=== PATIENT | female | born 1940 | race Caucasian/White ===

== ENCOUNTER 2021-11-09 11:58 | Observation (INO) ==
[2021-11-09 12:59] LABS: Basophils # (auto) 0.03 K/uL (0-0.2); Basophils % (auto) 0.4 %; Eosinophils # (auto) 0.23 K/uL (0-0.5); Eosinophils % (auto) 3.3 %; Hematocrit (blood only) 41.9 % (37-47); Hemoglobin 14.9 g/dL (12.0-16.0); Immature Granulocytes # (auto) 0.07 K/uL (0.00-0.02); Lymphocytes # (auto) 2.83 K/uL (1.2-3.4); Lymphocytes % (auto) 41.1 %; Mean Corpuscular Hemoglobin 32.9 pg (25-34); Mean Corpuscular Hgb Conc 35.6 g/dL (32-36); Mean Corpuscular Volume 92.5 fL (80-100); Mean Platelet Volume 9.7 fL (7.4-10.4); Monocytes # (auto) 0.66 K/uL (0.11-0.59); Monocytes % (auto) 9.6 %; Neutrophils # (auto) 3.06 K/uL (1.4-6.5); Neutrophils % (auto) 44.6 %; Platelet Count 182 K/uL (130-400); RDW Coefficient of Variation 12.4 % (11.5-14.5); RDW Standard Deviation 42.1 fL (36.4-46.3); Red Blood Count 4.53 M/uL (4.2-5.4); White Blood Count 6.88 K/uL (4.8-10.8)
[2021-11-09 13:10] LABS: Partial Thromboplastin Ratio 0.9; Partial Thromboplastin Time 24.5 Seconds (21.0-31.0); Prothrombin Time 10.2 Seconds (9.0-12.0)
[2021-11-09 13:16] LABS: Alanine Aminotransferase 44 (12-78); Albumin Level 3.8 gm/dl (3.4-5.0); Aspartate Aminotransferase 31 U/L (15-37); Blood Urea Nitrogen 16 mg/dl (7-18); Calcium 10.2 mg/dl (8.5-10.1); Carbon Dioxide 26 mmol/L (21-32); Chloride 103 mmol/L (98-107); Creatinine Clr Calc Pharmacy 38.5 ml/min; Est GFR (Non-African American) 63.8 ml/min; Glucose 141 mg/dl (70-99); Magnesium 1.8 mg/dl (1.8-2.4); Potassium 3.3 mmol/L (3.5-5.1); Sodium 137 mmol/L (136-145)
--- NOTE | 2021-11-09 13:19 | XRay Report ---
XR chest 1V portable CLINICAL HISTORY: Stroke Like Symptoms TECHNIQUE: Single frontal radiograph of the chest was obtained. Comparison: None available at the time of this dictation. FINDINGS: No lines and tubes are seen. The aorta is tortuous. The remainder of the cardiomediastinal silhouette is unremarkable. The lungs are clear. No evidence of pleural effusion or pneumothorax. IMPRESSION: No acute chest disease. ACT 112: Negative or not required by law. Electronically signed by: Iron Julio M.D. 11/09/2021 1:17 PM
[2021-11-09 13:21] LABS: Albumin Globulin Ratio 0.9 (0.9-2); Alkaline Phosphatase 46 U/L (45-117); Bilirubin,Total 0.2 mg/dl (0.2-1); Globulin 4.2 gm/dl (2.5-4.0); Troponin I < 0.015 ng/ml (0-0.045)
[2021-11-09 13:49] LABS: Influenza A virus by PCR Negative (Neg); Influenza B virus by PCR Negative (Neg); RSV by PCR Negative (Neg); SARS CoV2 RNA(COVID-19) InHosp NEGATIVE (Negative)
[2021-11-09] MEDS ORDERED: OPTIRAY 320 125ml IV ONE (13:56)
--- NOTE | 2021-11-09 14:31 | CT Scan Report ---
CT angio head w con, CT head/brain wo con, CT angio neck with con CLINICAL HISTORY: Stroke Like Symptoms numbness on left side of face starting yesterday TECHNIQUE: Contiguous axial CT images of the head were acquired from the base of the skull to the rissa porfirio without intravenous contrast administration. CT angiography of the head and neck was performed f ollowing intravenous administration of iodinated contrast. Coronal and sagittal MIPS were obtained fr om the axial data set and were submitted for review. Automated dose lowering techniques and/or adjus tment according to patient size were utilized for this examination. All measurements were calculated based on NASCET criteria. Comparison: None available at the time of this dictation. FINDINGS: CT head: There is no acute intracranial hemorrhage or evidence of acute territorial infarction. No sh ift of the midline structures, mass effect, or extra-axial abnormalities are shown. There is an ill-d efined hypodensity in the right frontoparietal white matter. CTA Neck: A 3 vessel aortic arch is shown. There is no significant atherosclerotic plaque in the aor tic arch or the origins of the innominate, left common carotid, and left subclavian arteries. The c ommon carotid, external carotid, cervical segments of the internal carotid arteries, and the cervical segments of the vertebral arteries are patent without hemodynamically significant stenosis. The left vertebral artery is dominant. Lungs and soft tissues are unremarkable. CTA Head: The anterior and posterior cerebral circulations are patent. No hemodynamically significan t stenosis, aneurysm, dissection, or arteriovenous malformation is shown. Atherosclerotic disease is noted. IMPRESSION: 1. There is an ill-defined right hypodensity in the supraventricular white matter without involvemen t of the overlying cortex. There is no corresponding stenosis or interruption in the major intracrani al arteries, although occlusion of a small regional superior MCA division branch cannot be excluded. This is favored to represent chronic white matter changes, although a small lacunar infarct cannot be excluded. If there is clinical concern, MRI can be performed. 2. No occlusion, hemodynamically significant stenosis, or dissection in the major cervical arteries. Assessment of stenosis of the internal carotid arteries is based on NASCET criteria. ACT 112: Negative or not required by law. Electronically signed by: Iron Julio M.D. 11/09/2021 2:30 PM
--- NOTE | 2021-11-09 15:30 | History & Physical Report ---
Date of Service November 09, 2021 Assessment & Plan (1) CVA (cerebral vascular accident): Plan: Question of supraventricular hypodensity in the right white matter on CT, concerning for MCA distribution CVA Will admit under stroke protocol MRI of the brain 2D echo Continue low-dose aspirin. If MRI does infectious CVA, will need to add Plavix Check fasting lipids. Patient stated allergy to statins, may be limited in useful intervention if elevated PT/OT We will ask neurology to evaluate for further recommendations (2) Dyslipidemia: Plan: As noted above, will check fasting lipids. Noted intolerance to statins. Also note allergy to gemfibrozil. (3) GERD (gastroesophageal reflux disease): Plan: Noted in history, not on medication. Patient with dysphagia issues, will start pantoprazole 40 mg daily empirically Will ask speech therapy to evaluate Consider GI consultation (4) Hypertension: Plan: Permissive hypertension for the next 24 hours. We will hold carvedilol, HCTZ and amlodipine Okay to reintroduce these in the morning of 11/10 if necessary History of Present Illness Chief Complaint: Left-sided numbness Primary Care Provider: Clara Sarkar DO This is an 81-year-old female with past medical history of sacroiliitis, hypertension, GERD, and dyslipidemia that presents with left-sided numbness. Patient is a decent historian about somewhat limited on details. Patient's daughter is at bedside but she was not aware of complaints until just prior to admission. Patient tells me she was normal when she woke up yesterday. However, not soon after breakfast she started to experience some numbness. This was localized to the left side and involved her forehead and face down her shoulder to her left upper extremity. She also noted issues down her leg as well. She was not specific about exactly what parts were numb or when this resolved but it seems to be much improved since she came to the hospital. She denies any speech difficulties or vision issues. She did note a headache which was in the left temporal region which is also resolved. She noted some ataxia but denies any specific muscle weakness. She also noted some lack of coordination to her left upper extremity which is also resolved. Patient felt the symptoms would resolve and did not make anybody aware of this. She went to bed that night and woke up the next morning with what she perceived was worsening symptoms in her left leg. Her daughter called her early in the morning and the patient disclosed what it happened the day before. The daughter does note that she did not note any speech irregularities during this conversation. At the time my evaluation, the patient seems to be back to baseline, is moving all extremities and has a relatively benign exam. Of note, the patient did note that she had an elevated blood pressure yesterday when she checked on her home cuff but cannot remember exactly what the values were. Her blood pressure here in the emergency room is 160/87. Daughter also mentioned the patient has been having some issues with swallowing. She seems to have some issues initiating the swallow after chewing and this has been going on for several weeks. The symptoms preceded the stroke symptoms as described above. Patient has a habit of holding food and liquids in her mouth and then spitting them out rather than swallowing. Allergies Allergy/AdvReac Type Severity Reaction Status Date / Time doxycycline AdvReac Mild decreased Verified 11/09/21 13:06 urine output escitalopram AdvReac Mild decreased Verified 11/09/21 13:06 urine output prednisone AdvReac Mild feels Verified 11/09/21 13:06 agitated amoxicillin AdvReac upset Verified 11/09/21 13:06 stomach ciprofloxacin [From Cipro] AdvReac Diarrhea Verified 11/09/21 13:06 fluticasone AdvReac Dizziness Verified 11/09/21 13:06 gabapentin AdvReac abdominal Verified 11/09/21 13:06 pain and drowsy gemfibrozil [From Lopid] AdvReac upset Verified 11/09/21 13:06 stomach irbesartan AdvReac Diarrhea Verified 11/09/21 13:06 lisinopril AdvReac hypertension Verified 11/09/21 13:06 and diarrhea meclizine AdvReac Drowsy Verified 08/08/21 14:25 pitavastatin [From Livalo] AdvReac Unknown Verified 08/08/21 14:25 Ebgorot-NVU-UqJ Reductase AdvReac myalgia Verified 08/08/21 14:25 Inhibitor [Ezdafzb-Anq-Jxc Reductase Inhibitor] tizanidine AdvReac nightmares Verified 08/08/21 14:25 tramadol AdvReac insomnia/pr Verified 08/08/21 14:25 uitus trazodone AdvReac Unknown Verified 08/08/21 14:25 Home Medications Medication Instructions Recorded Confirmed Type aspirin 81 mg tablet,delayed 81 mg PO DAILY 08/20/19 11/09/21 History release (Aspirin Low Dose) wazsnwrlrzsk-lpuigitn-zgftib tablet 1 tab PO DAILY 08/20/19 11/09/21 History vitamin B complex (B 1 tab PO DAILY 08/20/19 11/09/21 History Complex-Vitamin B12) magnesium oxide 400 mg PO DAILY cap 09/02/19 11/09/21 History pantoprazole 40 mg tablet,delayed 40 mg PO DAILY #90 tab 03/30/21 11/09/21 Rx release (Protonix) calcium carbonate 600 mg-vitamin 1 tab PO BID #60 tab 05/10/21 11/09/21 Rx D3 10 mcg (400 unit) tablet (Calcium 600 + D(3)) fluticasone propionate 50 1 spray INTNAS DAILY #15.8 ml 07/18/21 11/09/21 Rx mcg/actuation nasal spray,suspension (Flonase Allergy Relief) amlodipine 5 mg tablet 5 mg PO BID #180 tab 07/24/21 11/09/21 Rx lidocaine 4 % topical patch 1 patch TOPICAL Q24H PRN #30 ea 07/24/21 11/09/21 Rx hydrochlorothiazide 12.5 mg tablet 12.5 mg PO DAILY #90 tab 08/20/21 11/09/21 Rx potassium chloride 10 mEq 10 meq PO DAILY #90 cap 08/20/21 11/09/21 Rx capsule,extended release fluticasone 100 mcg-salmeterol 50 1 inh INHALATION BID #180 ea 08/29/21 11/09/21 Rx mcg/dose blistr powdr for inhalation (Advair Diskus) carvedilol 12.5 mg tablet 12.5 mg PO BID #180 tab 10/01/21 11/09/21 Rx alprazolam 0.5 mg tablet 0.25 mg PO HS 11/09/21 11/09/21 History omega-3 acid ethyl esters 1 gram 1 cap PO DAILY 11/09/21 11/09/21 History capsule Past Med/Surg History Medical History Anxiety and depression Arthritis of wrist Chronic kidney disease, stage 3 (moderate) Dyslipidemia GERD (gastroesophageal reflux disease) History of recurrent TIAs Hypertension Insomnia Lumbar facet joint syndrome Lumbar pain with radiation down left leg Mild cognitive impairment Osteopenia Prediabetes Sacroiliitis Spinal stenosis, lumbar region without neurogenic claudication Venous insufficiency (chronic) (peripheral) Surgical History History of carpal tunnel surgery Hx of neck surgery secondary to cervical herniated discs Previous back surgery x3 S/P appendectomy S/P blepharoplasty S/P cholecystectomy Family History Father Myocardial infarction Prostate cancer Coronary heart disease Mother , 76 Stroke, Onset Age: 72 Myocardial infarction, Onset Age: 76 Hypertension Diabetes Brother Cancer Sister , 71 Hodgkins disease Sister Coronary heart disease Brother Diabetes Denies family history of Ovarian cancer Breast cancer Colorectal cancer Social History Smoking Status: Never smoker Second Hand Exposure: No; Hx Alcohol Use: No Hx Substance Use: No Preferred Language: Greenlandic Visual Impairment: Limited Hearing Ability: Normal 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 current occupational status: retired Feels Safe at Home: Yes Childhood Exposure to Second-Hand Smoke: No Diet Comment: low sugar caffeine: No during the past year weight has: remained stable Dental Care, Regularly: No Physical Activity Frequency: Other Seatbelt Use: always Sunscreen Use: Yes Review of Systems Constitutional: no fever, no chills, no weakness, no weight loss and no weight gain Eyes: as per Subjective / HPI Respiratory: no cough, no chest congestion, no dyspnea and no dyspnea on exertion Cardiovascular: no chest pain, no orthopnea, no palpitations, no lightheadedness and no edema Gastrointestinal: as per Subjective / HPI; no abdominal pain, no belching, no heartburn, no nausea, no vomiting, no constipation and no diarrhea/loose stools Genitourinary: no dysuria, no difficulty urinating, no urinary frequency, no urinary hesitancy, no urinary urgency and no flank pain Musculoskeletal: no back pain, no neck pain, no joint pain, no stiffness and no myalgia Integumentary: no rash Neurologic: as per Subjective / HPI, + unsteadiness, + loss of sensation, + lack of coordination and + headache(s); no gait abnormality, no falls, no generalized weakness, no radiating pain, no dizziness, no abnormal speech, no confusion and no memory loss Physical Exam Constitutional: cooperative; no acute distress Neck: trachea midline, no thyromegaly No JVD, no carotid bruit Respiratory: normal respiratory effort Auscultation: lungs clear to auscultation bilaterally; no crackles, no rales, no rhonchi and no wheezes Cardiovascular: Rate/Rhythm: regular rate and regular rhythm Heart Sounds: normal S1 and normal S2 Gastrointestinal (Abdomen): Inspection/Auscultation: abdomen normal to in spection Percussion/Palpation: abdomen soft; abdomen nontender, no guarding, abdomen not rigid and no hepatosplenomegaly Skin: no rashes, warm and dry Neurologic: patellar DTR's 2+ bilat, sensation intact and PERRL, EOMI, accommodation nl, no face palsy, no dysarthria Speech / Cognition: normal speech Results & Data Results & Data ([facility]) Vital Signs (Past 12 Hours) Vital Signs Temp Pulse Pulse Resp BP BP Pulse Ox 11/09/21 14:21 80 15 160/87 H 96 11/09/21 12:23 64 13 163/101 H 95 11/09/21 12:03 36.5 C 64 18 168/85 H 96 Laboratory Results Laboratory Results WBC 6.88 K/uL (4.8-10.8) 11/09/21 12:15 RBC 4.53 M/uL (4.2-5.4) 11/09/21 12:15 Hgb 14.9 g/dL (12.0-16.0) 11/09/21 12:15 Hct 41.9 % (37-47) 11/09/21 12:15 MCV 92.5 fL (80-100) 11/09/21 12:15 MCH 32.9 pg (25-34) 11/09/21 12:15 MCHC 35.6 g/dL (32-36) 11/09/21 12:15 RDW Std Deviation 42.1 fL (36.4-46.3) 11/09/21 12:15 RDW Coeff of Johan 12.4 % (11.5-14.5) 11/09/21 12:15 Plt Count 182 K/uL (130-400) 11/09/21 12:15 MPV 9.7 fL (7.4-10.4) 11/09/21 12:15 Immature Gran % (Auto) 1.0 % 11/09/21 12:15 Neut % (Auto) 44.6 % 11/09/21 12:15 Lymph % (Auto) 41.1 % 11/09/21 12:15 [place] % (Auto) 9.6 % 11/09/21 12:15 Eos % (Auto) 3.3 % 11/09/21 12:15 Baso % (Auto) 0.4 % 11/09/21 12:15 Neut # (Auto) 3.06 K/uL (1.4-6.5) 11/09/21 12:15 Lymph # (Auto) 2.83 K/uL (1.2-3.4) 11/09/21 12:15 [place] # (Auto) 0.66 K/uL (0.11-0.59) H 11/09/21 12:15 Eos # (Auto) 0.23 K/uL (0-0.5) 11/09/21 12:15 Baso # (Auto) 0.03 K/uL (0-0.2) 11/09/21 12:15 Immature Gran # (Auto) 0.07 K/uL (0.00-0.02) H 11/09/21 12:15 PT 10.2 Seconds (9.0-12.0) 11/09/21 12:15 INR 1.0 (0.9-1.1) 11/09/21 12:15 APTT 24.5 Seconds (21.0-31.0) 11/09/21 12:15 PTT Ratio 0.9 11/09/21 12:15 Sodium 137 mmol/L (136-145) 11/09/21 12:15 Potassium 3.3 mmol/L (3.5-5.1) L 11/09/21 12:15 Chloride 103 mmol/L (98-107) 11/09/21 12:15 Carbon Dioxide 26 mmol/L (21-32) 11/09/21 12:15 Anion Gap 8.0 (3-11) 11/09/21 12:15 BUN 16 mg/dl (7-18) 11/09/21 12:15 Creatinine 0.85 mg/dl (0.6-1.2) 11/09/21 12:15 Est Cr Clr Drug Dosing 38.5 ml/min 11/09/21 12:15 Est GFR ( Amer) 74.0 ml/min 11/09/21 12:15 Est GFR (Non-Af Amer) 63.8 ml/min 11/09/21 12:15 BUN/Creatinine Ratio 19.0 (10-20) 11/09/21 12:15 Glucose 141 mg/dl (70-99) H 11/09/21 12:15 POC Glucose 125 mg/dl (70-99) H 11/09/21 12:43 Calcium 10.2 mg/dl (8.5-10.1) H 11/09/21 12:15 Magnesium 1.8 mg/dl (1.8-2.4) 11/09/21 12:15 Total Bilirubin 0.2 mg/dl (0.2-1) 11/09/21 12:15 AST 31 U/L (15-37) 11/09/21 12:15 ALT 44 (12-78) 11/09/21 12:15 Alkaline Phosphatase 46 U/L (45-117) 11/09/21 12:15 Troponin I < 0.015 ng/ml (0-0.045) 11/09/21 12:15 Total Protein 8.0 gm/dl (6.4-8.2) 11/09/21 12:15 Albumin 3.8 gm/dl (3.4-5.0) 11/09/21 12:15 Globulin 4.2 gm/dl (2.5-4.0) H 11/09/21 12:15 Albumin/Globulin Ratio 0.9 (0.9-2) 11/09/21 12:15 SARS-CoV-2 (PCR) NEGATIVE (Negative) 11/09/21 12:56 Influenza Type A (PCR) Negative (Neg) 11/09/21 12:56 Influenza Type B (PCR) Negative (Neg) 11/09/21 12:56 RSV (RT-PCR) Negative (Neg) 11/09/21 12:56 Impressions Chest X-Ray 11/09/21 12:50 XR chest 1V portable CLINICAL HISTORY: Stroke Like Symptoms TECHNIQUE: Single frontal radiograph of the chest was obtained. Comparison: None available at the time of this dictation. FINDINGS: No lines and tubes are seen. The aorta is tortuous. The remainder of the cardiomediastinal silhouette is unremarkable. The lungs are clear. No evidence of pleural effusion or pneumothorax. IMPRESSION: No acute chest disease. ACT 112: Negative or not required by law. Electronically signed by: Iron Julio M.D. 11/09/2021 1:[address] 11/09/21 12:50 CT angio head w con, CT head/brain wo con, CT angio neck with con CLINICAL HISTORY: Stroke Like Symptoms numbness on left side of face starting yesterday TECHNIQUE: Contiguous axial CT images of the head were acquired from the base of the skull to the vertex without intravenous contrast administration. CT angiography of the head and neck was performed following intravenous administration of iodinated contrast. Coronal and sagittal MIPS were obtained from the axial data set and were submitted for review. Automated dose lowering techniques and/or adjustment according to patient size were utilized for this examination. All measurements were calculated based on NASCET criteria. Comparison: None available at the time of this dictation. FINDINGS: CT head: There is no acute intracranial hemorrhage or evidence of acute territorial infarction. No shift of the midline structures, mass effect, or extra-axial abnormalities are shown. There is an ill-defined hypodensity in the right frontoparietal white matter. CTA Neck: A 3 vessel aortic arch is shown. There is no significant atherosclerotic plaque in the aortic arch or the origins of the innominate, left common carotid, and left subclavian arteries. The common carotid, external carotid, cervical segments of the internal carotid arteries, and the cervical segments of the vertebral arteries are patent without hemodynamically significant stenosis. The left vertebral artery is dominant. Lungs and soft tissues are unremarkable. CTA Head: The anterior and posterior cerebral circulations are patent. No hemodynamically significant stenosis, aneurysm, dissection, or arteriovenous malformation is shown. Atherosclerotic disease is noted. IMPRESSION: 1. There is an ill-defined right hypodensity in the supraventricular white matter without involvement of the overlying cortex. There is no corresponding stenosis or interruption in the major intracranial arteries, although occlusion of a small regional superior MCA division branch cannot be excluded. This is favored to represent chronic white matter changes, although a small lacunar infarct cannot be excluded. If there is clinical concern, MRI can be performed. 2. No occlusion, hemodynamically significant stenosis, or dissection in the major cervical arteries. Assessment of stenosis of the internal carotid arteries is based on NASCET criteria. ACT 112: Negative or not required by law. Electronically signed by: Iron Julio M.D. 11/09/2021 2:30 PM Head CTA 11/09/21 12:50 CT angio head w con, CT head/brain wo con, CT angio neck with con CLINICAL HISTORY: Stroke Like Symptoms numbness on left side of face starting yesterday TECHNIQUE: Contiguous axial CT images of the head were acquired from the base of the skull to the vertex without intravenous contrast administration. CT angiography of the head and neck was performed following intravenous administration of iodinated contrast. Coronal and sagittal MIPS were obtained from the axial data set and were submitted for review. Automated dose lowering techniques and/or adjustment according to patient size were utilized for this examination. All measurements were calculated based on NASCET criteria. Comparison: None available at the time of this dictation. FINDINGS: CT head: There is no acute intracranial hemorrhage or evidence of acute territorial infarction. No shift of the midline structures, mass effect, or extra-axial abnormalities are shown. There is an ill-defined hypodensity in the right frontoparietal white matter. CTA Neck: A 3 vessel aortic arch is shown. There is no significant atherosclerotic plaque in the aortic arch or the origins of the innominate, left common carotid, and left subclavian arteries. The common carotid, external carotid, cervical segments of the internal carotid arteries, and the cervical s egments of the vertebral arteries are patent without hemodynamically significant stenosis. The left vertebral artery is dominant. Lungs and soft tissues are unremarkable. CTA Head: The anterior and posterior cerebral circulations are patent. No hemodynamically significant stenosis, aneurysm, dissection, or arteriovenous malformation is shown. Atherosclerotic disease is noted. IMPRESSION: 1. There is an ill-defined right hypodensity in the supraventricular white matter without involvement of the overlying cortex. There is no corresponding stenosis or interruption in the major intracranial arteries, although occlusion of a small regional superior MCA division branch cannot be excluded. This is favored to represent chronic white matter changes, although a small lacunar infarct cannot be excluded. If there is clinical concern, MRI can be performed. 2. No occlusion, hemodynamically significant stenosis, or dissection in the major cervical arteries. Assessment of stenosis of the internal carotid arteries is based on NASCET criteria. ACT 112: Negative or not required by law. Electronically signed by: Iron Julio M.D. 11/09/2021 2:30 PM Neck CTA 11/09/21 12:50 CT angio head w con, CT head/brain wo con, CT angio neck with con CLINICAL HISTORY: Stroke Like Symptoms numbness on left side of face starting yesterday TECHNIQUE: Contiguous axial CT images of the head were acquired from the base of the skull to the vertex without intravenous contrast administration. CT angiography of the head and neck was performed following intravenous administration of iodinated contrast. Coronal and sagittal MIPS were obtained from the axial data set and were submitted for review. Automated dose lowering techniques and/or adjustment according to patient size were utilized for this examination. All measurements were calculated based on NASCET criteria. Comparison: None available at the time of this dictation. FINDINGS: CT head: There is no acute intracranial hemorrhage or evidence of acute territorial infarction. No shift of the midline structures, mass effect, or extra-axial abnormalities are shown. There is an ill-defined hypodensity in the right frontoparietal white matter. CTA Neck: A 3 vessel aortic arch is shown. There is no significant atherosclerotic plaque in the aortic arch or the origins of the innominate, left common carotid, and left subclavian arteries. The common carotid, external carotid, cervical segments of the internal carotid arteries, and the cervical segments of the vertebral arteries are patent without hemodynamically significant stenosis. The left vertebral artery is dominant. Lungs and soft tissues are unremarkable. CTA Head: The anterior and posterior cerebral circulations are patent. No hemodynamically significant stenosis, aneurysm, dissection, or arteriovenous malformation is shown. Atherosclerotic disease is noted. IMPRESSION: 1. There is an ill-defined right hypodensity in the supraventricular white matter without involvement of the overlying cortex. There is no corresponding stenosis or interruption in the major intracranial arteries, although occlusion of a small regional superior MCA division branch cannot be excluded. This is favored to represent chronic white matter changes, although a small lacunar infarct cannot be excluded. If there is clinical concern, MRI can be performed. 2. No occlusion, hemodynamically significant stenosis, or dissection in the major cervical arteries. Assessment of stenosis of the internal carotid arteries is based on NASCET criteria. ACT 112: Negative or not required by law. Electronically signed by: Iron Julio M.D. 11/09/2021 2:30 PM PG Care Time/CCT Total # of Minutes Spent Total Time Spent with Patient: Total time spent is greater than 50% in coordination of care (as documented) at patient's floor/unit and/or counseling patient: Coding Level of Care Code 84719 Initial Inpt Care Lvl 3 Diagnoses CVA (cerebral vascular accident) I63.9 Dyslipidemia E78.5 GERD (gastroesophageal reflux disease) K21.9 Hypertension I10
--- NOTE | 2021-11-09 16:20 | Electrocardiogram Report ---
Test Reason : Blood Pressure : / mmHG Vent. Rate : 061 BPM Atrial Rate : 061 BPM P-R Int : 224 ms QRS Dur : 084 ms QT Int : 420 ms P-R-T Axes : 034 -06 030 degrees QTc Int : 422 ms Poor data quality, interpretation may be adversely affected Sinus rhythm with 1st degree A-V block Poor R wave progression, consider anterior OK vs. lead placement vs. LVH Abnormal ECG No previous ECGs available Confirmed by Popeye Courtney ([id number]) on 11/09/2021 4:20:27 PM Referred By: Clara Sarkar Confirmed By:Popeye Courtney
--- NOTE | 2021-11-09 17:41 | Emergency Department Note ---
Impression & Plan CVA (cerebral vascular accident), Hypertension, Prediabetes ED Provider Note CHIEF COMPLAINT: Left facial, left arm and leg numbness HISTORY OF PRESENT ILLNESS: This 81-year-old female patient presents to the emergency department presents the emergency department with complaints of left facial numbness, left arm and left leg numbness that began yesterday. Patient states symptoms have been persistent throughout the day however the left leg became involved just today. She denies any weakness, speech difficulties or facial droop. She denies any significant confusion or visual changes. She denies any headache, fever, chest pain, shortness of breath, vomiting. Patient denies any recent falls or head injuries. Patient's daughter complains of a "liquid" that she coughs up every morning. She is wondering if the patient needs a "fluid pill or if she has reflux. REVIEW OF SYSTEMS: A review of systems was performed with positives and pertinent negatives listed in the history of present illness. 10 systems were reviewed and are otherwise negative. ALLERGIES: see below MEDICATIONS: see below PMH: see below SOCIAL HISTORY: see below DDx: Infection, dehydration, metabolic abnormality, hypo/hyperglycemia, electrolyte disturbance, anemia, hypoxia, cardiac sources, intracerebral event, toxicologic, neurologic, as well as other pathologies. PHYSICAL EXAM: Vital signs reviewed. General: Well-appearing 81 yo female, in no significant distress. HEENT: No scleral icterus, PERRLA, neck supple. Atraumatic. Cardiovascular: Regular rate and rhythm, no extra sounds. Pulmonary: Clear to auscultation bilaterally, normal work of breathing. Abdomen: Soft, nontender, nondistended, positive bowel sounds. Musculoskeletal: Atraumatic, no peripheral edema. Neurologic: Patient awake alert and oriented x 3, cranial nerves II through XII are grossly intact. Negative facial droop. Speech is clear, negative pronator drift, intact [id number]-[id number]. Equal strength in all 4 extremities. Skin: Warm, dry, no rash EMERGENCY DEPARTMENT COURSE/MDM: This patient was evaluated and appeared to be in no significant distress. IV access was obtained and laboratory work was drawn. The patient was placed on a cardiac cath tech and noted to be in a sinus him with a first-degree AV block. CT imaging of the head with CT angiogram of the head and neck was performed and is read as an ill-defined hypodensity at the right supraventricular white matter. Given the patient's concerning presentation and hyper tension and with her advanced age, she is to be at risk for CVA. The hospitalist service has been contacted for further evaluation and management. Patient and her are aware of the plan and agreed. MONITORING: An order for cardiac monitoring was placed and the patient is noted to be in a sinus rhythm with a first-degree AV block at 80 bpm RADIOLOGY: See below EKG: Sinus rhythm with a first-degree AV block at 61 bpm. Poor R wave progression. QTC is 422. No PVC, PAC. Poor quality baseline for interpretation however there is a repolarization abnormality/T wave abnormality. DISPOSITION: Hospitalist evaluation Past Med/Surg History Medical History Anxiety and depression Arthritis of wrist Chronic kidney disease, stage 3 (moderate) Dyslipidemia GERD (gastroesophageal reflux disease) History of recurrent TIAs Hypertension Insomnia Lumbar facet joint syndrome Lumbar pain with radiation down left leg Mild cognitive impairment Osteopenia Prediabetes Sacroiliitis Spinal stenosis, lumbar region without neurogenic claudication Venous insufficiency (chronic) (peripheral) Surgical History History of carpal tunnel surgery Hx of neck surgery secondary to cervical herniated discs Previous back surgery x3 S/P appendectomy S/P blepharoplasty S/P cholecystectomy Family History Father Myocardial infarction Prostate cancer Coronary heart disease Mother , 76 Stroke, Onset Age: 72 Myocardial infarction, Onset Age: 76 Hypertension Diabetes Brother Cancer Sister , 71 Hodgkins disease Sister Coronary heart disease Brother Diabetes Denies family history of Ovarian cancer Breast cancer Colorectal cancer Social History Smoking Status: Never smoker Second Hand Exposure: No; Hx Alcohol Use: No Hx Substance Use: No Preferred Language: Vincentian Visual Impairment: Limited Hearing Ability: Normal [employer] Required: No Beliefs That Will Affect Care: None marital status: Current Living Situation: Alone Current Living Situation Comment: Lives [facility] current occupational status: retired Feels Safe at Home: Yes Childhood Exposure to Second-Hand Smoke: No Diet Comment: low sugar caffeine: No during the past year weight has: remained stable Dental Care, Regularly: No Physical Activity Frequency: Other Seatbelt Use: always Sunscreen Use: Yes Allergies Allergies Allergy/AdvReac Type Severity Reaction Status Date / Time doxycycline AdvReac Mild decreased Verified 11/09/21 13:06 urine output escitalopram AdvReac Mild decreased Verified 11/09/21 13:06 urine output prednisone AdvReac Mild feels Verified 11/09/21 13:06 agitated amoxicillin AdvReac upset Verified 11/09/21 13:06 stomach ciprofloxacin [From Cipro] AdvReac Diarrhea Verified 11/09/21 13:06 fluticasone AdvReac Dizziness Verified 11/09/21 13:06 gabapentin AdvReac abdominal Verified 11/09/21 13:06 pain and drowsy gemfibrozil [From Lopid] AdvReac upset Verified 11/09/21 13:06 stomach irbesartan AdvReac Diarrhea Verified 11/09/21 13:06 lisinopril AdvReac hypertension Verified 11/09/21 13:06 and diarrhea meclizine AdvReac Drowsy Verified 08/08/21 14:25 pitavastatin [From Livalo] AdvReac Unknown Verified 08/08/21 14:25 Sallinb-UUT-PtZ Reductase AdvReac myalgia Verified 08/08/21 14:25 Inhibitor [Nbexdpg-Rfy-Tso Reductase Inhibitor] tizanidine AdvReac nightmares Verified 08/08/21 14:25 tramadol AdvReac insomnia/pr Verified 08/08/21 14:25 uitus trazodone AdvReac Unknown Verified 08/08/21 14:25 Home Meds Home Medications Medication Instructions Recorded Confirmed aspirin 81 mg tablet,delayed 81 mg PO DAILY 08/20/19 11/09/21 release (Aspirin Low Dose) qboeostdfwic-eexbkakl-qfrakx tablet 1 tab PO DAILY 08/20/19 11/09/21 vitamin B complex (B 1 tab PO DAILY 08/20/19 11/09/21 Complex-Vitamin B12) magnesium oxide 400 mg PO DAILY cap 09/02/19 11/09/21 alprazolam 0.5 mg tablet 0.25 mg PO HS 11/09/21 11/09/21 omega-3 acid ethyl esters 1 gram 1 cap PO DAILY 11/09/21 11/09/21 capsule Previous Rx's Medication Instructions Recorded pantoprazole 40 mg tablet,delayed 40 mg PO DAILY #90 tab 03/30/21 release (Protonix) calcium carbonate 600 mg-vitamin 1 tab PO BID #60 tab 05/10/21 D3 10 mcg (400 unit) tablet (Calcium 600 + D(3)) fluticasone propionate 50 1 spray INTNAS DAILY #15.8 ml 07/18/21 mcg/actuation nasal spray,suspension (Flonase Allergy Relief) amlodipine 5 mg tablet 5 mg PO BID #180 tab 07/24/21 lidocaine 4 % topical patch 1 patch TOPICAL Q24H PRN #30 ea 07/24/21 hydrochlorothiazide 12.5 mg tablet 12.5 mg PO DAILY #90 tab 08/20/21 potassium chloride 10 mEq 10 meq PO DAILY #90 cap 08/20/21 capsule,extended release fluticasone 100 mcg-salmeterol 50 1 inh INHALATION BID #180 ea 08/29/21 mcg/dose blistr powdr for inhalation (Advair Diskus) carvedilol 12.5 mg tablet 12.5 mg PO BID #180 tab 10/01/21 Results & Data (ED) Vital Signs Vital Signs - 24 hr 11/09/21 12:03 11/09/21 12:23 11/09/21 14:21 Temperature 36.5 C Temperature Source Temporal Artery Scan Pulse Rate 64 Pulse Rate [Apical] 64 80 Pulse Rhythm [Apical] Regular Regular Pulse Strength [Apical] Normal Normal Respiratory Rate 18 13 15 Respiratory Effort / Characteristics Non-Labored Non-Labored Respiratory Depth Normal Normal Respiratory Pattern Regular Blood Pressure 168/85 H Blood Pressure [Right Arm] 163/101 H 160/87 H Blood Pressure Mean 112 Blood Pressure Mean [Right Arm] 121 111 Blood Pressure Position Sitting Blood Pressure Position [Right Arm] Sitting Sitting Pulse Oximetry 96 95 96 Oxygen Delivery Method Room Air Room Air Room Air Oxygen Flow Rate 95 Sepsis Recent Fever Within 48 Hours No Sepsis New/Unexplained Change in Mental Status No Sepsis Action Taken by Nursing No Action Required 11/09/21 18:00 Temperature Temperature Source Pulse Rate Pulse Rate [Apical] 74 Pulse Rhythm [Apical] Regular Pulse Strength [Apical] Respiratory Rate 16 Respiratory Effort / Characteristics Non-Labored Respiratory Depth Normal Respiratory Pattern Blood Pressure Blood Pressure [Right Arm] 128/62 Blood Pressure Mean Blood Pressure Mean [Right Arm] 84 Blood Pressure Position Blood Pressure Position [Right Arm] Pulse Oximetry 99 Oxygen Delivery Method Room Air Oxygen Flow Rate Sepsis Recent Fever Within 48 Hours Sepsis New/Unexplained Change in Mental Status Sepsis Action Taken by [facility] Medications Current Medication List: was personally reviewed by me Laboratory Data Attestation: I reviewed the patient's lab results. Result diagrams: 11/09/21 12:15 11/09/21 12:15 Lab Results 11/09/21 11/09/21 11/09/21 Range/Units 12:15 12:15 12:15 WBC 6.88 (4.8-10.8) K/uL RBC 4.53 (4.2-5.4) M/uL Hgb 14.9 (12.0-16.0) g/dL Hct 41.9 (37-47) % MCV 92.5 (80-100) fL MCH 32.9 (25-34) pg MCHC 35.6 (32-36) g/dL RDW Std Deviation 42.1 (36.4-46.3) fL RDW Coeff of Johan 12.4 (11.5-14.5) % Plt Count 182 (130-400) K/uL MPV 9.7 (7.4-10.4) fL Immature Gran % (Auto) 1.0 % Neut % (Auto) 44.6 % Lymph % (Auto) 41.1 % [place] % (Auto) 9.6 % Eos % (Auto) 3.3 % Baso % (Auto) 0.4 % Neut # (Auto) 3.06 (1.4-6.5) K/uL Lymph # (Auto) 2.83 (1.2-3.4) K/uL [place] # (Auto) 0.66 H (0.11-0.59) K/uL Eos # (Auto) 0.23 (0-0.5) K/uL Baso # (Auto) 0.03 (0-0.2) K/uL Immature Gran # (Auto) 0.07 H (0.00-0.02) K/uL PT 10.2 (9.0-12.0) Seconds INR 1.0 (0.9-1.1) APTT 24.5 (21.0-31.0) Seconds PTT Ratio 0.9 Sodium 137 (136-145) mmol/L Potassium 3.3 L (3.5-5.1) mmol/L Chloride 103 (98-107) mmol/L Carbon Dioxide 26 (21-32) mmol/L Anion Gap 8.0 (3-11) BUN 16 (7-18) mg/dl Creatinine 0.85 (0.6-1.2) mg/dl Est Cr Clr Drug Dosing 38.5 ml/min Est GFR ( Amer) 74.0 ml/min Est GFR (Non-Af Amer) 63.8 ml/min BUN/Creatinine Ratio 19.0 (10-20) Glucose 141 H (70-99) mg/dl POC Glucose (70-99) mg/dl Calcium 10.2 H (8.5-10.1) mg/dl Magnesium 1.8 (1.8-2.4) mg/dl Total Bilirubin 0.2 (0.2-1) mg/dl AST 31 (15-37) U/L ALT 44 (12-78) Alkaline Phosphatase 46 (45-117) U/L Troponin I < 0.015 (0-0.045) ng/ml Total Protein 8.0 (6.4-8.2) gm/dl Albumin 3.8 (3.4-5.0) gm/dl Globulin 4.2 H (2.5-4.0) gm/dl Albumin/Globulin Ratio 0.9 (0.9-2) SARS-CoV-2 (PCR) (Negative) Influenza Type A (PCR) (Neg) Influenza Type B (PCR) (Neg) RSV (RT-PCR) (Neg) 11/09/21 11/09/21 Range/Units 12:43 12:56 WBC (4.8-10.8) K/uL RBC (4.2-5.4) M/uL Hgb (12.0-16.0) g/dL Hct (37-47) % MCV (80-100) fL MCH (25-34) pg MCHC (32-36) g/dL RDW Std Deviation (36.4-46.3) fL RDW Coeff of Johan (11.5-14.5) % Plt Count (130-400) K/uL MPV (7.4-10.4) fL Immature Gran % (Auto) % Neut % (Auto) % Lymph % (Auto) % [place] % (Auto) % Eos % (Auto) % Baso % (Auto) % Neut # (Auto) (1.4-6.5) K/uL Lymph # (Auto) (1.2-3.4) K/uL [place] # (Auto) (0.11-0.59) K/uL Eos # (Auto) (0-0.5) K/uL Baso # (Auto) (0-0.2) K/uL Immature Gran # (Auto) (0.00-0.02) K/uL PT (9.0-12.0) Seconds INR (0.9-1.1) APTT (21.0-31.0) Seconds PTT Ratio Sodium (136-145) mmol/L Potassium (3.5-5.1) mmol/L Chloride (98-107) mmol/L Carbon Dioxide (21-32) mmol/L Anion Gap (3-11) BUN (7-18) mg/dl Creatinine (0.6-1.2) mg/dl Est Cr Clr Drug Dosing ml/min Est GFR ( Amer) ml/min Est GFR (Non-Af Amer) ml/min BUN/Creatinine Ratio (10-20) Glucose (70-99) mg/dl POC Glucose 125 H (70-99) mg/dl Calcium (8.5-10.1) mg/dl Magnesium (1.8-2.4) mg/dl Total Bilirubin (0.2-1) mg/dl AST (15-37) U/L ALT (12-78) Alkaline Phosphatase (45-117) U/L Troponin I (0-0.045) ng/ml Total Protein (6.4-8.2) gm/dl Albumin (3.4-5.0) gm/dl Globulin (2.5-4.0) gm/dl Albumin/Globulin Ratio (0.9-2) SARS-CoV-2 (PCR) NEGATIVE (Negative) Influenza Type A (PCR) Negative (Neg) Influenza Type B (PCR) Negative (Neg) RSV (RT-PCR) Negative (Neg) Administered Medications Discontinued Medications Ioversol (Optiray 320 125ml) 120 ml IV ONCE ONE Stop: 11/09/21 13:57 Last Admin: 11/09/21 13:57 Dose: 120 ml Documented by: [id number] Imaging Data Radiologist's Impression: Chest X-Ray 11/09/21 12:50 XR chest 1V portable CLINICAL HISTORY: Stroke Like Symptoms TECHNIQUE: Single frontal radiograph of the chest was obtained. Comparison: None available at the time of this dictation. FINDINGS: No lines and tubes are seen. The aorta is tortuous. The remainder of the cardiomediastinal silhouette is unremarkable. The lungs are clear. No evidence of pleural effusion or pneumothorax. IMPRESSION: No acute chest disease. ACT 112: Negative or not required by law. Electronically signed by: Iron Julio M.D. 11/09/2021 1:[address] 11/09/21 12:50 CT angio head w con, CT head/brain wo con, CT angio neck with con CLINICAL HISTORY: Stroke Like Symptoms numbness on left side of face starting yesterday TECHNIQUE: Contiguous axial CT images of the head were acquired from the base of the skull to the vertex without intravenous contrast administration. CT angiography of the head and neck was performed following intravenous administration of iodinated contrast. Coronal and sagittal MIPS were obtained from the axial data set and were submitted for review. Automated dose lowering techniques and/or adjustment according to patient size were utilized for this examination. All measurements were calculated based on NASCET criteria. Comparison: None available at the time of this dictation. FINDINGS: CT head: There is no acute intracranial hemorrhage or evidence of acute territorial infarction. No shift of the midline structures, mass effect, or extra-axial abnormalities are shown. There is an ill-defined hypodensity in the right frontoparietal white matter. CTA Neck: A 3 vessel aortic arch is shown. There is no significant atherosclerotic plaque in the aortic arch or the origins of the innominate, left common carotid, and left subclavian arteries. The common carotid, external carotid, cervical segments of the internal carotid arteries, and the cervical segments of the vertebral arteries are patent without hemodynamically significant stenosis. The left vertebral artery is dominant. Lungs and soft tissues are unremarkable. CTA Head: The anterior and posterior cerebral circulations are patent. No hemodynamically significant stenosis, aneurysm, dissection, or arteriovenous malformation is shown. Atherosclerotic disease is noted. IMPRESSION: 1. There is an ill-defined right hypodensity in the supraventricular white matter without involvement of the overlying cortex. There is no corresponding s tenosis or interruption in the major intracranial arteries, although occlusion of a small regional superior MCA division branch cannot be excluded. This is favored to represent chronic white matter changes, although a small lacunar infarct cannot be excluded. If there is clinical concern, MRI can be performed. 2. No occlusion, hemodynamically significant stenosis, or dissection in the major cervical arteries. Assessment of stenosis of the internal carotid arteries is based on NASCET criteria. ACT 112: Negative or not required by law. Electronically signed by: Iron Julio M.D. 11/09/2021 2:30 PM Head CTA 11/09/21 12:50 CT angio head w con, CT head/brain wo con, CT angio neck with con CLINICAL HISTORY: Stroke Like Symptoms numbness on left side of face starting yesterday TECHNIQUE: Contiguous axial CT images of the head were acquired from the base of the skull to the vertex without intravenous contrast administration. CT angiography of the head and neck was performed following intravenous administration of iodinated contrast. Coronal and sagittal MIPS were obtained from the axial data set and were submitted for review. Automated dose lowering techniques and/or adjustment according to patient size were utilized for this examination. All measurements were calculated based on NASCET criteria. Comparison: None available at the time of this dictation. FINDINGS: CT head: There is no acute intracranial hemorrhage or evidence of acute territorial infarction. No shift of the midline structures, mass effect, or extra-axial abnormalities are shown. There is an ill-defined hypodensity in the right frontoparietal white matter. CTA Neck: A 3 vessel aortic arch is shown. There is no significant atheros clerotic plaque in the aortic arch or the origins of the innominate, left common carotid, and left subclavian arteries. The common carotid, external carotid, cervical segments of the internal carotid arteries, and the cervical segments of the vertebral arteries are patent without hemodynamically significant stenosis. The left vertebral artery is dominant. Lungs and soft tissues are unremarkable. CTA Head: The anterior and posterior cerebral circulations are patent. No hemodynamically significant stenosis, aneurysm, dissection, or arteriovenous malformation is shown. Atherosclerotic disease is noted. IMPRESSION: 1. There is an ill-defined right hypodensity in the supraventricular white matter without involvement of the overlying cortex. There is no corresponding stenosis or interruption in the major intracranial arteries, although occlusion of a small regional superior MCA division branch cannot be excluded. This is favored to represent chronic white matter changes, although a small lacunar infarct cannot be excluded. If there is clinical concern, MRI can be performed. 2. No occlusion, hemodynamically significant stenosis, or dissection in the major cervical arteries. Assessment of stenosis of the internal carotid arteries is based on NASCET criteria. ACT 112: Negative or not required by law. Electronically signed by: Iron Julio M.D. 11/09/2021 2:30 PM Neck CTA 11/09/21 12:50 CT angio head w con, CT head/brain wo con, CT angio neck with con CLINICAL HISTORY: Stroke Like Symptoms numbness on left side of face starting yesterday TECHNIQUE: Contiguous axial CT images of the head were acquired from the base of the skull to the vertex without intravenous contrast administration. CT angiography of the head and neck was performed following intravenous administration of iodinated contrast. Coronal and sagittal MIPS were obtained from the axial data set and were submitted for review. Automated dose lowering techniques and/or adjustment according to patient size were utilized for this examination. All measurements were calculated based on NASCET criteria. Comparison: None available at the time of this dictation. FINDINGS: CT head: There is no acute intracranial hemorrhage or evidence of acute territorial infarction. No shift of the midline structures, mass effect, or extra-axial abnormalities are shown. There is an ill-defined hypodensity in the right frontoparietal white matter. CTA Neck: A 3 vessel aortic arch is shown. There is no significant atherosclerotic plaque in the aortic arch or the origins of the innominate, left common carotid, and left subclavian arteries. The common carotid, external carotid, cervical segments of the internal carotid arteries, and the cervical segments of the vertebral arteries are patent without hemodynamically significant stenosis. The left vertebral artery is dominant. Lungs and soft tissues are unremarkable. CTA Head: The anterior and posterior cerebral circulations are patent. No hemodynamically significant stenosis, aneurysm, dissection, or arteriovenous malformation is shown. Atherosclerotic disease is noted. IMPRESSION: 1. There is an ill-defined right hypodensity in the supraventricular white matter without involvement of the overlying cortex. There is no corresponding stenosis or interruption in the major intracranial arteries, although occlusion of a small regional superior MCA division branch cannot be excluded. This is favored to represent chronic white matter changes, although a small lacunar infarct cannot be excluded. If there is clinical concern, MRI can be performed. 2. No occlusion, hemodynamically significant stenosis, or dissection in the major cervical arteries. Assessment of stenosis of the internal carotid arteries is based on NASCET criteria. ACT 112: Negative or not required by law. Electronically signed by: Iron Julio M.D. 11/09/2021 2:30 PM Blood Pressure Blood Pressure Findings: Elevated blood pressure Blood Pressure Disposition: further management by hospitalist Discharge Plan Visit Data Chief Complaint: Neuro Symptoms/Deficit Stated Complaint: HAD L SIDED NUMBNESS 11-08-21,REF BY DOC FOR TESTING ED Provider: Cuca Arango Patient Disposition: Admitted As Inpatient Prescriptions Prescriptions: No Action pantoprazole [Protonix] 40 mg tablet,delayed release (DR/EC) 40 mg PO DAILY Qty: 90 RF: 1 calcium carbonate-vitamin D3 [Calcium 600 + D(3)] 600 mg(1,500mg) -400 unit tablet 1 tab PO BID Qty: 60 RF: 0 fluticasone propionate [Flonase Allergy Relief] 50 mcg/actuation spra y,suspension 1 spray INTNAS DAILY Qty: 15.8 RF: 5 potassium chloride 10 mEq capsule, extended release 10 meq PO DAILY Qty: 90 RF: 1 hydrochlorothiazide 12.5 mg tablet 12.5 mg PO DAILY Qty: 90 RF: 1 fluticasone propion-salmeterol [Advair Diskus] 100-50 mcg/dose blister with device 1 inh inhalation BID Qty: 180 RF: 1 carvedilol 12.5 mg tablet 12.5 mg PO BID Qty: 180 RF: 1 nbaetztilrvp-nevnnaef-dpnftn tablet 1 tab PO DAILY RF: 0 aspirin [Aspirin Low Dose] 81 mg tablet,delayed release (DR/EC) 81 mg PO DAILY RF: 0 vitamin B complex [B Complex-Vitamin B12] tablet 1 tab PO DAILY RF: 0 lidocaine 4 % adhesive patch,medicated 1 patch topical Q24H PRN (Reason: pain) Qty: 30 RF: 5 amlodipine 5 mg tablet 5 mg PO BID Qty: 180 RF: 1 magnesium oxide 400 mg magnesium capsule 400 mg PO DAILY RF: 0 omega-3 acid ethyl esters 1 gram capsule 1 cap PO DAILY RF: 0 alprazolam 0.5 mg tablet 0.25 mg PO HS RF: 0
[2021-11-09] MEDS ORDERED: PHARMACIST DISCHARGE MED REC CONSULT PRN (18:21)
[2021-11-09] MEDS ORDERED: ONDANSETRON INJ 2 MG/ML 2 ML VIAL IV PRN (18:21)
[2021-11-09] MEDS ORDERED: ACETAMINOPHEN 325 MG TAB PO PRN (18:21)
[2021-11-09] MEDS: HEPARIN SOD 5,000 UNIT/0.5 ML VIAL SQ SCH (20:37)
[2021-11-09] MEDS: SODIUM CHLORIDE 0.9% 1000ML 1,000 ML IV SCH (20:38)
[2021-11-09] MEDS: CALCIUM 600MG + VIT D 400 IU TAB PO SCH (20:38)
--- NOTE | 2021-11-09 20:46 | Magnetic Resonance Report ---
Brain MRI WITHOUT CONTRAST HISTORY: Left-sided numbness. Possible stroke. TECHNIQUE: Multiplanar multisequence MRI of the brain was performed without the use of contrast. COMPARISON STUDY: Head CT 11/09/2021. FINDINGS: There are no areas of restricted diffusion to suggest acute infarction. The midline structu res are intact. The paranasal sinuses are clear. Mild to moderate atrophic changes within the brain m ost pronounced within the frontal lobes. Scattered patchy and punctate foci of T2 hyperintensity seen predominantly within the periventricular white matter of the supratentorial brain. This is nonspecif ic but favors microvascular ischemic change. This corresponds to the CT abnormality. There is no mass , hematoma, midline shift. The major vascular flow-voids at the skull base are well maintained. IMPRESSION: 1. No acute infarct or intracranial hemorrhage. 2. Mild to moderate atrophic changes most pronounced within the frontal lobes. 3. Moderate microvascular ischemic changes. ACT 112: Negative or not required by law. Electronically signed by: Juan Robertson M.D. 11/09/2021 8:44 PM
[2021-11-09] MEDS ORDERED: ALPRAZolam 0.25 MG TABLET PO SCH (21:00)
[2021-11-10] MEDS: SODIUM CHLORIDE 0.9% 1000ML 1,000 ML IV SCH (05:54)
[2021-11-10 07:20] LABS: Hematocrit (blood only) 40.2 % (37-47); Hemoglobin 14.1 g/dL (12.0-16.0); Mean Corpuscular Hemoglobin 32.4 pg (25-34); Mean Corpuscular Hgb Conc 35.1 g/dL (32-36); Mean Corpuscular Volume 92.4 fL (80-100); Mean Platelet Volume 9.7 fL (7.4-10.4); Platelet Count 162 K/uL (130-400); RDW Coefficient of Variation 12.4 % (11.5-14.5); RDW Standard Deviation 42.2 fL (36.4-46.3); Red Blood Count 4.35 M/uL (4.2-5.4); White Blood Count 6.21 K/uL (4.8-10.8)
[2021-11-10 08:03] LABS: Calcium 9.4 mg/dl (8.5-10.1); Potassium 3.1 mmol/L (3.5-5.1)
[2021-11-10 08:05] LABS: BUN Creatinine Ratio 20.4 (10-20); Bilirubin,Total 0.3 mg/dl (0.2-1); Creatinine Clr Calc Pharmacy 46.8 ml/min; Est GFR (African American) 84.7 ml/min; Est GFR (Non-African American) 73.1 ml/min; Magnesium 1.7 mg/dl (1.8-2.4)
[2021-11-10 08:09] LABS: Albumin Globulin Ratio 0.9 (0.9-2); Albumin Level 3.1 gm/dl (3.4-5.0); Globulin 3.5 gm/dl (2.5-4.0); Total Protein 6.6 gm/dl (6.4-8.2)
[2021-11-10 08:19] LABS: Basophils # (auto) 0.03 K/uL (0-0.2); Basophils % (auto) 0.5 %; Eosinophils # (auto) 0.17 K/uL (0-0.5); Eosinophils % (auto) 2.7 %; Immature Granulocytes # (auto) 0.04 K/uL (0.00-0.02); Immature Granulocytes % (auto) 0.6 %; Lymphocytes # (auto) 3.48 K/uL (1.2-3.4); Monocytes % (auto) 6.4 %; Neutrophils # (auto) 2.09 K/uL (1.4-6.5); Neutrophils % (auto) 33.8 %
[2021-11-10] MEDS: HEPARIN SOD 5,000 UNIT/0.5 ML VIAL SQ SCH (08:35)
[2021-11-10] MEDS: CALCIUM 600MG + VIT D 400 IU TAB PO SCH (08:36)
--- NOTE | 2021-11-10 08:50 | Neurology Consultation ---
Date of Consultation November 10, 2021 Assessment & Plan (1) TIA (transient ischemic attack): (2) Numbness and tingling of left side of face: (3) Transient left leg weakness: (4) Hypertension: (5) Chronic cerebral ischemia: this patient had some left-sided dysesthesias including tingling and a sense of weakness starting November 08 through November 09. This morning she is largely asymptomatic although has some residual sensations in the lower leg portion of the left lower extremity. On examination she has no focal deficits, meningeal signs, or encephalopathy. Her cognitive abilities are fairly good despite her history of "mild cognitive impairment ". Patient had significant hypertension on admission and this is improved today. The etiology of her spell is likely a transient ischemic attack probably triggered by significant hypertension. MRI of the brain shows no acute stroke. The patient does have significant old small vessel ischemia. The risk factors for stroke include dyslipidemia, hypertension, and advancing age. Recommendations: 1. Consider switching aspirin to clopidogrel 75 milligrams daily. 2. Awaiting echocardiogram results. 3. given her markedly elevated triglycerides she would be a statin candidate. I would start with regular doses 1st although technically she could be a high dose statin candidate. 4. Control blood pressure as you are doing, aiming for a mean arterial pressure of 95-100. 5. increase activity as able. Overall, I spent a total of 70 minutes with this case including review of records, review of MRI films, direct evaluation of patient bedside, and discussion of the case with the patient at bedside, RN at bedside, and Dr. Mazariegos including differential diagnosis and treatment options. History of Present Illness Reason for Consultation: Patient is an 81-year-old, who I was asked to see at the request of Dr. Pack, for neurologic consultation regarding stroke versus TIA. Requesting Physician: Dr. Pack Attending Physician: Calixto Mazariegos, DO History of Present Illness this patient has a history of hypertension and previous stroke diagnosed at least 8 years ago when she lived in [place]. She had some temporary left-sided numbness she recalls and has been on aspirin ever since. She tells me she takes 281 milligram aspirin each morning. The patient has had history of lumbar spinal stenosis post several back surgeries ( the most recent in [place] 12 years ago). She had left lower extremity issues when she had her low back problems but this seems to be fairly stable. She has been living in the [facility] for the last 2 years to be close to family in a skilled nursing apartment building. She has been doing very well living alone. She had been well with no illness or issues. Patient went to bed near midnight on November 07 and woke up on November 08 around 10 a.m.. She noted some heaviness in the left leg. It was a little bit weak but she could walk and do the things she needed to do. There was no numbness. The face and arm were not involved. She had a little bit of left- sided head "heaviness", which sounds like an achy pain. She was a little bit foggy thinking as well. Later in the afternoon of November 08 she had noticeable increase in fatigue. She took a nap for 20 minutes and then woke feeling the same. She had some tingling in the left fingers and the left side of her head around the corner of the eye towards the left ear. She noted that her blood pressure was elevated and she went to bed around 10 p.m.. She woke up on November 09 at 06:00 and noted that the left arm and leg were heavy and weak and she had a little bit of foggy thinking. There was a mild left-sided headache and she had tingling in the left face. The arm and leg on the left were a bit heavy and weak but not tingling. She spoke with family and she was advised to go to the emergency room. She arrived to the emergency room November 09 at 1203, with a temperature 36.5, pulse 64 regular, respiratory rate 18, blood pressure 168/85, and O2 saturation of 96 percent. Little later on her blood pressure was 163/101. Neurologic examination was largely unremarkable and she had normal mental status. CBC was unremarkable and Chem profile revealed a mildly low potassium and mildly elevated glucose. Chest x-ray was unremarkable. CT scan of the head showed a possible right frontal area stroke of the small nature. CT angiography of the head and neck were unremarkable. MRI of the brain showed no acute stroke. There was significant , old small vessel ischemic disease particularly bifrontally and generalized atrophy. This old ischemia was what was seen on the CT scan. I reviewed these films. This morning she feels essentially back to normal with no tingling, headache, or weakness. She does feel that the distal left leg is slightly heavy still. She has no vision issues, speech or swallowing problems, or confusion. Blood pressure is 114/67 today and she is afebrile. She has been in sinus rhythm with the mild first-degree AV block. Echocardiogram is pending. Hemoglobin A1c is pending. Total cholesterol is 195 and triglycerides were 583. Allergies Allergy/AdvReac Type Severity Reaction Status Date / Time doxycycline AdvReac Mild decreased Verified 11/09/21 13:06 urine output escitalopram AdvReac Mild decreased Verified 11/09/21 13:06 urine output prednisone AdvReac Mild feels Verified 11/09/21 13:06 agitated amoxicillin AdvReac upset Verified 11/09/21 13:06 stomach ciprofloxacin [From Cipro] AdvReac Diarrhea Verified 11/09/21 13:06 fluticasone AdvReac Dizziness Verified 11/09/21 13:06 gabapentin AdvReac abdominal Verified 11/09/21 13:06 pain and drowsy gemfibrozil [From Lopid] AdvReac upset Verified 11/09/21 13:06 stomach irbesartan AdvReac Diarrhea Verified 11/09/21 13:06 lisinopril AdvReac hypertension Verified 11/09/21 13:06 and diarrhea meclizine AdvReac Drowsy Verified 08/08/21 14:25 pitavastatin [From Livalo] AdvReac Unknown Verified 08/08/21 14:25 Qowxejz-LDC-GoD Reductase AdvReac myalgia Verified 08/08/21 14:25 Inhibitor [Tjudcjs-Yxc-Odb Reductase Inhibitor] tizanidine AdvReac nightmares Verified 08/08/21 14:25 tramadol AdvReac insomnia/pr Verified 08/08/21 14:25 uitus trazodone AdvReac Unknown Verified 08/08/21 14:25 Home Medications Medication Instructions Recorded Confirmed Type aspirin 81 mg tablet,delayed 81 mg PO DAILY 08/20/19 11/09/21 History release (Aspirin Low Dose) kxsuzlstlcfq-gyyxqbbn-pmzbrb tablet 1 tab PO DAILY 08/20/19 11/09/21 History vitamin B complex (B 1 tab PO DAILY 08/20/19 11/09/21 History Complex-Vitamin B12) magnesium oxide 400 mg PO DAILY cap 09/02/19 11/09/21 History pantoprazole 40 mg tablet,delayed 40 mg PO DAILY #90 tab 03/30/21 11/09/21 Rx release (Protonix) calcium carbonate 600 mg-vitamin 1 tab PO BID #60 tab 05/10/21 11/09/21 Rx D3 10 mcg (400 unit) tablet (Calcium 600 + D(3)) fluticasone propionate 50 1 spray INTNAS DAILY #15.8 ml 07/18/21 11/09/21 Rx mcg/actuation nasal spray,suspension (Flonase Allergy Relief) amlodipine 5 mg tablet 5 mg PO BID #180 tab 07/24/21 11/09/21 Rx lidocaine 4 % topical patch 1 patch TOPICAL Q24H PRN #30 ea 07/24/21 11/09/21 Rx hydrochlorothiazide 12.5 mg tablet 12.5 mg PO DAILY #90 tab 08/20/21 11/09/21 Rx potassium chloride 10 mEq 10 meq PO DAILY #90 cap 08/20/21 11/09/21 Rx capsule,extended release fluticasone 100 mcg-salmeterol 50 1 inh INHALATION BID #180 ea 08/29/21 11/09/21 Rx mcg/dose blistr powdr for inhalation (Advair Diskus) carvedilol 12.5 mg tablet 12.5 mg PO BID #180 tab 10/01/21 11/09/21 Rx alprazolam 0.5 mg tablet 0.25 mg PO HS 11/09/21 11/09/21 History omega-3 acid ethyl esters 1 gram 1 cap PO DAILY 11/09/21 11/09/21 History capsule Patient History Medical History Anxiety and depression Arthritis of wrist Chronic kidney disease, stage 3 (moderate) Dyslipidemia GERD (gastroesophageal reflux disease) History of recurrent TIAs Hypertension Insomnia Lumbar facet joint syndrome Lumbar pain with radiation down left leg Mild cognitive impairment Osteopenia Prediabetes Sacroiliitis Spinal stenosis, lumbar region without neurogenic claudication Venous insufficiency (chronic) (peripheral) Surgical History History of carpal tunnel surgery Hx of neck surgery secondary to cervical herniated discs Previous back surgery x3 S/P appendectomy S/P blepharoplasty S/P cholecystectomy Family History Father , age 81 of heart issues Myocardial infarction Prostate cancer Coronary heart disease Mother , age 76 of a stroke Stroke, Onset Age: 72 Myocardial infarction, Onset Age: 76 Hypertension Diabetes Brother Cancer Sister , 71 Hodgkins disease Sister Coronary heart disease Brother Diabetes Denies family history of Ovarian cancer Breast cancer Colorectal cancer Social History Smoking Status: Never smoker Second Hand Exposure: No; Hx Alcohol Use: No Hx Substance Use: No Preferred Language: Latvian Communication Ability: Effective Visual Impairment: Limited Hearing Ability: Normal Occupational Therapy Instructor Required: No Beliefs That Will Affect Care: Sabianist Sabianist Beliefs: Rastafari marital status: Current Living Situation: Alone Current Living Situation Comment: Lives [facility] current occupational status: retired 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59 Other Information That Helps Us Care for You: No Feels Safe at Home: Yes Safety Concerns: Feels Safe At This Time Childhood Exposure to Second-Hand Smoke: No Diet Comment: low sugar caffeine: No during the past year weight has: remained stable Dental Care, Regularly: No Physical Activity Frequency: Other Seatbelt Use: always Sunscreen Use: Yes Assistive Devices: Glasses Review of Systems Constitutional: no fever, no fatigue and no weakness Eyes: no diplopia, no eye pain and no worsening vision Ear, Nose, Mouth, Throat: no ear pain, no tinnitus, no hearing loss, no dizziness, no snoring, no hoarseness and no dysphagia Respiratory: no cough and no dyspnea Cardiovascular: no chest pain, no palpitations and no lightheadedness Gastrointestinal: no abdominal pain, no nausea and no vomiting Genitourinary: no dysuria, no urinary frequency and no urinary incontinence Musculoskeletal: no back pain, no neck pain, no radicular pain, no joint pain and no myalgia Integumentary: no rash and no lesions Neurologic: + localized weakness; no gait abnormality, no generalized weakness, no tingling, no numbness, no tremor(s), no abnormal movements, no headache(s), no abnormal speech, no confusion and no memory loss Psychiatric: no depression, no irritability, no anxiety, no difficulty concentrating, no confusion and no hallucinations Endocrine: no fatigue and no flushing Hematologic / Lymphatic: no easy bleeding and no easy bruising Allergy / Immunological: no urticaria and no problem reported Exam (Neuro) Physical Exam: The patient is right-handed. The patient is awake, alert, and attentive. Speech is normal without any aphasia or dysarthria. The patient can name objects, repeat phrases, and has normal spontaneous speech. Mentation and thought processes are intact, with orientation to person, place and time, and normal fund of knowledge. Attention and concentration are normal. Mood and affect are normal and appropriate. General appearance and grooming are normal. Short and long-term memory are intact to conversation. Pupils are 4 mm bilaterally and reactive to light. Extraocular eye muscles are intact without nystagmus. Visual acuity and visual miles seem normal grossly to confrontation. There are no deficits to sensation in the face in all 3 distributions of the fifth cranial nerve bilaterally. Corneal reflexes are positive bilaterally. Facial strength and symmetry was normal bilaterally. Hearing seems normal bilaterally. Palate moves well without asymmetry. There is normal sternocleidomastoid and trapezius (shoulder shrug) strength bilaterally. Tongue is midline with good strength bilaterally. Neck has a full range of motion without discomfort. There are no cervical bruits bilaterally. There are no cranial or ocular bruits. Heart is without murmur. There is a regular rhythm and rate. Cervical, thoracic, and lumbar spine are nontender to palpation. Gait is narrow based, with good arm swing, turns, and stance. she had a little bit of lightheadedness temporarily when she 1st stood up but this passed after a few seconds. Stance was normal with eyes open. With outstretched arms there is no drift. There are no resting, postural, or action tremors. There is no ataxia with finger to nose testing. There is good facility in the hands. No other abnormal involuntary movements are noted. Motor strength is 5/5 diffusely in the arms bilaterally including deltoids, biceps, triceps, brachioradialis, wrist flexors and extensors, torpedo man, and intrinsic hand muscles. Motor strength is 5/5 diffusely in the legs bilaterally including hip flexors, quadriceps, hamstrings, gastrocnemius, tibialis anterior, tibialis posterior, and Peroneii muscles. Toe extensors are normal and there is good bulk in the extensor digitorum brevis muscles bilaterally. The limbs have good tone without rigidity or spasticity. There is no atrophy noted in the muscles. Muscle bulk is normal, there is no tenderness to palpation, no myotonia to percussion, and no fasciculations seen. Sensory examination is intact to touch and pin throughout all 4 limbs diffusely. Reflexes are 1/4 in the biceps, triceps, brachioradialis, quadriceps, and Achilles tendons bilaterally. There is no clonus bilaterally. Toes are downgoing with plantar stimulation bilaterally. Peripheral pulses are present and of normal quality distally in all 4 limbs. There is no peripheral edema noted in the limbs. Results & Data ([facility]) Vital Signs (Past 12 Hours) Vital Signs Temp Pulse Pulse Resp BP Pulse Ox 11/10/21 07:28 63 11/10/21 07:00 36.9 C 74 18 114/67 93 11/10/21 04:00 36.5 C 70 12 119/70 94 11/10/21 00:00 63 11/09/21 23:40 36.5 C 61 18 136/72 98 PG Care Time/CCT Total # of Minutes Spent Total Time Spent with Patient: Total time spent is greater than 50% in coordination of care (as documented) at patient's floor/unit and/or counseling patient: Coding Level of Care Code 79171 Initial Inpt Care Lvl 3 Diagnoses TIA (transient ischemic attack) G45.9 Numbness and tingling of left side of face R20.0; R20.2 Transient left leg weakness R29.898 Hypertension I10 Chronic cerebral ischemia I67.82 Time Spent (min) 70
[2021-11-10] MEDS ORDERED: CEROVITE ADV FORMULA TAB PO SCH (09:00)
[2021-11-10] MEDS ORDERED: MAGNESIUM OXIDE 400 MG TAB PO SCH (09:00)
[2021-11-10] MEDS ORDERED: PANTOprazole 40 MG TAB PO SCH (09:00)
[2021-11-10] MEDS ORDERED: ASPIRIN 81 MG ECTAB PO SCH (09:00)
[2021-11-10] MEDS ORDERED: FLUTICASONE PROPIONATE NA SPR 16 GM BTL SCH (09:00)
[2021-11-10] MEDS ORDERED: OMEGA-3 (PURIFIED FISH OIL) 1 GM CAP PO SCH (09:00)
[2021-11-10] MEDS ORDERED: FLUTICASONE/VILANTEROL 100/25MCG 14 PUFFS/INHALER INH SCH (09:00)
[2021-11-10 09:10] LABS: Estimated Average Glucose 140 mg/dl; Hemoglobin A1C 6.5 % (4.5-5.6)
--- NOTE | 2021-11-10 12:28 | XCELERA ---
[id number]
[2021-11-10] MEDS ORDERED: STROKE PATIENT DISCHARGE STA (16:10)
--- NOTE | 2021-11-10 20:48 | Discharge Summary ---
Date of Service November 10, 2021 Admission HPI Per Admitting Provider This is an 81-year-old female with past medical history of sacroiliitis, hypertension, GERD, and dyslipidemia that presents with left-sided numbness. Patient is a decent historian about somewhat limited on details. Patient's daughter is at bedside but she was not aware of complaints until just prior to admission. Patient tells me she was normal when she woke up yesterday. However, not soon after breakfast she started to experience some numbness. This was localized to the left side and involved her forehead and face down her shoulder to her left upper extremity. She also noted issues down her leg as well. She was not specific about exactly what parts were numb or when this resolved but it seems to be much improved since she came to the hospital. She denies any speech difficulties or vision issues. She did note a headache which was in the left temporal region which is also resolved. She noted some ataxia but denies any specific muscle weakness. She also noted some lack of coordination to her left upper extremity which is also resolved. Patient felt the symptoms would resolve and did not make anybody aware of this. She went to bed that night and woke up the next morning with what she perceived was worsening symptoms in her left leg. Her daughter called her early in the morning and the patient disclosed what it happened the day before. The daughter does note that she did not note any speech irregularities during this conversation. At the time my evaluation, the patient seems to be back to baseline, is moving all extremities and has a relatively benign exam. Of note, the patient did note that she had an elevated blood pressure yesterday when she checked on her home cuff but cannot remember exactly what the values were. Her blood pressure here in the emergency room is 160/87. Daughter also mentioned the patient has been having some issues with swallowing. She seems to have some issues initiating the swallow after chewing and this has been going on for several weeks. The symptoms preceded the stroke symptoms as described above. Patient has a habit of holding food and liquids in her mouth and then spitting them out rather than swallowing. Principal Diagnosis TIA Discharge Exam General she is awake and alert pleasant no distress. HEENT normocephalic atraumatic mucous membranes moist. Breathing unlabored no accessory muscle use good effort. Skin shows no rashes no pallor or icterus. Neuro without focal deficits. Discharge Data Allergies Allergy/AdvReac Type Severity Reaction Status Date / Time doxycycline AdvReac Mild decreased Verified 11/09/21 13:06 urine output escitalopram AdvReac Mild decreased Verified 11/09/21 13:06 urine output prednisone AdvReac Mild feels Verified 11/09/21 13:06 agitated amoxicillin AdvReac upset Verified 11/09/21 13:06 stomach ciprofloxacin [From Cipro] AdvReac Diarrhea Verified 11/09/21 13:06 fluticasone AdvReac Dizziness Verified 11/09/21 13:06 gabapentin AdvReac abdominal Verified 11/09/21 13:06 pain and drowsy gemfibrozil [From Lopid] AdvReac upset Verified 11/09/21 13:06 stomach irbesartan AdvReac Diarrhea Verified 11/09/21 13:06 lisinopril AdvReac hypertension Verified 11/09/21 13:06 and diarrhea meclizine AdvReac Drowsy Verified 08/08/21 14:25 pitavastatin [From Livalo] AdvReac Unknown Verified 08/08/21 14:25 Asaatwx-GYI-XuQ Reductase AdvReac myalgia Verified 08/08/21 14:25 Inhibitor [Rvkbecm-Yir-Dno Reductase Inhibitor] tizanidine AdvReac nightmares Verified 08/08/21 14:25 tramadol AdvReac insomnia/pr Verified 08/08/21 14:25 uitus trazodone AdvReac Unknown Verified 08/08/21 14:25 Consultations 11/09/21 15:01 ED Decision to Admit Stat 11/09/21 18:21 Consult Neurology Routine Ordered Studies 11/09/21 12:50 CT angio head w con Stat CT angio neck with con Stat CT head/brain wo con Stat 11/09/21 18:21 MR brain wo con Routine Hospital Course (1) CVA (cerebral vascular accident): On admission concern for CVA due to hypodensity on CT, as well as neuro findings. Fortunately MRI showed that the hypodensity was not stroke, and was more consistent with chronic findings. And her neuro deficits resolved. This all seem most consistent with a TIAsmall vessel, versus hypertensive. Favor small vessel. Stable for homechanged aspirin to Plavix. Wound benefit from statin if she can tolerateif not consider PCSK9. Outpatient follow-up for this given her prior reactions. (2) Dyslipidemia: See aboveoutpatient follow-up to either give retrial to a statin or start a PCSK9 (3) GERD (gastroesophageal reflux disease): (4) Hypertension: Blood pressure was up on a presentationbegging the question of whether it was a hypertensive mediated TIA versus small vessel thrombosis with subsequent autoregulation. The way her blood pressure improved to basically normal without intervention makes me suspect much more the latter. Asked her to follow blood pressure at home daily to twice daily and then follow-up with her PCP. Total Time Total Time Spent Total Time Spent (In Minutes): Less than 30 Discharge Plan Discharge Items Patient Disposition: Home - Self-Care Reason For Visit: CVA Discharge Diagnosis: TIA - no stroke Activity: Resume your previous activity Non-emergency contact: Primary Care Provider and Neurologist Call non-emergency contact if: you have any medication questions and your symptoms worsen Follow-up/Referrals: Clara Sarkar, [Primary Care Provider] - Diet: Heart Healthy and Low Sodium (2gm) Addtl Attending Provider Instructions: TIA -fortunately you did not have a stroke; rather, it appears that your symptoms were due to a TIA (transient ischemic attack) -a TIA is where there is a blockage of blood flow to part of your brain - causing stroke-like symptoms. fortunately before any brain tissue gets damaged, your body is able to open up the bloodflow -in your situation, the two main likely possibilities of what caused the TIA would be a little clot forming in a small blood vessel - but then your body fixing it before things caused any lasting damage (which is why we'll change from aspirin to plavix (clopidogrel) or a spike in blood pressure leading to blood vessels constricting - although with your blood pressure improving so nicely that possibility is less likely. (often when we have a blockage of blood flow to our brain, the brain sends hormones back to the body to raise up blood pressure to improve flow through the blockage - and given that your blood pressure basically went back to normal on its own, it's more likely that the blood pressure was up in response to a blockage in blood flow than it being up and causing blood vessel constriction as the cause of the blockage in blood flow). - to sort this out better we will have you follow your blood pressure at home - 1-2 times a day - and write the numbers down to review with Dr Sarkar. an automated arm cuff does a nice job for monitoring blood pressures at home -your cholesterols are definitely in a worrisome range for causing blockages - but you have muscle aches listed as a reaction to statins. i would ask you to revisit this with Dr Sarkar for several reasons: -there's usually only about a 10% crossover that having aches to one statin will mean you have aches to other ones - so until/unless you've tried several, it might have just been one particular one causing problems -because having aches is lousy, and people generally want to look for answers that are more "fixable" it's surprisingly common to see people attribute aches that they've been having from other causes (particularly arthritis) to the statin - even when they had the aches before starting the medicine, and having the aches continue after the medicine has stopped. this is common enough that it's actually in the medical journals to really question if the aches were caused by the medicine -the main reason to "harp" on statins is that this class of medicines - most notably atorvastatin (lipitor) and rosuvastatin (crestor) really help not only reduce cholesterol that leads to plaque building up in the arteries, but also significantly reduce the changes of having a stroke (or a heart attack) - so we really try to make sure we're not writing off a very helpful class of medicines ---that said, if you really can't tolerate them then talk with Dr Sarkar about a separate class of medications called PCSK9 inhibitors - they're a totally different mechanism than statins so they don't have a similar side effect profile - they're an injection typically once every 2 weeks (Repatha is an example of one of those) - the main problem with those is usually just getting insurance coverage Pending Studies at Discharge: No Stand-Alone Forms: Medications to Prevent Stroke, My [facility], Smoking Cessation Medications and DC Order Prescriptions: New clopidogrel 75 mg tablet 75 mg PO DAILY Qty: 30 RF: 0 clopidogrel [Plavix] 75 mg tablet 75 mg PO DAILY Qty: 30 RF: 0 Continued pantoprazole [Protonix] 40 mg tablet,delayed release (DR/EC) 40 mg PO DAILY Qty: 90 RF: 1 calcium carbonate-vitamin D3 [Calcium 600 + D(3)] 600 mg(1,500mg) -400 unit tablet 1 tab PO BID Qty: 60 RF: 0 fluticasone propionate [Flonase Allergy Relief] 50 mcg/actuation spray,suspension 1 spray INTNAS DAILY Qty: 15.8 RF: 5 potassium chloride 10 mEq capsule, extended release 10 meq PO DAILY Qty: 90 RF: 1 hydrochlorothiazide 12.5 mg tablet 12.5 mg PO DAILY Qty: 90 RF: 1 fluticasone propion-salmeterol [Advair Diskus] 100-50 mcg/dose blister with device 1 inh inhalation BID Qty: 180 RF: 1 carvedilol 12.5 mg tablet 12.5 mg PO BID Qty: 180 RF: 1 yhcllzqvqznr-dkepxzlq-cnvsli tablet 1 tab PO DAILY RF: 0 vitamin B complex [B Complex-Vitamin B12] tablet 1 tab PO DAILY RF: 0 lidocaine 4 % adhesive patch,medicated 1 patch topical Q24H PRN (Reason: pain) Qty: 30 RF: 5 amlodipine 5 mg tablet 5 mg PO BID Qty: 180 RF: 1 magnesium oxide 400 mg magnesium capsule 400 mg PO DAILY RF: 0 omega-3 acid ethyl esters 1 gram capsule 1 cap PO DAILY RF: 0 alprazolam 0.5 mg tablet 0.25 mg PO HS RF: 0 Discontinued aspirin [Aspirin Low Dose] 81 mg tablet,delayed release (DR/EC) 81 mg PO DAILY RF: 0 Discharge Orders: Discharge Order (Routine); Ordered 11/10/21 Ordered By: Calixto Umanzor/Other Patient Handouts: A1C, 5 Steps for Eating Healthier Admission Data Admit Date/Time: 11/09/21 15:46 Attending Provider: Calixto Mazariegos Admit Provider: Ye Pack Primary Care Provider: Clara Sarkar Other Providers: Ye Pack ; Laurent Perez Other Interventions: Discharge Summary Assessment (RN) Last Done: 11/10/21 15:58 Coding Level of Care Code 05620 OBS Care - Discharge Diagnoses CVA (cerebral vascular accident) I63.9 Dyslipidemia E78.5 GERD (gastroesophageal reflux disease) K21.9 Hypertension I10
== END 2021-11-10 16:55 | disposition home or self-care (01) ==
LOC: ED 11:58 → SUATTDRO 15:46 → 2S 15:46 → INTOOBSV 15:46 → 2S 18:00

== ENCOUNTER 2022-03-04 21:22 | Observation (INO) ==
--- NOTE | 2022-03-04 21:27 | Emergency Department Note ---
Impression & Plan Stroke-like episode ADMIT ED Provider Note HPI: The patient is an 81-year-old female who presents the emergency department with concern for strokelike symptoms since 7 or 8 PM. Patient tells me that she has had some symptoms of left-sided numbness and weakness, left lower extremity weakness, she states she believes this happened around 7 PM. Patient states this happened after she ate dinner and was walking and had an acute onset sensation of numbness and tingling on the left side of her body including her left face, left upper extremity, and left lower extremity. This was also associated with some left lower extremity weakness. On arrival to the ED stroke alert was activated, patient was taken to the CT scanner, she is noted to have some left lower extremity weakness on my exam in addition to the subjective sensation of numbness/tingling on the left side of her body. She is otherwise in no acute distress on arrival. She is alert, she is saturating well on room air. ROS: -Neuro: Left-sided numbness/weakness, left lower extremity weakness *10 point review systems was conducted and is otherwise negative unless stated above *Outpatient medications and allergy history reviewed PE: General: Alert, NAD HEENT: Normocephalic, atraumatic Eyes: Extraocular eye movement is intact, no scleral erythema Pulmonary: Clear to auscultation bilaterally, no wheezing Cardio: Regular rate and rhythm GI: Abdomen is soft, nontender : No suprapubic tenderness MSK: No evidence of trauma or malformation of the extremities, no edema Skin: No evidence of rash Neuro: Alert, lower extremity drift with testing against gravity, symmetrical facial movements are appreciated, no ataxia on [id number] testing Psychiatric: Cooperative athletic monitor: - An order was placed for continuous cardiac monitoring - Patient was noted to be in sinus rhythm with rate of 75 EKG: Rate: 89 Rhythm: Sinus rhythm Intervals: Within normal limits ST changes: No ST elevation Time: 2133 NIH STROKE SCALE: 1A: Level of consciousness Alert; keenly responsive 0 1B: Ask month and age Both questions right 0 1C: 'Blink eyes' & 'squeeze hands' Performs both tasks 0 2: Horizontal extraocular movements Normal 0 3: Visual miles No visual loss 0 4: Facial palsy Normal symmetry 0 5A: Left arm motor drift No drift for 10 seconds 0 5B: Right arm motor drift No drift for 10 seconds 0 6A: Left leg motor drift Drift, hits bed +2 6B: Right leg motor drift No drift for 5 seconds 0 7: Limb Ataxia No ataxia 0 8: Sensation Mild-moderate loss: less sharp/more dull +1 9: Language/aphasia Normal; no aphasia 0 10: Dysarthria Normal 0 11: Extinction/inattention No abnormality 0 TOTAL NIH SCORE = 3 Medical Decision Making: The patient is an 81-year-old female who presents emergency department with chief complaint of left-sided numbness and left lower extremity weakness. Patient states the symptoms began somewhere around 7 PM. Per EMS, patient stated that her symptoms began about 20 minutes prior to the phone call for EMS which would have been around 8 PM. On arrival here to the ED stroke alert was activated, patient was taken to CT scanner, CT imaging of the brain without contrast does not show any evidence of intracranial hemorrhage, CT angiography does not show any evidence of vessel occlusion. Case was discussed with on-call stroke neurology at [facility], Dr. Hussein, it evaluate the patient via telestroke consult, patient's symptoms rapidly improved while she was here in the ED, she was determined to be a suboptimal candidate for TNK because of this, on my reassessment she is much improved. NIH stroke scale on reassessment is 0, it was 3 on initial presentation. Patient has had similar symptoms in the past that were attributed to TIA, she does have a history of hypertension and has been hypertensive here in the ED. Her lab work does not show any evidence of any critical abnormalities. On my reassessment the patient is resting comfortably in bed, symptomatically improved. Given her symptoms in addition to age and risk factors she will be admitted for further management to telemetry and likely MRI imaging in the morning. Patient is in agreement to the above plan, case was discussed with the on-call hospitalist, Dr. Townsend, and the patient was admitted in stable condition for further care. CT HEAD: On her brain volume loss. Moderate chronic ischemic changes. No mass, hemorrhage or acute infarct. Old left basal ganglia lacunar infarct. Sinuses, mastoids and the bones are intact. Comparison November 09, 2021. Impression: No acute findings. Radiologist: Kyle Lux M.D. Study ready at 21:48 and initial results transmitted at 21:54 Communications: Clear Time Type Notes 05/02/22 21:57 [address] Doctor Regarding Str eliza, called Dr. Whyte on 03/04 21:56 (- 04:00) CTA HEAD: Minimal atherosclerosis of the cavernous carotid arteries. MCAs and ACAs are intact. 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 Impression: No acute findings. Radiologist: Kyle Lux M.D. Study ready at 21:54 and initial results transmitted at 22:03 Communications: Clear Time Type Notes 03/04/22 22:06 Call Doctor Regarding Str eliza, called Dr. Whyte on 03/04 22:05 (- 04:00) Critical care time: 35 minutes -Management of strokelike symptoms/stroke alert activation requiring discussion urgently with stroke neurology at tertiary care facility, time spent at the bed side and obtaining NIH stroke scale, discussion with other physicians and arrangement of admission Diagnosis: 1. Strokelike episode 2. Episode of left-sided weakness/numbness 3. Transient left lower extremity weakness with drift 4. Hypertension 5. History of TIA 6. History of type 2 diabetes Disposition: Admission Davin Weathers DO Emergency Medicine Past Med/Surg History Medical History Allergic rhinitis Anxiety and depression Arthritis of wrist Chronic kidney disease, stage 3 (moderate) Diabetes mellitus, type 2 Dyslipidemia GERD (gastroesophageal reflux disease) History of recurrent TIAs Hypertension Insomnia Lumbar facet joint syndrome Lumbar pain with radiation down left leg Mild cognitive impairment Osteopenia Prediabetes Sacroiliitis Spinal stenosis, lumbar region without neurogenic claudication Venous insufficiency (chronic) (peripheral) Surgical History History of carpal tunnel surgery Hx of neck surgery Previous back surgery S/P appendectomy S/P blepharoplasty S/P cholecystectomy Family History Father Myocardial infarction Prostate cancer Coronary heart disease Mother Stroke, Onset Age: 72 Myocardial infarction, Onset Age: 76 Hypertension Diabetes Brother Cancer Sister Hodgkins disease Sister Coronary heart disease Brother Diabetes Denies family history of Ovarian cancer Breast cancer Colorectal cancer Social History Smoking Status: Never smoker Second Hand Exposure: No; Hx Alcohol Use: No Hx Substance Use: No Preferred Language: Hungarian Communication Ability: Effective Visual Impairment: Limited Hearing Ability: Normal 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 Production Required: No Beliefs That Will Affect Care: None marital status: Current Living Situation: Alone Current Living Situation Comment: Patient lives alone in an apartment building current occupational status: retired 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59 Other Information That Helps Us Care for You: No Feels Safe at Home: Yes Safety Concerns: Feels Safe At This Time Childhood Exposure to Second-Hand Smoke: No Diet Comment: low sugar caffeine: No during the past year weight has: remained stable Dental Care, Regularly: No Physical Activity Frequency: Other Seatbelt Use: always Sunscreen Use: Yes Assistive Devices: None Allergies Allergies Allergy/AdvReac Type Severity Reaction Status Date / Time doxycycline AdvReac Mild decreased Verified 03/04/22 22:54 urine output escitalopram AdvReac Mild decreased Verified 03/04/22 22:54 urine output prednisone AdvReac Mild feels Verified 03/04/22 22:54 agitated amoxicillin AdvReac upset Verified 03/04/22 22:54 stomach cefdinir AdvReac Diarrhea Verified 03/04/22 22:54 ciprofloxacin [From Cipro] AdvReac Diarrhea Verified 03/04/22 22:54 fluticasone AdvReac Dizziness Verified 03/04/22 22:54 gabapentin AdvReac abdominal Verified 03/04/22 22:54 pain and drowsy gemfibrozil [From Lopid] AdvReac upset Verified 03/04/22 22:54 stomach irbesartan AdvReac Diarrhea Verified 03/04/22 22:54 lisinopril AdvReac hypertension Verified 03/04/22 22:54 and diarrhea meclizine AdvReac Drowsy Verified 03/01/22 11:07 pitavastatin [From Livalo] AdvReac Unknown Verified 03/01/22 11:07 Rdhwoni-ONZ-AvH Reductase AdvReac myalgia Verified 03/01/22 11:07 Inhibitor [Schlaju-Juy-Lvv Reductase Inhibitor] tizanidine AdvReac nightmares Verified 03/01/22 11:07 tramadol AdvReac insomnia/pr Verified 03/01/22 11:07 uitus trazodone AdvReac Unknown Verified 03/01/22 11:07 Home Meds Home Medications Medication Instructions Recorded Confirmed vitamin B complex (B 1 tab PO DAILY 08/20/19 03/04/22 Complex-Vitamin B12) magnesium oxide 400 mg PO DAILY cap 09/02/19 03/04/22 omega-3 acid ethyl esters 1 gram 1 cap PO DAILY 11/09/21 03/04/22 capsule Previous Rx's Medication Instructions Recorded pantoprazole 40 mg tablet,delayed 40 mg PO DAILY #90 tab 03/30/21 release (Protonix) calcium carbonate 600 mg-vitamin 1 tab PO BID #60 tab 05/10/21 D3 10 mcg (400 unit) tablet (Calcium 600 + D(3)) fluticasone propionate 50 1 spray INTNAS DAILY #15.8 ml 07/18/21 mcg/actuation nasal spray,suspension (Flonase Allergy Relief) lidocaine 4 % topical patch 1 patch TOPICAL Q24H PRN #30 ea 07/24/21 amlodipine 5 mg tablet 5 mg PO BID #180 tab 12/05/21 iidwfgavfusm-csuuloel-onmgus tablet 1 tab PO DAILY #90 tab 12/13/21 hydrochlorothiazide 25 mg tablet 25 mg PO DAILY #90 tab 12/27/21 potassium chloride 10 mEq 10 meq PO DAILY #90 cap 01/02/22 capsule,extended release clopidogrel 75 mg tablet (Plavix) 75 mg PO DAILY #90 tab 01/11/22 alprazolam 0.5 mg tablet 0.25 mg PO HS PRN #30 tab 02/08/22 lovastatin 10 mg tablet 10 mg PO DAILY #90 tab 02/11/22 carvedilol 12.5 mg tablet 12.5 mg PO BID #180 tab 02/25/22 Results & Data (ED) Vital Signs Vital Signs - 24 hr 03/04/22 21:40 03/04/22 21:42 03/04/22 22:03 Temperature 36.5 C Temperature Source Oral Pulse Rate 91 H 85 Pulse Rate [Finger] 95 H Pulse Rate from SpO2 Sensor 90 Respiratory Rate 22 18 24 Respiratory Effort / Characteristics Non-Labored Spontaneous Non-Labored Spontaneous Respiratory Depth Normal Normal Blood Pressure 180/100 H 175/90 H Blood Pressure [Left Arm] 179/96 H Blood Pressure Mean 126 118 Blood Pressure Mean [Left Arm] 123 Blood Pressure Position Sitting Blood Pressure Position [Left Arm] Sitting Pulse Oximetry 96 97 96 Oxygen Delivery Method Room Air Room Air Room Air Oxygen Flow Rate Sepsis Recent Fever Within 48 Hours No Sepsis New/Unexplained Change in Mental Status N/A Sepsis Action Taken by Nursing No Action Required 03/04/22 22:13 03/04/22 22:44 Temperature Temperature Source Pulse Rate Pulse Rate [Finger] 80 Pulse Rate from SpO2 Sensor Respiratory Rate 20 Respiratory Effort / Characteristics Respiratory Depth Blood Pressure Blood Pressure [Left Arm] 149/87 H Blood Pressure Mean Blood Pressure Mean [Left Arm] 107 Blood Pressure Position Blood Pressure Position [Left Arm] Pulse Oximetry 96 97 Oxygen Delivery Method Room Air Room Air Oxygen Flow Rate 0 Sepsis Recent Fever Within 48 Hours Sepsis New/Unexplained Change in Mental Status Sepsis Action Taken by Nursing Laboratory Data Result diagrams: 03/04/22 21:40 03/04/22 21:40 Lab Results 03/04/22 03/04/22 03/04/22 Range/Units 21:40 21:40 21:40 WBC 6.59 (4.8-10.8) K/uL RBC 4.26 (4.2-5.4) M/uL Hgb 13.6 (12.0-16.0) g/dL Hct 38.3 (37-47) % MCV 89.9 (80-100) fL MCH 31.9 (25-34) pg MCHC 35.5 (32-36) g/dL RDW Std Deviation 41.4 (36.4-46.3) fL RDW Coeff of Johan 12.8 (11.5-14.5) % Plt Count 172 (130-400) K/uL MPV 9.3 (7.4-10.4) fL Immature Gran % (Auto) 0.6 % Neut % (Auto) 35.0 % Lymph % (Auto) 52.8 % [place] % (Auto) 9.0 % Eos % (Auto) 2.4 % Baso % (Auto) 0.2 % Neut # (Auto) 2.31 (1.4-6.5) K/uL Lymph # (Auto) 3.48 H (1.2-3.4) K/uL [place] # (Auto) 0.59 (0.11-0.59) K/uL Eos # (Auto) 0.16 (0-0.5) K/uL Baso # (Auto) 0.01 (0-0.2) K/uL Immature Gran # (Auto) 0.04 H (0.00-0.02) K/uL PT 11.3 (9.0-12.0) Seconds INR 1.1 (0.9-1.1) APTT 25.7 (21.0-31.0) Seconds PTT Ratio 0.9 Sodium (136-145) mmol/L Potassium (3.5-5.1) mmol/L Chloride (98-107) mmol/L Carbon Dioxide (21-32) mmol/L Anion Gap (3-11) BUN (6-23) mg/dl Creatinine (0.6-1.2) mg/dl Est Cr Clr Drug Dosing ml/min Est GFR ( Amer) ml/min Est GFR (Non-Af Amer) ml/min BUN/Creatinine Ratio (10-20) Glucose (70-99(Fasting)) mg/dl Calcium (8.5-10.1) mg/dl Magnesium (1.7-2.4) mg/dl Total Bilirubin (0.2-1.0) mg/dl AST (13-39) U/L ALT (7-52) U/L Alkaline Phosphatase (34-104) U/L Troponin I High Sens (0-14) pg/ml Total Protein (6.0-8.3) gm/dl Albumin (3.4-5.0) gm/dl Globulin (2.5-4.0) gm/dl Albumin/Globulin Ratio (0.9-2) SARS-CoV-2, RNA, NAAT (NEGATIVE) Blood Type A Positive Antibody Screen NEGATIVE 03/04/22 03/04/22 Range/Units 21:40 23:10 WBC (4.8-10.8) K/uL RBC (4.2-5.4) M/uL Hgb (12.0-16.0) g/dL Hct (37-47) % MCV (80-100) fL MCH (25-34) pg MCHC (32-36) g/dL RDW Std Deviation (36.4-46.3) fL RDW Coeff of Johan (11.5-14.5) % Plt Count (130-400) K/uL MPV (7.4-10.4) fL Immature Gran % (Auto) % Neut % (Auto) % Lymph % (Auto) % [place] % (Auto) % Eos % (Auto) % Baso % (Auto) % Neut # (Auto) (1.4-6.5) K/uL Lymph # (Auto) (1.2-3.4) K/uL [place] # (Auto) (0.11-0.59) K/uL Eos # (Auto) (0-0.5) K/uL Baso # (Auto) (0-0.2) K/uL Immature Gran # (Auto) (0.00-0.02) K/uL PT (9.0-12.0) Seconds INR (0.9-1.1) APTT (21.0-31.0) Seconds PTT Ratio Sodium 134 L (136-145) mmol/L Potassium 3.7 (3.5-5.1) mmol/L Chloride 102 (98-107) mmol/L Carbon Dioxide 24 (21-32) mmol/L Anion Gap 8 (3-11) BUN 19 (6-23) mg/dl Creatinine 0.69 (0.6-1.2) mg/dl Est Cr Clr Drug Dosing 58.8 ml/min Est GFR ( Amer) 94.0 ml/min Est GFR (Non-Af Amer) 81.1 ml/min BUN/Creatinine Ratio 27.5 H (10-20) Glucose 143 H (70-99(Fasting)) mg/dl Calcium 9.2 (8.5-10.1) mg/dl Magnesium 1.6 L (1.7-2.4) mg/dl Total Bilirubin 0.4 (0.2-1.0) mg/dl AST 46 H (13-39) U/L ALT 48 (7-52) U/L Alkaline Phosphatase 35 (34-104) U/L Troponin I High Sens 4.8 (0-14) pg/ml Total Protein 6.7 (6.0-8.3) gm/dl Albumin 4.0 (3.4-5.0) gm/dl Globulin 2.7 (2.5-4.0) gm/dl Albumin/Globulin Ratio 1.5 (0.9-2) SARS-CoV-2, RNA, NAAT NEGATIVE (NEGATIVE) Blood Type Antibody Screen Administered Medications Acetaminophen (Acetaminophen 500 Mg Tab) 500 mg PO Q4H PRN PRN Reason: pain / fever Stop: 04/04/22 02:12 Last Admin: 03/05/22 02:35 Dose: 500 mg Documented by: [id number] Magnesium Sulfate/Dextrose (Magnesium Sulfate / D5w) 1 gm in 100 mls @ 50 mls/hr IV Q2H [facility] Stop: 03/05/22 04:52 Last Admin: 03/05/22 02:08 Dose: 50 mls/hr Documented by: [id number] Lactated Ringer's (Lr) 1,000 mls @ 80 mls/hr IV .[id number] [facility] Stop: 03/05/22 13:22 Last Admin: 03/05/22 02:08 Dose: 80 mls/hr Documented by: [id number] Discontinued Medications Gadobutrol (Gadobutrol 65ml Vial) 5.5 ml IV ONCE ONE Stop: 03/05/22 01:49 Last Admin: 03/05/22 01:48 Dose: 5.5 ml Documented by: [id number] Ioversol (Optiray 320 125ml) 120 ml IV ONCE ONE Stop: 03/04/22 21:32 Last Admin: 03/04/22 21:32 Dose: 120 ml Documented by: [id number] Discharge Plan Visit Data Chief Complaint: Stroke Alert ED Provider: Davin Weathers Discharge Problem: Stroke-like episode Patient Disposition: Admitted As Inpatient Discharge Instructions Interventions: ED Discharge Assessment Last Done: 03/05/22 00:12
[2022-03-04] MEDS ORDERED: OPTIRAY 320 125ml IV ONE (21:31)
[2022-03-04 21:56] LABS: Hematocrit (blood only) 38.3 % (37-47); Hemoglobin 13.6 g/dL (12.0-16.0); Mean Corpuscular Hemoglobin 31.9 pg (25-34); Mean Corpuscular Hgb Conc 35.5 g/dL (32-36); Mean Corpuscular Volume 89.9 fL (80-100); Mean Platelet Volume 9.3 fL (7.4-10.4); Platelet Count 172 K/uL (130-400); RDW Coefficient of Variation 12.8 % (11.5-14.5); RDW Standard Deviation 41.4 fL (36.4-46.3); Red Blood Count 4.26 M/uL (4.2-5.4); White Blood Count 6.59 K/uL (4.8-10.8)
[2022-03-04 21:59] LABS: INR 1.1 (0.9-1.1); Partial Thromboplastin Ratio 0.9; Partial Thromboplastin Time 25.7 Seconds (21.0-31.0); Prothrombin Time 11.3 Seconds (9.0-12.0)
[2022-03-04 22:12] LABS: Albumin Globulin Ratio 1.5 (0.9-2); BUN Creatinine Ratio 27.5 (10-20); Bilirubin,Total 0.4 mg/dl (0.2-1.0); Calcium 9.2 mg/dl (8.5-10.1); Creatinine Clr Calc Pharmacy 58.8 ml/min; Est GFR (Non-African American) 81.1 ml/min; Globulin 2.7 gm/dl (2.5-4.0); Magnesium 1.6 mg/dl (1.7-2.4); Potassium 3.7 mmol/L (3.5-5.1); Total Protein 6.7 gm/dl (6.0-8.3)
[2022-03-04 22:14] LABS: Troponin I High Sensitivity 4.8 pg/ml (0-14)
[2022-03-04 22:28] LABS: Basophils # (auto) 0.01 K/uL (0-0.2); Basophils % (auto) 0.2 %; Eosinophils # (auto) 0.16 K/uL (0-0.5); Eosinophils % (auto) 2.4 %; Immature Granulocytes # (auto) 0.04 K/uL (0.00-0.02); Immature Granulocytes % (auto) 0.6 %; Lymphocytes # (auto) 3.48 K/uL (1.2-3.4); Lymphocytes % (auto) 52.8 %; Monocytes # (auto) 0.59 K/uL (0.11-0.59); Neutrophils # (auto) 2.31 K/uL (1.4-6.5)
--- NOTE | 2022-03-04 23:25 | History & Physical Report ---
Date of Service March 04, 2022 Assessment & Plan (1) Stroke-like episode: Plan: Patient with history of prior TIAs. CT head, CTA head and neck with no acute findings Observation to medical telemetry Neurochecks and NIH stroke score per protocol Check MRI brain Aspirin 81 mg p.o. daily Continue Plavix Increase lovastatin to 40 mg daily as tolerated PT/OT evaluation (2) Diabetes mellitus, type 2: Plan: Well-controlled with diet Last hemoglobin A1c on 11/10/2021 = 6.5 Continue to monitor Check hemoglobin A1c (3) Hypertension: Plan: Elevated blood pressure in the ER. Patient is on amlodipine, carvedilol, hydrochlorothiazide for blood pressure management. Hold antihypertensives to allow for permissive hypertension Continue to monitor (4) GERD (gastroesophageal reflux disease): Plan: Chronic. Stable on medications Continue Protonix 40 mg p.o. daily (5) Dyslipidemia: Plan: Chronic. Stable on medications. Continue lovastatin. Patient has been on 10 mg p.o. daily. Will increase to 40 mg now as tolerated (6) Chronic kidney disease, stage 3 (moderate): Plan: BUN and creatinine near baseline Avoid nephrotoxic agents Continue to monitor renal function and electrolytes History of Present Illness Chief Complaint: Left-sided weakness Primary Care Provider: Clara Sarkar DO Jacy Gutiérrez is a right hand dominant 81-year-old female with history of hypertension, hyperlipidemia, diabetes, chronic kidney disease, prior TIAs presenting with acute onset of dizziness and left-sided weakness. Patient was out for dinner with her children this evening. When she returned home she walked into her building and was getting her mail around 1900 when she acutely became dizzy/vertiginous. She made her way into her home and the dizziness continued. Patient then developed left-sided chest discomfort, diaphoresis and weakness/heaviness of the left leg as well as numbness of the left face and arm. She called EMS. Patient reports palpitations as well. She has been having some diarrhea after receiving Keflex last week. Otherwise she denies fever/chills/cough/shortness of breath/nausea/vomiting/dysuria. No additional complaints at this time. Patient presented to the ER as a code stroke. Initial exam with left-sided weakness and numbness as well as drift of left lower extremity. Her symptoms resolved during time of evaluation from [place] [facility]. No thrombolytics administered. During my encounter patient reports feeling slightly tired. She reports still having some numbness of the left side but otherwise has no complaints. Allergies Allergy/AdvReac Type Severity Reaction Status Date / Time doxycycline AdvReac Mild decreased Verified 03/04/22 22:54 urine output escitalopram AdvReac Mild decreased Verified 03/04/22 22:54 urine output prednisone AdvReac Mild feels Verified 03/04/22 22:54 agitated amoxicillin AdvReac upset Verified 03/04/22 22:54 stomach cefdinir AdvReac Diarrhea Verified 03/04/22 22:54 ciprofloxacin [From Cipro] AdvReac Diarrhea Verified 03/04/22 22:54 fluticasone AdvReac Dizziness Verified 03/04/22 22:54 gabapentin AdvReac abdominal Verified 03/04/22 22:54 pain and drowsy gemfibrozil [From Lopid] AdvReac upset Verified 03/04/22 22:54 stomach irbesartan AdvReac Diarrhea Verified 03/04/22 22:54 lisinopril AdvReac hypertension Verified 03/04/22 22:54 and diarrhea meclizine AdvReac Drowsy Verified 03/01/22 11:07 pitavastatin [From Livalo] AdvReac Unknown Verified 03/01/22 11:07 Drpkmbq-PPA-GrL Reductase AdvReac myalgia Verified 03/01/22 11:07 Inhibitor [Zrlobxc-Jeu-Pgr Reductase Inhibitor] tizanidine AdvReac nightmares Verified 03/01/22 11:07 tramadol AdvReac insomnia/pr Verified 03/01/22 11:07 uitus trazodone AdvReac Unknown Verified 03/01/22 11:07 Home Medications Medication Instructions Recorded Confirmed Type vitamin B complex (B 1 tab PO DAILY 08/20/19 03/04/22 History Complex-Vitamin B12) magnesium oxide 400 mg PO DAILY cap 09/02/19 03/04/22 History pantoprazole 40 mg tablet,delayed 40 mg PO DAILY #90 tab 03/30/21 03/04/22 Rx release (Protonix) calcium carbonate 600 mg-vitamin 1 tab PO BID #60 tab 05/10/21 03/04/22 Rx D3 10 mcg (400 unit) tablet (Calcium 600 + D(3)) fluticasone propionate 50 1 spray INTNAS DAILY #15.8 ml 07/18/21 03/04/22 Rx mcg/actuation nasal spray,suspension (Flonase Allergy Relief) lidocaine 4 % topical patch 1 patch TOPICAL Q24H PRN #30 ea 07/24/21 03/04/22 Rx omega-3 acid ethyl esters 1 gram 1 cap PO DAILY 11/09/21 03/04/22 History capsule amlodipine 5 mg tablet 5 mg PO BID #180 tab 12/05/21 03/04/22 Rx rdujkurnloac-yxzsnyby-zazkfb tablet 1 tab PO DAILY #90 tab 12/13/21 03/04/22 Rx hydrochlorothiazide 25 mg tablet 25 mg PO DAILY #90 tab 12/27/21 03/04/22 Rx potassium chloride 10 mEq 10 meq PO DAILY #90 cap 01/02/22 03/04/22 Rx capsule,extended release clopidogrel 75 mg tablet (Plavix) 75 mg PO DAILY #90 tab 01/11/22 03/04/22 Rx alprazolam 0.5 mg tablet 0.25 mg PO HS PRN #30 tab 02/08/22 03/04/22 Rx lovastatin 10 mg tablet 10 mg PO DAILY #90 tab 02/11/22 03/04/22 Rx carvedilol 12.5 mg tablet 12.5 mg PO BID #180 tab 02/25/22 03/04/22 Rx Past Med/Surg History Medical History Allergic rhinitis Anxiety and depression Arthritis of wrist Chronic kidney disease, stage 3 (moderate) Diabetes mellitus, type 2 Dyslipidemia GERD (gastroesophageal reflux disease) History of recurrent TIAs Hypertension Insomnia Lumbar facet joint syndrome Lumbar pain with radiation down left leg Mild cognitive impairment Osteopenia Prediabetes Sacroiliitis Spinal stenosis, lumbar region without neurogenic claudication Venous insufficiency (chronic) (peripheral) Surgical History History of carpal tunnel surgery Hx of neck surgery Previous back surgery S/P appendectomy S/P blepharoplasty S/P cholecystectomy Family History Father Myocardial infarction Prostate cancer Coronary heart disease Mother Stroke, Onset Age: 72 Myocardial infarction, Onset Age: 76 Hypertension Diabetes Brother Cancer Sister Hodgkins disease Sister Coronary heart disease Brother Diabetes Denies family history of Ovarian cancer Breast cancer Colorectal cancer Social History Smoking Status: Never smoker Second Hand Exposure: No; Hx Alcohol Use: No Hx Substance Use: No Preferred Language: Indonesian Communication Ability: Effective Visual Impairment: Limited Hearing Ability: Normal Aircraft Load Controller Required: No Beliefs That Will Affect Care: None marital status: Current Living Situation: Alone Current Living Situation Comment: Patient lives alone in an apartment building current occupational status: retired 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59 Other Information That Helps Us Care for You: No Feels Safe at Home: Yes Safety Concerns: Feels Safe At This Time Childhood Exposure to Second-Hand Smoke: No Diet Comment: low sugar caffeine: No during the past year weight has: remained stable Dental Care, Regularly: No Physical Activity Frequency: Other Seatbelt Use: always Sunscreen Use: Yes Assistive Devices: None Review of Systems Review of Systems: All systems reviewed & are unremarkable except as noted in HPI & below Physical Exam Physical Exam: General: patient resting comfortably, NAD, non-toxic in appearance, AA&O x 4 Skin: warm, dry, intact, no rashes or lesions HEENT: NC/AT, PERRL, EOMI, anicteric sclera, conjunctiva without injection, external ear normal to inspection and nontender, nares patent, moist mucus membranes, dentition intact, no oropharyngeal lesions, neck supple, trachea midline, no LAD, no thyromegaly, no JVD Heart: +S1/S2, regular, no m/r/g Lungs: equal air entry bilaterally, no rales/rhonchi/wheezes Abd: +BS, soft, NT/ND, no masses/organomegaly/ascites Ext: warm, 2+ pulses in UE/LE bilaterally, no clubbing/cyanosis or edema Neuro: Patient awake alert and oriented x4, speech clear and appropriate, no facial droop, sensation to light touch diminished on left side of face, left upper extremity and left lower extremity. Patient states that it feels both numb and "touchy" on the left side. Cranial nerves II through XII grossly intact. Muscle strength 5 out of 5 in upper and lower extremities bilaterally. No drift Results & Data Results & Data ([facility]) Vital Signs (Past 12 Hours) Vital Signs Temp Pulse Pulse Resp BP BP Pulse Ox 03/04/22 22:44 80 20 149/87 H 97 03/04/22 22:13 96 03/04/22 22:03 95 H 24 179/96 H 96 03/04/22 21:42 36.5 C 85 18 175/90 H 97 03/04/22 21:40 91 H 22 180/100 H 96 Laboratory Results Laboratory Results WBC 6.59 K/uL (4.8-10.8) 03/04/22 21:40 RBC 4.26 M/uL (4.2-5.4) 03/04/22 21:40 Hgb 13.6 g/dL (12.0-16.0) 03/04/22 21:40 Hct 38.3 % (37-47) 03/04/22 21:40 MCV 89.9 fL (80-100) 03/04/22 21:40 MCH 31.9 pg (25-34) 03/04/22 21:40 MCHC 35.5 g/dL (32-36) 03/04/22 21:40 RDW Std Deviation 41.4 fL (36.4-46.3) 03/04/22 21:40 RDW Coeff of Johan 12.8 % (11.5-14.5) 03/04/22 21:40 Plt Count 172 K/uL (130-400) 03/04/22 21:40 MPV 9.3 fL (7.4-10.4) 03/04/22 21:40 Immature Gran % (Auto) 0.6 % 03/04/22 21:40 Neut % (Auto) 35.0 % 03/04/22 21:40 Lymph % (Auto) 52.8 % 03/04/22 21:40 Nicholas % (Auto) 9.0 % 03/04/22 21:40 Eos % (Auto) 2.4 % 03/04/22 21:40 Baso % (Auto) 0.2 % 03/04/22 21:40 Neut # (Auto) 2.31 K/uL (1.4-6.5) 03/04/22 21:40 Lymph # (Auto) 3.48 K/uL (1.2-3.4) H 03/04/22 21:40 Nicholas # (Auto) 0.59 K/uL (0.11-0.59) 03/04/22 21:40 Eos # (Auto) 0.16 K/uL (0-0.5) 03/04/22 21:40 Baso # (Auto) 0.01 K/uL (0-0.2) 03/04/22 21:40 Immature Gran # (Auto) 0.04 K/uL (0.00-0.02) H 03/04/22 21:40 PT 11.3 Seconds (9.0-12.0) 03/04/22 21:40 INR 1.1 (0.9-1.1) 03/04/22 21:40 APTT 25.7 Seconds (21.0-31.0) 03/04/22 21:40 PTT Ratio 0.9 03/04/22 21:40 Sodium 134 mmol/L (136-145) L 03/04/22 21:40 Potassium 3.7 mmol/L (3.5-5.1) 03/04/22 21:40 Chloride 102 mmol/L (98-107) 03/04/22 21:40 Carbon Dioxide 24 mmol/L (21-32) 03/04/22 21:40 Anion Gap 8 (3-11) 03/04/22 21:40 BUN 19 mg/dl (6-23) 03/04/22 21:40 Creatinine 0.69 mg/dl (0.6-1.2) 03/04/22 21:40 Est Cr Clr Drug Dosing 58.8 ml/min 03/04/22 21:40 Est GFR ( Amer) 94.0 ml/min 03/04/22 21:40 Est GFR (Non-Af Amer) 81.1 ml/min 03/04/22 21:40 BUN/Creatinine Ratio 27.5 (10-20) H 03/04/22 21:40 Glucose 143 mg/dl (70-99(Fasting)) H 03/04/22 21:40 Calcium 9.2 mg/dl (8.5-10.1) 03/04/22 21:40 Magnesium 1.6 mg/dl (1.7-2.4) L 03/04/22 21:40 Total Bilirubin 0.4 mg/dl (0.2-1.0) 03/04/22 21:40 AST 46 U/L (13-39) H 03/04/22 21:40 ALT 48 U/L (7-52) 03/04/22 21:40 Alkaline Phosphatase 35 U/L (34-104) 03/04/22 21:40 Troponin I High Sens 6.8 pg/ml (0-14) 03/05/22 00:00 Total Protein 6.7 gm/dl (6.0-8.3) 03/04/22 21:40 Albumin 4.0 gm/dl (3.4-5.0) 03/04/22 21:40 Globulin 2.7 gm/dl (2.5-4.0) 03/04/22 21:40 Albumin/Globulin Ratio 1.5 (0.9-2) 03/04/22 21:40 SARS-CoV-2, RNA, NAAT NEGATIVE (NEGATIVE) 03/04/22 23:10 Blood Type A Positive 03/04/22 21:40 Antibody Screen NEGATIVE 03/04/22 21:40 PG Care Time/CCT Total # of Minutes Spent Total Time Spent with Patient: Total time spent is greater than 50% in coordination of care (as documented) at patient's floor/unit and/or counseling patient: Coding Level of Care Code INT OBSERVATION CARE 70M LVL 3 Diagnoses Stroke-like episode R29.90 Diabetes mellitus, type 2 E11.9 Hypertension I10 GERD (gastroesophageal reflux disease) K21.9 Dyslipidemia E78.5 Chronic kidney disease, stage 3 (moderate) N18.3
[2022-03-05] MEDS ORDERED: LACTATED RINGER'S 1,000 ML IV SCH (00:53)
[2022-03-05] MEDS ORDERED: GADOBUTROL 65ML VIAL IV ONE (01:48)
[2022-03-05] MEDS: MAGNESIUM SULFATE / D5W 1 GM/100 ML BAG IV SCH ×2 (02:08→04:50)
[2022-03-05] MEDS: ACETAMINOPHEN 500 MG TAB PO PRN ×2 (02:35→22:23)
--- NOTE | 2022-03-05 07:00 | CT Scan Report ---
CT SCAN OF THE BRAIN WITHOUT IV CONTRAST CLINICAL HISTORY: Strokelike symptoms. COMPARISON STUDY: CT of the brain dated 11/25/2021. TECHNIQUE: Unenhanced axial CT scan of the brain is performed from the vertex to the skull base. A do se lowering technique was utilized adhering to the principles of ALARA. FINDINGS: Brain parenchyma: There are age-related involutional changes noting mild subcortical and periventric ular microangiopathic change. There is no hemorrhage, mass effect, or evidence of acute territorial i schemia by CT criteria. A chronic lacunar infarct is noted in the left basal ganglia. Palacios-white alexsander er differentiation is preserved. No extra-axial fluid collection is seen. Ventricles, sulci, cisterns: Prominent secondary to involutional change. Intracranial vasculature: There is atherosclerotic calcification of the cavernous carotid and vertebr al arteries. Calvarium: Unremarkable. Sinuses and mastoids: The visualized paranasal sinuses are clear. The mastoid air cells are well pneu matized. Orbits: The bony orbits are grossly intact. There is evidence of bilateral ocular lens surgery. IMPRESSION: There is no hemorrhage, mass effect, or evidence of acute territorial ischemia by CT crit lexii. ACT 112: Negative or not required by law. Electronically signed by: Uriel Eubanks M.D. 03/05/2022 6:58 AM
--- NOTE | 2022-03-05 07:02 | Magnetic Resonance Report ---
MRI OF THE BRAIN COMBO CLINICAL HISTORY: Left-sided weakness COMPARISON STUDY: CT of the brain dated 03/04/2022. TECHNIQUE: MRI of the brain was performed utilizing various T1 and T2-weighted sequences in the axial , sagittal, and coronal planes. Contrast-enhanced sequences were acquired following the administratio n of 5.5 cc of Gadavist. FINDINGS: Brain parenchyma: There is age-related involutional change noting mild subcortical and periventricula r microangiopathic disease. A small chronic lacunar infarct is noted in the left basal ganglia. There is no hemorrhage or mass effect. There is no restricted diffusion to suggest acute ischemia. No enha ncing mass lesion is identified on the postcontrast images. Palacios-white matter differentiation is pres erved. No extra-axial fluid collection is seen. The cerebellar tonsils are normal in configuration. Ventricles, sulci, and cisterns: Prominent secondary to involutional change. Pituitary and sella: Partially empty sella is incidentally noted. Intracranial vasculature: Normal flow voids are maintained at the skull base. Orbits: The bony orbits are grossly intact. Orbital contents are normal in appearance noting bilatera l ocular lens implants. Sinuses and mastoids: Clear. Calvarium: Unremarkable. Cervical cord: Partially visualized cervical spinal cord is normal in morphology and signal intensity . IMPRESSION: No acute intracranial abnormality. ACT 112: Negative or not required by law. Electronically signed by: Uriel Eubanks M.D. 03/05/2022 7:01 AM
--- NOTE | 2022-03-05 08:02 | CT Scan Report ---
CT angio neck with con, CT angio head w con CLINICAL HISTORY: 81 years-old Female with Stroke Like Symptoms. Acute strokelike symptoms COMPARISON STUDY: Head CT and brain MRI studies of same day, CTA head and neck 11/09/2021 TECHNIQUE: Following the IV administration of 120 mL of Optiray, CT angiogram of the head and neck wa s performed from the aortic arch to the skull apex. Images are reviewed in the axial, sagittal, and c oronal planes. 3-D MIPS images are created and assessed. IV contrast was administered without complic ation. All measurements were calculated based on NASCET criteria. A dose lowering technique was util ized adhering to the principles of ALARA. CT DOSE: 948.19 mGy.cm FINDINGS: Three-vessel morphology of the thoracic aortic arch. The common carotid arteries are patent. There is mild atherosclerosis of the carotid bulbs without significant stenosis. Additional atherosclerotic p laque is noted within the cavernous, clinoid and supraclinoid segments without significant stenosis. There is mild multifocal luminal narrowing noted within the left greater than right middle cerebral a rteries which appears similar to the prior study. The anterior and middle cerebral arteries are paten t. The vertebral arteries are codominant. Moderate stenosis at the origin of the right vertebral dane ry. There is mild multifocal luminal narrowing of the V2 segments of the vertebral artery secondary t o degenerative changes of the cervical spine. The basilar artery is patent. Multifocal luminal narrow ing of the posterior cerebral arteries is similar to the prior study with areas of mild high-grade na rrowing again noted bilaterally. The cerebral venous sinuses are patent. There is no abnormal intracr anial enhancement. The lung apices are clear. There is no pneumothorax. Degenerative changes of the cervical spine. Ante rior plate and screw fusion hardware is noted at C5-C7 with discectomy changes. IMPRESSION: 1. Stable exam compared to the 11/09/2021 study. There is moderate stenosis of the origin of the right vertebral artery with unchanged multifocal luminal narrowing of the bilateral posterior cerebral and to a lesser extent left middle cerebral arteries. 2. Atherosclerotic plaque of the carotid bulbs without significant stenosis. ACT 112: Negative or not required by law. The above report was generated using voice recognition software. It may contain grammatical, syntax o r spelling errors. Electronically signed by: Eric Flanagan M.D. 03/05/2022 8:01 AM
[2022-03-05 08:23] LABS: Basophils # (auto) 0.01 K/uL (0-0.2); Basophils % (auto) 0.1 %; Eosinophils # (auto) 0.15 K/uL (0-0.5); Eosinophils % (auto) 2.2 %; Hematocrit (blood only) 37.7 % (37-47); Hemoglobin 13.3 g/dL (12.0-16.0); Immature Granulocytes # (auto) 0.05 K/uL (0.00-0.02); Immature Granulocytes % (auto) 0.7 %; Lymphocytes # (auto) 3.03 K/uL (1.2-3.4); Lymphocytes % (auto) 43.9 %; Mean Corpuscular Hemoglobin 31.6 pg (25-34); Mean Corpuscular Hgb Conc 35.3 g/dL (32-36); Mean Corpuscular Volume 89.5 fL (80-100); Mean Platelet Volume 9.3 fL (7.4-10.4); Monocytes # (auto) 0.69 K/uL (0.11-0.59); Neutrophils # (auto) 2.97 K/uL (1.4-6.5); Neutrophils % (auto) 43.1 %; Platelet Count 162 K/uL (130-400); RDW Coefficient of Variation 12.7 % (11.5-14.5); RDW Standard Deviation 41.4 fL (36.4-46.3); Red Blood Count 4.21 M/uL (4.2-5.4)
--- NOTE | 2022-03-05 08:41 | XRay Report ---
XR chest 1V portable HISTORY: 81 years-old Female Stroke Like Symptoms acute strokelike symptoms COMPARISON: Chest radiograph 11/09/2021 TECHNIQUE: Portable AP view of the chest FINDINGS: The cardiomediastinal and hilar silhouettes are within normal limits. No pneumothorax, pleural effusi on, airspace consolidation or overt pulmonary edema. Degenerative changes of the shoulders and spine. Right shoulder rotator cuff calcific tendinosis. Fusion hardware of the lower cervical spine. IMPRESSION: No acute process. ACT 112: Negative or not required by law. The above report was generated using voice recognition software. It may contain grammatical, syntax o r spelling errors. Electronically signed by: Eric Flanagan M.D. 03/05/2022 8:40 AM
[2022-03-05] MEDS: PANTOprazole 40 MG TAB PO SCH (08:52)
[2022-03-05] MEDS: FLUTICASONE PROPIONATE NA SPR 16 GM BTL SCH (08:52)
[2022-03-05] MEDS: CLOPIDOGREL BISULFATE 75 MG TAB PO SCH (08:52)
[2022-03-05] MEDS: ASPIRIN 81 MG ECTAB PO SCH (08:52)
[2022-03-05 08:56] LABS: BUN Creatinine Ratio 26.2 (10-20); Calcium 9.3 mg/dl (8.5-10.1); Creatinine Clr Calc Pharmacy 62.2 ml/min; Est GFR (African American) 97.8 ml/min; Est GFR (Non-African American) 84.4 ml/min; Potassium 3.5 mmol/L (3.5-5.1)
[2022-03-05 09:32] LABS: Estimated Average Glucose 140 mg/dl; Hemoglobin A1C 6.5 % (4.5-5.6)
--- NOTE | 2022-03-05 12:11 | Hospitalist Progress Note ---
Date of Service March 05, 2022 Assessment & Plan (1) Stroke-like episode: Plan: Patient with history of prior TIAs. CT head, CTA head and neck with no acute findings. MRI brain without acute CVA, but does show a "small chronic lacunar infarct in the left basal ganglia." Neurochecks and NIH stroke score per protocol Continue aspirin & Plavix Increase lovastatin to 40 mg daily as tolerated PT/OT evaluation -> Have discussed with neurology. Agrees with plan as above. For LE weakness, will consider repeat lumbar MRI as her MRI in 05/2021 showed some disc protrusion and central canal narrowing. (2) Diabetes mellitus, type 2: Plan: Well-controlled with diet. Last hemoglobin A1c on 11/10/2021 = 6.5%. Same this time. Continue to monitor (3) Hypertension: Plan: Elevated blood pressure in the ER. Patient is on amlodipine, carvedilol, hydrochlorothiazide for blood pressure management. Will restart amlodipine, then add other agents as able. Continue to monitor (4) GERD (gastroesophageal reflux disease): Plan: Chronic. Stable on medications. Continue Protonix 40 mg p.o. daily (5) Dyslipidemia: Plan: Chronic. Stable on medications. Continue lovastatin. Patient has been on 10 mg p.o. daily. Will increase to 40 mg now as tolerated. (6) Chronic kidney disease, stage 3 (moderate): Plan: BUN and creatinine near baseline at 0.6. Avoid nephrotoxic agents Continue to monitor renal function and electrolytes Admission and Anticipated Discharge Date Admission Date: March 04, 2022 Subjective Still with some left leg weakness and numbness. She feels that her left arm is still a bit weak as well. Review of Systems Review of Systems: All systems reviewed & are unremarkable except as noted in HPI & below Physical Exam Constitutional: WD/WN, vitals as above Eyes: EOM intact bilaterally; no conjunctival abnormality ENMT: external ear and nose normal, oropharynx normal Neck: trachea midline, no thyromegaly normal visual inspection Respiratory: normal respiratory effort, lungs clear to auscultation no respiratory distress Cardiovascular: RRR, no murmur, no edema Gastrointestinal (Abdomen): Inspection/Auscultation: abdomen normal to inspection; abdomen not distended Skin: no rashes, warm and dry Neurologic: moves all extremities and awake Strength 4/5 in left leg. 5/5 in LUE. Psychiatric: Orientation: alert, oriented to person and cooperative Results & Data Results & Data ([facility]) Vital Signs (Past 12 Hours) Vital Signs Temp Pulse Pulse Resp BP BP Pulse Ox 03/05/22 11:34 36.6 C 76 18 144/84 H 96 03/05/22 07:44 36.4 C L 73 18 152/70 H 96 03/05/22 06:23 70 03/05/22 03:40 36.5 C 69 20 128/61 97 03/05/22 01:30 77 03/05/22 00:57 36.4 C L 74 20 161/84 H 95 PG Care Time/CCT Total # of Minutes Spent Total Time Spent with Patient: Total time spent is greater than 50% in coordination of care (as documented) at patient's floor/unit and/or counseling patient: Coding Level of Care Code 54961 Subseq Hosp Care Lvl 3 Diagnoses Stroke-like episode R29.90 Diabetes mellitus, type 2 E11.9 Hypertension I10 GERD (gastroesophageal reflux disease) K21.9 Dyslipidemia E78.5 Chronic kidney disease, stage 3 (moderate) N18.3
--- NOTE | 2022-03-05 16:06 | Magnetic Resonance Report ---
LUMBAR SPINE MRI HISTORY: Prior disc disease. Left leg weakness TECHNIQUE: Multiplanar multisequence MRI of the lumbar spine was performed without the use of contras t. COMPARISON: Lumbar spine MRI 05/31/2021. FINDINGS: For the purpose of the report the L5-S1 disc space will be located on axial image 23 of 25. Mild dextroscoliosis. Mild prevertebral edema at the L5-S1 level. This remains unchanged. There is a well-corticated anterior osteophyte at S1 demonstrating mild marrow edema at the anterior superior en dplate of S1. This is likely chronic. No acute fractures identified within the lumbar spine. The conu s terminates at the T12-L1 disc space level. There is moderate disc space narrowing at L2-L3 and L3-L 4. There is severe disc space narrowing at L4-5 and L5-S1. There are small endplate osteophytes seen throughout the lumbar spine. Evidence for prior left L4 and L5 hemilaminectomies. L1-L2: Small broad-based posterior disc bulge without significant central canal or neural foraminal n arrowing. L2-L3: Broad-based posterior disc bulge asymmetric to the left and a small focal left paracentral dis c protrusion which abuts the transiting left L3 nerve roots. There is moderate central canal and bella re left-sided neural foraminal narrowing, unchanged. There is also mild right-sided neural foraminal narrowing. This is similar to the prior study. L3-L4: Broad-based posterior disc bulge asymmetric to the left and a small central annular tear with ligamentum and facet hypertrophy resulting in moderate to severe central canal most pronounced on the left and left-sided neural foraminal narrowing. There is no significant right-sided neural foraminal narrowing. L4-L5: Broad-based posterior disc bulge and a small central annular tear with facet hypertrophy resul ting in moderate central canal and moderate bilateral neural foraminal narrowing. L5-S1: Broad-based posterior disc bulge with a small focal central/right paracentral disc protrusion without significant central canal narrowing. This disc protrusion abuts the transiting right S1 nerve root. There is also mild bilateral neural foraminal narrowing. IMPRESSION: 1. Overall, no significant change compared to the prior study. No acute fractures identified. 2. A small focal central/right paracentral disc protrusion at L5-S1 which abuts the transiting right S1 nerve root. 3. Additional multilevel degenerative changes as described above most pronounced at the L3-L4 level w hich demonstrates moderate to severe central canal narrowing. 4. Mild dextroscoliosis. 5. Prior L4 and L5 hemilaminectomies. 6. Mild prevertebral edema at the L5-S1 level, unchanged. This is of uncertain clinical significance and could be due to the long-standing degenerative change. ACT 112: Negative or not required by law. Electronically signed by: Juan Robertson M.D. 03/05/2022 4:05 PM
[2022-03-05] MEDS ORDERED: LOVASTATIN 20 MG TAB PO SCH (16:30)
[2022-03-05] MEDS: amLODIPine BESYLATE 5 MG TAB PO SCH (22:22)
[2022-03-06 07:45] LABS: Basophils # (auto) 0.03 K/uL (0-0.2); Basophils % (auto) 0.5 %; Eosinophils # (auto) 0.18 K/uL (0-0.5); Eosinophils % (auto) 2.8 %; Hematocrit (blood only) 39.4 % (37-47); Hemoglobin 13.9 g/dL (12.0-16.0); Immature Granulocytes # (auto) 0.04 K/uL (0.00-0.02); Immature Granulocytes % (auto) 0.6 %; Lymphocytes % (auto) 46.4 %; Mean Corpuscular Hemoglobin 32.4 pg (25-34); Mean Corpuscular Hgb Conc 35.3 g/dL (32-36); Mean Corpuscular Volume 91.8 fL (80-100); Mean Platelet Volume 9.6 fL (7.4-10.4); Monocytes # (auto) 0.53 K/uL (0.11-0.59); Monocytes % (auto) 8.2 %; Neutrophils # (auto) 2.68 K/uL (1.4-6.5); Neutrophils % (auto) 41.5 %; Platelet Count 174 K/uL (130-400); RDW Coefficient of Variation 12.9 % (11.5-14.5); RDW Standard Deviation 43.2 fL (36.4-46.3); Red Blood Count 4.29 M/uL (4.2-5.4); White Blood Count 6.46 K/uL (4.8-10.8)
[2022-03-06 08:19] LABS: BUN Creatinine Ratio 30.2 (10-20); Calcium 9.3 mg/dl (8.5-10.1); Creatinine Clr Calc Pharmacy 62.4 ml/min; Est GFR (African American) 96.8 ml/min; Est GFR (Non-African American) 83.5 ml/min; Potassium 3.8 mmol/L (3.5-5.1)
[2022-03-06] MEDS: PANTOprazole 40 MG TAB PO SCH (08:19)
[2022-03-06] MEDS: ASPIRIN 81 MG ECTAB PO SCH (08:19)
[2022-03-06] MEDS: amLODIPine BESYLATE 5 MG TAB PO SCH (08:19)
[2022-03-06] MEDS: CLOPIDOGREL BISULFATE 75 MG TAB PO SCH (08:20)
[2022-03-06] MEDS: FLUTICASONE PROPIONATE NA SPR 16 GM BTL SCH (08:20)
[2022-03-06 14:14] LABS: Folate (Folic Acid) > 22.30 ng/ml (>5.38)
[2022-03-06 14:15] LABS: Vitamin B12 544 pg/ml (180-914)
--- NOTE | 2022-03-06 15:07 | Discharge Summary ---
Date of Service March 06, 2022 Admission HPI Per Admitting Provider Jacy Gutiérrez is a right hand dominant 81-year-old female with history of hypertension, hyperlipidemia, diabetes, chronic kidney disease, prior TIAs presenting with acute onset of dizziness and left-sided weakness. Patient was out for dinner with her children this evening. When she returned home she walked into her building and was getting her mail around 1900 when she acutely became dizzy/vertiginous. She made her way into her home and the dizziness continued. Patient then developed left-sided chest discomfort, diaphoresis and weakness/heaviness of the left leg as well as numbness of the left face and arm. She called EMS. Patient reports palpitations as well. She has been having some diarrhea after receiving Keflex last week. Otherwise she denies fever/chills/cough/shortness of breath/nausea/vomiting/dysuria. No additional complaints at this time. Patient presented to the ER as a code stroke. Initial exam with left-sided weakness and numbness as well as drift of left lower extremity. Her symptoms resolved during time of evaluation from [facility]. No thrombolytics administered. During my encounter patient reports feeling slightly tired. She reports still having some numbness of the left side but otherwise has no complaints. Principal Diagnosis Left-sided weakness - Unclear whether TIA vs. chronic changes from spinal surgeries Discharge Exam Constitutional WD/WN, vitals as above Eyes EOM intact bilaterally; no conjunctival abnormality ENMT external ear and nose normal, oropharynx normal Neck trachea midline, no thyromegaly normal visual inspection Respiratory normal respiratory effort, lungs clear to auscultation no respiratory distress Cardiovascular RRR, no murmur, no edema Gastrointestinal (Abdomen) Inspection/Auscultation: abdomen normal to inspection; abdomen not distended Skin no rashes, warm and dry Neurologic moves all extremities and awake Psychiatric Orientation: alert, oriented to person and cooperative Discharge Data Allergies Allergy/AdvReac Type Severity Reaction Status Date / Time doxycycline AdvReac Mild decreased Verified 03/04/22 22:54 urine output escitalopram AdvReac Mild decreased Verified 03/04/22 22:54 urine output prednisone AdvReac Mild feels Verified 03/04/22 22:54 agitated amoxicillin AdvReac upset Verified 03/04/22 22:54 stomach cefdinir AdvReac Diarrhea Verified 03/04/22 22:54 ciprofloxacin [From Cipro] AdvReac Diarrhea Verified 03/04/22 22:54 fluticasone AdvReac Dizziness Verified 03/04/22 22:54 gabapentin AdvReac abdominal Verified 03/04/22 22:54 pain and drowsy gemfibrozil [From Lopid] AdvReac upset Verified 03/04/22 22:54 stomach irbesartan AdvReac Diarrhea Verified 03/04/22 22:54 lisinopril AdvReac hypertension Verified 03/04/22 22:54 and diarrhea meclizine AdvReac Drowsy Verified 03/01/22 11:07 pitavastatin [From Livalo] AdvReac Unknown Verified 03/01/22 11:07 Vjpfvww-XPY-ViY Reductase AdvReac myalgia Verified 03/01/22 11:07 Inhibitor [Fpusmkn-Trp-Oca Reductase Inhibitor] tizanidine AdvReac nightmares Verified 03/01/22 11:07 tramadol AdvReac insomnia/pr Verified 03/01/22 11:07 uitus trazodone AdvReac Unknown Verified 03/01/22 11:07 Consultations 03/04/22 22:55 ED Decision to Admit Stat Ordered Studies 03/04/22 21:13 CT angio head w con Urgent CT angio neck with con Urgent CT head/brain wo con Urgent 03/05/22 00:53 MR brain wo/w con Routine 03/05/22 12:11 MR lumbar spine wo con Routine Hospital Course (1) Stroke-like episode: Patient with history of prior TIAs. CT head, CTA head and neck with no acute findings. MRI brain without acute CVA, but does show a "small chronic lacunar infarct in the left basal ganglia." Neurochecks and NIH stroke score per protocol Continue Plavix Continue lovastatin PT/OT evaluation - MRI lumbar spine was done which was stable from 05/2021. -> Significant discussion with her daughter on 03/05 (who is an RN). She reports the patient was diagnosed with dementia a few years ago, and that she may not be having actual changes in strength (and mostly feeling her chronic weakness from the prior surgeries). She saw her mother on 03/04 and reported her gait was stable from her baseline (despite the patient still reporting weakness). In the end, TIA seems much more questionable as a diagnosis. - On 03/06, the patient reported her symptoms had largely resolved. Strength was back to baseline, and the "pins/needles" sensation had largely gone away. B12/fo late were checked and normal. (2) Diabetes mellitus, type 2: Well-controlled with diet. Last hemoglobin A1c on 11/10/2021 = 6.5%. Same this time. Continue to monitor (3) Hypertension: Elevated blood pressure in the ER. Patient is on amlodipine, carvedilol, hydrochlorothiazide for blood pressure management. Will restart amlodipine, then add other agents as able. Continue to monitor (4) GERD (gastroesophageal reflux disease): Chronic. Stable on medications. Continue Protonix 40 mg p.o. daily (5) Dyslipidemia: Chronic. Stable on medications. Continue lovastatin. Patient has been on 10 mg p.o. daily. Will increase to 40 mg now as tolerated. (6) Chronic kidney disease, stage 3 (moderate): BUN and creatinine near baseline at 0.6. Avoid nephrotoxic agents Continue to monitor renal function and electrolytes Total Time Total Time Spent Total Time Spent (In Minutes): 35 Discharge Plan Discharge Items Patient Disposition: Home - Home Health Services Reason For Visit: LEFT-SIDED WEAKNESS Discharge Diagnosis: Left-sided weakness and number Fast heart rhythm Activity: Resume your previous activity Non-emergency contact: Primary Care Provider and Retail Merchandiser Call non-emergency contact if: your symptoms worsen Follow-up/Referrals: Popeye Courtney MD [Physician] - 03/22/22 1:45 pm (This appointment will be in the [place] office.) Clara Sarkar DO [Primary Care Provider] - 03/18/22 8:20 am Diet: Heart Healthy Addtl Attending Provider Instructions: Ms. Gutiérrez, Cresencio were admitted to the hospital with concerns for left-sided weakness and numbness. Over 2 days, this has improved and nearly resolved. We did several scans to monitor this, including a brain MRI and an MRI of your lumbar spine. Both of these scans were stable from prior ones (the brain from November 2021 and the lumbar spine from May 2021). This is great news! This means you did not have a stroke! It also means your lumbar spine is not changing and pinching new nerves or anything. This is all great news. Your weakness has essentially resolved, though you are still having some mild numbness in the leg. We are going to get you arranged with some home health, and hopefully this will resolve in time. We did see a short (2 minute) bursh of a fast heart rate in the dicer operator, which you did not notice. We will have a home heart monitor sent to you that you can wear for 4 weeks to monitor you closely for this. You can see Dr. Courtney in the clinic, and he can discuss your blood pressure as well as the results of this testing. Pending Studies at Discharge: No Stand-Alone Forms: [facility], Smoking Cessation Medications and DC Order Prescriptions: Continued pantoprazole [Protonix] 40 mg tablet,delayed release (DR/EC) 40 mg PO DAILY Qty: 90 RF: 1 calcium carbonate-vitamin D3 [Calcium 600 + D(3)] 600 mg(1,500mg) -400 unit tablet 1 tab PO BID Qty: 60 RF: 0 fluticasone propionate [Flonase Allergy Relief] 50 mcg/actuation spray,suspension 1 spray INTNAS DAILY Qty: 15.8 RF: 5 amlodipine 5 mg tablet 5 mg PO BID Qty: 180 RF: 1 vjpgoxkyffpx-moqqhfpt-vhlzyb Tablet 1 tab PO DAILY Qty: 90 RF: 1 potassium chloride 10 mEq capsule, extended release 10 meq PO DAILY Qty: 90 RF: 1 clopidogrel [Plavix] 75 mg tablet 75 mg PO DAILY Qty: 90 RF: 1 alprazolam 0.5 mg tablet 0.25 mg PO HS PRN (Reason: sleep) Qty: 30 RF: 0 lovastatin 10 mg tablet 10 mg PO DAILY Qty: 90 RF: 1 carvedilol 12.5 mg tablet 12.5 mg PO BID Qty: 180 RF: 1 vitamin B complex [B Complex-Vitamin B12] tablet 1 tab PO DAILY RF: 0 lidocaine 4 % adhesive patch,medicated 1 patch topical Q24H PRN (Reason: pain) Qty: 30 RF: 5 hydrochlorothiazide 25 mg tablet 25 mg PO DAILY Qty: 90 RF: 1 magnesium oxide 400 mg magnesium capsule 400 mg PO DAILY RF: 0 omega-3 acid ethyl esters 1 gram capsule 1 cap PO DAILY RF: 0 Discharge Orders: Discharge Order (Routine); Ordered 03/06/22 Ordered By: Akhil Umanzor/Other Patient Handouts: Managing Type 2 Diabetes, Risk Factors for Stroke Admission Data Admit Date/Time: 03/04/22 23:31 Attending Provider: Akhil Morejon Admit Provider: Minoo Townsend Primary Care Provider: Clara Sarkar Other Providers: Akhil Morejon ; Jamel Serrato [facility] Other Interventions: Discharge Summary Assessment (RN) Last Done: 03/06/22 12:53 Coding Level of Care Code 32094 OBS Care - Discharge Diagnoses Stroke-like episode R29.90 Diabetes mellitus, type 2 E11.9 Hypertension I10 GERD (gastroesophageal reflux disease) K21.9 Dyslipidemia E78.5 Chronic kidney disease, stage 3 (moderate) N18.3
--- NOTE | 2022-03-06 15:26 | Electrocardiogram Report ---
Test Reason : Blood Pressure : / mmHG Vent. Rate : 089 BPM Atrial Rate : 089 BPM P-R Int : 170 ms QRS Dur : 082 ms QT Int : 312 ms P-R-T Axes : 061 -02 092 degrees QTc Int : 379 ms Sinus rhythm with Premature atrial complexes T wave abnormality, consider inferior ischemia Abnormal ECG When compared with ECG of 25-NOV-2021 21:59, Premature atrial complexes are now Present T wave inversion now evident in Lateral leads Confirmed by Tariq Rivas ([id number]) on 03/06/2022 3:26:08 PM Referred By: REFERRED SELF Confirmed By:Tariq Rivas
== END 2022-03-06 15:44 | disposition home health service (06) ==
LOC: 2N 21:22 → ED 21:22 → SUATTDRO 23:31 → 2N 03-05 00:12

== ENCOUNTER 2023-04-14 10:57 | Observation (INO) ==
--- NOTE | 2023-04-14 11:16 | CT Scan Report ---
CT head/brain wo con CLINICAL HISTORY: Neuro deficit, acute, stroke suspected Technique: Contiguous axial CT images of the head were acquired from the base of the skull to the rissa porfirio without intravenous contrast administration. Images were viewed in brain, subdural and bone [facility]. Automated dose lowering techniques and/or adjustment according to patient size were utilized for this exam. Comparison: Comparison is made to CT head 05/03/2022 Findings: Areas of decreased attenuation are present in the periventricular and subcortical white matter bilate rally consistent with small vessel ischemic disease. Generalized cerebral atrophy with commensurate e nlargement of the ventricles, sulci, and cisterns is also present. There is no acute intracranial hem orrhage or evidence of acute territorial infarction. No shift of the midline structures, mass effect, or extra-axial abnormalities are shown. Atherosclerotic calcifications are present in the intracran ial segments of the internal carotid arteries. Focal encephalomalacia is seen in the left insula whic h is unchanged from prior. Imaged portions of the paranasal sinuses and mastoid air cells are clear. The orbits appear normal. There are no acute fractures of the calvaria or scalp swelling. Impression: No acute intracranial hemorrhage, no evidence of acute territorial infarction or other acute intracra nial disease process. ACT 112: Negative or not required by law. Electronically signed by: Iron Julio M.D. 04/14/2023 11:15 AM
[2023-04-14] MEDS ORDERED: OPTIRAY 320 500ml IV ONE (11:22)
--- NOTE | 2023-04-14 11:34 | Emergency Department Note ---
Impression & Plan Stroke-like symptoms, Left sided numbness ED Provider Note HISTORY OF PRESENT ILLNESS: Patient is an 82-year-old female presenting with left-sided numbness. Patient reports that symptoms started at 9:30 AM while she was getting ready for the day. Complaining of numbness of her left face, left upper extremity and left lower extremity. She is on Plavix for previous TIA. She is 2 hours into symptoms at this point. Denies any chest pain or shortness of breath. ROS: as above PHYSICAL EXAM: Constitutional: Patient appears in no acute distress. HENT: Head: Normocephalic and atraumatic. Eyes: EOMI, PERRL Mouth/Throat: Mucous membranes moist. Neck: Trachea midline. Neck supple. Cardiovascular: RRR, No murmurs, rubs or gallops. Intact distal pulses. Pulmonary/Chest: No respiratory distress. Breath sounds clear and equal bilaterally. No wheezes or rales. Abdominal: BS +. Abdomen soft, no tenderness, rebound or guarding. Musculoskeletal: No edema, tenderness or deformity noted. Skin: Warm and dry. No rash, erythema, pallor or cyanosis Psychiatric: Appropriate mood and affect for situation. Neurological: Alert and keenly responsive. Facies symmetric. Able to raise eyebrows, close eyes, smile, puff mouth, stick out tongue, move tongue left and right and raise palate symmetrically. Able to shrug shoulders. PERRLA. SILT to forehead below eye and at jawline. Can hear soft nose bilaterally. Good finger to nose. Strength 5/5 in bilateral upper and lower extremities. Decreased sensation to light touch in the left lower extremity. Patient has some slight a taxia with the left lower extremity on [id number]. She also has some slight drift in the left lower extremity. NIH 3 MDM: - Vitals signs stable. - History obtained via patient. Patient presents with left-sided numbness. Symptoms started 2 hours prior to arrival in the emergency department. She has left facial, left upper extremity and left lower extremity numbness. Reports some weakness in the left lower extremity. Has a prior history of TIAs and is on Plavix. - Chronic conditions affecting care: DM-2; CKD; HTN; HLD - Differential diagnoses include, but are not limited to: CVA; intracranial hemorrhage; ACS; electrolyte abnormality - Order placed for continuous cardiac monitoring. At this time, monitor showed rate of 80 bpm with normal sinus rhythm, per my interpretation. - External medical records reviewed. EMS run sheet reviewed. Patient given no medications prehospital. - CT head wo contrast negative for acute intracranial hemorrhage. - Consulted telestroke at [facility], Dr. Eldridge at 11:35. He is reviewing images and signing in to evaluate the patient - Telestroke rates the patient's NIH stroke score 3. Recommends TNK, as patient is stating that her symptoms are debilitating. Discussed the risks versus benefits of TNK administration with the patient. Quoted a risk of around 6% for post TNK bleeding. Patient consented to TNK. Patient's blood pressure was slightly elevated over 180 systolic. She was given 10 mg of IV labetalol with improvement in systolic blood pressure TNK was pushed at 12:17 on 04/14/2023. - EKG reviewed by myself showed normal sinus rhythm. Rate 71 bpm. QTc 465. No acute ischemic changes - Laboratory workup interpreted by myself showed normal WBC; stable electrolytes; hyperglycemia; slight hypomagnesemia (Mg 1.5) - CTA head showed narrowing of severe stenosis of right posterior cerebral artery progressed from previous study. - Discussion was had with social work case manager about patient's case and need for admission. - Discussed case with field identification specialist. - Hospitalist, Dr. Rodgers, consulted for admission. - Patient admitted to [facility] Hospitalist service for further evaluation and management. I provided 43 minutes of critical care time to this patient's care outside of billable procedures. ASSESSMENT AND PLAN: Diagnosis: stroke-like symptoms; left-sided numbness; status post TNK Plan: admit Past Med/Surg History Medical History Allergic rhinitis Anxiety and depression Arthritis of wrist Chronic kidney disease, stage 3 (moderate) Diabetes mellitus, type 2 Dyslipidemia GERD (gastroesophageal reflux disease) History of recurrent TIAs Hypertension Insomnia Lumbar facet joint syndrome Lumbar pain with radiation down left leg Mild cognitive impairment Osteopenia Sacroiliitis Spinal stenosis, lumbar region without neurogenic claudication Venous insufficiency (chronic) (peripheral) Surgical History History of carpal tunnel surgery Hx of neck surgery Previous back surgery S/P appendectomy S/P blepharoplasty S/P cholecystectomy Family History Father Myocardial infarction Prostate cancer Coronary heart disease Mother Stroke, Onset Age: 72 Myocardial infarction, Onset Age: 76 Hypertension Diabetes Brother Cancer Sister Hodgkins disease Sister Coronary heart disease Brother Diabetes Denies family history of Ovarian cancer Breast cancer Colorectal cancer Social History Smoking Status: Never smoker Second Hand Exposure: No; Do You Dip or Chew Tobacco: No; Hx Alcohol Use: No Hx Substance Use: No Preferred Language: Arabic Communication Ability: Effective Visual Impairment: No Limitations Hearing Ability: Normal Concrete Pourer Required: No Beliefs That Will Affect Care: None marital status: Current Living Situation: Alone Current Living Situation Comment: Patient lives alone in an apartment building current occupational status: retired 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59 Feels Safe at Home: Yes Childhood Exposure to Second-Hand Smoke: No Diet: other Diet Comment: low sugar caffeine: No during the past year weight has: remained stable Dental Care, Regularly: No Physical Activity Frequency: Other Seatbelt Use: always Sunscreen Use: Yes Assistive Devices: None Allergies Allergies Allergy/AdvReac Type Severity Reaction Status Date / Time doxycycline AdvReac Mild decreased Verified 02/27/23 08:16 urine output escitalopram AdvReac Mild decreased Verified 02/27/23 08:16 urine output prednisone AdvReac Mild feels Verified 02/27/23 08:16 agitated memantine AdvReac Unknown stomach Verified 02/27/23 08:16 pains amoxicillin AdvReac upset Verified 02/27/23 08:16 stomach cefdinir AdvReac Diarrhea Verified 02/27/23 08:16 ciprofloxacin [From Cipro] AdvReac Diarrhea Verified 02/27/23 08:16 fluticasone AdvReac Dizziness Verified 02/27/23 08:16 gabapentin AdvReac abdominal Verified 02/27/23 08:16 pain and drowsy gemfibrozil [From Lopid] AdvReac upset Verified 02/27/23 08:16 stomach irbesartan AdvReac Diarrhea Verified 02/27/23 08:16 lisinopril AdvReac hypertension Verified 02/27/23 08:16 and diarrhea meclizine AdvReac Drowsy Verified 02/27/23 08:16 pitavastatin [From Livalo] AdvReac Unknown Verified 02/27/23 08:16 Tugypnl-WKX-TeS Reductase AdvReac myalgia Verified 02/27/23 08:16 Inhibitor [Ozpnasp-Jzl-Mkn Reductase Inhibitor] tizanidine AdvReac nightmares Verified 02/27/23 08:16 tramadol AdvReac insomnia/pr Verified 02/27/23 08:16 uitus trazodone AdvReac Unknown Verified 02/27/23 08:16 Home Meds Home Medications Medication Instructions Recorded Confirmed magnesium oxide 400 mg PO DAILY 09/02/19 02/27/23 omega-3 acid ethyl esters 1 gram 1 cap PO DAILY 11/09/21 02/27/23 capsule Previous Rx's Medication Instructions Recorded calcium carbonate 600 mg-vitamin 1 tab PO BID #60 tabs 05/10/21 D3 10 mcg (400 unit) tablet (Calcium 600 + D(3)) lidocaine 4 % topical patch 1 patch topical Q24H PRN pain #30 07/24/21 ea floovsgbvrlu-fvumfuhi-wmauit tablet 1 tab PO DAILY #90 tabs 12/13/21 pantoprazole 40 mg tablet,delayed 40 mg PO DAILY #90 tabs 05/08/22 release (Protonix) hydrochlorothiazide 25 mg tablet 25 mg PO DAILY #90 tabs 05/14/22 fluticasone propionate 50 1 spray intranasal DAILY #48 mL 08/30/22 mcg/actuation nasal spray,suspension (Flonase Allergy Relief) carvedilol 12.5 mg tablet 12.5 mg PO BID #180 tabs 10/02/22 amlodipine 5 mg tablet 5 mg PO BID #180 tabs 12/31/22 potassium chloride 10 mEq 10 meq PO DAILY #90 caps 01/09/23 capsule,extended release clopidogrel 75 mg tablet (Plavix) 75 mg PO DAILY #90 tabs 02/20/23 alprazolam 0.25 mg tablet 0.125 mg PO HS sleep #15 tabs 02/27/23 methylprednisolone 4 mg tablets in See Rx Instructions PO .COMPLEX 02/27/23 a dose pack (Medrol (Avni)) #21 ea Austyn Walker #1 ea 03/13/23 Results & Data (ED) Vital Signs Vital Signs - 24 hr 04/14/23 11:29 04/14/23 11:29 04/14/23 11:39 Temperature 36.7 C Temperature Source Temporal Artery Scan Pulse Rate 93 H Pulse Rate from SpO2 Sensor Respiratory Rate 20 Blood Pressure Blood Pressure Mean Pulse Oximetry 97 97 95 Oxygen Delivery Method Room Air Room Air Room Air Sepsis Recent Fever Within 48 Hours No Sepsis New/Unexplained Change in Mental Status N/A Sepsis Action Taken by Nursing No Action Required 04/14/23 11:32 04/14/23 11:27 04/14/23 11:29 Temperature Temperature Source Pulse Rate 80 81 76 Pulse Rate from SpO2 Sensor 81 76 Respiratory Rate 12 19 Blood Pressure Blood Pressure Mean Pulse Oximetry 97 96 Oxygen Delivery Method Sepsis Recent Fever Within 48 Hours Sepsis New/Unexplained Change in Mental Status Sepsis Action Taken by Nursing 04/14/23 11:29 04/14/23 11:30 04/14/23 11:30 Temperature Temperature Source Pulse Rate 74 Pulse Rate from SpO2 Sensor 75 Respiratory Rate 10 L Blood Pressure 191/91 H 166/91 H Blood Pressure Mean 124 116 Pulse Oximetry 98 Oxygen Delivery Method Sepsis Recent Fever Within 48 Hours Sepsis New/Unexplained Change in Mental Status Sepsis Action Taken by Nursing 04/14/23 11:40 04/14/23 11:40 04/14/23 11:50 Temperature Temperature Source Pulse Rate 91 H Pulse Rate from SpO2 Sensor 91 H Respiratory Rate 26 H Blood Pressure 180/102 H 189/90 H Blood Pressure Mean 128 123 Pulse Oximetry 94 Oxygen Delivery Method Sepsis Recent Fever Within 48 Hours Sepsis New/Unexplained Change in Mental Status Sepsis Action Taken by Nursing 04/14/23 11:50 04/14/23 12:00 04/14/23 12:00 Temperature Temperature Source Pulse Rate 79 81 Pulse Rate from SpO2 Sensor 79 81 Respiratory Rate 12 19 Blood Pressure 185/105 H Blood Pressure Mean 131 Pulse Oximetry 96 97 Oxygen Delivery Method Sepsis Recent Fever Within 48 Hours Sepsis New/Unexplained Change in Mental Status Sepsis Action Taken by Nursing Laboratory Data 04/14/23 11:32 04/14/23 11:32 Lab Results 04/14/23 04/14/23 04/14/23 Range/Units 11:32 11:32 11:32 WBC 5.15 (4.8-10.8) K/ul RBC 3.89 L (4.20-5.40) M/uL Hgb 12.7 (12.0-16.0) g/dl POC Hgb (12.0-16.0) g/dl Hct 35.2 L (37.0-47.0) % POC Hct (37-47) % MCV 90.5 (80.0-100.0) fL MCH 32.6 (25.0-34.0) pg MCHC 36.1 H (32.0-36.0) g/dL RDW Std Deviation 39.0 (36.4-46.3) fL RDW Coeff of Johan 11.9 (11.5-14.5) % Plt Count 159 (130-400) K/uL MPV 9.6 (9.4-12.4) fL PT 11.5 (9.0-12.0) Seconds INR 1.1 (0.9-1.1) APTT 24.1 (21.0-31.0) Seconds PTT Ratio 0.9 POC Sodium (135-144) mmol/L Sodium 135 L (136-145) mmol/L POC Potassium (3.3-5.0) mmol/L Potassium 3.5 (3.5-5.1) mmol/L POC Chloride (101-112) mmol/L Chloride 103 (98-107) mmol/L Carbon Dioxide 25 (21-32) mmol/L POC Total CO2 (24-31) mmol/L Anion Gap 7 (3-11) POC Anion Gap (16-25) mmol/L POC BUN (7-18) mg/dl BUN 19 (6-23) mg/dl Creatinine 0.70 (0.6-1.2) mg/dl POC Creatinine (0.6-1.3) mg/dl Est Cr Clr Drug Dosing 48.2 ml/min Est GFR ( Amer) 92.9 ml/min Est GFR (Non-Af Amer) 80.1 ml/min BUN/Creatinine Ratio 27.1 H (10-20) Glucose 211 H (70-99(Fasting)) mg/dl POC Glucose (other) (70-99) mg/dl Calcium 8.9 (8.6-10.3) mg/dl POC Ioniz Calcium Kael (1.12-1.32) mmol/l Magnesium 1.5 L (1.7-2.4) mg/dl Total Bilirubin 0.3 (0.2-1.0) mg/dl AST 33 (13-39) U/L ALT 31 (7-52) U/L Alkaline Phosphatase 30 L (34-104) U/L Total Protein 6.1 (6.0-8.3) gm/dl Albumin 3.5 (3.4-5.0) gm/dl Globulin 2.6 (2.5-4.0) gm/dl Albumin/Globulin Ratio 1.3 (0.9-2) 04/14/23 Range/Units 11:37 WBC (4.8-10.8) K/ul RBC (4.20-5.40) M/uL Hgb (12.0-16.0) g/dl POC Hgb 12.2 (12.0-16.0) g/dl Hct (37.0-47.0) % POC Hct 36 L (37-47) % MCV (80.0-100.0) fL MCH (25.0-34.0) pg MCHC (32.0-36.0) g/dL RDW Std Deviation (36.4-46.3) fL RDW Coeff of Johan (11.5-14.5) % Plt Count (130-400) K/uL MPV (9.4-12.4) fL PT (9.0-12.0) Seconds INR (0.9-1.1) APTT (21.0-31.0) Seconds PTT Ratio POC Sodium 137 (135-144) mmol/L Sodium (136-145) mmol/L POC Potassium 3.6 (3.3-5.0) mmol/L Potassium (3.5-5.1) mmol/L POC Chloride 101 (101-112) mmol/L Chloride (98-107) mmol/L Carbon Dioxide (21-32) mmol/L POC Total CO2 24 (24-31) mmol/L Anion Gap (3-11) POC Anion Gap 17.0 (16-25) mmol/L POC BUN 23 H (7-18) mg/dl BUN (6-23) mg/dl Creatinine (0.6-1.2) mg/dl POC Creatinine 0.6 (0.6-1.3) mg/dl Est Cr Clr Drug Dosing ml/min Est GFR ( Amer) ml/min Est GFR (Non-Af Amer) ml/min BUN/Creatinine Ratio (10-20) Glucose (70-99(Fasting)) mg/dl POC Glucose (other) 208 H (70-99) mg/dl Calcium (8.6-10.3) mg/dl POC Ioniz Calcium Kael 1.21 (1.12-1.32) mmol/l Magnesium (1.7-2.4) mg/dl Total Bilirubin (0.2-1.0) mg/dl AST (13-39) U/L ALT (7-52) U/L Alkaline Phosphatase (34-104) U/L Total Protein (6.0-8.3) gm/dl Albumin (3.4-5.0) gm/dl Globulin (2.5-4.0) gm/dl Albumin/Globulin Ratio (0.9-2) Administered Medications Discontinued Medications Ioversol (Optiray 320 500ml) 113 ml IV ONCE ONE Stop: 04/14/23 11:23 Last Admin: 04/14/23 11:23 Dose: 113 ml Documented By: LYNNETTE Labetalol HCl (Labetalol Hcl Iv 5 Mg/Ml 20ml) Confirm Administered Dose 5 mg IV .STK-MED ONE Stop: 04/14/23 12:12 Last Admin: 04/14/23 12:15 Dose: 10 mg Documented By: KHADIJAH Co-signed By: [facility] Imaging Data Radiologist's Impression: Head CT 04/14/23 11:04 CT head/brain wo con CLINICAL HISTORY: Neuro deficit, acute, stroke suspected Technique: Contiguous axial CT images of the head were acquired from the base of the skull to the vertex without intravenous contrast administration. Images were viewed in brain, subdural and bone windows. Automated dose lowering techniques and/or adjustment according to patient size were utilized for this exam. Comparison: Comparison is made to CT head 05/03/2022 Findings: Areas of decreased attenuation are present in the periventricular and subcortical white matter bilaterally consistent with small vessel ischemic disease. Generalized cerebral atrophy with commensurate enlargement of the ventricles, sulci, and cisterns is also present. There is no acute intracranial hemorrhage or evidence of acute territorial infarction. No shift of the midline structures, mass effect, or extra-axial abnormalities are shown. Atherosclerotic calcifications are present in the intracranial segments of the internal carotid arteries. Focal encephalomalacia is seen in the left insula which is unchanged from prior. Imaged portions of the paranasal sinuses and mastoid air cells are clear. The orbits appear normal. There are no acute fractures of the calvaria or scalp swelling. Impression: No acute intracranial hemorrhage, no evidence of acute territorial infarction or other acute intracranial disease process. ACT 112: Negative or not required by law. Electronically signed by: Iron Julio M.D. 04/14/2023 11:15 AM Head CTA 04/14/23 11:19 CT angio head w con CLINICAL HISTORY: 82 years-old Female with left sided numbness; r/o stroke. Acute stroke like symptoms COMPARISON STUDY: Head CT same day, CTA head 05/03/2022 TECHNIQUE: Following the IV administration of 113 cc of Optiray, CT angiogram of the brain was performed from the skull base to the vertex. Images are reviewed in the axial, sagittal, and coronal planes. 3-D MIPS images are created and assessed. IV contrast was administered without complication. All measurements were obtained according to NASCET criteria. A dose lowering technique was utilized adhering to the principles of ALARA. FINDINGS: CT ANGIOGRAM OF THE BRAIN: No intracranial aneurysm is identified. No central vessel occlusion is noted. Severe stenosis within the A2 segment of the right anterior cerebral artery on image 155 again noted. Progressively worsened severe stenosis within the right posterior cerebral artery image 91 series 3. Severe multifocal stenoses within the intracranial vessels otherwise appear similar to the CTA of 05/03/2022. These are most pronounced within the bilateral posterior cerebral arteries. There is moderate stenosis of the right cavernous carotid. There is also moderate to severe stenosis of the distal left middle cerebral artery. The appearance of the intracranial circulation is unchanged. Basilar artery is patent. Intracranial portions of the bilateral vertebral arteries are patent. There is moderate plaque within the bilateral cavernous carotids. Involutional changes with chronic microvascular ischemic disease. 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 The study is otherwise stable compared to the 05/03/2022 exam with areas of multifocal intracranial stenosis. ACT 112: Negative or not required by law. The above report was generated using voice recognition software. It may contain grammatical, syntax or spelling errors. Electronically signed by: Eric Flanagan M.D. 04/14/2023 11:35 AM Neck CTA 04/14/23 11:19 CT ANGIOGRAPHY OF THE NECK WITH CONTRAST CLINICAL HISTORY: left sided weakness; numbness COMPARISON STUDY: CTA of the neck May 03, 2022. Technique: CT angiography of the carotid and vertebral arteries was obtained using Optiray and 3D reconstruction on an independent workstation. NASCET criteria was utilized. Automated exposure control was utilized for the study. A dose lowering technique was utilized adhering to the principles of ALARA. CT DOSE: 428.60 mGy.cm Findings: Visualized portions of the lung apices are unremarkable. There is no acute cervical spine fracture. There are postoperative findings within the cervical spine. The cervical lymphadenopathy is present. The bilateral common carotid and cervical internal carotid arteries are patent. There is no stenosis or dissection within these vessels. There is mild plaque within the proximal bilateral internal carotid arteries. Moderate stenosis at the origin the right vertebral artery is similar to prior CTA of May 03, 2022. The right vertebral artery is dominant. CTA of the head will be reported separately. Multifocal stenoses within the intracranial vessels are better depicted on that exam. IMPRESSION: 1. No change in moderate stenosis at the origin of the right vertebral artery since CTA of May 03, 2022. 2. No stenoses within the bilateral common carotid or cervical internal carotid arteries. ACT 112: Negative or not required by law. Electronically signed by: Riky Abraham M.D. 04/14/2023 11:50 AM Discharge Plan Visit Data Chief Complaint: Stroke Alert ED Provider: Anum Palumbo Discharge Problem: Stroke-like symptoms, Left sided numbness Forms Stand Alone Forms: [facility] Prescriptions Prescriptions: No Action calcium carbonate-vitamin D3 [Calcium 600 + D(3)] 600 mg(1,500mg) -400 unit tablet 1 tab PO BID Qty: 60 0RF sjizikfqevkx-srluzrxo-rbtkcl Tablet 1 tab PO DAILY Qty: 90 1RF pantoprazole [Protonix] 40 mg tablet,delayed release (DR/EC) 40 mg PO DAILY Qty: 90 1RF hydrochlorothiazide 25 mg tablet 25 mg PO DAILY Qty: 90 1RF fluticasone propionate [Flonase Allergy Relief] 50 mcg/actuation spray ,suspension 1 spray INTNAS DAILY Qty: 48 1RF carvedilol 12.5 mg tablet 12.5 mg PO BID Qty: 180 1RF amlodipine 5 mg tablet 5 mg PO BID Qty: 180 1RF potassium chloride 10 mEq capsule, extended release 10 meq PO DAILY Qty: 90 1RF clopidogrel [Plavix] 75 mg tablet 75 mg PO DAILY Qty: 90 3RF (DME) Wheeled Walker See Rx Instructions .Route .MEDSUPPLY Qty: 1 0RF Rx Instructions: As directed lidocaine 4 % adhesive patch,medicated 1 patch topical Q24H PRN (Reason: pain) Qty: 30 5RF Rx Instructions: may leave on for up to 12 hrs methylprednisolone [Medrol (Avni)] 4 mg tablets,dose pack See Rx Instructions PO .COMPLEX Qty: 21 0RF Rx Instructions: PO Per pack instructions; alprazolam 0.25 mg tablet 0.125 mg PO HS Qty: 15 0RF magnesium oxide 400 mg magnesium capsule 400 mg PO DAILY omega-3 acid ethyl esters 1 gram capsule 1 cap PO DAILY Referrals Referrals: Clara Sarkar DO [Primary Care Provider] -
--- NOTE | 2023-04-14 11:38 | CT Scan Report ---
CT angio head w con CLINICAL HISTORY: 82 years-old Female with left sided numbness; r/o stroke. Acute stroke like symp toms COMPARISON STUDY: Head CT same day, CTA head 05/03/2022 TECHNIQUE: Following the IV administration of 113 cc of Optiray, CT angiogram of the brain was perfor med from the skull base to the vertex. Images are reviewed in the axial, sagittal, and coronal planes . 3-D MIPS images are created and assessed. IV contrast was administered without complication. All me asurements were obtained according to NASCET criteria. A dose lowering technique was utilized adherin g to the principles of ALARA. FINDINGS: CT ANGIOGRAM OF THE BRAIN: No intracranial aneurysm is identified. No central vessel occlusion is noted. Severe stenosis within the A2 segment of the right anterior cerebral artery on image 155 again noted. Progressively worsened severe stenosis within the right posterior cerebral artery image 91 series 3. Severe multifocal sten oses within the intracranial vessels otherwise appear similar to the CTA of 05/03/2022. These are most pronounced within the bilateral posterior cerebral arteries. There is moderate stenosis of the right cavernous carotid. There is also moderate to severe stenosis of the distal left middle cerebral arter y. The appearance of the intracranial circulation is unchanged. Basilar artery is patent. Intracrania l portions of the bilateral vertebral arteries are patent. There is moderate plaque within the bilate ral cavernous carotids. Involutional changes with chronic microvascular ischemic disease. 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 The study is otherwise stable compared to the 05/03/2022 exam with areas of multifoc al intracranial stenosis. ACT 112: Negative or not required by law. The above report was generated using voice recognition software. It may contain grammatical, syntax o r spelling errors. Electronically signed by: Eric Flanagan M.D. 04/14/2023 11:35 AM
[2023-04-14 11:44] LABS: Hematocrit (blood only) 35.2 % (37.0-47.0); Hemoglobin 12.7 g/dl (12.0-16.0); Mean Corpuscular Hemoglobin 32.6 pg (25.0-34.0); Mean Corpuscular Hgb Conc 36.1 g/dL (32.0-36.0); Mean Corpuscular Volume 90.5 fL (80.0-100.0); Mean Platelet Volume 9.6 fL (9.4-12.4); Platelet Count 159 K/uL (130-400); RDW Coefficient of Variation 11.9 % (11.5-14.5); Red Blood Count 3.89 M/uL (4.20-5.40); White Blood Count 5.15 K/ul (4.8-10.8)
[2023-04-14 11:49] LABS: iSTAT Creatinine 0.6 mg/dl (0.6-1.3); iSTAT Hemoglobin 12.2 g/dl (12.0-16.0); iSTAT Ionized Calcium 1.21 mmol/l (1.12-1.32); iSTAT Potassium 3.6 mmol/L (3.3-5.0)
--- NOTE | 2023-04-14 11:51 | CT Scan Report ---
CT ANGIOGRAPHY OF THE NECK WITH CONTRAST CLINICAL HISTORY: left sided weakness; numbness COMPARISON STUDY: CTA of the neck May 03, 2022. Technique: CT angiography of the carotid and vertebral arteries was obtained using Optiray and 3D rec onstruction on an independent workstation. NASCET criteria was utilized. Automated exposure control was utilized for the study. A dose lowering technique was utilized adhering to the principles of ALA RA. CT DOSE: 428.60 mGy.cm Findings: Visualized portions of the lung apices are unremarkable. There is no acute cervical spine f racture. There are postoperative findings within the cervical spine. The cervical lymphadenopathy is present. The bilateral common carotid and cervical internal carotid arteries are patent. There is no stenosis or dissection within these vessels. There is mild plaque within the proximal bilateral inter nal carotid arteries. Moderate stenosis at the origin the right vertebral artery is similar to prior CTA of May 03, 2022. The right vertebral artery is dominant. CTA of the head will be reported separat guy. Multifocal stenoses within the intracranial vessels are better depicted on that exam. IMPRESSION: 1. No change in moderate stenosis at the origin of the right vertebral artery since CTA of May 03. 2. No stenoses within the bilateral common carotid or cervical internal carotid arteries. ACT 112: Negative or not required by law. Electronically signed by: Riky Abraham M.D. 04/14/2023 11:50 AM
[2023-04-14 12:04] LABS: INR 1.1 (0.9-1.1); Partial Thromboplastin Ratio 0.9; Partial Thromboplastin Time 24.1 Seconds (21.0-31.0); Prothrombin Time 11.5 Seconds (9.0-12.0)
[2023-04-14 12:06] LABS: Albumin Globulin Ratio 1.3 (0.9-2); Albumin Level 3.5 gm/dl (3.4-5.0); BUN Creatinine Ratio 27.1 (10-20); Bilirubin,Total 0.3 mg/dl (0.2-1.0); Calcium 8.9 mg/dl (8.6-10.3); Creatinine Clr Calc Pharmacy 48.2 ml/min; Est GFR (African American) 92.9 ml/min; Est GFR (Non-African American) 80.1 ml/min; Globulin 2.6 gm/dl (2.5-4.0); Magnesium 1.5 mg/dl (1.7-2.4); Potassium 3.5 mmol/L (3.5-5.1); Total Protein 6.1 gm/dl (6.0-8.3)
[2023-04-14] MEDS ORDERED: LABETALOL HCL IV 5 MG/ML 20ML IV ONE ×2 (12:11→12:28)
[2023-04-14] MEDS ORDERED: SODIUM CHLORIDE 0.9% 10ML FLUSH IV STA (12:26)
[2023-04-14] MEDS ORDERED: STAT IV STA (12:26)
[2023-04-14] MEDS ORDERED: No Aspirin within 24hrs of THROMBOLYTIC-Stroke PO SCH (12:30)
--- NOTE | 2023-04-14 12:33 | Critical Care Consultation ---
Date of Consultation April 14, 2023 Assessment & Plan (1) Stroke-like symptoms: Reason Critically Ill: 82-year-old female with history of prior TIAs admitted for strokelike symptoms status post thrombolytic therapy PLAN: Neuro: Strokelike symptoms History of prior TIAs -Status post TNKase at 1017 -CTA head and neck reviewed CV: Cardiac monitoring Fluids/Renal: Hypomagnesemia: Mild -Supplementation ID: No indication for anti-infectives Heme: DVT prophylaxis: No chemoprophylaxis in first 24-hour. Endocrine: ICU hyperglycemia protocol Vascular access: Peripheral IVs Code Status: Full code Disposition: ICU status post TNKase (2) Diabetes mellitus, type 2: (3) TIA (transient ischemic attack): (4) Thrombolytic medication administered within last 5 days: Supervising Physician Co-Signing Physician Notes I have personally spent 35 minutes of critical care time in the direct management of this patient. This is a life/limb threatening event. This includes time spent evaluating patient, direct bedside care, chart review, placing orders, interpretation of diagnostic studies, discussion with consultants, patient, and/or family members regarding treatment decisions, as well as other required patient management activities. This time is exclusive of all separately billable procedures, and teaching time and separate from and in addition to any other critical care service time. History of Present Illness Reason for Consultation: Status post TNKase for suspected CVA Requesting Physician: Deepali History of Present Illness Patient is an 82-year-old female who is on Plavix for prior TIA who presented for onset of facial numbness which started approximately 930. Patient was seen in the ED after being brought to [facility] by EMS and underwent telestroke evaluation. She received TNKase at 1017 after receiving 10 mg labetalol for an elevated blood pressure. She is being admitted to the ICU for further evaluation and management Allergies Allergy/AdvReac Type Severity Reaction Status Date / Time doxycycline AdvReac Mild decreased Verified 02/27/23 08:16 urine output escitalopram AdvReac Mild decreased Verified 02/27/23 08:16 urine output prednisone AdvReac Mild feels Verified 02/27/23 08:16 agitated memantine AdvReac Unknown stomach Verified 02/27/23 08:16 pains amoxicillin AdvReac upset Verified 02/27/23 08:16 stomach cefdinir AdvReac Diarrhea Verified 02/27/23 08:16 ciprofloxacin [From Cipro] AdvReac Diarrhea Verified 02/27/23 08:16 fluticasone AdvReac Dizziness Verified 02/27/23 08:16 gabapentin AdvReac abdominal Verified 02/27/23 08:16 pain and drowsy gemfibrozil [From Lopid] AdvReac upset Verified 02/27/23 08:16 stomach irbesartan AdvReac Diarrhea Verified 02/27/23 08:16 lisinopril AdvReac hypertension Verified 02/27/23 08:16 and diarrhea meclizine AdvReac Drowsy Verified 02/27/23 08:16 pitavastatin [From Livalo] AdvReac Unknown Verified 02/27/23 08:16 Neoybxs-XZY-PdT Reductase AdvReac myalgia Verified 02/27/23 08:16 Inhibitor [Siiiqjj-Phr-Lut Reductase Inhibitor] tizanidine AdvReac nightmares Verified 02/27/23 08:16 tramadol AdvReac insomnia/pr Verified 02/27/23 08:16 uitus trazodone AdvReac Unknown Verified 02/27/23 08:16 Home Medications Medication Instructions Recorded Confirmed Type magnesium oxide 400 mg PO DAILY 09/02/19 02/27/23 History calcium carbonate 600 mg-vitamin 1 tab PO BID #60 tabs 05/10/21 02/27/23 Rx D3 10 mcg (400 unit) tablet (Calcium 600 + D(3)) lidocaine 4 % topical patch 1 patch topical Q24H PRN pain #30 07/24/21 02/27/23 Rx ea omega-3 acid ethyl esters 1 gram 1 cap PO DAILY 11/09/21 02/27/23 History capsule auukzlefuiti-jntfodeo-kidkfo tablet 1 tab PO DAILY #90 tabs 12/13/21 02/27/23 Rx pantoprazole 40 mg tablet,delayed 40 mg PO DAILY #90 tabs 05/08/22 04/14/23 Rx release (Protonix) fluticasone propionate 50 1 spray intranasal DAILY #48 mL 08/30/22 04/14/23 Rx mcg/actuation nasal spray,suspension (Flonase Allergy Relief) carvedilol 12.5 mg tablet 12.5 mg PO BID #180 tabs 10/02/22 04/14/23 Rx amlodipine 5 mg tablet 5 mg PO BID #180 tabs 12/31/22 04/14/23 Rx potassium chloride 10 mEq 10 meq PO DAILY #90 caps 01/09/23 04/14/23 Rx capsule,extended release clopidogrel 75 mg tablet (Plavix) 75 mg PO DAILY #90 tabs 02/20/23 04/14/23 Rx alprazolam 0.25 mg tablet 0.125 mg PO HS sleep #15 tabs 02/27/23 04/14/23 Rx Wheeled Walker #1 ea 03/13/23 Rx conjugated estrogens 0.625 mg/gram 0.625 mg vaginal DAILY 04/14/23 04/14/23 History vaginal cream (Premarin) estradiol 0.01% (0.1 mg/gram) 1 applic vaginal DAILY 04/14/23 04/14/23 History vaginal cream Patient History Medical History Allergic rhinitis Anxiety and depression Arthritis of wrist Chronic kidney disease, stage 3 (moderate) Diabetes mellitus, type 2 Dyslipidemia GERD (gastroesophageal reflux disease) History of recurrent TIAs Hypertension Insomnia Lumbar facet joint syndrome Lumbar pain with radiation down left leg Mild cognitive impairment Osteopenia Sacroiliitis Spinal stenosis, lumbar region without neurogenic claudication Venous insufficiency (chronic) (peripheral) Surgical History History of carpal tunnel surgery Hx of neck surgery secondary to cervical herniated discs Previous back surgery x3 S/P appendectomy S/P blepharoplasty S/P cholecystectomy Family History Father , age 81 of heart issues Myocardial infarction Prostate cancer Coronary heart disease Mother , age 76 of a stroke Stroke, Onset Age: 72 Myocardial infarction, Onset Age: 76 Hypertension Diabetes Brother Cancer Sister , 71 Hodgkins disease Sister Coronary heart disease Brother Diabetes Denies family history of Ovarian cancer Breast cancer Colorectal cancer Social History Smoking Status: Never smoker Second Hand Exposure: No; Do You Dip or Chew Tobacco: No; Hx Alcohol Use: No Hx Substance Use: No Preferred Language: Swedish Communication Ability: Effective Visual Impairment: No Limitations Hearing Ability: Normal Taxation Consultant Required: No Beliefs That Will Affect Care: Cheondoism Cheondoism Beliefs: Latter-Day marital status: Current Living Situation: Alone Current Living Situation Comment: Patient lives alone in an apartment building current occupational status: retired 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59 Feels Safe at Home: Yes Childhood Exposure to Second-Hand Smoke: No Diet: other Diet Comment: low sugar caffeine: No during the past year weight has: remained stable Dental Care, Regularly: No Physical Activity Frequency: Other Seatbelt Use: always Sunscreen Use: Yes Assistive Devices: Cane, Denture - Upper, Denture - Lower and Glasses Results & Data Results & Data Vital Signs (Past 12 Hours) Vital Signs Temp Pulse Resp BP Pulse Ox O2 Del Method 04/14/23 12:00 81 19 97 04/14/23 12:00 185/105 H 04/14/23 11:50 79 12 96 04/14/23 11:50 189/90 H 04/14/23 11:40 91 H 26 H 94 04/14/23 11:40 180/102 H 04/14/23 11:30 74 10 L 98 04/14/23 11:30 166/91 H 04/14/23 11:29 191/91 H 04/14/23 11:29 76 19 96 04/14/23 11:27 81 12 97 04/14/23 11:32 80 04/14/23 11:39 36.7 C 93 H 20 95 Room Air 04/14/23 11:29 97 Room Air 04/14/23 11:29 97 Room Air Critical Care Results & Data Vital Signs (Past 12 Hours) Vital Signs Temp Pulse Resp BP Pulse Ox O2 Del Method 04/14/23 12:00 81 19 97 04/14/23 12:00 185/105 H 04/14/23 11:50 79 12 96 04/14/23 11:50 189/90 H 04/14/23 11:40 91 H 26 H 94 04/14/23 11:40 180/102 H 04/14/23 11:30 74 10 L 98 04/14/23 11:30 166/91 H 04/14/23 11:29 191/91 H 04/14/23 11:29 76 19 96 04/14/23 11:27 81 12 97 04/14/23 11:32 80 04/14/23 11:39 36.7 C 93 H 20 95 Room Air 04/14/23 11:29 97 Room Air 04/14/23 11:29 97 Room Air Lab & Micro Results (Past 24 Hours) RBC 3.89 M/uL (4.20-5.40) L 04/14/23 WBC 5.15 K/ul (4.8-10.8) 04/14/23 Hgb 12.7 g/dl (12.0-16.0) 04/14/23 Hct 35.2 % (37.0-47.0) L 04/14/23 MCV 90.5 fL (80.0-100.0) 04/14/23 MCH 32.6 pg (25.0-34.0) 04/14/23 MCHC 36.1 g/dL (32.0-36.0) H 04/14/23 RDW Standard Deviation 39.0 fL (36.4-46.3) 04/14/23 RDW Coefficient of Variation 11.9 % (11.5-14.5) 04/14/23 Plt Count 159 K/uL (130-400) 04/14/23 MPV 9.6 fL (9.4-12.4) 04/14/23 Na 135 mmol/L (136-145) L 04/14/23 K 3.5 mmol/L (3.5-5.1) 04/14/23 Cl 103 mmol/L (98-107) 04/14/23 CO2 25 mmol/L (21-32) 04/14/23 Anion Gap 7 (3-11) 04/14/23 BUN 19 mg/dl (6-23) 04/14/23 Creatinine 0.70 mg/dl (0.6-1.2) 04/14/23 Estimated GFR ( Amer) 92.9 ml/min 04/14/23 Estimated GFR (Non-Af Amer) 80.1 ml/min 04/14/23 BUN/Creatinine Ratio 27.1 (10-20) H 04/14/23 Glu 211 mg/dl (70-99(Fasting)) H 04/14/23 Ca 8.9 mg/dl (8.6-10.3) 04/14/23 Total Bilirubin 0.3 mg/dl (0.2-1.0) 04/14/23 AST 33 U/L (13-39) 04/14/23 ALT 31 U/L (7-52) 04/14/23 Alkaline Phosphatase 30 U/L (34-104) L 04/14/23 TP 6.1 gm/dl (6.0-8.3) 04/14/23 Albumin 3.5 gm/dl (3.4-5.0) 04/14/23 Globulin 2.6 gm/dl (2.5-4.0) 04/14/23 Albumin/Globulin Ratio 1.3 (0.9-2) 04/14/23 Mg 1.5 mg/dl (1.7-2.4) L 04/14/23 11:32 Calcium Level 8.9 mg/dl (8.6-10.3) 04/14/23 11:32 Prothromb Time International Ratio 1.1 (0.9-1.1) 04/14/23 11:3 2 Diagnostic Findings (Past 24 Hours) Head CT 04/14/23 11:04 CT head/brain wo con CLINICAL HISTORY: Neuro deficit, acute, stroke suspected Technique: Contiguous axial CT images of the head were acquired from the base of the skull to the vertex without intravenous contrast administration. Images were viewed in brain, subdural and bone windows. Automated dose lowering techniques and/or adjustment according to patient size were utilized for this exam. Comparison: Comparison is made to CT head 05/03/2022 Findings: Areas of decreased attenuation are present in the periventricular and subcortical white matter bilaterally consistent with small vessel ischemic disease. Generalized cerebral atrophy with commensurate enlargement of the ventricles, sulci, and cisterns is also present. There is no acute intracranial hemorrhage or evidence of acute territorial infarction. No shift of the midline structures, mass effect, or extra-axial abnormalities are shown. Atherosclerotic calcifications are present in the intracranial segments of the internal carotid arteries. Focal encephalomalacia is seen in the left insula which is unchanged from prior. Imaged portions of the paranasal sinuses and mastoid air cells are clear. The orbits appear normal. There are no acute fractures of the calvaria or scalp swelling. Impression: No acute intracranial hemorrhage, no evidence of acute territorial infarction or other acute intracranial disease process. ACT 112: Negative or not required by law. Electronically signed by: Iron Julio M.D. 04/14/2023 11:15 AM Head CTA 04/14/23 11:19 CT angio head w con CLINICAL HISTORY: 82 years-old Female with left sided numbness; r/o stroke. Acute stroke like symptoms COMPARISON STUDY: Head CT same day, CTA head 05/03/2022 TECHNIQUE: Following the IV administration of 113 cc of Optiray, CT angiogram of the brain was performed from the skull base to the vertex. Images are reviewed in the axial, sagittal, and coronal planes. 3-D MIPS images are created and assessed. IV contrast was administered without complication. All measurements were obtained according to NASCET criteria. A dose lowering technique was utilized adhering to the principles of ALARA. FINDINGS: CT ANGIOGRAM OF THE BRAIN: No intracranial aneurysm is identified. No central vessel occlusion is noted. Severe stenosis within the A2 segment of the right anterior cerebral artery on image 155 again noted. Progressively worsened severe stenosis within the right posterior cerebral artery image 91 series 3. Severe multifocal stenoses within the intracranial vessels otherwise appear similar to the CTA of 05/03/2022. These are most pronounced within the bilateral posterior cerebral arteries. There is moderate stenosis of the right cavernous carotid. There is also moderate to severe stenosis of the distal left middle cerebral artery. The appearance of the intracranial circulation is unchanged. Basilar artery is patent. Intracranial portions of the bilateral vertebral arteries are patent. There is moderate plaque within the bilateral cavernous carotids. Involutional changes with chronic microvascular ischemic disease. 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 The study is otherwise stable compared to the 05/03/2022 exam with areas of multifocal intracranial stenosis. ACT 112: Negative or not required by law. The above report was generated using voice recognition software. It may contain grammatical, syntax or spelling errors. Electronically signed by: Eric Flanagan M.D. 04/14/2023 11:35 AM Neck CTA 04/14/23 11:19 CT ANGIOGRAPHY OF THE NECK WITH CONTRAST CLINICAL HISTORY: left sided weakness; numbness COMPARISON STUDY: CTA of the neck May 03, 2022. Technique: CT angiography of the carotid and vertebral arteries was obtained using Optiray and 3D reconstruction on an independent workstation. NASCET cri teria was utilized. Automated exposure control was utilized for the study. A dose lowering technique was utilized adhering to the principles of ALARA. CT DOSE: 428.60 mGy.cm Findings: Visualized portions of the lung apices are unremarkable. There is no acute cervical spine fracture. There are postoperative findings within the cerv ical spine. The cervical lymphadenopathy is present. The bilateral common carotid and cervical internal carotid arteries are patent. There is no stenosis or dissection within these vessels. There is mild plaque within the proximal bilateral internal carotid arteries. Moderate stenosis at the origin the right vertebral artery is similar to prior CTA of May 03, 2022. The right vertebral artery is dominant. CTA of the head will be reported separately. Multifocal stenoses within the intracranial vessels are better depicted on that exam. IMPRESSION: 1. No change in moderate stenosis at the origin of the right vertebral artery since CTA of May 03, 2022. 2. No stenoses within the bilateral common carotid or cervical internal carotid arteries. ACT 112: Negative or not required by law. Electronically signed by: Riky Abraham M.D. 04/14/2023 11:50 AM RT Ventilator Mngmt (Last Documented) Ventilator Ordered Settings Respiratory Rate 19 04/14/23 12:00 Ventilator - PT Measurements Respiratory Rate 19 Coding Level of Care Code 21727 CRITICAL CARE 1ST 30-74M Diagnoses Stroke-like symptoms R29.90 Diabetes mellitus, type 2 E11.9 TIA (transient ischemic attack) G45.9 Thrombolytic medication administered within last 5 days Z78.9
--- NOTE | 2023-04-14 12:35 | History & Physical Report ---
Date of Service April 14, 2023 Assessment & Plan (1) Stroke-like symptoms: Plan: Left arm, left leg weakness and numbness suspicious for right MCA distribution CVA - Symptom onset 9:30 AM -Left facial numbness, left leg numbness, left arm numbness with additional left leg and arm weakness at onset. At time bedside assessment extreme weakness/numbness persists, left facial numbness has improved History of multiple TIAs on Plavix. She reports she is statin intolerant, has continued decline and outpatient follow-up for multiple TIAs. lipid panel pending. Thinks she cannot take aspirin but does not remember why. Denies tobacco use. Denies A-fib, [place]. Does have history of hypertension -CTA-H/N:1. No change in moderate stenosis at the origin of the right vertebral artery since CTA of May 03, 2022. 2. No stenoses within the bilateral common carotid or cervical internal carotid arteries. -CT-H: No acute intracranial hemorrhage, no evidence of acute territorial infarction or other acute intracranial disease process. 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 Navarro. Patient was recommended for admission for post TNKase management, transfer to tertiary care was not recommended. - NIHSS: 3 on ER admit, telestroke scored as 3 Echo 11/2021 with agitated saline; patient has no right to left interarterial shunt. At that time EF 60 to 65%, no regional wall motion abnormalities Had an event monitor for 30 days 03/2020 after she had recurrent strokelike symptoms with normal MRI. 3 different symptoms episodes with no evidence of dysrhythmia during this. No evidence of A-fib. Admit to ICU for postthrombolytic protocol Labetalol 10 mg IV every 15 minutes as needed to maintain SBP less than 180/DBP less than 105 No blood draws/needlesticks postthrombolytic Swallow eval pending MRI pending Neurochecks, stroke scale per protocol Medication reconciliation notes Patient is not a good historian of her home medications, although notes she did take her morning medications. Reconciliation performed through combination of patient and [facility] pharmacy reconciliation for recent fills. Pending fax from the [facility] for complete list (2) Thrombolytic medication administered within last 5 days: Plan: As noted (3) Left sided numbness: Plan: As noted (4) Diabetes mellitus, type 2: Plan: Last A1c 6.7% 09/2022 Goal BSG [id number] ICU hyperglycemia protocol (5) Anxiety and depression: Plan: On Xanax 0.25-0.125 mg nightly as needed for evening anxiety. Patient did not get benefit from trial of Zoloft or Remeron in the past. Has continued to use low-dose of Xanax in the evening following her/benefits discussion of chronic benzodiazepine use with PCP (6) Hypertension: Plan: She reports she did take her morning medications 04/14 Continued on salt restriction Labetalol for breakthrough hypertension as noted per stroke protocol Continue amlodipine 5 mg twice daily Continue carvedilol 12.5 mg twice daily Hydrochlorothiazide held pending reconciliation clarification (7) GERD (gastroesophageal reflux disease): Plan: No epigastric discomfort on admission Continue Protonix 40 mg daily (8) Chronic kidney disease, stage 3 (moderate): Plan: History of CKD 3 Recent baseline creatinine 0.70.9 Admitting creatinine 0.70 No VICTORINA Trend daily, renally dose medications as needed. Creatinine clearance drug dosing 48 on admission (9) Dyslipidemia: Plan: Patient reports she is statin intolerant as noted, however reports "not interested in these " Last lipids 09/2022: LDL 87, HDL 42, total cholesterol 190. Repeat lipid panel pending, patient had not been a PCSK9 candidate in the past due to reasonable lipid control Plan DVT prophylaxis: Pharmacal prophylaxis contraindicated post TNKase, SCD Diet: Type II DM, heart healthy, low-sodium post dysphagia screening Disposition: ICU CODE STATUS: DNR/DNI History of Present Illness Primary Care Provider: Clara Sarkar DO Jacy is an 82-year-old female with a past medical history of chronic cerebral ischemia, transient left leg weakness, TIA, spinal stenosis with lumbar reticular apathy, CKD 3, GERD, hypertension, venous insufficiency, mild cognitive impairment, and anxiety/depression who presented to the emergency department as a stroke alert with left-sided numbness that began at 9:30 AM acutely. Per ER: Symptom onset 9:30 AM Symptoms: Numbness of left face, left upper extremity, left lower extremity. Does have a history of prior TIA. 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 No change in moderate stenosis at the origin of the right vertebral artery since CTA of May 03, 2022. 2. No stenoses within the bilateral common carotid or cervical internal carotid arteries. CT-H: No acute intracranial hemorrhage, no evidence of acute territorial infarction or other acute intracranial disease process. Case was reviewed with [facility] teleneurology Dr. Navarro. Patient was recommended for admission for post TNKase management, transfer to tertiary care was not recommended. NIHSS: 3 on ER admit, telestroke scored as 3 Echo was performed 11/2021 with agitated saline; patient has no right to left interarterial shunt. At that time EF 60 to 65%, no regional wall motion abnormalities Per patient: She reports that she got up this morning and felt well initially. She ate breakfast around 930 when suddenly she started to "not feel good ". She noticed that she had left leg weakness and strange numbness which spread from just below the hip all the way down through the foot. She also had left arm weakness and some numbness. She notes last few days her memory has also been worse. She did notice 3 days ago that she thought she had some right facial droop but this made her nervous about stroke and avoided looking in the mirror, thinks that this resolved between then and her current episode this morning she notes she has had a mild headache since this morning slightly improved in the ER. Her visual acuity is more blurry than normal, notes on covering each eye that left eye remains sharp whereas the right are is more blurry than normal. No double vision. She has not had any fever, chills, sweats. No chest pain or chest pressure. No syncope/presyncope. No falls or head injuries no nausea/vomiting/diarrhea/constipation. She did take her morning medications including Plavix. She does not take aspirin, she reports that there was an extensive discussion over whether she is able to take aspirin or not. She reports she is statin intolerant and is not interested in these due to myalgias. She reports she has had multiple TIAs in the past, she had 3 episodes while living in [place] 3 years ago which were ultimately thought to be TIAs without permanent findings, she reports that she has had no permanent deficits from her past TIAs. Denies history of A-fib Medical History: Reviewed Medications: Reviewed Surgical History: Reviewed Family history: Reviewed Allergies: Reviewed. Extensive allergy list, patient reports she is not sure which each individual 1 was but the record in the chart should be accurate Social History: Denies tobacco/etoh/rec drug use Code Status: DNR/DNI Allergies Allergy/AdvReac Type Severity Reaction Status Date / Time doxycycline AdvReac Mild decreased Verified 02/27/23 08:16 urine output escitalopram AdvReac Mild decreased Verified 02/27/23 08:16 urine output prednisone AdvReac Mild feels Verified 02/27/23 08:16 agitated memantine AdvReac Unknown stomach Verified 02/27/23 08:16 pains amoxicillin AdvReac upset Verified 02/27/23 08:16 stomach cefdinir AdvReac Diarrhea Verified 02/27/23 08:16 ciprofloxacin [From Cipro] AdvReac Diarrhea Verified 02/27/23 08:16 fluticasone AdvReac Dizziness Verified 02/27/23 08:16 gabapentin AdvReac abdominal Verified 02/27/23 08:16 pain and drowsy gemfibrozil [From Lopid] AdvReac upset Verified 02/27/23 08:16 stomach irbesartan AdvReac Diarrhea Verified 02/27/23 08:16 lisinopril AdvReac hypertension Verified 02/27/23 08:16 and diarrhea meclizine AdvReac Drowsy Verified 02/27/23 08:16 pitavastatin [From Livalo] AdvReac Unknown Verified 02/27/23 08:16 Dbpffhh-KDI-CcE Reductase AdvReac myalgia Verified 02/27/23 08:16 Inhibitor [Crlnlxk-Lfj-Lzk Reductase Inhibitor] tizanidine AdvReac nightmares Verified 02/27/23 08:16 tramadol AdvReac insomnia/pr Verified 02/27/23 08:16 uitus trazodone AdvReac Unknown Verified 02/27/23 08:16 Home Medications Medication Instructions Recorded Confirmed Type magnesium oxide 400 mg PO DAILY 09/02/19 02/27/23 History calcium carbonate 600 mg-vitamin 1 tab PO BID #60 tabs 05/10/21 02/27/23 Rx D3 10 mcg (400 unit) tablet (Calcium 600 + D(3)) lidocaine 4 % topical patch 1 patch topical Q24H PRN pain #30 07/24/21 02/27/23 Rx ea omega-3 acid ethyl esters 1 gram 1 cap PO DAILY 11/09/21 02/27/23 History capsule bnjhrekzxcqd-deexavmo-lgwtxt tablet 1 tab PO DAILY #90 tabs 12/13/21 02/27/23 Rx pantoprazole 40 mg tablet,delayed 40 mg PO DAILY #90 tabs 05/08/22 04/14/23 Rx release (Protonix) hydrochlorothiazide 25 mg tablet 25 mg PO DAILY #90 tabs 05/14/22 02/27/23 Rx fluticasone propionate 50 1 spray intranasal DAILY #48 mL 08/30/22 04/14/23 Rx mcg/actuation nasal spray,suspension (Flonase Allergy Relief) carvedilol 12.5 mg tablet 12.5 mg PO BID #180 tabs 10/02/22 04/14/23 Rx amlodipine 5 mg tablet 5 mg PO BID #180 tabs 12/31/22 04/14/23 Rx potassium chloride 10 mEq 10 meq PO DAILY #90 caps 01/09/23 02/27/23 Rx capsule,extended release clopidogrel 75 mg tablet (Plavix) 75 mg PO DAILY #90 tabs 02/20/23 04/14/23 Rx alprazolam 0.25 mg tablet 0.125 mg PO HS sleep #15 tabs 02/27/23 04/14/23 Rx methylprednisolone 4 mg tablets in See Rx Instructions PO .COMPLEX 02/27/23 02/27/23 Rx a dose pack (Medrol (Avni)) #21 ea Wheeled Walker #1 ea 03/13/23 Rx estradiol 0.01% (0.1 mg/gram) 1 applic vaginal DAILY 04/14/23 04/14/23 History vaginal cream Past Med/Surg History Medical History Allergic rhinitis Anxiety and depression Arthritis of wrist Chronic kidney disease, stage 3 (moderate) Diabetes mellitus, type 2 Dyslipidemia GERD (gastroesophageal reflux disease) History of recurrent TIAs Hypertension Insomnia Lumbar facet joint syndrome Lumbar pain with radiation down left leg Mild cognitive impairment Osteopenia Sacroiliitis Spinal stenosis, lumbar region without neurogenic claudication Venous insufficiency (chronic) (peripheral) Surgical History History of carpal tunnel surgery Hx of neck surgery secondary to cervical herniated discs Previous back surgery x3 S/P appendectomy S/P blepharoplasty S/P cholecystectomy Family History Father , age 81 of heart issues Myocardial infarction Prostate cancer Coronary heart disease Mother , age 76 of a stroke Stroke, Onset Age: 72 Myocardial infarction, Onset Age: 76 Hypertension Diabetes Brother Cancer Sister , 71 Hodgkins disease Sister Coronary heart disease Brother Diabetes Denies family history of Ovarian cancer Breast cancer Colorectal cancer Social History Smoking Status: Never smoker Second Hand Exposure: No; Do You Dip or Chew Tobacco: No; Hx Alcohol Use: No Hx Substance Use: No Preferred Language: Persian Communication Ability: Effective Visual Impairment: No Limitations Hearing Ability: Normal 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: No Beliefs That Will Affect Care: None marital status: Current Living Situation: Alone Current Living Situation Comment: Patient lives alone in an apartment building current occupational status: retired 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 NAD. Cooperative. HEENT: Atraumatic, normocephalic. Pulm: CTAB A&P. -wheezes, -rales, -rhonchi. Symmetrical chest rise. No increased work of breathing. No respiratory distress. Cardiac: RRR, -mrg. Radial pulses intact and symmetrical. Abdominal: Nontender, nondistended, soft. BS present. CRANIAL NERVES: II: Pupils equal and reactive, no relative afferent pupillary defect, no VF cuts. Patient does endorse blurry vision in the right eye increased from baseline III, IV, : EOM intact, no gaze preference or deviation, no nystagmus. V: normal sensation in V1, V2, and V3 segments bilaterally VII: no asymmetry, no nasolabial fold flattening VIII: normal hearing to speech IX, X: normal palatal elevation, no uvular deviation XI: 5/5 head turn and 5/5 shoulder shrug bilaterally XII: midline tongue protrusion MOTOR: RUE: 5/5 Shoulder internal rotation, external rotation, flexion, extension, abduction, adduction 5/5 Elbow flexion/extension, wrist flexion/extension 5/5 hospital technician strength, finger flexion/extension, interosseus LUE: 4-/5 Shoulder internal rotation, external rotation, flexion, extension, abduction, adduction 4-/5 Elbow flexion/extension, wrist flexion/extension 4-/5 hospital technician strength, finger flexion/extension, interosseus RLE: 5/5 to hip flexion/extension, knee flexion/extension, ankle dorsiflexion/plantarflexion LLE: 3/5 to hip flexion, 4-/6 knee flexion/extension, ankle dorsiflexion/plantarflexion. Is unable to hold left hip fraction to antigravity at time of bedside assessment REFLEXES: 2/4 patellar, bicepts, and achilles DTR without asymmetry. Bilateral flexor planter response, no Boyle's, no clonus SENSORY: Sensation of soft touch is intact in hands and feet bilaterally; however greatly diminished in the entirety of the left arm and left leg. Left aywt-au-qhic mild ataxia, right [id number]-[id number] normal Results & Data Results & Data Vital Signs (Past 12 Hours) Vital Signs Temp Pulse Resp BP Pulse Ox O2 Del Method 04/14/23 12:00 81 19 97 04/14/23 12:00 185/105 H 04/14/23 11:50 79 12 96 04/14/23 11:50 189/90 H 04/14/23 11:40 91 H 26 H 94 04/14/23 11:40 180/102 H 04/14/23 11:30 74 10 L 98 04/14/23 11:30 166/91 H 04/14/23 11:29 191/91 H 04/14/23 11:29 76 19 96 04/14/23 11:27 81 12 97 04/14/23 11:32 80 04/14/23 11:39 36.7 C 93 H 20 95 Room Air 04/14/23 11:29 97 Room Air 04/14/23 11:29 97 Room Air PG Care Time/CCT Total # of Minutes Spent Total Time Spent with Patient: Total time spent is greater than 50% in coordination of care (as documented) at patient's floor/unit and/or counseling patient: Coding Level of Care Code 95397 INT INP/OBS CARE 3/75MIN Diagnoses Stroke-like symptoms R29.90 Thrombolytic medication administered within last 5 days Z78.9 Left sided numbness R20.0 Diabetes mellitus, type 2 E11.9 Anxiety and depression F41.9; F32.9 Hypertension I10 GERD (gastroesophageal reflux disease) K21.9 Chronic kidney disease, stage 3 (moderate) N18.3 Dyslipidemia E78.5
[2023-04-14] MEDS ORDERED: TENECTEPLASE 14 MG in SYRINGE 0 ML IV ONE (12:37)
--- NOTE | 2023-04-14 12:54 | XRay Report ---
XR chest 1V portable HISTORY: 82 years-old Female stroke alert. patient on with stroke dr acute stroke like symptoms COMPARISON: 05/03/2022 TECHNIQUE: AP view of the chest FINDINGS: Cardiomediastinal and hilar silhouettes are within normal limits. No pneumothorax, pleural effusion, airspace consolidation or pulmonary edema. Bones appear grossly intact. Cervical spinal fusion hardwa re. IMPRESSION: No acute process. ACT 112: Negative or not required by law. The above report was generated using voice recognition software. It may contain grammatical, syntax o r spelling errors. Electronically signed by: Eric Flanagan M.D. 04/14/2023 12:53 PM
[2023-04-14] MEDS ORDERED: LABETALOL HCL IV 5 MG/ML 20ML IV PRN (14:36)
[2023-04-14] MEDS ORDERED: PHARMACIST DISCHARGE MED REC CONSULT PRN (14:36)
[2023-04-14] MEDS ORDERED: LORazepam 2 MG/1 ML VIAL IV STA (15:24)
[2023-04-14 15:49] LABS: Troponin I High Sensitivity 5.9 pg/ml (0-14)
--- NOTE | 2023-04-14 15:56 | Magnetic Resonance Report ---
MR brain wo con HISTORY: 82 years-old Female CVA acute strokelike symptoms COMPARISON: Head CT of same day, brain MRI 03/05/2022 TECHNIQUE: Multiplanar multisequence MRI of the brain was obtained without the use of IV contrast. FINDINGS: No restricted diffusion. Unremarkable midline structures. Partially empty sella. Degenerative changes of the imaged cervical spine. No acute intracranial hemorrhage, midline shift, abnormal extra-axial collection, hydrocephalus or intracranial mass. Involutional changes with moderate T2/FLAIR hyperinte nse foci throughout the white matter. Cerebral venous sinuses and major arterial flow voids appear patent. Prior bilateral lens repair. An mucosal thickening of the ethmoid sinuses. The mastoid air cells are clear. IMPRESSION: 1. No acute intracranial abnormality. No acute or subacute infarct. 2. Involutional changes with chronic microvascular ischemic disease. ACT 112: Negative or not required by law. The above report was generated using voice recognition software. It may contain grammatical, syntax o r spelling errors. Electronically signed by: Eric Flanagan M.D. 04/14/2023 3:55 PM
[2023-04-14] MEDS: ICU Protocol for HYPERglycemia SCH ×2 (16:15→20:54)
[2023-04-14] MEDS ORDERED: carvediloL 12.5 MG TAB PO SCH (17:00)
--- NOTE | 2023-04-14 18:05 | Electrocardiogram Report ---
Test Reason : Blood Pressure : / mmHG Vent. Rate : 071 BPM Atrial Rate : 071 BPM P-R Int : 208 ms QRS Dur : 086 ms QT Int : 428 ms P-R-T Axes : 054 034 074 degrees QTc Int : 465 ms Normal sinus rhythm Normal ECG When compared with ECG of 03-MAY-2022 16:23, Premature atrial complexes are no longer Present Nonspecific T wave abnormality no longer evident in Inferior leads Confirmed by Jace Dougherty ([id number]) on 04/14/2023 6:05:06 PM Referred By: Confirmed By:Joe Dougherty
--- NOTE | 2023-04-14 18:33 | Neurology Consultation ---
Date of Consultation April 14, 2023 Assessment & Plan (1) Stroke-like symptoms: Left sided weakness and numbness s/p TNK in a patient with recurrent episodes of the same presentation without evidence of stroke in MRI currently or in the past. 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 I would therefore be inclined to consider this a TNK aborted stroke though I do not suggest a change in management given her multiple prior zio patch monitors, possible aspirin intolerance and statin intolerance. She should remain on plavix. Echo will be helpful if there are changes or visible evidence of clot. If afib is detected this admission I would certainly consider her to be a candidate for anticoagulation with a NOAC. -- Continue to monitor for afib while admitted -- Echo pending -- Plavix 75mg daily monotherapy is reasonable -- If afib or cardiac thrombus detected would switch to eliquis and discontinue plavix -- Otherwise would like be able to be discharged tomorrow s/p 24 hours post-TNK. Telehealth Consultation Telehealth Information Telehealth Information: I performed this visit using a real-time telehealth connection between my location and the patients location ([facility]). After connecting through interactive tele-video, patient was identified by name and date of and/or wristband check.Patient (or authorized healthcare personal service representative) was informed that this was a telemedicine visit and it was being conducted confidentially over secure lines. My office door was closed and no one else was present in the room with me.Patient (or authorized healthcare personal service representative) provided consent to proceed with the visit, expressed an under standing of privacy and security of the telemedicine visit, and gave permission to have a hospital personal service representative in the room in order to assist with the visit and to conduct portions of the visit, as needed. I informed the patient (or authorized healthcare personal service representative) that I reviewed their record and presented the opportunity for them to ask any questions regarding the visit today. The patient agreed to participate. History of Present Illness Reason for Consultation: Left sided numbness, s/p TNK Requesting Physician: Dr. Rodgers Attending Physician: Oral Rodgers MD History of Present Illness Jacy Gutiérrez is an 82 yo F well known to neurology presented today with left sided leg tingling and weakness and left arm numbness similar to multiple prior episodes. Her last known well was 930am [facility]. She feels that soon afterward her symptoms nearly resolved, though she continues to have mild numbness of the L leg. Throughout all the prior episodes we have access to, she has never had an MRI that revealed a stroke. She has had multiple zio patches without evidence of afib and has been maintained on plavix with reported compliance. Otherwise denies any new symptoms specific to the episode today. Allergies Allergy/AdvReac Type Severity Reaction Status Date / Time doxycycline AdvReac Mild decreased Verified 02/27/23 08:16 urine output escitalopram AdvReac Mild decreased Verified 02/27/23 08:16 urine output prednisone AdvReac Mild feels Verified 02/27/23 08:16 agitated memantine AdvReac Unknown stomach Verified 02/27/23 08:16 pains amoxicillin AdvReac upset Verified 02/27/23 08:16 stomach cefdinir AdvReac Diarrhea Verified 02/27/23 08:16 ciprofloxacin [From Cipro] AdvReac Diarrhea Verified 02/27/23 08:16 fluticasone AdvReac Dizziness Verified 02/27/23 08:16 gabapentin AdvReac abdominal Verified 02/27/23 08:16 pain and drowsy gemfibrozil [From Lopid] AdvReac upset Verified 02/27/23 08:16 stomach irbesartan AdvReac Diarrhea Verified 02/27/23 08:16 lisinopril AdvReac hypertension Verified 02/27/23 08:16 and diarrhea meclizine AdvReac Drowsy Verified 02/27/23 08:16 pitavastatin [From Livalo] AdvReac Unknown Verified 02/27/23 08:16 Mjmpsad-VUE-XwJ Reductase AdvReac myalgia Verified 02/27/23 08:16 Inhibitor [Gvskilb-Hyr-Wmu Reductase Inhibitor] tizanidine AdvReac nightmares Verified 02/27/23 08:16 tramadol AdvReac insomnia/pr Verified 02/27/23 08:16 uitus trazodone AdvReac Unknown Verified 02/27/23 08:16 Home Medications Medication Instructions Recorded Confirmed Type magnesium oxide 400 mg PO DAILY 09/02/19 02/27/23 History calcium carbonate 600 mg-vitamin 1 tab PO BID #60 tabs 05/10/21 02/27/23 Rx D3 10 mcg (400 unit) tablet (Calcium 600 + D(3)) lidocaine 4 % topical patch 1 patch topical Q24H PRN pain #30 07/24/21 02/27/23 Rx ea omega-3 acid ethyl esters 1 gram 1 cap PO DAILY 11/09/21 02/27/23 History capsule zlujjzijxcgj-etfypevr-hdblly tablet 1 tab PO DAILY #90 tabs 12/13/21 02/27/23 Rx pantoprazole 40 mg tablet,delayed 40 mg PO DAILY #90 tabs 05/08/22 04/14/23 Rx release (Protonix) fluticasone propionate 50 1 spray intranasal DAILY #48 mL 08/30/22 04/14/23 Rx mcg/actuation nasal spray,suspension (Flonase Allergy Relief) carvedilol 12.5 mg tablet 12.5 mg PO BID #180 tabs 10/02/22 04/14/23 Rx amlodipine 5 mg tablet 5 mg PO BID #180 tabs 12/31/22 04/14/23 Rx potassium chloride 10 mEq 10 meq PO DAILY #90 caps 01/09/23 04/14/23 Rx capsule,extended release clopidogrel 75 mg tablet (Plavix) 75 mg PO DAILY #90 tabs 02/20/23 04/14/23 Rx alprazolam 0.25 mg tablet 0.125 mg PO HS sleep #15 tabs 02/27/23 04/14/23 Rx Wheeled Walker #1 ea 03/13/23 Rx conjugated estrogens 0.625 mg/gram 0.625 mg vaginal DAILY 04/14/23 04/14/23 History vaginal cream (Premarin) estradiol 0.01% (0.1 mg/gram) 1 applic vaginal DAILY 04/14/23 04/14/23 History vaginal cream Patient History Medical History Allergic rhinitis Anxiety and depression Arthritis of wrist Chronic kidney disease, stage 3 (moderate) Diabetes mellitus, type 2 Dyslipidemia GERD (gastroesophageal reflux disease) History of recurrent TIAs Hypertension Insomnia Lumbar facet joint syndrome Lumbar pain with radiation down left leg Mild cognitive impairment Osteopenia Sacroiliitis Spinal stenosis, lumbar region without neurogenic claudication Venous insufficiency (chronic) (peripheral) Surgical History History of carpal tunnel surgery Hx of neck surgery secondary to cervical herniated discs Previous back surgery x3 S/P appendectomy S/P blepharoplasty S/P cholecystectomy Family History Father , age 81 of heart issues Myocardial infarction Prostate cancer Coronary heart disease Mother , age 76 of a stroke Stroke, Onset Age: 72 Myocardial infarction, Onset Age: 76 Hypertension Diabetes Brother Cancer Sister , 71 Hodgkins disease Sister Coronary heart disease Brother Diabetes Denies family history of Ovarian cancer Breast cancer Colorectal cancer Social History Smoking Status: Never smoker Second Hand Exposure: No; Do You Dip or Chew Tobacco: No; Hx Alcohol Use: No Hx Substance Use: No Preferred Language: Cambodian Communication Ability: Effective Visual Impairment: No Limitations Hearing Ability: Normal Backwinder Required: No Beliefs That Will Affect Care: None marital status: Current Living Situation: Alone Current Living Situation Comment: Patient lives alone in an apartment building current occupational status: retired 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 Oriented to person, place, and time. Fluent. Comprehension intact. Affect appropriate. Cranial Nerves: II: Reads NIHSS cards, pupils 3/3 to 2/2, miles grossly intact. III/IV/: Versions intact without nystagmus, no gaze preference. V: Facial sensation symmetric to light touch VII: Facial expression symmetric VIII: Hearing intact to voice IX/X: Palate elevates symmetrically XI: Shoulder shrug symmetric XII: Tongue midline Motor: Strength was symmetric and antigravity throughout. Pronator drift was absent. There were no abnormal movements. Sensory: Sensation to light touch was reduced in the L leg. Coordination: Movements were non-ataxic Reflexes: Unable to assess over telemedicine Results & Data Vital Signs (Past 12 Hours) Vital Signs Temp Pulse Pulse Resp BP BP BP 04/14/23 18:15 36.7 C 64 18 151/81 H 04/14/23 17:45 36.4 C L 71 20 151/83 H 04/14/23 17:15 36.4 C L 63 20 149/82 H 04/14/23 16:45 36.7 C 72 20 133/85 04/14/23 16:35 04/14/23 16:15 70 20 153/81 H 04/14/23 16:00 72 04/14/23 15:15 82 20 141/79 H 04/14/23 14:48 04/14/23 14:45 04/14/23 14:34 69 16 04/14/23 14:34 149/73 H 04/14/23 14:30 67 18 04/14/23 14:15 67 18 04/14/23 14:03 129/71 04/14/23 14:03 63 12 04/14/23 14:49 04/14/23 14:45 36.5 C 66 18 146/81 H 04/14/23 14:34 67 18 149/73 H 04/14/23 14:34 36.7 C 81 18 04/14/23 14:04 64 18 129/71 04/14/23 13:30 63 18 151/84 H 04/14/23 13:15 67 18 153/81 H 04/14/23 13:00 36.7 C 68 17 165/84 H 04/14/23 12:45 36.8 C 77 19 155/88 H 04/14/23 12:30 68 19 160/91 H 04/14/23 12:00 81 19 04/14/23 12:00 185/105 H 04/14/23 11:50 79 12 04/14/23 11:50 189/90 H 04/14/23 11:40 91 H 26 H 04/14/23 11:40 180/102 H 04/14/23 11:30 74 10 L 04/14/23 11:30 166/91 H 04/14/23 11:29 191/91 H 04/14/23 11:29 76 19 04/14/23 11:27 81 12 04/14/23 11:32 80 04/14/23 11:39 36.7 C 93 H 20 04/14/23 11:29 04/14/23 11:29 Pulse Ox O2 Del Method 04/14/23 18:15 97 Room Air 04/14/23 17:45 96 Room Air 04/14/23 17:15 97 Room Air 04/14/23 16:45 96 Room Air 04/14/23 16:35 Room Air 04/14/23 16:15 97 Room Air 04/14/23 16:00 04/14/23 15:15 94 Room Air 04/14/23 14:48 94 04/14/23 14:45 95 04/14/23 14:34 95 04/14/23 14:34 04/14/23 14:30 96 04/14/23 14:15 96 04/14/23 14:03 04/14/23 14:03 95 04/14/23 14:49 Room Air 04/14/23 14:45 95 Room Air 04/14/23 14:34 97 Room Air 04/14/23 14:34 95 Room Air 04/14/23 14:04 95 Room Air 04/14/23 13:30 96 Room Air 04/14/23 13:15 97 Room Air 04/14/23 13:00 97 Room Air 04/14/23 12:45 96 Room Air 04/14/23 12:30 97 Room Air 04/14/23 12:00 97 04/14/23 12:00 04/14/23 11:50 96 04/14/23 11:50 04/14/23 11:40 94 04/14/23 11:40 04/14/23 11:30 98 04/14/23 11:30 04/14/23 11:29 04/14/23 11:29 96 04/14/23 11:27 97 04/14/23 11:32 04/14/23 11:39 95 Room Air 04/14/23 11:29 97 Room Air 04/14/23 11:29 97 Room Air Laboratory Results Abnormal lab results 04/14/23 04/14/23 04/14/23 Range/Units 11:32 11:32 11:37 RBC 3.89 L (4.20-5.40) M/uL Hct 35.2 L (37.0-47.0) % POC Hct 36 L (37-47) % MCHC 36.1 H (32.0-36.0) g/dL Sodium 135 L (136-145) mmol/L POC BUN 23 H (7-18) mg/dl BUN/Creatinine Ratio 27.1 H (10-20) Glucose 211 H (70-99(Fasting)) mg/dl POC Glucose (other) 208 H (70-99) mg/dl Magnesium 1.5 L (1.7-2.4) mg/dl Alkaline Phosphatase 30 L (34-104) U/L Diagnostic Findings Chest X-Ray 04/14/23 11:04 XR chest 1V portable HISTORY: 82 years-old Female stroke alert. patient on with stroke dr acute stroke like symptoms COMPARISON: 05/03/2022 TECHNIQUE: AP view of the chest FINDINGS: Cardiomediastinal and hilar silhouettes are within normal limits. No pneumothorax, pleural effusion, airspace consolidation or pulmonary edema. Bones appear grossly intact. Cervical spinal fusion hardware. IMPRESSION: No acute process. ACT 112: Negative or not required by law. The above report was generated using voice recognition software. It may contain grammatical, syntax or spelling errors. Electronically signed by: Eric Flanagan M.D. 04/14/2023 12:[address] 04/14/23 11:04 CT head/brain wo con CLINICAL HISTORY: Neuro deficit, acute, stroke suspected Technique: Contiguous axial CT images of the head were acquired from the base of the skull to the vertex without intravenous contrast administration. Images were viewed in brain, subdural and bone windows. Automated dose lowering techniques and/or adjustment according to patient size were utilized for this exam. Comparison: Comparison is made to CT head 05/03/2022 Findings: Areas of decreased attenuation are present in the periventricular and subcortical white matter bilaterally consistent with small vessel ischemic disease. Generalized cerebral atrophy with commensurate enlargement of the ventricles, sulci, and cisterns is also present. There is no acute intracranial hemorrhage or evidence of acute territorial infarction. No shift of the midline structures, mass effect, or extra-axial abnormalities are shown. Atherosclerotic calcifications are present in the intracranial segments of the internal carotid arteries. Focal encephalomalacia is seen in the left insula which is unchanged from prior. Imaged portions of the paranasal sinuses and mastoid air cells are clear. The orbits appear normal. There are no acute fractures of the calvaria or scalp swelling. Impression: No acute intracranial hemorrhage, no evidence of acute territorial infarction or other acute intracranial disease process. ACT 112: Negative or not required by law. Electronically signed by: Iron Julio M.D. 04/14/2023 11:15 AM Head CTA 04/14/23 11:19 CT angio head w con CLINICAL HISTORY: 82 years-old Female with left sided numbness; r/o stroke. Acute stroke like symptoms COMPARISON STUDY: Head CT same day, CTA head 05/03/2022 TECHNIQUE: Following the IV administration of 113 cc of Optiray, CT angiogram of the brain was performed from the skull base to the vertex. Images are reviewed in the axial, sagittal, and coronal planes. 3-D MIPS images are created and assessed. IV contrast was administered without complication. All measurements were obtained according to NASCET criteria. A dose lowering technique was utilized adhering to the principles of ALARA. FINDINGS: CT ANGIOGRAM OF THE BRAIN: No intracranial aneurysm is identified. No central vessel occlusion is noted. Severe stenosis within the A2 segment of the right anterior cerebral artery on image 155 again noted. Progressively worsened severe stenosis within the right posterior cerebral artery image 91 series 3. Severe multifocal stenoses within the intracranial vessels otherwise appear similar to the CTA of 05/03/2022. These are most pronounced within the bilateral posterior cerebral arteries. There is moderate stenosis of the right cavernous carotid. There is also moderate to severe stenosis of the distal left middle cerebral artery. The appearance of the intracranial circulation is unchanged. Basilar artery is patent. Intracranial portions of the bilateral vertebral arteries are patent. There is moderate plaque within the bilateral cavernous carotids. Involutional changes with chronic microvascular ischemic disease. 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 The study is otherwise stable compared to the 05/03/2022 exam with areas of multifocal intracranial stenosis. ACT 112: Negative or not required by law. The above report was generated using voice recognition software. It may contain grammatical, syntax or spelling errors. Electronically signed by: Eric Flanagan M.D. 04/14/2023 11:35 AM Neck CTA 04/14/23 11:19 CT ANGIOGRAPHY OF THE NECK WITH CONTRAST CLINICAL HISTORY: left sided weakness; numbness COMPARISON STUDY: CTA of the neck May 03, 2022. Technique: CT angiography of the carotid and vertebral arteries was obtained using Optiray and 3D reconstruction on an independent workstation. NASCET criteria was utilized. Automated exposure control was utilized for the study. A dose lowering technique was utilized adhering to the principles of ALARA. CT DOSE: 428.60 mGy.cm Findings: Visualized portions of the lung apices are unremarkable. There is no acute cervical spine fracture. There are postoperative findings within the cervical spine. The cervical lymphadenopathy is present. The bilateral common carotid and cervical internal carotid arteries are patent. There is no stenosis or dissection within these vessels. There is mild plaque within the proximal bilateral internal carotid arteries. Moderate stenosis at the origin the right vertebral artery is similar to prior CTA of May 03, 2022. The right vertebral artery is dominant. CTA of the head will be reported separately. Multifocal stenoses within the intracranial vessels are better depicted on that exam. IMPRESSION: 1. No change in moderate stenosis at the origin of the right vertebral artery since CTA of May 03, 2022. 2. No stenoses within the bilateral common carotid or cervical internal carotid arteries. ACT 112: Negative or not required by law. Electronically signed by: Riky Abraham M.D. 04/14/2023 11:50 AM Brain MRI 04/14/23 14:36 MR brain wo con HISTORY: 82 years-old Female CVA acute strokelike symptoms COMPARISON: Head CT of same day, brain MRI 03/05/2022 TECHNIQUE: Multiplanar multisequence MRI of the brain was obtained without the use of IV contrast. FINDINGS: No restricted diffusion. Unremarkable midline structures. Partially empty sella. Degenerative changes of the imaged cervical spine. No acute intracranial hemorrhage, midline shift, abnormal extra-axial collection, hydrocephalus or intracranial mass. Involutional changes with moderate T2/FLAIR hyperintense foci throughout the white matter. Cerebral venous sinuses and major arterial flow voids appear patent. Prior bilateral lens repair. An mucosal thickening of the ethmoid sinuses. The mastoid air cells are clear. IMPRESSION: 1. No acute intracranial abnormality. No acute or subacute infarct. 2. Involutional changes with chronic microvascular ischemic disease. ACT 112: Negative or not required by law. The above report was generated using voice recognition software. It may contain grammatical, syntax or spelling errors. Electronically signed by: Eric Flanagan M.D. 04/14/2023 3:55 PM
[2023-04-14] MEDS: MAGNESIUM SULFATE / D5W 1 GM/100 ML BAG IV SCH ×3 (18:45→23:01)
[2023-04-14] MEDS ORDERED: amLODIPine BESYLATE 5 MG TAB PO SCH (21:00)
[2023-04-15] MEDS: ICU Protocol for HYPERglycemia SCH ×3 (08:38→11:32)
[2023-04-15] MEDS ORDERED: PANTOprazole 40 MG TAB PO SCH (09:00)
--- NOTE | 2023-04-15 09:35 | Critical Care Progress Note ---
Date of Service April 15, 2023 Assessment & Plan (1) Stroke-like symptoms: Plan: Reason Critically Ill: 82-year-old female with history of prior TIAs admitted for strokelike symptoms status post thrombolytic therapy PLAN: Neuro: Strokelike symptoms History of prior TIAs -Status post TNKase at 1017 -CTA head and neck reviewed CV: Echo completed read pending Fluids/Renal: Hypomagnesemia: Mild: Resolved -May require daily additional supplementation Heme: DVT prophylaxis: Chemoprophylaxis contraindicated Endocrine: ICU hyperglycemia protocol Vascular access: Peripheral IVs Code Status: DNR/DNI in event of cardiac arrest Disposition: Stable for downgrade out of ICU versus discharged home (2) Diabetes mellitus, type 2: (3) TIA (transient ischemic attack): (4) Thrombolytic medication administered within last 5 days: Admission and Anticipated Discharge Date Admission Date: April 14, 2023 Subjective tingling and numbness resolved, feels improved. Reports she has been taking magnesium supplementation with her afternoon lunch. Denies taking milk containing products around the same time. Physical Exam Physical Exam: General: Alert. nontoxic. Skin: Warm, dry, Head: Atraumatic Ears, nose, mouth and throat: airway patent Cardiovascular: Normal peripheral perfusion Respiratory: no respiratory distress Gastrointestinal: Non distended Musculoskeletal: No deformity Results & Data Results & Data Vital Signs (Past 12 Hours) Vital Signs Temp Pulse Pulse Resp BP Pulse Ox O2 Del Method 04/15/23 08:45 36.8 C 71 19 165/92 H 95 Room Air 04/15/23 07:45 36.8 C 72 17 158/86 H 96 Room Air 04/15/23 06:45 70 18 135/68 98 Room Air 04/15/23 05:45 73 15 134/67 97 Room Air 04/15/23 04:45 74 14 149/80 H 95 Room Air 04/15/23 04:08 36.7 C 04/15/23 03:45 65 14 132/72 94 Room Air 04/15/23 02:45 64 18 127/72 97 Room Air 04/15/23 01:45 83 129/73 96 Room Air 04/15/23 00:45 63 125/64 91 Room Air 04/14/23 23:45 66 122/63 93 Room Air 04/14/23 23:31 63 04/14/23 22:45 60 18 129/54 L 91 Room Air 04/14/23 21:45 36.5 C 65 18 143/65 H 94 Room Air Critical Care Results & Data Vital Signs (Past 12 Hours) Vital Signs Temp Pulse Pulse Resp BP Pulse Ox O2 Del Method 04/15/23 08:45 36.8 C 71 19 165/92 H 95 Room Air 04/15/23 07:45 36.8 C 72 17 158/86 H 96 Room Air 04/15/23 06:45 70 18 135/68 98 Room Air 04/15/23 05:45 73 15 134/67 97 Room Air 04/15/23 04:45 74 14 149/80 H 95 Room Air 04/15/23 04:08 36.7 C 04/15/23 03:45 65 14 132/72 94 Room Air 04/15/23 02:45 64 18 127/72 97 Room Air 04/15/23 01:45 83 129/73 96 Room Air 04/15/23 00:45 63 125/64 91 Room Air 04/14/23 23:45 66 122/63 93 Room Air 04/14/23 23:31 63 04/14/23 22:45 60 18 129/54 L 91 Room Air 04/14/23 21:45 36.5 C 65 18 143/65 H 94 Room Air Lab & Micro Results (Past 24 Hours) RBC 3.89 M/uL (4.20-5.40) L 04/14/23 WBC 5.15 K/ul (4.8-10.8) 04/14/23 Hgb 12.7 g/dl (12.0-16.0) 04/14/23 Hct 35.2 % (37.0-47.0) L 04/14/23 MCV 90.5 fL (80.0-100.0) 04/14/23 MCH 32.6 pg (25.0-34.0) 04/14/23 MCHC 36.1 g/dL (32.0-36.0) H 04/14/23 RDW Standard Deviation 39.0 fL (36.4-46.3) 04/14/23 RDW Coefficient of Variation 11.9 % (11.5-14.5) 04/14/23 Plt Count 159 K/uL (130-400) 04/14/23 MPV 9.6 fL (9.4-12.4) 04/14/23 Na 135 mmol/L (136-145) L 04/14/23 K 3.5 mmol/L (3.5-5.1) 04/14/23 Cl 103 mmol/L (98-107) 04/14/23 CO2 25 mmol/L (21-32) 04/14/23 Anion Gap 7 (3-11) 04/14/23 BUN 19 mg/dl (6-23) 04/14/23 Creatinine 0.70 mg/dl (0.6-1.2) 04/14/23 Estimated GFR ( Amer) 92.9 ml/min 04/14/23 Estimated GFR (Non-Af Amer) 80.1 ml/min 04/14/23 BUN/Creatinine Ratio 27.1 (10-20) H 04/14/23 Glu 211 mg/dl (70-99(Fasting)) H 04/14/23 Ca 8.9 mg/dl (8.6-10.3) 04/14/23 Total Bilirubin 0.3 mg/dl (0.2-1.0) 04/14/23 AST 33 U/L (13-39) 04/14/23 ALT 31 U/L (7-52) 04/14/23 Alkaline Phosphatase 30 U/L (34-104) L 04/14/23 TP 6.1 gm/dl (6.0-8.3) 04/14/23 Albumin 3.5 gm/dl (3.4-5.0) 04/14/23 Globulin 2.6 gm/dl (2.5-4.0) 04/14/23 Albumin/Globulin Ratio 1.3 (0.9-2) 04/14/23 Mg 1.5 mg/dl (1.7-2.4) L 04/14/23 11:32 Calcium Level 8.9 mg/dl (8.6-10.3) 04/14/23 11:32 Prothromb Time International Ratio 1.1 (0.9-1.1) 04/14/23 11:3 2 Diagnostic Findings (Past 24 Hours) Chest X-Ray 04/14/23 11:04 XR chest 1V portable HISTORY: 82 years-old Female stroke alert. patient on with stroke dr acute stroke like symptoms COMPARISON: 05/03/2022 TECHNIQUE: AP view of the chest FINDINGS: Cardiomediastinal and hilar silhouettes are within normal limits. No pneumothorax, pleural effusion, airspace consolidation or pulmonary edema. Bones appear grossly intact. Cervical spinal fusion hardware. IMPRESSION: No acute process. ACT 112: Negative or not required by law. The above report was generated using voice recognition software. It may contain grammatical, syntax or spelling errors. Electronically signed by: Eric Flanagan M.D. 04/14/2023 12:[address] 04/14/23 11:04 CT head/brain wo con CLINICAL HISTORY: Neuro deficit, acute, stroke suspected Technique: Contiguous axial CT images of the head were acquired from the base of the skull to the vertex without intravenous contrast administration. Images were viewed in brain, subdural and bone windows. Automated dose lowering techniques and/or adjustment according to patient size were utilized for this exam. Comparison: Comparison is made to CT head 05/03/2022 Findings: Areas of decreased attenuation are present in the periventricular and subcortical white matter bilaterally consistent with small vessel ischemic disease. Generalized cerebral atrophy with commensurate enlargement of the ventricles, sulci, and cisterns is also present. There is no acute intracranial hemorrhage or evidence of acute territorial infarction. No shift of the midline structures, mass effect, or extra-axial abnormalities are shown. Atherosclerotic calcifications are present in the intracranial segments of the internal carotid arteries. Focal encephalomalacia is seen in the left insula which is unchanged from prior. Imaged portions of the paranasal sinuses and mastoid air cells are clear. The orbits appear normal. There are no acute fractures of the calvaria or scalp swelling. Impression: No acute intracranial hemorrhage, no evidence of acute territorial infarction or other acute intracranial disease process. ACT 112: Negative or not required by law. Electronically signed by: Iron Julio M.D. 04/14/2023 11:15 AM Head CTA 04/14/23 11:19 CT angio head w con CLINICAL HISTORY: 82 years-old Female with left sided numbness; r/o stroke. Acute stroke like symptoms COMPARISON STUDY: Head CT same day, CTA head 05/03/2022 TECHNIQUE: Following the IV administration of 113 cc of Optiray, CT angiogram of the brain was performed from the skull base to the vertex. Images are reviewed in the axial, sagittal, and coronal planes. 3-D MIPS images are created and assessed. IV contrast was administered without complication. All measurements were obtained according to NASCET criteria. A dose lowering technique was utilized adhering to the principles of ALARA. FINDINGS: CT ANGIOGRAM OF THE BRAIN: No intracranial aneurysm is identified. No central vessel occlusion is noted. Severe stenosis within the A2 segment of the right anterior cerebral artery on image 155 again noted. Progressively worsened severe stenosis within the right posterior cerebral artery image 91 series 3. Severe multifocal stenoses within the intracranial vessels otherwise appear similar to the CTA of 05/03/2022. These are most pronounced within the bilateral posterior cerebral arteries. There is moderate stenosis of the right cavernous carotid. There is also moderate to severe stenosis of the distal left middle cerebral artery. The appearance of the intracranial circulation is unchanged. Basilar artery is patent. Intracranial portions of the bilateral vertebral arteries are patent. There is moderate plaque within the bilateral cavernous carotids. Involutional changes with chronic microvascular ischemic disease. 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 The study is otherwise stable compared to the 05/03/2022 exam with areas of multifocal intracranial stenosis. ACT 112: Negative or not required by law. The above report was generated using voice recognition software. It may contain grammatical, syntax or spelling errors. Electronically signed by: Eric Flanagan M.D. 04/14/2023 11:35 AM Neck CTA 04/14/23 11:19 CT ANGIOGRAPHY OF THE NECK WITH CONTRAST CLINICAL HISTORY: left sided weakness; numbness COMPARISON STUDY: CTA of the neck May 03, 2022. Technique: CT angiography of the carotid and vertebral arteries was obtained using Optiray and 3D reconstruction on an independent workstation. NASCET criteria was utilized. Automated exposure control was utilized for the study. A dose lowering technique was utilized adhering to the principles of ALARA. CT DOSE: 428.60 mGy.cm Findings: Visualized portions of the lung apices are unremarkable. There is no acute cervical spine fracture. There are postoperative findings within the cervical spine. The cervical lymphadenopathy is present. The bilateral common carotid and cervical internal carotid arteries are patent. There is no stenosis or dissection within these vessels. There is mild plaque within the proximal bilateral internal carotid arteries. Moderate stenosis at the origin the right vertebral artery is similar to prior CTA of May 03, 2022. The right vertebral artery is dominant. CTA of the head will be reported separately. Multifocal stenoses within the intracranial vessels are better depicted on that exam. IMPRESSION: 1. No change in moderate stenosis at the origin of the right vertebral artery since CTA of May 03, 2022. 2. No stenoses within the bilateral common carotid or cervical internal carotid arteries. ACT 112: Negative or not required by law. Electronically signed by: Riky Abraham M.D. 04/14/2023 11:50 AM Brain MRI 04/14/23 14:36 MR brain wo con HISTORY: 82 years-old Female CVA acute strokelike symptoms COMPARISON: Head CT of same day, brain MRI 03/05/2022 TECHNIQUE: Multiplanar multisequence MRI of the brain was obtained without the use of IV contrast. FINDINGS: No restricted diffusion. Unremarkable midline structures. Partially empty sella. Degenerative changes of the imaged cervical spine. No acute intracranial hemorrhage, midline shift, abnormal extra-axial collection, hydrocephalus or intracranial mass. Involutional changes with moderate T2/FLAIR hyperintense foci throughout the white matter. Cerebral venous sinuses and major arterial flow voids appear patent. Prior bilateral lens repair. An mucosal thickening of the ethmoid sinuses. The mastoid air cells are clear. IMPRESSION: 1. No acute intracranial abnormality. No acute or subacute infarct. 2. Involutional changes with chronic microvascular ischemic disease. ACT 112: Negative or not required by law. The above report was generated using voice recognition software. It may contain grammatical, syntax or spelling errors. Electronically signed by: Eric Flanagan M.D. 04/14/2023 3:55 PM I & O Totals 24 Hours 04/14/23 04/15/23 04/16/23 06:59 06:59 06:59 Intake Total 820 / 820 Output Total 1002 / 1002 Balance -182 / -182 Cumulative 04/14/23 10:47 thru 04/15/23 06:13 Intake Total 820 Output Total 1002 Balance -182 RT Ventilator Mngmt (Last Documented) Ventilator Ordered Settings Respiratory Rate 19 04/15/23 08:45 Ventilator - PT Measurements Respiratory Rate 19 Coding Level of Care Code 38094 SUB INP/OBS CARE 2/35MIN Diagnoses Stroke-like symptoms R29.90 Diabetes mellitus, type 2 E11.9 TIA (transient ischemic attack) G45.9 Thrombolytic medication administered within last 5 days Z78.9
--- NOTE | 2023-04-15 12:02 | XCELERA ---
[id number] [id number]
[2023-04-15 12:32] LABS: Basophils # (auto) 0.02 K/uL (0-0.2); Basophils % (auto) 0.3 %; Eosinophils # (auto) 0.15 K/uL (0-0.50); Eosinophils % (auto) 2.6 %; Hematocrit (blood only) 38.1 % (37.0-47.0); Hemoglobin 13.9 g/dl (12.0-16.0); Immature Granulocytes # (auto) 0.04 K/uL (0.01-0.20); Immature Granulocytes % (auto) 0.7 %; Lymphocytes # (auto) 2.51 K/uL (1.2-3.4); Lymphocytes % (auto) 43.4 %; Mean Corpuscular Hemoglobin 32.7 pg (25.0-34.0); Mean Corpuscular Hgb Conc 36.5 g/dL (32.0-36.0); Mean Corpuscular Volume 89.6 fL (80.0-100.0); Mean Platelet Volume 9.5 fL (9.4-12.4); Monocytes # (auto) 0.56 K/uL (0.11-0.59); Monocytes % (auto) 9.7 %; Neutrophils # (auto) 2.51 K/uL (1.40-6.50); Neutrophils % (auto) 43.3 %; Platelet Count 171 K/uL (130-400); Red Blood Count 4.25 M/uL (4.20-5.40); White Blood Count 5.79 K/ul (4.8-10.8)
[2023-04-15 12:47] LABS: Anion Gap 7 (3-11); BUN Creatinine Ratio 27.4 (10-20); Blood Urea Nitrogen 17 mg/dl (6-23); Carbon Dioxide 26 mmol/L (21-32); Chloride 104 mmol/L (98-107); Cholesterol 173 mg/dl (0-200); Creatinine Clr Calc Pharmacy 54.4 ml/min; Est GFR (African American) 96.6 ml/min; Est GFR (Non-African American) 83.4 ml/min; Glucose 132 mg/dl (70-99(Fasting)); HDL Cholesterol 37 mg/dl; Potassium 3.6 mmol/L (3.5-5.1); Sodium 137 mmol/L (136-145); Triglycerides 439 mg/dl (0-150)
[2023-04-15 12:48] LABS: Chol HDL Ratio 4.7 (0-5)
[2023-04-15 13:29] LABS: Estimated Average Glucose 137 mg/dl; Hemoglobin A1C 6.4 % (4.5-5.6)
[2023-04-15] MEDS ORDERED: STROKE PATIENT DISCHARGE STA (13:49)
--- NOTE | 2023-04-15 13:50 | CT Scan Report ---
CT head/brain wo con CLINICAL HISTORY: 24 hour post TNkase administration for CVA sx Technique: Contiguous axial CT images of the head were acquired from the base of the skull to the rissa porfirio without intravenous contrast administration. Images were viewed in brain, subdural and bone windo ws. Automated dose lowering techniques and/or adjustment according to patient size were utilized for this exam. Comparison: Comparison is made to CTA head and neck 04/14/2023 Findings: Areas of decreased attenuation are present in the periventricular and subcortical white matter bilate rally consistent with small vessel ischemic disease. Generalized cerebral atrophy with commensurate e nlargement of the ventricles, sulci, and cisterns is also present. There is no acute intracranial hem orrhage or evidence of acute territorial infarction. No shift of the midline structures, mass effect, or extra-axial abnormalities are shown. Atherosclerotic calcifications are present in the intracran ial segments of the internal carotid arteries. Imaged portions of the paranasal sinuses and mastoid air cells are clear. The orbits appear normal. There are no acute fractures of the calvaria or scalp swelling. Impression: No acute abnormalities and in particular no evidence of hemorrhagic conversion. ACT 112: Negative or not required by law. Electronically signed by: Iron Julio M.D. 04/15/2023 1:48 PM
--- NOTE | 2023-04-15 13:58 | Discharge Summary ---
Date of Service April 15, 2023 Admission HPI Per Admitting Provider Jacy is an 82-year-old female with a past medical history of chronic cerebral ischemia, transient left leg weakness, TIA, spinal stenosis with lumbar reticular apathy, CKD 3, GERD, hypertension, venous insufficiency, mild cognitive impairment, and anxiety/depression who presented to the emergency department as a stroke alert with left-sided numbness that began at 9:30 AM acutely. Per ER: Symptom onset 9:30 AM Symptoms: Numbness of left face, left upper extremity, left lower extremity. Does have a history of prior TIA. 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 No change in moderate stenosis at the origin of the right vertebral artery since CTA of May 03, 2022. 2. No stenoses within the bilateral common carotid or cervical internal carotid arteries. CT-H: No acute intracranial hemorrhage, no evidence of acute territorial infarction or other acute intracranial disease process. Case was reviewed with [facility] teleneurology Dr. Navarro. Patient was recommended for admission for post TNKase management, transfer to tertiary care was not recommended. NIHSS: 3 on ER admit, telestroke scored as 3 Echo was performed 11/2021 with agitated saline; patient has no right to left interarterial shunt. At that time EF 60 to 65%, no regional wall motion abnormalities Per patient: She reports that she got up this morning and felt well initially. She ate breakfast around 930 when suddenly she started to "not feel good ". She noticed that she had left leg weakness and strange numbness which spread from just below the hip all the way down through the foot. She also had left arm weakness and some numbness. She notes last few days her memory has also been worse. She did notice 3 days ago that she thought she had some right facial droop but this made her nervous about stroke and avoided looking in the mirror, thinks that this resolved between then and her current episode this morning she notes she has had a mild headache since this morning slightly improved in the ER. Her visual acuity is more blurry than normal, notes on covering each eye that left eye remains sharp whereas the right are is more blurry than normal. No double vision. She has not had any fever, chills, sweats. No chest pain or chest pressure. No syncope/presyncope. No falls or head injuries no nausea/vomiting/diarrhea/constipation. She did take her morning medications including Plavix. She does not take aspirin, she reports that there was an extensive discussion over whether she is able to take aspirin or not. She reports she is statin intolerant and is not interested in these due to myalgias. She reports she has had multiple TIAs in the past, she had 3 episodes while living in [place] 3 years ago which were ultimately thought to be TIAs without permanent findings, she reports that she has had no permanent deficits from her past TIAs. Denies history of A-fib Medical History: Reviewed Medications: Reviewed Surgical History: Reviewed Family history: Reviewed Allergies: Reviewed. Extensive allergy list, patient reports she is not sure which each individual 1 was but the record in the chart should be accurate Social History: Denies tobacco/etoh/rec drug use Code Status: DNR/DNI Principal Diagnosis CVA Discharge Exam The patient is awake, alert and oriented 3, well developed and well nourished, normocephalic and atraumatic, lying in bed and in no acute distress. HEENT--PERRL, EOMI, mucous membranes and oropharynx mildly dry Neck--supple. No JVD. No bruits. Thyroid normal, trachea midline, no adenopathy. Heart--normal S1 and S2. No murmurs, rubs or gallops. Lungs--clear bilaterally, no respiratory distress, no accessory muscle use. Abdomen--normal bowel sounds and soft. Mild epigastric and left sided abdominal pain Extremities--no cyanosis or clubbing. No edema. Dermatologic--normal skin turgor, normal color, no abnormal lymph nodes, no rash. Neurologic--cranial nerves II through XII grossly intact. Rheumatologic--normal range of motion. Psychiatric--normal affect. Discharge Data Allergies Allergy/AdvReac Type Severity Reaction Status Date / Time doxycycline AdvReac Mild decreased Verified 02/27/23 08:16 urine output escitalopram AdvReac Mild decreased Verified 02/27/23 08:16 urine output prednisone AdvReac Mild feels Verified 02/27/23 08:16 agitated memantine AdvReac Unknown stomach Verified 02/27/23 08:16 pains amoxicillin AdvReac upset Verified 02/27/23 08:16 stomach cefdinir AdvReac Diarrhea Verified 02/27/23 08:16 ciprofloxacin [From Cipro] AdvReac Diarrhea Verified 02/27/23 08:16 fluticasone AdvReac Dizziness Verified 02/27/23 08:16 gabapentin AdvReac abdominal Verified 02/27/23 08:16 pain and drowsy gemfibrozil [From Lopid] AdvReac upset Verified 02/27/23 08:16 stomach irbesartan AdvReac Diarrhea Verified 02/27/23 08:16 lisinopril AdvReac hypertension Verified 02/27/23 08:16 and diarrhea meclizine AdvReac Drowsy Verified 02/27/23 08:16 pitavastatin [From Livalo] AdvReac Unknown Verified 02/27/23 08:16 Dmxlqat-JNP-EwO Reductase AdvReac myalgia Verified 02/27/23 08:16 Inhibitor [Kgztvja-Sut-Hme Reductase Inhibitor] tizanidine AdvReac nightmares Verified 02/27/23 08:16 tramadol AdvReac insomnia/pr Verified 02/27/23 08:16 uitus trazodone AdvReac Unknown Verified 02/27/23 08:16 Consultations 04/14/23 12:31 ED Decision to Admit Stat 04/14/23 14:36 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 At time bedside assessment extreme weakness/numbness persists, left facial numbness has improved History of multiple TIAs on Plavix. She reports she is statin intolerant, has continued decline and outpatient follow-up for multiple TIAs. lipid panel pending. Thinks she cannot take aspirin but does not remember why. Denies tobacco use. Denies -She met criteria for TNK, which was administered by neurology MRI did not show any acute pathology -Her symptoms resolved -Repeat CT head today did not show any evidence of bleed -D/C home on Plavix per neurology Outpatient follow up with neurology (2) Thrombolytic medication administered within last 5 days: As noted (3) Left sided numbness: As noted (4) Diabetes mellitus, type 2: Last A1c 6.7% 09/2022 Goal BSG [id number] ICU hyperglycemia protocol (5) Anxiety and depression: On Xanax 0.25-0.125 mg nightly as needed for evening anxiety. Patient did not get benefit from trial of Zoloft or Remeron in the past. Has continued to use low-dose of Xanax in the evening following her/benefits discussion of chronic benzodiazepine use with PCP (6) Hypertension: She reports she did take her morning medications 04/14 Continued on salt restriction Labetalol for breakthrough hypertension as noted per stroke protocol Continue amlodipine 5 mg twice daily Continue carvedilol 12.5 mg twice daily Hydrochlorothiazide held pending reconciliation clarification (7) GERD (gastroesophageal reflux disease): No epigastric discomfort on admission Continue Protonix 40 mg daily (8) Chronic kidney disease, stage 3 (moderate): History of CKD 3 Recent baseline creatinine 0.70.9 Admitting creatinine 0.70 No VICTORINA Trend daily, renally dose medications as needed. Creatinine clearance drug dosing 48 on admission (9) Dyslipidemia: Patient reports she is statin intolerant as noted, however reports "not interested in these " Last lipids 09/2022: LDL 87, HDL 42, total cholesterol 190. Repeat lipid rodriguez el pending, patient had not been a PCSK9 candidate in the past due to reasonable lipid control Plan d/c home Total Time Total Time Spent Total Time Spent (In Minutes): 35 Discharge Plan Discharge Items Patient Disposition: Home - Self-Care Reason For Visit: CVA POST TNKASE Discharge Diagnosis: CVA Activity: Resume your previous activity Non-emergency contact: Primary Care Provider and Neurologist Call non-emergency contact if: you have any medication questions Follow-up/Referrals: Clara Sarkar DO [Primary Care Provider] - Diet: Regular Addtl Attending Provider Instructions: please make appointment to follow up with your PCP and neurologist Pending Studies at Discharge: No Stand-Alone Forms: My [facility], Smoking Cessation Medications and DC Order Prescriptions: Continued calcium carbonate-vitamin D3 [Calcium 600 + D(3)] 600 mg(1,500mg) -400 unit tablet 1 tab PO BID Qty: 60 0RF Rx Instructions: Unable to verify with either pharmacy [id number] Tablet 1 tab PO DAILY Qty: 90 1RF Rx Instructions: Unable to verify with either pharmacy pantoprazole [Protonix] 40 mg tablet,delayed release (DR/EC) 40 mg PO DAILY Qty: 90 1RF Rx Instructions: Verified with [facility] fluticasone propionate [Flonase Allergy Relief] 50 mcg/actuation spray,suspension 1 spray INTNAS DAILY Qty: 48 1RF Rx Instructions: Verified with [facility] and [facility] carvedilol 12.5 mg tablet 12.5 mg PO BID Qty: 180 1RF Rx Instructions: Per ER nurse pt knows this medication Verified with [facility] amlodipine 5 mg tablet 5 mg PO BID Qty: 180 1RF Rx Instructions: Per er nurse pt knows this medication Verified with [facility] potassium chloride 10 mEq capsule, extended release 10 meq PO DAILY Qty: 90 1RF Rx Instructions: verified with [facility] clopidogrel [Plavix] 75 mg tablet 75 mg PO DAILY Qty: 90 3RF Rx Instructions: Per ER nurse pt knows this medication Verified with [facility] ([facility]) Austyn Da Silva See Rx Instructions .Route .MEDSUPPLY Qty: 1 0RF Rx Instructions: As directed lidocaine 4 % adhesive patch,medicated 1 patch topical Q24H PRN (Reason: pain) Qty: 30 5RF Rx Instructions: Unable to verify with either pharmacy may leave on for up to 12 hrs alprazolam 0.25 mg tablet 0.125 mg PO HS Qty: 15 0RF Rx Instructions: Verified with [facility] magnesium oxide 400 mg magnesium capsule 400 mg PO DAILY Rx Instructions: Unable to verify with either pharmacy omega-3 acid ethyl esters 1 gram capsule 1 cap PO DAILY Rx Instructions: Unable to verify with either pharmacy estradiol 0.01 % (0.1 mg/gram) cream 1 applic VAGINAL DAILY Rx Instructions: Verified with [facility] Premarin 0.625 mg/gram cream 0.625 mg vaginal DAILY Rx Instructions: [facility] Discharge Orders: Discharge Order (Routine); Ordered 04/15/23 Ordered By: Parish Patel Admission Data Admit Date/Time: 04/14/23 12:56 Attending Provider: Parish Patel Admit Provider: Oral Rodgers Primary Care Provider: Clara Sarkar Other Providers: Oral Rodgers ; Felix Johnson Coding Level of Care Code 82143 INP/OBS DISCH >30 MIN Diagnoses Stroke-like symptoms R29.90 Thrombolytic medication administered within last 5 days Z78.9 Left sided numbness R20.0 Diabetes mellitus, type 2 E11.9 Anxiety and depression F41.9; F32.9 Hypertension I10 GERD (gastroesophageal reflux disease) K21.9 Chronic kidney disease, stage 3 (moderate) N18.3 Dyslipidemia E78.5 Time Spent (min) 35
--- NOTE | 2023-04-15 14:05 | Pharmacy Report ---
- Date of Service April 15, 2023 - Pharmacy CVA/TIA Medication Review Medications to Prevent Stroke handout has been added to the patients discharge packet. Antiplatelet(s) * clopidogrel 75mg PO daily Cholesterol * Statin deferred due to intolerance per report DVT Prophylaxis * SCD knee Therapeutic Anticoagulation * No history of Afib/Aflutter noted Type 2 Diabetes * Patient does not have T2DM
== END 2023-04-15 14:50 | disposition home or self-care (01) | DRG 62 ==
LOC: ED 10:57 → INTOOBSV 12:56 → 1E 12:56 → SUATTDRO 12:56 → 1E 14:30

== ENCOUNTER 2023-05-07 10:11 | Inpatient (IN) ==
[2023-05-07] MEDS ORDERED: OPTIRAY 320 125ml IV ONE (10:24)
--- NOTE | 2023-05-07 10:36 | CT Scan Report ---
CT OF THE HEAD WITHOUT CONTRAST CLINICAL HISTORY: neuro deficit, acute stroke suspected. Left-sided weakness. Difficulty speaking. COMPARISON STUDY: MRI of the brain 2022. Head CT April 15, 2023. TECHNIQUE: Helical axial images of the head were obtained without IV contrast. Automated exposure con trol was utilized for the study. A dose lowering technique was utilized adhering to the principles o f ALARA. FINDINGS: No acute intracranial hemorrhage, midline shift or mass effect is present. White matter hyp odensities are unchanged and favor small vessel disease. The ventricular system is unremarkable. The basal cisterns are patent. No extra-axial collections are present. There are no findings to suggest a cute dural sinus thrombosis or acute territorial infarct. No significant calvarial abnormalities are present. Visualized portions of the sinuses and mastoid air cells are clear. IMPRESSION: No acute intracranial findings. No change in appearance of the brain. ACT 112: Negative or not required by law. Electronically signed by: Riky Abraham M.D. 05/07/2023 10:34 AM
--- NOTE | 2023-05-07 10:37 | CT Scan Report ---
HEAD CTA HISTORY: Left-sided weakness. Difficulty speaking. neuro deficit, acute stroke suspected TECHNIQUE: Multiaxial CT images of the head were performed both before and after the intravenous admi nistration of contrast to evaluate the major cerebral vessels. Maximum intensity projection images we re also obtained. A dose lowering technique was utilized adhering to the principles of ALARA. COMPARISON: Head CTA 04/14/2023. FINDINGS: The major dural venous sinuses are patent. Bilateral distal vertebral arteries and basilar artery are widely patent. No significant stenosis within the left ICA. Moderate narrowing within the supraclinoid segment of the right ICA, unchanged. 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 This is similar to the prior study. Additional areas of mild to moderate mult ifocal stenosis within the remaining cerebral arteries remains unchanged. No new or progressive areas of stenosis or occlusion identified within the [place]. No aneurysms identified. IMPRESSION: No change in the scattered areas of multifocal stenosis most pronounced within the right CHELA and righ t INSIDE SALES MANAGER as described above. No new or progressive areas of stenosis or vascular occlusion identified wi thin the brain. ACT 112: Negative or not required by law. Electronically signed by: Juan Robertson M.D. 05/07/2023 10:35 AM
[2023-05-07 10:48] LABS: iSTAT Creatinine 0.7 mg/dl (0.6-1.3); iSTAT Hemoglobin 14.3 g/dl (12.0-16.0); iSTAT Ionized Calcium 1.16 mmol/l (1.12-1.32); iSTAT Potassium 3.5 mmol/L (3.3-5.0)
--- NOTE | 2023-05-07 10:51 | CT Scan Report ---
CT ANGIOGRAPHY OF THE NECK WITH CONTRAST CLINICAL HISTORY: neuro deficit, acute stroke suspected COMPARISON STUDY: CTA of the neck April 14, 2023. Technique: CT angiography of the carotid and vertebral arteries was obtained using [employer] and 3D rec onstruction on an independent workstation. NASCET criteria was utilized. Automated exposure control was utilized for the study. A dose lowering technique was utilized adhering to the principles of ALA RA. CT DOSE: 1048.72 mGy.cm Findings: Visualized portions of the lung apices are unremarkable. There is no cervical lymphadenopat hy. Postoperative findings within the spine are incidentally noted. There is no stenosis within the b ilateral common carotid or cervical internal carotid arteries. There is mild plaque within the right carotid bifurcation. Moderate stenosis at the origin of the right vertebral artery is unchanged. The right vertebral artery is dominant. Left vertebral artery are suboptimally assessed due to contrast w ithin the adjacent veins. Suspected mild to moderate multifocal stenoses within the left are are note d. CTA of the head will be reported separately. There is no aneurysm or dissection within the neck. T here is minimal plaque within the proximal left internal carotid artery. IMPRESSION: 1. No change in moderate stenosis at the origin of the right vertebral artery. Mild to moderate multi focal stenoses within the left vertebral artery. 2. No stenoses within the bilateral common carotid or cervical internal carotid arteries. ACT 112: Negative or not required by law. Electronically signed by: Riky Abraham M.D. 05/07/2023 10:50 AM
[2023-05-07 10:52] LABS: Basophils # (auto) 0.03 K/uL (0-0.2); Basophils % (auto) 0.7 %; Eosinophils # (auto) 0.12 K/uL (0-0.50); Eosinophils % (auto) 2.6 %; Hematocrit (blood only) 39.6 % (37.0-47.0); Hemoglobin 14.7 g/dl (12.0-16.0); Immature Granulocytes # (auto) 0.03 K/uL (0.01-0.20); Immature Granulocytes % (auto) 0.7 %; Lymphocytes # (auto) 2.09 K/uL (1.2-3.4); Lymphocytes % (auto) 46.1 %; Mean Corpuscular Hemoglobin 32.5 pg (25.0-34.0); Mean Corpuscular Hgb Conc 37.1 g/dL (32.0-36.0); Mean Corpuscular Volume 87.4 fL (80.0-100.0); Mean Platelet Volume 9.5 fL (9.4-12.4); Monocytes # (auto) 0.34 K/uL (0.11-0.59); Monocytes % (auto) 7.5 %; Neutrophils # (auto) 1.92 K/uL (1.40-6.50); Neutrophils % (auto) 42.4 %; Platelet Count 193 K/uL (130-400); RDW Coefficient of Variation 11.9 % (11.5-14.5); RDW Standard Deviation 38.4 fL (36.4-46.3); Red Blood Count 4.53 M/uL (4.20-5.40); White Blood Count 4.53 K/ul (4.8-10.8)
[2023-05-07 11:06] LABS: Albumin Globulin Ratio 1.4 (0.9-2); Albumin Level 4.3 gm/dl (3.4-5.0); BUN Creatinine Ratio 25.7 (10-20); Bilirubin,Total 0.5 mg/dl (0.2-1.0); Calcium 9.8 mg/dl (8.6-10.3); Creatinine Clr Calc Pharmacy 49.6 ml/min; Est GFR (African American) 92.9 ml/min; Est GFR (Non-African American) 80.1 ml/min; Magnesium 1.6 mg/dl (1.7-2.4); Potassium 3.4 mmol/L (3.5-5.1); Total Protein 7.3 gm/dl (6.0-8.3)
--- NOTE | 2023-05-07 11:08 | Emergency Department Note ---
Impression & Plan Stroke-like symptoms ED Provider Note INFORMANT: Patient ED PROVIDER(S): Sree Lawton MD CHIEF COMPLAINT: Strokelike symptoms PLAN: Disposition: Admitted Condition: Good Outpatient prescription management: none Referral: None MEDICAL DECISION MAKING: Patient presented and was a stroke alert. She was taken emergently to CT imaging. I-STAT was performed and did not reveal any acute findings. Head CT did not reveal any acute stroke. CT angiography revealed stable stenosis as noted prior. I did discuss the case with Dr. Miranda. We discussed the prior history and presentation. He did evaluate the patient via telestroke. On further history the patient had some conflicting information and it sounds like she may not have not returned fully to baseline since the prior episodes. Given the recent events, prior work-up, and questionable last known well time he recommended against TNK. He recommended MRI of the brain and cervical spine Along with medical admission. Patient is a mildly decreased white blood cell count. Magnesium slightly low. Glucose mildly elevated. Troponin negative. Consultation was made with Dr. Oral Rodgers of the [facility] service. Patient was evaluated in the ER for further management. 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 Triage Nursing notes reviewed and agree them. Vital Signs: reviewed and remarkable for mild hypertension Prior /Outside records reviewed: Prior hospital admission and outpatient follow- up records reviewed. Differential diagnosis: CVA, TIA,Infection, dehydration, metabolic abnormality, hypo/hyperglycemia, electrolyte disturbance, anemia, hypoxia, cardiac sources, intracerebral event, toxicologic, neurologic, as well as other pathologies. Diagnostics, as interpreted by me: ECG: Twelve-lead ECG reveals normal sinus rhythm at [address] No elevation or depression. No PACs or PVCs. Cardiac Monitoring: Cardiac monitoring ordered by me: The patient was placed on continuous cardiac monitoring and observed. It revealed a normal sinus rhythm at 64 beats per minute without ectopy or evidence of dysrhythmia. Medical decision rules: none Imaging studies: CT and CT angiography as noted above. No acute stroke noted. I refer you to the EMR for further details. HPI: The patient is a 82year old female who presents to the Emergency Room with complaints of strokelike symptoms. Patient noted some tingling and weakness on the left arm and leg this morning. Initially reported at 8:15 AM. States that she was feeling baseline when she woke up. Patient noted 1 episode that lasted an hour yesterday. Patient was admitted and received TNK for stroke like symptoms similar to this 3 weeks ago. The patient also notes the following associated symptoms, headache and arm pain yesterday. The patient has taken no medication for relieving factors. Current pain is rated as 0/10. Pt denies LOC, current headache, fevers, chills, diaphoresis, visual changes, neck pain, chest pain, breathing difficulties, nausea, vomiting, abdominal pain, back pain, melena, hematochezia, urinary symptoms, lymphadenopathy, rash, or other complaints. PAST MEDICAL HISTORY: See Below, cerebral stenosis, TIA PAST SURGICAL HISTORY: See Below, SOCIAL HISTORY: See Below, retired HOME MEDICATIONS: See Below ALLERGIES: See Below VITALS: See Below PHYSICAL EXAMINATION: GENERAL: Awake, alert, well-appearing, in no distress HENT: Normocephalic, atraumatic. Oropharynx unremarkable. EYES: Normal conjunctiva. Sclera non-icteric. PERRLA. EOMI. NECK: Inspection normal. Non-tender. Supple. No nuchal rigidity. FROM. No masses. RESPIRATORY: Clear to auscultation. No wheezes. No rales. Normal respiratory effort. CARDIAC: Normal rate. Normal rhythm. No murmurs. No rubs. Extremities warm and well perfused. Pulses equal. No JVD. GI: Soft, non-distended. No tenderness to palpation. No rebound or guarding. No masses. RECTAL: Deferred. MUSCULOSKELETAL: Atraumatic. Chest examination reveals no tenderness. The back is symmetrical on inspection without obvious abnormality. There is no CVA tenderness to palpation. No joint edema. LOWER EXTREMITIES: Calves are equal size bilaterally and non-tender. No edema. No discoloration. NEURO: Normal sensorium. There is subjective tingling in the left lower extremity. Slight weakness in the left upper and left lower extremity. SKIN: No rash or jaundice noted. Past Med/Surg History Medical History (Updated 05/07/23 @ 11:08 by Sree Lawton MD) Allergic rhinitis Anxiety and depression Arthritis of wrist Chronic kidney disease, stage 3 (moderate) Diabetes mellitus, type 2 Dyslipidemia GERD (gastroesophageal reflux disease) History of recurrent TIAs Hypertension Insomnia Lumbar facet joint syndrome Lumbar pain with radiation down left leg Mild cognitive impairment Osteopenia Sacroiliitis Spinal stenosis, lumbar region without neurogenic claudication TIA (transient ischemic attack) (11/2021) Venous insufficiency (chronic) (peripheral) Surgical History History of carpal tunnel surgery Hx of neck surgery secondary to cervical herniated discs Previous back surgery x3 S/P appendectomy S/P blepharoplasty S/P cholecystectomy Family History Father Myocardial infarction Prostate cancer Coronary heart disease Mother Stroke, Onset Age: 72 Myocardial infarction, Onset Age: 76 Hypertension Diabetes Brother Cancer Sister Hodgkins disease Sister Coronary heart disease Brother Diabetes Denies family history of Ovarian cancer Breast cancer Colorectal cancer Social History Smoking Status: Never smoker Second Hand Exposure: No; Do You Dip or Chew Tobacco: No; Tobacco Cessation Education Requested by Patient: No Hx Alcohol Use: No Hx Substance Use: No Preferred Language: Spanish Communication Ability: Effective Visual Impairment: No Limitations Hearing Ability: Normal Associate Application Developer Required: No Beliefs That Will Affect Care: None marital status: Current Living Situation: Alone Current Living Situation Comment: Patient lives alone in an apartment building current occupational status: retired 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59 Other Information That Helps Us Care for You: No Feels Safe at Home: Yes Safety Concerns: Feels Safe At This Time Childhood Exposure to Second-Hand Smoke: No Diet: other Diet Comment: low sugar caffeine: No during the past year weight has: remained stable Dental Care, Regularly: No Physical Activity Frequency: Other Seatbelt Use: always Sunscreen Use: Yes Assistive Devices: Cane, Denture - Upper, Denture - Lower, Glasses and Walker Allergies Allergies Allergy/AdvReac Type Severity Reaction Status Date / Time doxycycline AdvReac Mild decreased Verified 05/07/23 11:44 urine output escitalopram AdvReac Mild decreased Verified 05/07/23 11:44 urine output prednisone AdvReac Mild feels Verified 05/07/23 11:44 agitated memantine AdvReac Unknown stomach Verified 05/07/23 11:44 pains amoxicillin AdvReac upset Verified 05/07/23 11:44 stomach cefdinir AdvReac Diarrhea Verified 05/07/23 11:44 ciprofloxacin [From Cipro] AdvReac Diarrhea Verified 05/07/23 11:44 fluticasone AdvReac Dizziness Verified 05/07/23 11:44 gabapentin AdvReac abdominal Verified 05/07/23 11:44 pain and drowsy gemfibrozil [From Lopid] AdvReac upset Verified 05/07/23 11:44 stomach irbesartan AdvReac Diarrhea Verified 05/07/23 11:44 lisinopril AdvReac hypertension Verified 05/07/23 11:44 and diarrhea meclizine AdvReac Drowsy Verified 05/07/23 11:44 pitavastatin [From Livalo] AdvReac Unknown Verified 05/07/23 11:44 Hveookd-PXB-IxV Reductase AdvReac myalgia Verified 05/07/23 11:44 Inhibitor [Rvukcyu-Dij-Nvg Reductase Inhibitor] tizanidine AdvReac nightmares Verified 05/07/23 11:44 tramadol AdvReac insomnia/pr Verified 05/07/23 11:44 uitus trazodone AdvReac Unknown Verified 05/07/23 11:44 Home Meds Home Medications Medication Instructions Recorded Confirmed magnesium oxide 400 mg PO DAILY 09/02/19 05/07/23 omega-3 acid ethyl esters 1 gram 1 cap PO DAILY 11/09/21 05/07/23 capsule estradiol 0.01% (0.1 mg/gram) 1 applic vaginal 2XWK 04/14/23 05/07/23 vaginal cream cyclosporine 0.05 % eye drops in a 1 drp OPB DAILY 05/07/23 05/07/23 dropperette (Restasis) Previous Rx's Medication Instructions Recorded calcium carbonate 600 mg-vitamin 1 tab PO BID #60 tabs 05/10/21 D3 10 mcg (400 unit) tablet (Calcium 600 + D(3)) lidocaine 4 % topical patch 1 patch topical Q24H PRN pain #30 07/24/21 ea xtymvwhloyyq-siombmmi-bvzifk tablet 1 tab PO DAILY #90 tabs 12/13/21 pantoprazole 40 mg tablet,delayed 40 mg PO DAILY #90 tabs 05/08/22 release (Protonix) fluticasone propionate 50 1 spray intranasal DAILY #48 mL 08/30/22 mcg/actuation nasal spray,suspension (Flonase Allergy Relief) carvedilol 12.5 mg tablet 12.5 mg PO BID #180 tabs 10/02/22 amlodipine 5 mg tablet 5 mg PO BID #180 tabs 12/31/22 potassium chloride 10 mEq 10 meq PO DAILY #90 caps 01/09/23 capsule,extended release clopidogrel 75 mg tablet (Plavix) 75 mg PO DAILY #90 tabs 02/20/23 Wheeled Walker #1 ea 03/13/23 Results & Data (ED) Vital Signs Vital Signs - 24 hr 05/07/23 10:26 05/07/23 10:56 05/07/23 10:29 Temperature 36.6 C Temperature Source Oral Pulse Rate 86 82 Pulse Rate [Apical] Pulse Rate from SpO2 Sensor Respiratory Rate 16 Blood Pressure 188/60 H Blood Pressure [Right Arm] Blood Pressure Mean 102 Blood Pressure Mean [Right Arm] Pulse Oximetry 99 96 Oxygen Delivery Method Room Air Room Air Sepsis Recent Fever Within 48 Hours No Sepsis New/Unexplained Change in Mental Status No Sepsis Action Taken by Nursing No Action Required 05/07/23 10:30 05/07/23 10:32 05/07/23 10:32 Temperature Temperature Source Pulse Rate 78 73 Pulse Rate [Apical] Pulse Rate from SpO2 Sensor 78 79 Respiratory Rate 18 15 Blood Pressure 164/79 H Blood Pressure [Right Arm] Blood Pressure Mean 107 Blood Pressure Mean [Right Arm] Pulse Oximetry 97 100 Oxygen Delivery Method Room Air Room Air Sepsis Recent Fever Within 48 Hours Sepsis New/Unexplained Change in Mental Status Sepsis Action Taken by Nursing 05/07/23 10:45 05/07/23 10:45 05/07/23 11:00 Temperature Temperature Source Pulse Rate 74 Pulse Rate [Apical] Pulse Rate from SpO2 Sensor 74 Respiratory Rate 18 Blood Pressure 164/92 H 158/88 H Blood Pressure [Right Arm] Blood Pressure Mean 116 111 Blood Pressure Mean [Right Arm] Pulse Oximetry 99 Oxygen Delivery Method Room Air Sepsis Recent Fever Within 48 Hours Sepsis New/Unexplained Change in Mental Status Sepsis Action Taken by Nursing 05/07/23 11:00 05/07/23 11:15 Temperature Temperature Source Pulse Rate 70 Pulse Rate [Apical] 69 Pulse Rate from SpO2 Sensor 71 Respiratory Rate 17 22 Blood Pressure Blood Pressure [Right Arm] 171/87 H Blood Pressure Mean Blood Pressure Mean [Right Arm] 115 Pulse Oximetry 96 97 Oxygen Delivery Method Room Air Room Air Sepsis Recent Fever Within 48 Hours Sepsis New/Unexplained Change in Mental Status Sepsis Action Taken by Nursing Laboratory Data 05/07/23 10:24 05/07/23 10:24 Lab Results 05/07/23 05/07/23 05/07/23 Range/Units 10:24 10:24 10:24 WBC 4.53 L (4.8-10.8) K/ul RBC 4.53 (4.20-5.40) M/uL Hgb 14.7 (12.0-16.0) g/dl POC Hgb (12.0-16.0) g/dl Hct 39.6 (37.0-47.0) % POC Hct (37-47) % MCV 87.4 (80.0-100.0) fL MCH 32.5 (25.0-34.0) pg MCHC 37.1 H (32.0-36.0) g/dL RDW Std Deviation 38.4 (36.4-46.3) fL RDW Coeff of Johan 11.9 (11.5-14.5) % Plt Count 193 (130-400) K/uL MPV 9.5 (9.4-12.4) fL Immature Gran % (Auto) 0.7 % Neut % (Auto) 42.4 % Lymph % (Auto) 46.1 % [place] % (Auto) 7.5 % Eos % (Auto) 2.6 % Baso % (Auto) 0.7 % Neut # (Auto) 1.92 (1.40-6.50) K/uL Lymph # (Auto) 2.09 (1.2-3.4) K/uL [place] # (Auto) 0.34 (0.11-0.59) K/uL Eos # (Auto) 0.12 (0-0.50) K/uL Baso # (Auto) 0.03 (0-0.2) K/uL Immature Gran # (Auto) 0.03 (0.01-0.20) K/uL PT 11.4 (9.0-12.0) Seconds INR 1.0 (0.9-1.1) APTT 25.4 (21.0-31.0) Seconds PTT Ratio 0.9 POC Sodium (135-144) mmol/L Sodium (136-145) mmol/L POC Potassium (3.3-5.0) mmol/L Potassium (3.5-5.1) mmol/L POC Chloride (101-112) mmol/L Chloride (98-107) mmol/L Carbon Dioxide (21-32) mmol/L POC Total CO2 (24-31) mmol/L Anion Gap (3-11) POC Anion Gap (16-25) mmol/L POC BUN (7-18) mg/dl BUN (6-23) mg/dl Creatinine (0.6-1.2) mg/dl POC Creatinine (0.6-1.3) mg/dl Est Cr Clr Drug Dosing ml/min Est GFR ( Amer) ml/min Est GFR (Non-Af Amer) ml/min BUN/Creatinine Ratio (10-20) Glucose (70-99(Fasting)) mg/dl POC Glucose (70-99) mg/dl POC Glucose (other) (70-99) mg/dl Calcium (8.6-10.3) mg/dl POC Ioniz Calcium Kael (1.12-1.32) mmol/l Magnesium (1.7-2.4) mg/dl Total Bilirubin (0.2-1.0) mg/dl AST (13-39) U/L ALT (7-52) U/L Alkaline Phosphatase (34-104) U/L Troponin I High Sens (0-14) pg/ml Total Protein (6.0-8.3) gm/dl Albumin (3.4-5.0) gm/dl Globulin (2.5-4.0) gm/dl Albumin/Globulin Ratio (0.9-2) Urine Color Urine Appearance (Clear) Urine pH (4.5-7.5) Ur Specific [place] (1.000-1.030) Urine Protein (Negative) Urine Glucose (UA) (Negative) Urine Ketones (Negative) Urine Blood (Negative) Urine Nitrite (Negative) Urine Bilirubin (Negative) Urine Urobilinogen (Negative) Ur Leukocyte Esterase (Negative) SARS-CoV-2, RNA, NAAT (NEGATIVE) Blood Type A Positive Antibody Screen NEGATIVE 05/07/23 05/07/23 05/07/23 Range/Units 10:24 10:28 10:35 WBC (4.8-10.8) K/ul RBC (4.20-5.40) M/uL Hgb (12.0-16.0) g/dl POC Hgb 14.3 (12.0-16.0) g/dl Hct (37.0-47.0) % POC Hct 42 (37-47) % MCV (80.0-100.0) fL MCH (25.0-34.0) pg MCHC (32.0-36.0) g/dL RDW Std Deviation (36.4-46.3) fL RDW Coeff of Johan (11.5-14.5) % Plt Count (130-400) K/uL MPV (9.4-12.4) fL Immature Gran % (Auto) % Neut % (Auto) % Lymph % (Auto) % [place] % (Auto) % Eos % (Auto) % Baso % (Auto) % Neut # (Auto) (1.40-6.50) K/uL Lymph # (Auto) (1.2-3.4) K/uL [place] # (Auto) (0.11-0.59) K/uL Eos # (Auto) (0-0.50) K/uL Baso # (Auto) (0-0.2) K/uL Immature Gran # (Auto) (0.01-0.20) K/uL PT (9.0-12.0) Seconds INR (0.9-1.1) APTT (21.0-31.0) Seconds PTT Ratio POC Sodium 135 (135-144) mmol/L Sodium 134 L (136-145) mmol/L POC Potassium 3.5 (3.3-5.0) mmol/L Potassium 3.4 L (3.5-5.1) mmol/L POC Chloride 101 (101-112) mmol/L Chloride 100 (98-107) mmol/L Carbon Dioxide 25 (21-32) mmol/L POC Total CO2 24 (24-31) mmol/L Anion Gap 9 (3-11) POC Anion Gap 16.0 (16-25) mmol/L POC BUN 17 (7-18) mg/dl BUN 18 (6-23) mg/dl Creatinine 0.70 (0.6-1.2) mg/dl POC Creatinine 0.7 (0.6-1.3) mg/dl Est Cr Clr Drug Dosing 49.6 ml/min Est GFR ( Amer) 92.9 ml/min Est GFR (Non-Af Amer) 80.1 ml/min BUN/Creatinine Ratio 25.7 H (10-20) Glucose 211 H (70-99(Fasting)) mg/dl POC Glucose 221 H (70-99) mg/dl POC Glucose (other) 211 H (70-99) mg/dl Calcium 9.8 (8.6-10.3) mg/dl POC Ioniz Calcium Kael 1.16 (1.12-1.32) mmol/l Magnesium 1.6 L (1.7-2.4) mg/dl Total Bilirubin 0.5 (0.2-1.0) mg/dl AST 39 (13-39) U/L ALT 44 (7-52) U/L Alkaline Phosphatase 43 (34-104) U/L Troponin I High Sens 5.0 (0-14) pg/ml Total Protein 7.3 (6.0-8.3) gm/dl Albumin 4.3 (3.4-5.0) gm/dl Globulin 3.0 (2.5-4.0) gm/dl Albumin/Globulin Ratio 1.4 (0.9-2) Urine Color Urine Appearance (Clear) Urine pH (4.5-7.5) Ur Specific [place] (1.000-1.030) Urine Protein (Negative) Urine Glucose (UA) (Negative) Urine Ketones (Negative) Urine Blood (Negative) Urine Nitrite (Negative) Urine Bilirubin (Negative) Urine Urobilinogen (Negative) Ur Leukocyte Esterase (Negative) SARS-CoV-2, RNA, NAAT (NEGATIVE) Blood Type Antibody Screen 05/07/23 05/07/23 Range/Units 11:14 11:14 WBC (4.8-10.8) K/ul RBC (4.20-5.40) M/uL Hgb (12.0-16.0) g/dl POC Hgb (12.0-16.0) g/dl Hct (37.0-47.0) % POC Hct (37-47) % MCV (80.0-100.0) fL MCH (25.0-34.0) pg MCHC (32.0-36.0) g/dL RDW Std Deviation (36.4-46.3) fL RDW Coeff of Johan (11.5-14.5) % Plt Count (130-400) K/uL MPV (9.4-12.4) fL Immature Gran % (Auto) % Neut % (Auto) % Lymph % (Auto) % [place] % (Auto) % Eos % (Auto) % Baso % (Auto) % Neut # (Auto) (1.40-6.50) K/uL Lymph # (Auto) (1.2-3.4) K/uL [place] # (Auto) (0.11-0.59) K/uL Eos # (Auto) (0-0.50) K/uL Baso # (Auto) (0-0.2) K/uL Immature Gran # (Auto) (0.01-0.20) K/uL PT (9.0-12.0) Seconds INR (0.9-1.1) APTT (21.0-31.0) Seconds PTT Ratio POC Sodium (135-144) mmol/L Sodium (136-145) mmol/L POC Potassium (3.3-5.0) mmol/L Potassium (3.5-5.1) mmol/L POC Chloride (101-112) mmol/L Chloride (98-107) mmol/L Carbon Dioxide (21-32) mmol/L POC Total CO2 (24-31) mmol/L Anion Gap (3-11) POC Anion Gap (16-25) mmol/L POC BUN (7-18) mg/dl BUN (6-23) mg/dl Creatinine (0.6-1.2) mg/dl POC Creatinine (0.6-1.3) mg/dl Est Cr Clr Drug Dosing ml/min Est GFR ( Amer) ml/min Est GFR (Non-Af Amer) ml/min BUN/Creatinine Ratio (10-20) Glucose (70-99(Fasting)) mg/dl POC Glucose (70-99) mg/dl POC Glucose (other) (70-99) mg/dl Calcium (8.6-10.3) mg/dl POC Ioniz Calcium Kael (1.12-1.32) mmol/l Magnesium (1.7-2.4) mg/dl Total Bilirubin (0.2-1.0) mg/dl AST (13-39) U/L ALT (7-52) U/L Alkaline Phosphatase (34-104) U/L Troponin I High Sens (0-14) pg/ml Total Protein (6.0-8.3) gm/dl Albumin (3.4-5.0) gm/dl Globulin (2.5-4.0) gm/dl Albumin/Globulin Ratio (0.9-2) Urine Color Yellow Urine Appearance Clear (Clear) Urine pH 7.0 (4.5-7.5) Ur Specific [place] 1.028 (1.000-1.030) Urine Protein Negative (Negative) Urine Glucose (UA) 1+ H (Negative) Urine Ketones Negative (Negative) Urine Blood Negative (Negative) Urine Nitrite Negative (Negative) Urine Bilirubin Negative (Negative) Urine Urobilinogen Negative (Negative) Ur Leukocyte Esterase Negative (Negative) SARS-CoV-2, RNA, NAAT NEGATIVE (NEGATIVE) Blood Type Antibody Screen Administered Medications Sodium Chloride (Nss 1000ml) 1,000 mls @ 50 mls/hr IV .Q20H ENMANUEL Stop: 06/06/23 10:14 Last Admin: 05/07/23 11:21 Dose: 50 mls/hr Documented By: AB Insulin Aspart (Insulin Aspart Per Unit Charge) 0 units SC ACHS [facility] Stop: 06/06/23 16:29 Last Admin: 05/07/23 17:07 Dose: Not Given Documented By: MTP Insulin Glargine (Lantus Per Unit Charge) 3 units SQ BID [facility] Stop: 06/06/23 14:14 Last Admin: 05/07/23 16:58 Dose: 3 units Documented By: MTP Co-signed By: CATHERINE Discontinued Medications Magnesium Sulfate/Dextrose (Magnesium Sulfate / D5w) 1 gm in 100 mls @ 50 mls/hr IV Q2H [facility] Stop: 05/07/23 15:29 Last Admin: 05/07/23 15:38 Dose: 50 mls/hr Documented By: Infusion: 05/07/23 13:51 Dose: 50 mls/hr Documented By: Admin: 05/07/23 11:51 Dose: 50 mls/hr Documented By: AB Ioversol (Optiray 320 125ml) 120 ml IV ONCE ONE Stop: 05/07/23 10:25 Last Admin: 05/07/23 10:18 Dose: 120 ml Documented By: [facility] Imaging Data Radiologist's Impression: Chest X-Ray 05/07/23 10:09 XR chest 1V portable CLINICAL HISTORY: neuro deficit, acute stroke suspected TECHNIQUE: Single frontal radiograph of the chest was obtained. Comparison: Comparison is made to chest radiograph 04/14/2023 FINDINGS: ACDF is seen. The cardiomediastinal silhouette is normal. The lungs are clear. No evidence of pleural effusion or pneumothorax. IMPRESSION: No acute chest disease. ACT 112: Negative or not required by law. Electronically signed by: Iron Julio M.D. 05/07/2023 12:[address] 05/07/23 10:09 CT OF THE HEAD WITHOUT CONTRAST CLINICAL HISTORY: neuro deficit, acute stroke suspected. Left-sided weakness. Difficulty speaking. COMPARISON STUDY: MRI of the brain 2022. Head CT April 15, 2023. TECHNIQUE: Helical axial images of the head were obtained without IV contrast. Automated exposure control was utilized for the study. A dose lowering t echnique was utilized adhering to the principles of ALARA. FINDINGS: No acute intracranial hemorrhage, midline shift or mass effect is present. White matter hypodensities are unchanged and favor small vessel disease. The ventricular system is unremarkable. The basal cisterns are patent. No extra-axial collections are present. There are no findings to suggest acute dural sinus thrombosis or acute territorial infarct. No significant calvarial abnormalities are present. Visualized portions of the sinuses and mastoid air cells are clear. IMPRESSION: No acute intracranial findings. No change in appearance of the brain. ACT 112: Negative or not required by law. Electronically signed by: Riky Abraham M.D. 05/07/2023 10:34 AM Head CTA 05/07/23 10:09 HEAD CTA HISTORY: Left-sided weakness. Difficulty speaking. neuro deficit, acute stroke suspected TECHNIQUE: Multiaxial CT images of the head were performed both before and after the intravenous administration of contrast to evaluate the major cerebral vessels. Maximum intensity projection images were also obtained. A dose lowering technique was utilized adhering to the principles of ALARA. COMPARISON: Head CTA 04/14/2023. FINDINGS: The major dural venous sinuses are patent. Bilateral distal vertebral arteries and basilar artery are widely patent. No significant stenosis within the left ICA. Moderate narrowing within the supraclinoid segment of the right ICA, unchanged. High-grade stenosis within the distal right CHELA and right [employer]ED [employer] EMBAL[employer] again noted. This is similar to the prior study. Additional areas of mild to moderate multifocal stenosis within the remaining cerebral arteries remains unch anged. No new or progressive areas of stenosis or occlusion identified within the [place]. No aneurysms identified. IMPRESSION: No change in the scattered areas of multifocal stenosis most pronounced within the right CHELA and right [employer]AL[employer] as described above. No new or progressive areas of stenosis or vascular occlusion identified within the brain. ACT 112: Negative or not required by law. Electronically signed by: Juan Robertson M.D. 05/07/2023 10:35 AM Neck CTA 05/07/23 10:09 CT ANGIOGRAPHY OF THE NECK WITH CONTRAST CLINICAL HISTORY: neuro deficit, acute stroke suspected COMPARISON STUDY: CTA of the neck April 14, 2023. Technique: CT angiography of the carotid and vertebral arteries was obtained using [employer] and 3D reconstruction on an independent workstation. NASCET criteria was utilized. Automated exposure control was utilized for the study. A dose lowering technique was utilized adhering to the principles of ALARA. CT DOSE: 1048.72 mGy.cm Findings: Visualized portions of the lung apices are unremarkable. There is no cervical lymphadenopathy. Postoperative findings within the spine are incidentally noted. There is no stenosis within the bilateral common carotid or cervical internal carotid arteries. There is mild plaque within the right carotid bifurcation. Moderate stenosis at the origin of the right vertebral artery is unchanged. The right vertebral artery is dominant. Left vertebral artery are suboptimally assessed due to contrast within the adjacent veins. Suspected mild to moderate multifocal stenoses within the left are are noted. CTA of the head will be reported separately. There is no aneurysm or dissection within the neck. There is minimal plaque within the proximal left internal carotid artery. IMPRESSION: 1. No change in moderate stenosis at the origin of the right vertebral artery. Mild to moderate multifocal stenoses within the left vertebral artery. 2. No stenoses within the bilateral common carotid or cervical internal carotid arteries. ACT 112: Negative or not required by law. Electronically signed by: Riky Abraham M.D. 05/07/2023 10:50 AM Discharge Plan Visit Data Chief Complaint: Stroke Alert Stated Complaint: STROKE ALERT ED Provider: Sree Lawton Discharge Problem: Stroke-like symptoms Patient Disposition: Admitted As Inpatient Discharge Instructions Interventions: ED Discharge Assessment Last Done: 05/07/23 13:05
[2023-05-07 11:16] LABS: Partial Thromboplastin Ratio 0.9; Partial Thromboplastin Time 25.4 Seconds (21.0-31.0); Prothrombin Time 11.4 Seconds (9.0-12.0)
[2023-05-07] MEDS: SODIUM CHLORIDE 0.9% 1000ML 1,000 ML IV SCH (11:21)
--- NOTE | 2023-05-07 11:27 | History & Physical Report ---
Date of Service May 07, 2023 Assessment & Plan (1) Stroke-like symptoms: Plan: 82-year-old female with a past history of suspected left-sided CVA, vertebral stenosis, multifocal right CHELA and right CASER stenosis who presents with acute worsening of left lower extremity weakness L sided weakness - Onset of sx yesterday, reports interval improvement by bedtime and then again with worsening ~0830 05/07 - Recent admit for stroke within the last month -CTA-N: 1. No change in moderate stenosis at the origin of the right vertebral artery. Mild to moderate multifocal stenoses within the left vertebral artery.2. No stenoses within the bilateral common carotid or cervical internal carotid arteries. -CTA-H:No change in the scattered areas of multifocal stenosis most pronounced within the right CHELA and right CASER as described above. No new or progressive areas of stenosis or vascular occlusion identified within the brain. -CT-H:No acute intracranial findings. No change in appearance of the brain. Admitting EKG: Normal sinus rhythm. QTc 477. Echo with bubble study 11/2021 did not show any evidence of intra-atrial shunt with bubble study. Echo 04/15 was with normal LV SF, mild to moderate MR, mild to moderate TR, normal RVSP. Echo repeat deferred - TNKase contraindicated/not recommended No fever, chills, sweats, infectious symptoms preceding/precipitating symptoms - Seen by [facility] Telestroke. - Permissive HTN while MRI is pending. Home antihypertensives held. Labetelol clinical education academic coordinator for BP >220/110. - If MRI negative than can resume home antihypertensives tx pressure to goal of systolic 180. Carvedilol scheduled to resume 05/08, resume amlodipine based on reevaluation - NIHSS in ER 3, L leg weakness. Upper extremity strength is intact at time of assessment. No numbness, but is with hyperesthesia of the left arm and leg MRIbrain/cervical spine pending per telestroke recommendations. Will obtain with contrast to evaluate for demyelinating disease in addition to stroke pathology I have diet if passes bedside screen BMP, CBC daily, magnesium daily Continue Plavix PT/OT pending. CM consulted, patient feels she does not have enough services at home even before her symptoms worsened Hypomagnesemia Continue oral magnesium supplementation, supplemental IV magnesium ordered Recommend using daily Patient has had some improvement in her deficits with magnesium repletion previously Type II DM BSG [id number] goal Last A1c 6.4% April 2023, repeat deferred Weight-based basalbolus while inpatient. In the setting of low BMI/low intake basal dose reduced to 3 units. CF 75, ratio 25 GERD Abdomen nontender on admitting exam Continue PPI CKD 3 Creatinine is less than 1 at baseline, admitting creatinine 0.7 Trend BMP daily, renally dose medications as needed Dyslipidemia Statin intolerant. LDL not able to be calculated at last admit due to interference. Repeat pending for a.m., although patient has not been a PCSK9 candidate in 2021 due to reasonable control without DVT prophylaxis: Lovenox Diet: Heart healthy, type II DM once passes swallow Disposition: PCU for IV antihypertensive availability/CVA eval CODE STATUS: DNR/DNI (2) Diabetes mellitus, type 2: (3) GERD (gastroesophageal reflux disease): (4) Chronic kidney disease, stage 3 (moderate): (5) Chronic cerebral ischemia: History of Present Illness Primary Care Provider: DO Jacy Morillo reports she has not been well since her last discharge. Reports she got a little better in the hospital, but continued to feel tired and have difficulty with daily activities. Notes she has some help from an agency but 'since I can arrange my pills and breakfast, they cannot get more help or a nurse'. Symptoms worsened on Friday (yesterday). She had a L sided headache into her L neck which lasted for a few hours .Denies chest pain/chest pressure/shortness of breath, but ache did go into the L armpit. This resolved by the evening and was not associated with any pain into the center of her chest. At first she reports that her left leg was with normal strength when going to bed, but then clarifies it is never really been normal and is been weak since she was discharged previously but had been weak consistent with her baseline after discharge until around 8:00 05/07 when she just felt not right in the lower extremity and like it was more weak. She does not have any headache at time of assessment. She reports her left upper extremity is been more sensitive to the touch, but is not currently weak. Sensation is intact in her face, left arm, and left leg but notes it feels hypersensitive compared to the right. She has not had any nausea, vomiting, diarrhea, constipation. Has been taking her medications, including her magnesium. Did take her medications this morning. Denies alcohol/tobacco Medical History: Reviewed Medications: Reviewed. Did take all meds this AM. Surgical History: Reviewed Family history: Reviewed Allergies: Reviewed Social History: No tobacco/etoh Code Status: DNR/DNI Allergies Allergy/AdvReac Type Severity Reaction Status Date / Time doxycycline AdvReac Mild decreased Verified 05/07/23 11:44 urine output escitalopram AdvReac Mild decreased Verified 05/07/23 11:44 urine output prednisone AdvReac Mild feels Verified 05/07/23 11:44 agitated memantine AdvReac Unknown stomach Verified 05/07/23 11:44 pains amoxicillin AdvReac upset Verified 05/07/23 11:44 stomach cefdinir AdvReac Diarrhea Verified 05/07/23 11:44 ciprofloxacin [From Cipro] AdvReac Diarrhea Verified 05/07/23 11:44 fluticasone AdvReac Dizziness Verified 05/07/23 11:44 gabapentin AdvReac abdominal Verified 05/07/23 11:44 pain and drowsy gemfibrozil [From Lopid] AdvReac upset Verified 05/07/23 11:44 stomach irbesartan AdvReac Diarrhea Verified 05/07/23 11:44 lisinopril AdvReac hypertension Verified 05/07/23 11:44 and diarrhea meclizine AdvReac Drowsy Verified 05/07/23 11:44 pitavastatin [From Livalo] AdvReac Unknown Verified 05/07/23 11:44 Qaenmhs-EIA-NmC Reductase AdvReac myalgia Verified 05/07/23 11:44 Inhibitor [Grbnicv-Dzq-Ixx Reductase Inhibitor] tizanidine AdvReac nightmares Verified 05/07/23 11:44 tramadol AdvReac insomnia/pr Verified 05/07/23 11:44 uitus trazodone AdvReac Unknown Verified 05/07/23 11:44 Home Medications Medication Instructions Recorded Confirmed Type magnesium oxide 400 mg PO DAILY 09/02/19 05/07/23 History calcium carbonate 600 mg-vitamin 1 tab PO BID #60 tabs 05/10/21 05/07/23 Rx D3 10 mcg (400 unit) tablet (Calcium 600 + D(3)) lidocaine 4 % topical patch 1 patch topical Q24H PRN pain #30 07/24/21 05/07/23 Rx ea omega-3 acid ethyl esters 1 gram 1 cap PO DAILY 11/09/21 05/07/23 History capsule adkyhmpcaloi-hmbiyqes-vwejkp tablet 1 tab PO DAILY #90 tabs 12/13/21 05/07/23 Rx pantoprazole 40 mg tablet,delayed 40 mg PO DAILY #90 tabs 05/08/22 05/07/23 Rx release (Protonix) fluticasone propionate 50 1 spray intranasal DAILY #48 mL 08/30/22 05/07/23 Rx mcg/actuation nasal spray,suspension (Flonase Allergy Relief) carvedilol 12.5 mg tablet 12.5 mg PO BID #180 tabs 10/02/22 05/07/23 Rx amlodipine 5 mg tablet 5 mg PO BID #180 tabs 12/31/22 05/07/23 Rx potassium chloride 10 mEq 10 meq PO DAILY #90 caps 01/09/23 05/07/23 Rx capsule,extended release clopidogrel 75 mg tablet (Plavix) 75 mg PO DAILY #90 tabs 02/20/23 05/07/23 Rx Wheeled Walker #1 ea 03/13/23 04/25/23 Rx estradiol 0.01% (0.1 mg/gram) 1 applic vaginal 2XWK 04/14/23 05/07/23 History vaginal cream cyclosporine 0.05 % eye drops in a 1 drp OPB DAILY 05/07/23 05/07/23 History dropperette (Restasis) Past Med/Surg History Medical History (Updated 05/07/23 @ 11:08 by Sree Lawton MD) Allergic rhinitis Anxiety and depression Arthritis of wrist Chronic kidney disease, stage 3 (moderate) Diabetes mellitus, type 2 Dyslipidemia GERD (gastroesophageal reflux disease) History of recurrent TIAs Hypertension Insomnia Lumbar facet joint syndrome Lumbar pain with radiation down left leg Mild cognitive impairment Osteopenia Sacroiliitis Spinal stenosis, lumbar region without neurogenic claudication TIA (transient ischemic attack) (11/2021) Venous insufficiency (chronic) (peripheral) Surgical History History of carpal tunnel surgery Hx of neck surgery secondary to cervical herniated discs Previous back surgery x3 S/P appendectomy S/P blepharoplasty S/P cholecystectomy Family History Father Myocardial infarction Prostate cancer Coronary heart disease Mother Stroke, Onset Age: 72 Myocardial infarction, Onset Age: 76 Hypertension Diabetes Brother Cancer Sister Hodgkins disease Sister Coronary heart disease Brother Diabetes Denies family history of Ovarian cancer Breast cancer Colorectal cancer Social History Smoking Status: Never smoker Second Hand Exposure: No; Do You Dip or Chew Tobacco: No; Hx Alcohol Use: No Hx Substance Use: No Preferred Language: Kiswahili Communication Ability: Effective Visual Impairment: No Limitations Hearing Ability: Normal Boiler Control Technician Required: No Beliefs That Will Affect Care: [employer] Beliefs: Religion marital status: Current Living Situation: Alone Current Living Situation Comment: Patient lives alone in an apartment building current occupational status: retired 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 NAD. Cooperative. HEENT: Atraumatic, normocephalic. Vision/hearing grossly intact. No overlying rash/vesicles of the scalp, face, or cheek Pulm: CTAB A&P. -wheezes, -rales, -rhonchi. Symmetrical chest rise. No increased work of breathing. No respiratory distress. Cardiac: RRR, +sm. Radial pulses intact and symmetrical. Abdominal: Nontender, nondistended, soft. BS present. CRANIAL NERVES: II: Pupils equal and reactive, no relative afferent pupillary defect, no VF cuts III, IV, : EOM intact, no gaze preference or deviation, no nystagmus. V: normal sensation in V1, V2, and V3 segments bilaterally VII: no asymmetry, no nasolabial fold flattening VIII: normal hearing to speech IX, X: normal palatal elevation, no uvular deviation XI: 5/5 head turn and 5/5 shoulder shrug bilaterally XII: midline tongue protrusion MOTOR: RUE: 5/5 Shoulder internal rotation, external rotation 5/5 Elbow flexion/extension 5/5 director of entertainment strength LUE: 5/5 Shoulder internal rotation, external rotation 5/5 Elbow flexion/extension 5/5 director of entertainment strength LLE: 3/5 to hip flexion, knee flexion/extension. 4-ankle dorsiflexion/plantarflexion RLE: 5/5 to hip flexion/extension, knee flexion/extension, ankle valentin siflexion/plantarflexion REFLEXES: no clonus SENSORY: Normal to touch in upper and lower extremities without deficit. Endorses hyperesthesia of soft touch in left leg, and slightly on the left cheek. No left arm hyperesthesia at time of admission COORD: Normal finger to nose. Left jhey-gc-yfuz limited by weakness. Results & Data Results & Data Vital Signs (Past 12 Hours) Vital Signs Temp Pulse Resp BP Pulse Ox O2 Del Method 05/07/23 11:00 70 17 96 Room Air 05/07/23 11:00 158/88 H 05/07/23 10:45 74 18 99 Room Air 05/07/23 10:45 164/92 H 05/07/23 10:32 73 15 100 Room Air 05/07/23 10:32 164/79 H 05/07/23 10:30 78 18 97 Room Air 05/07/23 10:29 82 05/07/23 10:56 96 Room Air 05/07/23 10:26 36.6 C 86 16 188/60 H 99 Room Air PG Care Time/CCT Total # of Minutes Spent Total Time Spent with Patient: Total time spent is greater than 50% in coordination of care (as documented) at patient's floor/unit and/or counseling patient: Coding Level of Care Code 53183 INT INP/OBS CARE 3/75MIN Diagnoses Stroke-like symptoms R29.90 Diabetes mellitus, type 2 E11.9 GERD (gastroesophageal reflux disease) K21.9 Chronic kidney disease, stage 3 (moderate) N18.3 Chronic cerebral ischemia I67.82
[2023-05-07 11:37] LABS: Appearance Urine Clear (Clear); Bilirubin Urine Negative (Negative); Blood Urine Negative (Negative); Color Urine Yellow; Glucose Urine UA 1+ (Negative); Ketones Urine Negative (Negative); Leukocyte Esterase Urine Negative (Negative); Nitrite Urine Negative (Negative); Protein Urine Negative (Negative); Specific Gravity Urine 1.028 (1.000-1.030); Urobilinogen Urine Negative (Negative)
[2023-05-07] MEDS: MAGNESIUM SULFATE / D5W 1 GM/100 ML BAG IV SCH ×2 (11:51→15:38)
--- NOTE | 2023-05-07 12:03 | XRay Report ---
XR chest 1V portable CLINICAL HISTORY: neuro deficit, acute stroke suspected TECHNIQUE: Single frontal radiograph of the chest was obtained. Comparison: Comparison is made to chest radiograph 04/14/2023 FINDINGS: ACDF is seen. The cardiomediastinal silhouette is normal. The lungs are clear. No evidence of pleural effusion or pneumothorax. IMPRESSION: No acute chest disease. ACT 112: Negative or not required by law. Electronically signed by: Iron Julio M.D. 05/07/2023 12:02 PM
[2023-05-07] MEDS ORDERED: POLYETHYLENE (MIRALAX) 17 GM PACK PO PRN (13:50)
[2023-05-07] MEDS ORDERED: CARBOHYDRATES FOR HYPOGLYCEMIA PO PRN (13:50)
[2023-05-07] MEDS ORDERED: GLUCOSE 10 TAB/TUBE PO PRN (13:50)
[2023-05-07] MEDS ORDERED: GLUCAGON FOR INJ 1 MG VIAL SQ PRN (13:50)
[2023-05-07] MEDS ORDERED: GLUCOSE 40% GEL 15 GM TUBE PO PRN (13:50)
[2023-05-07] MEDS ORDERED: PHARMACIST DISCHARGE MED REC CONSULT PRN (13:50)
[2023-05-07] MEDS ORDERED: DEXTROSE 50% 50 ML SYRINGE IV PRN (13:50)
[2023-05-07] MEDS: LANTUS PER UNIT CHARGE SQ SCH ×2 (16:58→21:31)
[2023-05-07] MEDS: INSULIN ASPART PER UNIT CHARGE SC SCH ×2 (17:07→20:34)
[2023-05-07] MEDS ORDERED: GADOBUTROL 65ML VIAL IV ONE (22:45)
[2023-05-07] MEDS: ACETAMINOPHEN 325 MG TAB PO PRN (23:14)
--- NOTE | 2023-05-07 23:18 | Magnetic Resonance Report ---
Exam(s): MRI HEAD W/WO Contrast IV Amt: 5cc gadavist EXAM: MR Head Without and With Intravenous Contrast CLINICAL HISTORY: Reason for exam: recurrent weakness. extended CVA eval. TECHNIQUE: Magnetic resonance images of the head/brain without and with intravenous contrast in multiple planes. CONTRAST: Patient received 5cc gadavist of IV contrast COMPARISON: No relevant prior studies available. FINDINGS: Brain: T2/flair signal hyperintensity within the subcortical deep white matter consistent with moderate ischemic microangiopathy. Age appropriate cerebral volume loss. No acute intracranial hemorrhage. No acute infarct. Ventricles: Unremarkable. No ventriculomegaly. Bones/joints: Unremarkable. Sinuses: Unremarkable as visualized. No acute sinusitis. Mastoid air cells: Unremarkable as visualized. No mastoid effusion. Orbits: Unremarkable as visualized. IMPRESSION: 1. No acute abnormality 2. Chronic senescent changes Electronically signed by: Calixto Reeder MD 05/07/23 23:17 PM
--- NOTE | 2023-05-07 23:30 | Magnetic Resonance Report ---
Exam(s): MRI C SPINE IV Amt: 5cc gadavist EXAM: MR Cervical Spine With Intravenous Contrast CLINICAL HISTORY: Reason for exam: extended CVA/weakness eval. TECHNIQUE: Magnetic resonance images of the cervical spine with intravenous contrast in multiple planes. CONTRAST: Patient received 5cc gadavist of IV contrast COMPARISON: No relevant prior studies available. FINDINGS: Vertebrae: Unremarkable. No acute fracture. Spinal cord: Unremarkable. Normal signal. No abnormal enhancement. Soft tissues: Unremarkable. DISCS/SPINAL CANAL/NEURAL FORAMINA: C2-C3: Unremarkable. No significant disc disease. No stenosis. C3-C4: Unremarkable. No significant disc disease. No stenosis. C4-C5: Unremarkable. No significant disc disease. No stenosis. C5-C6: Unremarkable. No significant disc disease. No stenosis. C6-C7: Unremarkable. No significant disc disease. No stenosis. C7-T1: Unremarkable. No significant disc disease. No stenosis. Other findings: Postoperative changes ACDF C5-C7. IMPRESSION: No acute findings in the cervical spine. Electronically signed by: Calixto Reeder MD 05/07/23 23:28 PM
[2023-05-08 06:17] LABS: Basophils # (auto) 0.04 K/uL (0-0.2); Basophils % (auto) 0.6 %; Eosinophils # (auto) 0.15 K/uL (0-0.50); Eosinophils % (auto) 2.4 %; Hematocrit (blood only) 36.5 % (37.0-47.0); Hemoglobin 13.5 g/dl (12.0-16.0); Immature Granulocytes # (auto) 0.03 K/uL (0.01-0.20); Immature Granulocytes % (auto) 0.5 %; Lymphocytes # (auto) 2.88 K/uL (1.2-3.4); Lymphocytes % (auto) 45.4 %; Mean Corpuscular Hemoglobin 32.6 pg (25.0-34.0); Mean Corpuscular Volume 88.2 fL (80.0-100.0); Mean Platelet Volume 9.6 fL (9.4-12.4); Monocytes # (auto) 0.59 K/uL (0.11-0.59); Monocytes % (auto) 9.3 %; Neutrophils # (auto) 2.66 K/uL (1.40-6.50); Neutrophils % (auto) 41.8 %; Platelet Count 172 K/uL (130-400); RDW Coefficient of Variation 11.8 % (11.5-14.5); RDW Standard Deviation 38.3 fL (36.4-46.3); Red Blood Count 4.14 M/uL (4.20-5.40); White Blood Count 6.35 K/ul (4.8-10.8)
[2023-05-08 06:48] LABS: BUN Creatinine Ratio 31.7 (10-20); Calcium 8.8 mg/dl (8.6-10.3); Chol HDL Ratio 4.6 (0-5); Creatinine Clr Calc Pharmacy 53.6 ml/min; Est GFR (African American) 97.7 ml/min; Est GFR (Non-African American) 84.3 ml/min; Magnesium 1.9 mg/dl (1.7-2.4); Potassium 3.5 mmol/L (3.5-5.1)
[2023-05-08 07:52] LABS: Estimated Average Glucose 134 mg/dl; Hemoglobin A1C 6.3 % (4.5-5.6)
[2023-05-08] MEDS: CEROVITE ADV FORMULA TAB PO SCH (08:51)
[2023-05-08] MEDS: PANTOprazole 40 MG TAB PO SCH (08:51)
[2023-05-08] MEDS: CLOPIDOGREL BISULFATE 75 MG TAB PO SCH (08:52)
[2023-05-08] MEDS: MAGNESIUM OXIDE 400 MG TAB PO SCH (08:52)
[2023-05-08] MEDS: ENOXAPARIN INJ 40 MG/0.4 ML SYR SQ SCH (08:53)
[2023-05-08] MEDS: INSULIN ASPART PER UNIT CHARGE SC SCH ×4 (08:57→21:23)
[2023-05-08] MEDS: SODIUM CHLORIDE 0.9% 1000ML 1,000 ML IV SCH (08:59)
[2023-05-08] MEDS ORDERED: carvediloL 12.5 MG TAB PO SCH (09:00)
[2023-05-08] MEDS ORDERED: ARTIFICIAL TEARS OPB PRN (09:00)
[2023-05-08] MEDS: POTASSIUM CHLORIDE 10 MEQ TABCR PO SCH (09:07)
[2023-05-08] MEDS: LANTUS PER UNIT CHARGE SQ SCH ×2 (09:07→21:24)
--- NOTE | 2023-05-08 10:28 | Pharmacy Report ---
- Date of Service May 08, 2023 - Pharmacy CVA/TIA Medication Review Medications to Prevent Stroke handout has been added to the patients discharge packet. Antiplatelet(s) * Aspirin 81 mg PO daily * Continues on Clopidogrel 75 mg PO daily from home Cholesterol * High intensity statin deferred due to age >75 and history of intolerance (myalgias) DVT Prophylaxis * Enoxaparin 40 mg SC daily Therapeutic Anticoagulation * No history of Afib/Aflutter noted Type 2 Diabetes * Patient is pre-diabetic but HbA1c is 6.3%. Defer Jardiance to outpatient provider.
[2023-05-08] MEDS: ASPIRIN 81 MG ECTAB PO SCH (11:33)
--- NOTE | 2023-05-08 14:57 | Hospitalist Progress Note ---
Date of Service May 08, 2023 Assessment & Plan (1) Stroke-like symptoms: Plan: 82-year-old female with a past history of suspected left-sided CVA, vertebral stenosis, multifocal right CHELA and right LAND LEVELER stenosis who presents with acute worsening of left lower extremity weakness Imaging reviewed shows no new stroke or other stenotic area. Still with bilateral vertebral CHELA and LAND LEVELER stenosis. Reportedly patient has done better on dual antiplatelets in the past Dr. Perez's recommendations to resume dual antiplatelets and to tolerate a slightly higher blood pressure by reducing medications. I have chosen to reduce carvedilol. This was explained to the daughter and we will continue to follow PT/OT pending. CM consulted, patient feels she does not have enough services at home even before her symptoms worsened as she was having about a weeks worth of prehospital symptoms Hypomagnesemia Acute self-limited/ replete Type II DM BSG [id number] goal Last A1c 6.4% April 2023, repeat deferred Weight-based basalbolus while inpatient. In the setting of low BMI/low intake basal dose reduced to 3 units. CF 75, ratio 25 GERD Chronic and stable asymptomatic Continue PPI CKD 3 chronic and stable , renally dose medications as needed Dyslipidemia Statin intolerant. Current LDL is 70 total cholesterol 171 triglycerides mildly elevated at 318 may consider triglyceride targeted therapy as her LDL is not significantly elevated DVT prophylaxis: Lovenox Diet: Heart healthy, type II DM CODE STATUS: DNR/DNI (2) Diabetes mellitus, type 2: (3) GERD (gastroesophageal reflux disease): (4) Chronic kidney disease, stage 3 (moderate): (5) Chronic cerebral ischemia: Admission and Anticipated Discharge Date Admission Date: May 07, 2023 Subjective Patient returned to baseline did have a spell of dizziness earlier in the day. She also claims that she has some spasticity of her left leg which originated from her hip downward Daughter was at the bedside during the visit all questions were answered Physical Exam Physical Exam: Physically patient awake alert appropriate oriented x3 Neck is without JVD or bruits Card exam is regular that murmurs Neurologically she was intact no pain to straight leg raising no hyperreflexia good distal strength and sensation arms and legs equal bilateral criminal defense attorney strength Results & Data Results & Data Vital Signs (Past 12 Hours) Vital Signs Temp Pulse Pulse Resp BP BP Pulse Ox 05/08/23 11:36 97.7 F 73 18 133/83 96 05/08/23 10:48 169/81 H 05/08/23 10:48 199/80 H 05/08/23 07:43 63 05/08/23 07:35 97.7 F 61 16 135/66 94 05/08/23 03:44 97.7 F 64 20 130/75 98 O2 Del Method 05/08/23 11:36 Room Air 05/08/23 10:48 05/08/23 10:48 05/08/23 07:43 05/08/23 07:35 Room Air 05/08/23 03:44 Room Air Laboratory Results Reviewed results of all imaging studies I personally spoke to Dr. Perez the patient's outpatient neurologist regarding recommendations PG Care Time/CCT Total # of Minutes Spent Total Time Spent with Patient: Total time spent is greater than 50% in coordination of care (as documented) at patient's floor/unit and/or counseling patient: Coding Level of Care Code 55198 SUB INP/OBS CARE 2MIN Diagnoses Stroke-like symptoms R29.90 Diabetes mellitus, type 2 E11.9 GERD (gastroesophageal reflux disease) K21.9 Chronic kidney disease, stage 3 (moderate) N18.3 Chronic cerebral ischemia I67.82
[2023-05-08] MEDS: carvediloL 6.25 MG TAB PO SCH (18:16)
[2023-05-08] MEDS: ACETAMINOPHEN 325 MG TAB PO PRN (22:42)
--- NOTE | 2023-05-09 06:17 | Electrocardiogram Report ---
Test Reason : Blood Pressure : / mmHG Vent. Rate : 083 BPM Atrial Rate : 083 BPM P-R Int : 202 ms QRS Dur : 076 ms QT Int : 406 ms P-R-T Axes : 073 008 069 degrees QTc Int : 477 ms Normal sinus rhythm Nonspecific ST and T wave abnormality Abnormal ECG When compared with ECG of 14-APR-2023 11:32, No significant change was found Confirmed by Jarad Oviedo ([id number]) on 05/09/2023 6:16:51 AM Referred By: REFERRED SELF Confirmed By:Jarad Oviedo
[2023-05-09 06:37] LABS: Hematocrit (blood only) 34.2 % (37.0-47.0); Hemoglobin 12.4 g/dl (12.0-16.0); Mean Corpuscular Hemoglobin 32.5 pg (25.0-34.0); Mean Corpuscular Hgb Conc 36.3 g/dL (32.0-36.0); Mean Corpuscular Volume 89.8 fL (80.0-100.0); Mean Platelet Volume 9.7 fL (9.4-12.4); Platelet Count 161 K/uL (130-400); RDW Coefficient of Variation 11.9 % (11.5-14.5); RDW Standard Deviation 38.5 fL (36.4-46.3); Red Blood Count 3.81 M/uL (4.20-5.40); White Blood Count 5.55 K/ul (4.8-10.8)
[2023-05-09 06:53] LABS: BUN Creatinine Ratio 25.8 (10-20); Calcium 8.7 mg/dl (8.6-10.3); Creatinine Clr Calc Pharmacy 51.9 ml/min; Est GFR (African American) 96.6 ml/min; Est GFR (Non-African American) 83.4 ml/min; Potassium 3.8 mmol/L (3.5-5.1)
[2023-05-09 07:15] LABS: Basophils # (auto) 0.03 K/uL (0-0.2); Basophils % (auto) 0.5 %; Eosinophils # (auto) 0.21 K/uL (0-0.50); Eosinophils % (auto) 3.8 %; Immature Granulocytes # (auto) 0.02 K/uL (0.01-0.20); Immature Granulocytes % (auto) 0.4 %; Lymphocytes # (auto) 2.84 K/uL (1.2-3.4); Lymphocytes % (auto) 51.2 %; Monocytes # (auto) 0.55 K/uL (0.11-0.59); Monocytes % (auto) 9.9 %; Neutrophils % (auto) 34.2 %
[2023-05-09] MEDS: CEROVITE ADV FORMULA TAB PO SCH (08:14)
[2023-05-09] MEDS: carvediloL 6.25 MG TAB PO SCH ×2 (08:14→16:46)
[2023-05-09] MEDS: CLOPIDOGREL BISULFATE 75 MG TAB PO SCH (08:14)
[2023-05-09] MEDS: PANTOprazole 40 MG TAB PO SCH (08:16)
[2023-05-09] MEDS: MAGNESIUM OXIDE 400 MG TAB PO SCH (08:16)
[2023-05-09] MEDS: ASPIRIN 81 MG ECTAB PO SCH (08:17)
[2023-05-09] MEDS: ENOXAPARIN INJ 40 MG/0.4 ML SYR SQ SCH (08:17)
[2023-05-09] MEDS: LANTUS PER UNIT CHARGE SQ SCH ×2 (08:25→20:32)
[2023-05-09] MEDS: INSULIN ASPART PER UNIT CHARGE SC SCH ×4 (08:26→20:32)
[2023-05-09] MEDS: POTASSIUM CHLORIDE 10 MEQ TABCR PO SCH (08:28)
[2023-05-09] MEDS: ACETAMINOPHEN 325 MG TAB PO PRN (10:57)
[2023-05-09] MEDS ORDERED: SCOPOLAMINE 1 MG TDSY TD ONE (11:31)
[2023-05-09 12:44] LABS: Appearance Urine Clear (Clear); Bilirubin Urine Negative (Negative); Blood Urine Negative (Negative); Color Urine Yellow; Glucose Urine UA Negative (Negative); Ketones Urine Negative (Negative); Leukocyte Esterase Urine Negative (Negative); Nitrite Urine Negative (Negative); Protein Urine Negative (Negative); Specific Gravity Urine 1.005 (1.000-1.030); Urobilinogen Urine Negative (Negative); pH Urine 7.5 (4.5-7.5)
[2023-05-09] MEDS: CHECK SCOPOLAMINE PATCH PLACEMENT SCH ×2 (16:46→23:04)
[2023-05-09] MEDS ORDERED: LIDOCAINE 5% 1 PATCH TD STA (17:00)
--- NOTE | 2023-05-09 17:07 | Hospitalist Progress Note ---
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 Still with bilateral vertebral CHELA and BRIM POUNCER MACHINE OPERATOR stenosis. Reportedly patient has done better on dual antiplatelets in the past Dr. Perez's recommendations to resume dual antiplatelets and to tolerate a slightly higher blood pressure by reducing medications. I have chosen to reduce carvedilol. This was explained to the daughter and we will continue to follow PT/OT feels pt can go home will have and will have eval with [facility] dizzy symptoms less likely tia, will try transderm scope and lidoderm to neck Hypomagnesemia Acute self-limited/ replete Type II DM BSG [id number] goal Last A1c 6.4% April 2023, repeat deferred Weight-based basalbolus while inpatient. In the setting of low BMI/low intake basal dose reduced to 3 units. CF 75, ratio 25 GERD Chronic and stable asymptomatic Continue PPI CKD 3 chronic and stable renally dose medications as needed Dyslipidemia Statin intolerant. Current LDL is 70 total cholesterol 171 triglycerides mildly elevated at 318 may consider triglyceride targeted therapy as her LDL is not significantly elevated DVT prophylaxis: Lovenox Diet: Heart healthy, type II DM CODE STATUS: DNR/DNI (2) Diabetes mellitus, type 2: (3) GERD (gastroesophageal reflux disease): (4) Chronic kidney disease, stage 3 (moderate): (5) Chronic cerebral ischemia: Admission and Anticipated Discharge Date Admission Date: May 07, 2023 Subjective this pt was walking from bathroom and had another episode of dizziness, not quite explained as vertigo but unsteadiness, not postural but maybe positional she has neck pain, but no radicular symptoms no focal neurological deficits Physical Exam Physical Exam: PT has no nystagmus, no focal neurological deficits, cardiac is regular an no murmur lungs are clear Results & Data Results & Data Vital Signs (Past 12 Hours) Vital Signs Temp Pulse Pulse Resp BP Pulse Ox O2 Del Method 05/09/23 15:56 71 05/09/23 15:25 97.3 F L 60 18 146/75 H 98 Room Air 05/09/23 11:58 97.3 F L 63 19 157/81 H 98 Room Air 05/09/23 08:39 Room Air 05/09/23 08:10 97.9 F 70 19 144/77 H 98 Room Air 05/09/23 07:47 85 Laboratory Results cbc reviewed chemistry reviewed PG Care Time/CCT Total # of Minutes Spent Total Time Spent with Patient: Total time spent is greater than 50% in coordination of care (as documented) at patient's floor/unit and/or counseling patient: Coding Level of Care Code 92233 SUB INP/OBS CARE 2/35MIN Diagnoses Stroke-like symptoms R29.90 Diabetes mellitus, type 2 E11.9 GERD (gastroesophageal reflux disease) K21.9 Chronic kidney disease, stage 3 (moderate) N18.3 Chronic cerebral ischemia I67.82
[2023-05-10 06:17] LABS: Hematocrit (blood only) 34.9 % (37.0-47.0); Hemoglobin 12.8 g/dl (12.0-16.0); Mean Corpuscular Hemoglobin 32.7 pg (25.0-34.0); Mean Corpuscular Hgb Conc 36.7 g/dL (32.0-36.0); Mean Corpuscular Volume 89.3 fL (80.0-100.0); Mean Platelet Volume 9.3 fL (9.4-12.4); Platelet Count 179 K/uL (130-400); RDW Coefficient of Variation 11.9 % (11.5-14.5); RDW Standard Deviation 38.2 fL (36.4-46.3); Red Blood Count 3.91 M/uL (4.20-5.40); White Blood Count 5.45 K/ul (4.8-10.8)
[2023-05-10 06:36] LABS: BUN Creatinine Ratio 27.3 (10-20); Creatinine Clr Calc Pharmacy 41.8 ml/min; Est GFR (African American) 82.8 ml/min; Est GFR (Non-African American) 71.4 ml/min; Potassium 4.2 mmol/L (3.5-5.1)
[2023-05-10 07:05] LABS: ALC (manual) 3.16 K/uL (1.2-3.4); ANC (manual) 2.07 K/uL (1.4-6.5); Eosinophils # (manual) 0.05 K/uL (0-0.50); Eosinophils % (manual) 1 %; Lymphocytes % (manual) 44 %; Monocytes # (manual) 0.22 K/uL (0.11-0.59); Monocytes % (manual) 4 %; Neutrophils # (manual) 2.07 K/uL (1.40-6.50); Neutrophils % (manual) 38 %; Reactive Lymphocytes # (manual) 0.76 K/uL; Reactive Lymphocytes % (manual) 14 %
[2023-05-10] MEDS: carvediloL 6.25 MG TAB PO SCH (08:15)
[2023-05-10] MEDS: CEROVITE ADV FORMULA TAB PO SCH (08:15)
[2023-05-10] MEDS: CLOPIDOGREL BISULFATE 75 MG TAB PO SCH (08:15)
[2023-05-10] MEDS: PANTOprazole 40 MG TAB PO SCH (08:16)
[2023-05-10] MEDS: ASPIRIN 81 MG ECTAB PO SCH (08:16)
[2023-05-10] MEDS: MAGNESIUM OXIDE 400 MG TAB PO SCH (08:16)
[2023-05-10] MEDS: ENOXAPARIN INJ 40 MG/0.4 ML SYR SQ SCH (08:17)
[2023-05-10] MEDS: POTASSIUM CHLORIDE 10 MEQ TABCR PO SCH (08:18)
[2023-05-10] MEDS: LANTUS PER UNIT CHARGE SQ SCH (08:18)
[2023-05-10] MEDS: INSULIN ASPART PER UNIT CHARGE SC SCH ×2 (08:19→13:24)
[2023-05-10] MEDS: CHECK SCOPOLAMINE PATCH PLACEMENT SCH (08:26)
[2023-05-10] MEDS ORDERED: LIDOCAINE 5% 1 PATCH TD SCH (09:00)
--- NOTE | 2023-05-10 17:56 | Discharge Summary ---
Date of Service May 10, 2023 Admission HPI Per Admitting Provider Jacy reports she has not been well since her last discharge. Reports she got a little better in the hospital, but continued to feel tired and have difficulty with daily activities. Notes she has some help from an agency but 'since I can arrange my pills and breakfast, they cannot get more help or a nurse'. Symptoms worsened on Friday (yesterday). She had a L sided headache into her L neck which lasted for a few hours .Denies chest pain/chest pressure/shortness of breath, but ache did go into the L armpit. This resolved by the evening and was not associated with any pain into the center of her chest. At first she reports that her left leg was with normal strength when going to bed, but then clarifies it is never really been normal and is been weak since she was discharged previously but had been weak consistent with her baseline after discharge until around 8:00 05/07 when she just felt not right in the lower extremity and like it was more weak. She does not have any headache at time of assessment. She reports her left upper extremity is been more sensitive to the touch, but is not currently weak. Sensation is intact in her face, left arm, and left leg but notes it feels hypersensitive compared to the right. She has not had any nausea, vomiting, diarrhea, constipation. Has been taking her medications, including her magnesium. Did take her medications this morning. Denies alcohol/tobacco Medical History: Reviewed Medications: Reviewed. Did take all meds this AM. Surgical History: Reviewed Family history: Reviewed Allergies: Reviewed Social History: No tobacco/etoh Code Status: DNR/DNI Principal Diagnosis vertebrobasilar insufficiency vertigo Discharge Exam evidence of vertigo has resolved pt ambulated in room without distress of deficit Discharge Data Allergies Allergy/AdvReac Type Severity Reaction Status Date / Time doxycycline AdvReac Mild decreased Verified 05/07/23 11:44 urine output escitalopram AdvReac Mild decreased Verified 05/07/23 11:44 urine output prednisone AdvReac Mild feels Verified 05/07/23 11:44 agitated memantine AdvReac Unknown stomach Verified 05/07/23 11:44 pains amoxicillin AdvReac upset Verified 05/07/23 11:44 stomach cefdinir AdvReac Diarrhea Verified 05/07/23 11:44 ciprofloxacin [From Cipro] AdvReac Diarrhea Verified 05/07/23 11:44 fluticasone AdvReac Dizziness Verified 05/07/23 11:44 gabapentin AdvReac abdominal Verified 05/07/23 11:44 pain and drowsy gemfibrozil [From Lopid] AdvReac upset Verified 05/07/23 11:44 stomach irbesartan AdvReac Diarrhea Verified 05/07/23 11:44 lisinopril AdvReac hypertension Verified 05/07/23 11:44 and diarrhea meclizine AdvReac Drowsy Verified 05/07/23 11:44 pitavastatin [From Livalo] AdvReac Unknown Verified 05/07/23 11:44 Axthqwb-GRD-VgC Reductase AdvReac myalgia Verified 05/07/23 11:44 Inhibitor [Vastugp-Qvs-Bmi Reductase Inhibitor] tizanidine AdvReac nightmares Verified 05/07/23 11:44 tramadol AdvReac insomnia/pr Verified 05/07/23 11:44 uitus trazodone AdvReac Unknown Verified 05/07/23 11:44 Consultations 05/07/23 12:03 ED Decision to Admit Stat Ordered Studies 05/07/23 10:09 CT angio head w con Stat CT angio neck with con Stat CT head/brain wo con Stat 05/07/23 13:50 MR brain wo/w con Routine MRI Cervical [MR cervical spine wo/w con] Routine Hospital Course (1) Stroke-like symptoms: 82-year-old female with a 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 Still with bilateral vertebral CHELA and COMPUTER TEACHER stenosis. Reportedly patient has done better on dual antiplatelets in the past Dr. Perez's recommendations to resume dual antiplatelets and to tolerate a slightly higher blood pressure by reducing medications. I have chosen to reduce carvedilol. This was explained to the daughter PT/OT feels pt can go home will have and will have eval with [facility] dizzy symptoms less likely tia,great improivement with transderm scopolamine, will keep patch till 05/12 and then discard Hypomagnesemia Acute self-limited/ replete GERD Chronic and stable asymptomatic Continue PPI CKD 3 chronic and stable renally dose medications as needed Dyslipidemia Statin intolerant. Current LDL is 70 total cholesterol 171 triglycerides mildly elevated at 318 may consider triglyceride targeted therapy as her LDL is not significantly elevated, can discuss as outpt or retry once on dietary modification CODE STATUS: DNR/DNI (2) Chronic kidney disease, stage 3 (moderate): Total Time Total Time Spent Total Time Spent (In Minutes): it required greater than 30 minutes to prepare this patient for discharge Discharge Plan Discharge Items Patient Disposition: Home - Home Health Services Reason For Visit: CVA EVAL Discharge Diagnosis: vertebrobasilar insufficiency with left sided symptoms Activity: Per Instructions section Activity Comment: out pt Physical therapy Non-emergency contact: Primary Care Provider Call non-emergency contact if: your symptoms worsen Follow-up/Referrals: Laurent Perez MD [Physician] - 05/21/23 10:00 am Clara Sarkar DO [Primary Care Provider] - Diet: Regular Addtl Attending Provider Instructions: Risk Factors for Stroke: You can reduce your chances of stroke by working with your medical provider to adopt a healthy lifestyle. Some specific ways to lower your chance of stroke are: * If you are a smoker, now is the time to stop smoking cigarettes * If you are diabetic, improve the control of your blood sugars * Avoid excessive amounts of alcohol * Control high blood pressure * Lose weight if you are overweight * Be sure to lead an active lifestyle * Eat a healthy diet low in salt, cholesterol and fat You should know about other risk factors for stroke that you are unable to control. These include: * Age 55 years or older * Male gender * Certain racial groups: , or / * Family History of Stroke, Mini stroke or Heart Attack * Sickle Cell Disease Follow Up: It is important for you to keep your follow up appointments with your medical provider. Who to Call and When: Medical Emergencies: Call 911 immediately if you experience any of the following warning signs and symptoms of Stroke: * Sudden numbness or weakness of the face, arm or leg, especially on one side of the body * Sudden confusion, trouble speaking or understanding * Sudden trouble seeing in one or both eyes * Sudden trouble walking, dizziness, loss of balance or coordination * Sudden severe headache with no cause Do not delay calling 911 if you experience any warning signs or symptoms of a stroke. Delay in seeking medical attention may affect what treatments can be given to you. . Addtl Hr Advisor Provider Instructions: keep the meclizine patch on until friday then stop Pending Studies at Discharge: No Stand-Alone Forms: My [facility], Smoking Cessation, Medications to Prevent Stroke Medications and DC Order Prescriptions: New aspirin 81 mg Tablet,Delayed Release (Dr/Ec) 81 mg PO QAM Qty: 30 5RF Continued calcium carbonate-vitamin D3 [Calcium 600 + D(3)] 600 mg(1,500mg) -400 unit tablet 1 tab PO BID Qty: 60 0RF Rx Instructions: Unable to verify with either pharmacy [id number] Tablet 1 tab PO DAILY Qty: 90 1RF pantoprazole [Protonix] 40 mg tablet,delayed release (DR/EC) 40 mg PO DAILY Qty: 90 1RF Rx Instructions: Verified with [facility] fluticasone propionate [Flonase Allergy Relief] 50 mcg/actuation spray,suspension 1 spray INTNAS DAILY Qty: 48 1RF Rx Instructions: Verified with [facility] carvedilol 12.5 mg tablet 12.5 mg PO BID Qty: 180 1RF Rx Instructions: Per ER nurse pt knows this medication Verified with [facility] amlodipine 5 mg tablet 5 mg PO BID Qty: 180 1RF Rx Instructions: Per er nurse pt knows this medication Verified with [facility] potassium chloride 10 mEq capsule, extended release 10 meq PO DAILY Qty: 90 1RF clopidogrel [Plavix] 75 mg tablet 75 mg PO DAILY Qty: 90 3RF Rx Instructions: Per ER nurse pt knows this medication Verified with [facility] (DME) Austyn Da Silva See Rx Instructions .Route .MEDSUPPLY Qty: 1 0RF Rx Instructions: As directed lidocaine 4 % adhesive patch,medicated 1 patch topical Q24H PRN (Reason: pain) Qty: 30 5RF Rx Instructions: may leave on for up to 12 hrs magnesium oxide 400 mg magnesium capsule 400 mg PO DAILY omega-3 acid ethyl esters 1 gram capsule 1 cap PO DAILY Rx Instructions: Unable to verify with either pharmacy estradiol 0.01 % (0.1 mg/gram) cream 1 applic VAGINAL [id number] Rx Instructions: Friday and Friday cyclosporine [Restasis] 0.05 % dropperette 1 drp OPB DAILY Discharge Orders: Discharge Order (Routine); Ordered 05/10/23 Ordered By: Aramis Umanzor/Other Patient Handouts: Aspirin Oral Tablet, Managing Type 2 Diabetes Admission Data Admit Date/Time: 05/09/23 17:12 Attending Provider: Aramis Wade Admit Provider: Oral Rodgers Primary Care Provider: Clara Sarkar Other Providers: Oral Rodgers Other Interventions: Discharge Summary Assessment (RN) Last Done: 05/10/23 16:03 Coding Level of Care Code 63367 INP/OBS DISCH >30 MIN Diagnoses Stroke-like symptoms R29.90 Chronic kidney disease, stage 3 (moderate) N18.3
== END 2023-05-10 17:30 | disposition home health service (06) | DRG 69 ==
LOC: ED 10:11 → 4W 10:11 → SUATTDRO 11:37 → 4W 13:05

== ENCOUNTER 2023-11-18 15:38 | Inpatient (IN) ==
[2023-11-18 16:21] LABS: Basophils # (auto) 0.05 K/uL (0.00-0.20); Basophils % (auto) 0.7 %; Eosinophils % (auto) 2.7 %; Hematocrit (blood only) 46.1 % (37.0-47.0); Hemoglobin 15.7 g/dl (12.0-16.0); Immature Granulocytes # (auto) 0.06 K/uL (0.01-0.20); Immature Granulocytes % (auto) 0.8 %; Lymphocytes # (auto) 2.97 K/uL (1.20-3.40); Lymphocytes % (auto) 40.8 %; Mean Corpuscular Hemoglobin 31.3 pg (25.0-34.0); Mean Corpuscular Hgb Conc 34.1 g/dL (32.0-36.0); Mean Platelet Volume 9.6 fL (9.4-12.4); Monocytes # (auto) 0.68 K/uL (0.11-0.59); Monocytes % (auto) 9.3 %; Neutrophils # (auto) 3.32 K/uL (1.40-6.50); Neutrophils % (auto) 45.7 %; Platelet Count 187 K/uL (130-400); RDW Coefficient of Variation 12.6 % (11.5-14.5); RDW Standard Deviation 42.9 fL (36.4-46.3); Red Blood Count 5.01 M/uL (4.20-5.40); White Blood Count 7.28 K/ul (4.8-10.8)
--- NOTE | 2023-11-18 16:29 | Emergency Department Note ---
Impression & Plan Left leg weakness, Left sided numbness ED Provider Note Diagnosis: Left-sided numbness, left leg weakness Disposition: Admission CHIEF COMPLAINT: Left-sided weakness with numbness HPI: Patient is an 83-year-old female with history of TIA and CVA on Plavix presenting with symptoms of numbness to left side of her face arm and left leg started at 11 AM this morning. Patient states her left lower extremity is always weak but feels heavier today and harder to get off of the stretcher when she tries to lift it up. Patient denies any falls or trauma. Patient states this feels similar to when she has had a TIA previously. Patient denies chest pain or shortness of breath PAST MEDICAL HISTORY: See Below PAST SURGICAL HISTORY: See Below SOCIAL HISTORY: See Below HOME MEDICATIONS: See Below ALLERGIES: See Below VITALS: See Below PHYSICAL EXAMINATION: GENERAL: Well appearing, well nourished, NAD, non-toxic. EYE EXAM: Normal conjunctiva. OROPHARYNX: Moist mucus membranes. Grossly normal dentition. NECK: Supple, LUNGS: Clear to auscultation. Normal chest wall mechanics. HEART: NSR ABDOMEN: Abdomen soft, non-tender, normo-active bowel sounds, no masses, no rebound or guarding BACK: No CVA TTP. SKIN: No rashes and no bruising. UPPER EXTREMITIES: Upper extremities are grossly normal LOWER EXTREMITIES: Grossly normal, no edema. NEURO EXAM: A&O x3,, normal speech, decreased sensation left side of face left arm left leg, weakness of left lower extremity, normal muscle strength of the upper extremities 5 out of 5, no slurred speech or facial droop PSYCH: Cooperative MEDICAL DECISION MAKING: History obtained from: Patient ER Course: Patient is a 83-year-old female presenting with strokelike symptoms. Patient states at 11 AM today she started with decreased sensation to left side of her face arm and leg as well as increased weakness of the left lower extremity. Patient states that her left lower extremity has been weak due to prior strokes but it has increased in how much effort she needs to raise it off of the stretcher and to use it today. Patient showed up greater than 4 and half hours from time of onset and is outside the window for TNK. Patient was activated as a stroke alert. Patient CT scan without intracranial hemorrhage. Patient has no large vessel occlusions present. Patient's case was discussed with [place] telestroke team. Labs (independently interpreted) are significant for: No leukocytosis no electrolyte abnormality Imaging results (independently interpreted): Chest x-ray clear EKG interpretation (independently interpreted): Medications given: None Consultants: Telestroke team with [facility], patient is outside the window no recommendation for TNK. No large vessel occlusions present. Hospitalist accepts patient further treatment evaluation Chronic conditions affecting care: Triage Nursing notes reviewed and agree them. 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 Sacroiliitis Spinal stenosis, lumbar region without neurogenic claudication Lumbar pain with radiation down left leg Mild cognitive impairment Venous insufficiency (chronic) (peripheral) Anxiety and depression Hypertension Insomnia Osteopenia History of recurrent TIAs GERD (gastroesophageal reflux disease) Dyslipidemia Chronic kidney disease, stage 3 (moderate) Surgical History S/P blepharoplasty History of carpal tunnel surgery S/P appendectomy S/P cholecystectomy Hx of neck surgery secondary to cervical herniated discs Previous back surgery x3 Family History Father Myocardial infarction Prostate cancer Coronary heart disease Mother Stroke, Onset Age: 72 Myocardial infarction, Onset Age: 76 Hypertension Diabetes Brother Cancer Sister Hodgkins disease Sister Coronary heart disease Brother Diabetes Denies family history of Ovarian cancer Breast cancer Colorectal cancer Social History Smoking Status: Never smoker Second Hand Exposure: No; Do You Dip or Chew Tobacco: No; Hx Alcohol Use: No Hx Substance Use: No Preferred Language: Ghanaian Communication Ability: Effective Visual Impairment: No Limitations Hearing Ability: Normal 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 Beliefs That Will Affect Care: None marital status: Current Living Situation: Alone Current Living Situation Comment: Patient lives alone in an apartment building current occupational status: retired 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59 Feels Safe at Home: Yes Childhood Exposure to Second-Hand Smoke: No Diet: other Diet Comment: low sugar caffeine: No during the past year weight has: remained stable Dental Care, Regularly: No Physical Activity Frequency: Other Seatbelt Use: always Sunscreen Use: Yes Assistive Devices: Cane and Walker Allergies Allergies Allergy/AdvReac Type Severity Reaction Status Date / Time doxycycline AdvReac Mild decreased Verified 08/13/23 14:35 urine output escitalopram AdvReac Mild decreased Verified 08/13/23 14:35 urine output prednisone AdvReac Mild feels Verified 08/13/23 14:35 agitated memantine AdvReac Unknown stomach Verified 08/13/23 14:35 pains amoxicillin AdvReac upset Verified 08/13/23 14:35 stomach cefdinir AdvReac Diarrhea Verified 08/13/23 14:35 ciprofloxacin [From Cipro] AdvReac Diarrhea Verified 08/13/23 14:35 fluticasone AdvReac Dizziness Verified 08/13/23 14:35 gabapentin AdvReac abdominal Verified 08/13/23 14:35 pain and drowsy gemfibrozil [From Lopid] AdvReac upset Verified 08/13/23 14:35 stomach irbesartan AdvReac Diarrhea Verified 08/13/23 14:35 lisinopril AdvReac hypertension Verified 08/13/23 14:35 and diarrhea meclizine AdvReac Drowsy Verified 08/13/23 14:35 pitavastatin [From Livalo] AdvReac Unknown Verified 08/13/23 14:35 Qdvrflb-CVQ-BnM Reductase AdvReac myalgia Verified 08/13/23 14:35 Inhibitor [Laflfkz-Gna-Gqu Reductase Inhibitor] tizanidine AdvReac nightmares Verified 08/13/23 14:35 tramadol AdvReac insomnia/pr Verified 08/13/23 14:35 uitus trazodone AdvReac Unknown Verified 08/13/23 14:35 Home Meds Home Medications Medication Instructions Recorded Confirmed omega-3 acid ethyl esters 1 gram 1 cap PO DAILY 11/09/21 11/18/23 capsule cyclosporine 0.05 % eye drops in a 1 drp OPB DAILY 05/07/23 11/18/23 dropperette (Restasis) magnesium oxide 400 mg PO BID 08/27/23 11/18/23 Previous Rx's Medication Instructions Recorded calcium carbonate 600 mg-vitamin 1 tab PO BID #60 tabs 05/10/21 D3 10 mcg (400 unit) tablet (Calcium 600 + D(3)) lidocaine 4 % topical patch 1 patch topical Q24H PRN pain #30 07/24/21 ea nutxfvtfvmfh-bcxpzvej-icleop tablet 1 tab PO DAILY #90 tabs 12/13/21 potassium chloride 10 mEq 10 meq PO DAILY #90 caps 01/09/23 capsule,extended release clopidogrel 75 mg tablet (Plavix) 75 mg PO DAILY #90 tabs 02/20/23 aspirin 81 mg tablet,delayed 81 mg PO QAM #30 tabs 05/09/23 release carvedilol 12.5 mg tablet 12.5 mg PO BID #180 tabs 06/02/23 pantoprazole 40 mg tablet,delayed 40 mg PO DAILY #90 tabs 06/03/23 release (Protonix) amlodipine 5 mg tablet 5 mg PO BID #180 tabs 08/15/23 fluticasone propionate 50 1 spray intranasal DAILY #48 mL 08/29/23 mcg/actuation nasal spray,suspension (Flonase Allergy Relief) Results & Data (ED) Vital Signs Vital Signs - 24 hr 11/18/23 16:03 11/18/23 16:44 11/18/23 16:50 Temperature 36.6 C Temperature Source Oral Pulse Rate 73 86 77 Pulse Rate from SpO2 Sensor 84 77 Respiratory Rate 15 19 10 L Blood Pressure 216/124 H 191/111 H Blood Pressure Mean 154 137 Pulse Oximetry 97 97 98 Oxygen Delivery Method Room Air Sepsis New/Unexplained Change in Mental Status No Sepsis Action Taken by Nursing No Action Required 11/18/23 16:54 11/18/23 17:00 11/18/23 17:10 Temperature Temperature Source Pulse Rate 80 75 73 Pulse Rate from SpO2 Sensor 76 73 Respiratory Rate 24 15 Blood Pressure Blood Pressure Mean Pulse Oximetry 98 96 Oxygen Delivery Method Sepsis New/Unexplained Change in Mental Status Sepsis Action Taken by Nursing 11/18/23 17:16 11/18/23 17:16 11/18/23 17:20 Temperature Temperature Source Pulse Rate 79 74 Pulse Rate from SpO2 Sensor 80 74 Respiratory Rate 16 16 Blood Pressure 188/101 H Blood Pressure Mean 142 Pulse Oximetry 96 96 Oxygen Delivery Method Sepsis New/Unexplained Change in Mental Status Sepsis Action Taken by Nursing 11/18/23 17:28 11/18/23 17:28 11/18/23 17:30 Temperature Temperature Source Pulse Rate 73 75 Pulse Rate from SpO2 Sensor 74 75 Respiratory Rate 19 15 Blood Pressure 180/102 H Blood Pressure Mean 110 Pulse Oximetry 96 97 Oxygen Delivery Method Sepsis New/Unexplained Change in Mental Status Sepsis Action Taken by Nursing 11/18/23 17:30 11/18/23 17:40 11/18/23 17:50 Temperature Temperature Source Pulse Rate 75 74 Pulse Rate from SpO2 Sensor 75 74 Respiratory Rate 13 14 Blood Pressure 199/102 H Blood Pressure Mean 131 Pulse Oximetry 95 93 Oxygen Delivery Method Sepsis New/Unexplained Change in Mental Status Sepsis Action Taken by Nursing 11/18/23 18:00 11/18/23 18:00 11/18/23 18:10 Temperature Temperature Source Pulse Rate 74 75 Pulse Rate from SpO2 Sensor 75 74 Respiratory Rate 13 15 Blood Pressure 183/101 H Blood Pressure Mean 126 Pulse Oximetry 94 94 Oxygen Delivery Method Room Air Room Air Sepsis New/Unexplained Change in Mental Status Sepsis Action Taken by Nursing 11/18/23 18:20 11/18/23 18:30 11/18/23 18:30 Temperature Temperature Source Pulse Rate 78 74 Pulse Rate from SpO2 Sensor Respiratory Rate 18 12 Blood Pressure 211/113 H Blood Pressure Mean 134 Pulse Oximetry Oxygen Delivery Method Sepsis New/Unexplained Change in Mental Status Sepsis Action Taken by Nursing 11/18/23 18:45 11/18/23 19:00 11/18/23 19:01 Temperature Temperature Source Pulse Rate 78 77 Pulse Rate from SpO2 Sensor 78 76 Respiratory Rate 15 20 Blood Pressure 205/111 H Blood Pressure Mean 135 Pulse Oximetry 97 98 Oxygen Delivery Method Sepsis New/Unexplained Change in Mental Status Sepsis Action Taken by Nursing 11/18/23 19:01 11/18/23 19:15 11/18/23 19:30 Temperature Temperature Source Pulse Rate 78 79 Pulse Rate from SpO2 Sensor 79 79 Respiratory Rate 15 19 Blood Pressure 178/96 H Blood Pressure Mean 124 Pulse Oximetry 97 97 Oxygen Delivery Method Sepsis New/Unexplained Change in Mental Status Sepsis Action Taken by Nursing 11/18/23 19:30 Temperature Temperature Source Pulse Rate 78 Pulse Rate from SpO2 Sensor 79 Respiratory Rate 14 Blood Pressure Blood Pressure Mean Pulse Oximetry 95 Oxygen Delivery Method Sepsis New/Unexplained Change in Mental Status Sepsis Action Taken by Nursing Laboratory Data 11/18/23 15:14 11/18/23 15:14 Lab Results 11/18/23 11/18/23 11/18/23 Range/Units 15:14 16:20 17:28 WBC 7.28 (4.8-10.8) K/ul RBC 5.01 (4.20-5.40) M/uL Hgb 15.7 (12.0-16.0) g/dl Hct 46.1 (37.0-47.0) % MCV 92.0 (80.0-100.0) fL MCH 31.3 (25.0-34.0) pg MCHC 34.1 (32.0-36.0) g/dL RDW Std Deviation 42.9 (36.4-46.3) fL RDW Coeff of Johan 12.6 (11.5-14.5) % Plt Count 187 (130-400) K/uL MPV 9.6 (9.4-12.4) fL Immature Gran % (Auto) 0.8 % Neut % (Auto) 45.7 % Lymph % (Auto) 40.8 % Baxter % (Auto) 9.3 % Eos % (Auto) 2.7 % Baso % (Auto) 0.7 % Neut # (Auto) 3.32 (1.40-6.50) K/uL Lymph # (Auto) 2.97 (1.20-3.40) K/uL Baxter # (Auto) 0.68 H (0.11-0.59) K/uL Eos # (Auto) 0.20 (0.00-0.50) K/uL Baso # (Auto) 0.05 (0.00-0.20) K/uL Immature Gran # (Auto) 0.06 (0.01-0.20) K/uL PT 10.9 (9.0-12.0) Seconds INR 1.0 (0.9-1.1) APTT 25 (21-31) Seconds PTT Ratio 0.9 Sodium 138 (136-145) mmol/L Potassium 4.6 (3.5-5.1) mmol/L Chloride 105 (98-107) mmol/L Carbon Dioxide 26 (21-32) mmol/L Anion Gap 7 (3-11) BUN 21 (6-23) mg/dl Creatinine 0.79 (0.6-1.2) mg/dl Est Cr Clr Drug Dosing 41.0 ml/min Est GFR ( Amer) 79.7 ml/min Est GFR (Non-Af Amer) 68.7 ml/min BUN/Creatinine Ratio 26.6 H (10-20) Glucose 105 H (70-99(Fasting)) mg/dl Calcium 10.3 (8.6-10.3) mg/dl Magnesium 1.9 (1.7-2.4) mg/dl Total Bilirubin 0.4 (0.2-1.0) mg/dl AST 26 (13-39) U/L ALT 22 (7-52) U/L Alkaline Phosphatase 49 (34-104) U/L Troponin I High Sens 8.0 (0-14) pg/ml Total Protein 8.4 H (6.0-8.3) gm/dl Albumin 4.7 (3.4-5.0) gm/dl Globulin 3.7 (2.5-4.0) gm/dl Albumin/Globulin Ratio 1.3 (0.9-2) Urine Color Yellow Urine Appearance Clear (Clear) Urine pH 7.0 (4.5-7.5) Ur Specific [place] 1.006 (1.000-1.030) Urine Protein Negative (Negative) Urine Glucose (UA) Negative (Negative) Urine Ketones Negative (Negative) Urine Blood Negative (Negative) Urine Nitrite Negative (Negative) Urine Bilirubin Negative (Negative) Urine Urobilinogen Negative (Negative) Ur Leukocyte Esterase Negative (Negative) Blood Type A Positive Antibody Screen NEGATIVE Administered Medications Discontinued Medications Aspirin (Aspirin 81 Mg Chew) 243 mg PO NOW STA Stop: 11/18/23 19:26 Last Admin: 11/18/23 19:57 Dose: 243 mg Documented By: EVANGELINA Ioversol (Optiray 320 125ml) 115 ml IV ONCE ONE Stop: 11/18/23 16:37 Last Admin: 11/18/23 16:36 Dose: 115 ml Documented By: SIMRAN Imaging Data Radiologist's Impression: Chest X-Ray 11/18/23 16:08 XR chest 1V portable HISTORY: 83 years-old Female neuro deficit, acute stroke suspected acute shortness of breath COMPARISON: 05/07/2023 TECHNIQUE: AP view of the chest FINDINGS: Cardiomediastinal and hilar silhouettes are within normal limits. No pneumothorax, pleural effusion or airspace consolidation. The bones appear grossly intact with degenerative changes of the shoulders and spine. Cervical spinal fusion hardware. IMPRESSION: No acute process of the chest. ACT 112: Negative or not required by law. The above report was generated using voice recognition software. It may contain grammatical, syntax or spelling errors. Electronically signed by: Eric Flanagan M.D. 11/18/2023 5:[address] 11/18/23 16:[address] DOSE: HISTORY: neuro deficit, acute stroke suspected TECHNIQUE: Multiaxial CT images of the head were performed without the use of intravenous contrast. Automated exposure control was utilized for this study. A dose lowering technique was utilized adhering to the principles of ALARA. Comparison: Head CT 07/28/2023. Findings: The paranasal sinuses and mastoid air cells are clear. The calvarium and skull base are intact. There is no mass, hematoma, midline shift, acute infarct. White matter hypodensity is nonspecific but suggestive of microvascular ischemic change. The ventricles and sulci demonstrate mild age-related involutional changes. Old lacunar infarct again noted within the left basal ganglia/external capsule. Impression: No significant change compared to the prior study. No acute intracranial abnormality. ACT 112: Negative or not required by law. Electronically signed by: Juan Robertson M.D. 11/18/2023 5:00 PM Head CTA 11/18/23 16:08 CT angio neck with con, CT angio head w con CLINICAL HISTORY: 83 years-old Female with neuro deficit, acute stroke suspected. Acute stroke like symptoms with left-sided numbness. COMPARISON STUDY: Head CT of same day, CTA head and neck 07/28/2023 and also 05/07/2023 TECHNIQUE: Following the IV administration of 115 mL of Optiray, CT angiogram of the head and neck was performed from the aortic arch to the skull apex. Images are reviewed in the axial, sagittal, and coronal planes. 3-D MIPS images are created and assessed. IV contrast was administered without complication. All measurements were calculated based on NASCET criteria. A dose lowering technique was utilized adhering to the principles of ALARA. CT DOSE: 1121.73 mGy.cm FINDINGS: Three-vessel morphology of the thoracic aortic arch. There is patency of the innominate and image subclavian arteries. The common carotid arteries are patent. There is mild atherosclerotic plaque at the carotid bulbs resulting in less than 50% stenosis. Short segment focus of high-grade stenosis within the supraclinoid segment of the right ICA on image 407 is unchanged. High-grade stenosis within the distal right CHELA and right RANGE MANAGER again noted. This is similar to the prior study. Additional areas of mild to moderate multifocal stenosis within the remaining cerebral arteries remains unchanged. There is however a new short segment focus of moderate stenosis of the left RANGE MANAGER on image 75 series 5. No aneurysms identified. Moderate stenosis within the proximal V1 segment of the right vertebral artery is unchanged on image 149 the right vertebral artery is dominant. Unchanged mild multifocal stenoses within the left vertebral artery. Patent basilar artery. No pneumothorax. Unremarkable soft tissues. Multilevel degenerative changes of the cervical spine lung with chronic postoperative changes. IMPRESSION: 1. Generally unchanged scattered areas of multifocal stenoses within the [place] as described above. No acute arterial occlusion identified. 2. Bmib-ll-hgbdjuwk narrowing within the proximal V1 segment of the right vertebral artery is unchanged. ACT 112: Negative or not required by law. The above report was generated using voice recognition software. It may contain grammatical, syntax or spelling errors. Electronically signed by: Eric Flanagan M.D. 11/18/2023 5:00 PM Neck CTA 11/18/23 16:08 CT angio neck with con, CT angio head w con CLINICAL HISTORY: 83 years-old Female with neuro deficit, acute stroke suspected. Acute stroke like symptoms with left-sided numbness. COMPARISON STUDY: Head CT of same day, CTA head and neck 07/28/2023 and also 05/07/2023 TECHNIQUE: Following the IV administration of 115 mL of Optiray, CT angiogram of the head and neck was performed from the aortic arch to the skull apex. Images are reviewed in the axial, sagittal, and coronal planes. 3-D MIPS images are created and assessed. IV contrast was administered without complication. All measurements were calculated based on NASCET criteria. A dose lowering technique was utilized adhering to the principles of ALARA. CT DOSE: 1121.73 mGy.cm FINDINGS: Three-vessel morphology of the thoracic aortic arch. There is patency of the innominate and image subclavian arteries. The common carotid arteries are patent. There is mild atherosclerotic plaque at the carotid bulbs resulting in less than 50% stenosis. Short segment focus of high-grade stenosis within the supraclinoid segment of the right ICA on image 407 is unchanged. High-grade stenosis within the distal right CHELA and right RANGE MANAGER again noted. This is similar to the prior study. Additional areas of mild to moderate multifocal stenosis within the remaining cerebral arteries remains unchanged. There is however a new short segment focus of moderate stenosis of the left RANGE MANAGER on image 75 series 5. No aneurysms identified. Moderate stenosis within the proximal V1 segment of the right vertebral artery is unchanged on image 149 the right vertebral artery is dominant. Unchanged mild multifocal stenoses within the left vertebral artery. Patent basilar artery. No pneumothorax. Unremarkable soft tissues. Multilevel degenerative changes of the cervical spine lung with chronic postoperative changes. IMPRESSION: 1. Generally unchanged scattered areas of multifocal stenoses within the [place] as described above. No acute arterial occlusion identified. 2. Cplx-rs-vhkcslqe narrowing within the proximal V1 segment of the right vertebral artery is unchanged. ACT 112: Negative or not required by law. The above report was generated using voice recognition software. It may contain grammatical, syntax or spelling errors. Electronically signed by: Eric Flanagan M.D. 11/18/2023 5:00 PM Discharge Plan Visit Data Chief Complaint: TIA Symptoms ED Provider: Jermaine Mares Discharge Problem: Left leg weakness, Left sided numbness Patient Disposition: Admitted As Inpatient Discharge Instructions Interventions: ED Discharge Assessment Last Done: 11/18/23 20:12
[2023-11-18] MEDS ORDERED: OPTIRAY 320 125ml IV ONE (16:36)
[2023-11-18 16:45] LABS: Albumin Globulin Ratio 1.3 (0.9-2); Albumin Level 4.7 gm/dl (3.4-5.0); BUN Creatinine Ratio 26.6 (10-20); Bilirubin,Total 0.4 mg/dl (0.2-1.0); Calcium 10.3 mg/dl (8.6-10.3); Est GFR (African American) 79.7 ml/min; Est GFR (Non-African American) 68.7 ml/min; Globulin 3.7 gm/dl (2.5-4.0); Magnesium 1.9 mg/dl (1.7-2.4); Potassium 4.6 mmol/L (3.5-5.1); Total Protein 8.4 gm/dl (6.0-8.3)
[2023-11-18 16:57] LABS: Partial Thromboplastin Ratio 0.9; Partial Thromboplastin Time 25 Seconds (21-31); Prothrombin Time 10.9 Seconds (9.0-12.0)
--- NOTE | 2023-11-18 17:03 | CT Scan Report ---
CT angio neck with con, CT angio head w con CLINICAL HISTORY: 83 years-old Female with neuro deficit, acute stroke suspected. Acute stroke lik e symptoms with left-sided numbness. COMPARISON STUDY: Head CT of same day, CTA head and neck 07/28/2023 and also 05/07/2023 TECHNIQUE: Following the IV administration of 115 mL of Optiray, CT angiogram of the head and neck wa s performed from the aortic arch to the skull apex. Images are reviewed in the axial, sagittal, and c oronal planes. 3-D MIPS images are created and assessed. IV contrast was administered without complic ation. All measurements were calculated based on NASCET criteria. A dose lowering technique was util ized adhering to the principles of ALARA. CT DOSE: 1121.73 mGy.cm FINDINGS: Three-vessel morphology of the thoracic aortic arch. There is patency of the innominate and image sub clavian arteries. The common carotid arteries are patent. There is mild atherosclerotic plaque at the carotid bulbs resulting in less than 50% stenosis. Short segment focus of high-grade stenosis within the supraclinoid segment of the right ICA on image 407 is unchanged. High-grade stenosis within the distal right CHELA and right [employer] TRAFFIC MANAGER again noted. This is similar to the prior study. Additional areas of m ild to moderate multifocal stenosis within the remaining cerebral arteries remains unchanged. There i s however a new short segment focus of moderate stenosis of the left PORT TRAFFIC MANAGER on image 75 series 5. No ane urysms identified. Moderate stenosis within the proximal V1 segment of the right vertebral artery is unchanged on image 149 the right vertebral artery is dominant. Unchanged mild multifocal stenoses wit hin the left vertebral artery. Patent basilar artery. No pneumothorax. Unremarkable soft tissues. Multilevel degenerative changes of the cervical spine socrates g with chronic postoperative changes. IMPRESSION: 1. Generally unchanged scattered areas of multifocal stenoses within the [place] as describe d above. No acute arterial occlusion identified. 2. Flfo-sa-gxvisqel narrowing within the proximal V1 segment of the right vertebral artery is unchang ed. ACT 112: Negative or not required by law. The above report was generated using voice recognition software. It may contain grammatical, syntax o r spelling errors. Electronically signed by: Eric Flanagan M.D. 11/18/2023 5:00 PM
--- NOTE | 2023-11-18 17:03 | CT Scan Report ---
HEAD CT NONCONTRAST CT DOSE: HISTORY: neuro deficit, acute stroke suspected TECHNIQUE: Multiaxial CT images of the head were performed without the use of intravenous contrast. A utomated exposure control was utilized for this study. A dose lowering technique was utilized adheri ng to the principles of ALARA. Comparison: Head CT 07/28/2023. Findings: The paranasal sinuses and mastoid air cells are clear. The calvarium and skull base are int act. There is no mass, hematoma, midline shift, acute infarct. White matter hypodensity is nonspecifi c but suggestive of microvascular ischemic change. The ventricles and sulci demonstrate mild age-rela ana involutional changes. Old lacunar infarct again noted within the left basal ganglia/external caps ule. Impression: No significant change compared to the prior study. No acute intracranial abnormality. ACT 112: Negative or not required by law. Electronically signed by: Juan Robertson M.D. 11/18/2023 5:00 PM
--- NOTE | 2023-11-18 17:03 | CT Scan Report ---
CT angio neck with con, CT angio head w con CLINICAL HISTORY: 83 years-old Female with neuro deficit, acute stroke suspected. Acute stroke lik e symptoms with left-sided numbness. COMPARISON STUDY: Head CT of same day, CTA head and neck 07/28/2023 and also 05/07/2023 TECHNIQUE: Following the IV administration of 115 mL of Optiray, CT angiogram of the head and neck wa s performed from the aortic arch to the skull apex. Images are reviewed in the axial, sagittal, and c oronal planes. 3-D MIPS images are created and assessed. IV contrast was administered without complic ation. All measurements were calculated based on NASCET criteria. A dose lowering technique was util ized adhering to the principles of ALARA. CT DOSE: 1121.73 mGy.cm FINDINGS: Three-vessel morphology of the thoracic aortic arch. There is patency of the innominate and image sub clavian arteries. The common carotid arteries are patent. There is mild atherosclerotic plaque at the carotid bulbs resulting in less than 50% stenosis. Short segment focus of high-grade stenosis within the supraclinoid segment of the right ICA on image 407 is unchanged. 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 This is similar to the prior study. Additional areas of m ild to moderate multifocal stenosis within the remaining cerebral arteries remains unchanged. There i s however a new short segment focus of moderate stenosis of the left SEN[employer] POWER PLANT OPERATOR on image 75 series 5. No ane urysms identified. Moderate stenosis within the proximal V1 segment of the right vertebral artery is unchanged on image 149 the right vertebral artery is dominant. Unchanged mild multifocal stenoses wit hin the left vertebral artery. Patent basilar artery. No pneumothorax. Unremarkable soft tissues. Multilevel degenerative changes of the cervical spine socrates g with chronic postoperative changes. IMPRESSION: 1. Generally unchanged scattered areas of multifocal stenoses within the [place] as describe d above. No acute arterial occlusion identified. 2. Frfn-nz-cdeyhutl narrowing within the proximal V1 segment of the right vertebral artery is unchang ed. ACT 112: Negative or not required by law. The above report was generated using voice recognition software. It may contain grammatical, syntax o r spelling errors. Electronically signed by: Eric Flanagan M.D. 11/18/2023 5:00 PM
--- NOTE | 2023-11-18 17:20 | XRay Report ---
XR chest 1V portable HISTORY: 83 years-old Female neuro deficit, acute stroke suspected acute shortness of breath COMPARISON: 05/07/2023 TECHNIQUE: AP view of the chest FINDINGS: Cardiomediastinal and hilar silhouettes are within normal limits. No pneumothorax, pleural effusion o r airspace consolidation. The bones appear grossly intact with degenerative changes of the shoulders and spine. Cervical spinal fusion hardware. IMPRESSION: No acute process of the chest. ACT 112: Negative or not required by law. The above report was generated using voice recognition software. It may contain grammatical, syntax o r spelling errors. Electronically signed by: Eric Flanagan M.D. 11/18/2023 5:19 PM
--- NOTE | 2023-11-18 18:30 | History & Physical Report ---
Date of Service November 18, 2023 Assessment & Plan (1) Stroke-like symptoms: Plan: Left-sided numbness and tingling from head to toe developed around 1100 on 11/18 Stroke alert in the ED Not TNKase eligible; no large vessel occlusion on CT Patient is on DAPT outpatient with ASA 81 mg daily, and Plavix 75 mg daily EKG revealed NSR at 74 bpm; QTc 441 CT revealed no significant changes compared to prior study, in no acute intracranial abnormality CTA head/neck revealed noted multifocal stenosis within the [place], but this is unchanged; also noted mild to moderate narrowing within the proximal V1 segment of right vertebral artery (unchanged) Neurostroke requested the following: Start aspirin 325 mg daily Continue Plavix 75 mg daily Atorvastatin 80 mg daily; per review of past notes, patient is statin intolerant due to myalgias; will hold for now (fasting lipid panel pending) C-spine MRI due to radiculopathy concern for patient history Brain MRI ordered, pending C-spine MRI ordered, pending Urinalysis ordered, pending Dysphagia screen, advance to diet as tolerated Neurochecks q4h Fall precautions Permissive hypertension in the setting of strokelike symptoms; treat BP if SBP >220 or DBP >120; labetalol 10 mg IV q2h as needed Acetaminophen as needed for fever/pain PT/OT consulted Patient will require outpatient neurologic follow-up Case management consult placed as patient reports that she struggles at home on her own, and could likely benefit from home health care A.m. CBC, CMP, mag, fasting lipid panel, A1c (2) Diabetes mellitus, type 2: Plan: Last A1c at 6.3% on 05/08/2023 Glucose 105 on admission Patient is not on diabetic medications at home Weight-based basalbolus while inpatient Lantus 4u BID starting the morning of 11/19 SSI; with target BSG range 110-140mg/dL, CF 75, carb ratio 25 T2DM diet BSG q6h while NPO, then advance to BSG ACHS once eating Adjust regimen as needed (3) Hypertension: Plan: BP at 211/113 at time of admission Permissive HTN in the setting of strokelike symptoms Can continue carvedilol Patient reports she has not been taking her amlodipine 5mg BID over the past 2 months; restart tomorrow (4) Dyslipidemia: Plan: Statin intolerant; myalgias Follow fasting lipid panel in the a.m. (5) GERD (gastroesophageal reflux disease): Plan: Continue pantoprazole (6) Chronic kidney disease, stage 3 (moderate): Plan: Avoid nephrotoxic agents (7) History of CVA (cerebrovascular accident): Plan: Due to stenosis of right EVENING SITTER (April 2023) (8) History of recurrent TIAs: Plan Disposition: Admit to PCU DNR/DNI Keep n.p.o. pending dysphagia screen then advance to T2DM, AHA diet as tolerated VTE PPx: SCDs (hold chemical DVT Ppx pending MRI) Per neurostroke: ASA 324 mg daily Plavix 75 mg daily History of Present Illness Chief Complaint: TIA symptoms Primary Care Provider: Clara Sarkar DO Jacy is an 83-year-old female with PMH of CVA due to stenosis of right EVENING SITTER (04/2023), T2DM, CKD stage III, dyslipidemia, GERD, HTN, spinal stenosis, anxiety, and depression. Patient presented via EMS for numbness in the left side of her body extending from head to feet at 1100 on 11/18. EMS noted hypertension at 210/120. Patient notes this felt similar episodes of TIAs/CVAs. She felt fatigued, and had some brain fog like she "could not get her brain together". She also had numbness and tingling extending from her head to feet. Currently on DAPT, which she took this morning. Patient lives alone, however she denies slurred speech or facial droop. No unilateral deficits or ambulatory dysfunction. However, patient reports her symptoms today were worse than what she experienced in April 2023. Patient notes that she was having some runny nose that started last night. No at home supplemental oxygen use. Patient took her regular morning medications, including aspirin and Plavix. Patient notes that she has not been taking her amlodipine 5 mg twice daily over the past 2 months due to side effects (dizziness, lightheadedness); she has not brought this up with her PCP. She is still taking her carvedilol. She denies recent injuries, or trauma to the neck or head. No recent falls. Patient manages her own medications at home. However, she notes that she could use additional help at home, she does not have home health. Patient is hypertensive at 211/113 at time of admission; vitals otherwise stable. ROS: Patient endorses runny nose, dizziness, lightheadedness, and productive cough (dark). Patient denies fever, chills, night-sweats, GEORGE, loss of vision, diplopia, change in hearing, CP, chest palpitations, pleuritic CP, hemoptysis, SOB, abdominal pain, N/V/D, dysuria, burning with urination, or numbness/tingling on R-sided. Allergies Allergy/AdvReac Type Severity Reaction Status Date / Time doxycycline AdvReac Mild decreased Verified 08/13/23 14:35 urine output escitalopram AdvReac Mild decreased Verified 08/13/23 14:35 urine output prednisone AdvReac Mild feels Verified 08/13/23 14:35 agitated memantine AdvReac Unknown stomach Verified 08/13/23 14:35 pains amoxicillin AdvReac upset Verified 08/13/23 14:35 stomach cefdinir AdvReac Diarrhea Verified 08/13/23 14:35 ciprofloxacin [From Cipro] AdvReac Diarrhea Verified 08/13/23 14:35 fluticasone AdvReac Dizziness Verified 08/13/23 14:35 gabapentin AdvReac abdominal Verified 08/13/23 14:35 pain and drowsy gemfibrozil [From Lopid] AdvReac upset Verified 08/13/23 14:35 stomach irbesartan AdvReac Diarrhea Verified 08/13/23 14:35 lisinopril AdvReac hypertension Verified 08/13/23 14:35 and diarrhea meclizine AdvReac Drowsy Verified 08/13/23 14:35 pitavastatin [From Livalo] AdvReac Unknown Verified 08/13/23 14:35 Ajywybz-AXE-YpK Reductase AdvReac myalgia Verified 08/13/23 14:35 Inhibitor [Hcqnubg-Bbz-Spi Reductase Inhibitor] tizanidine AdvReac nightmares Verified 08/13/23 14:35 tramadol AdvReac insomnia/pr Verified 08/13/23 14:35 uitus trazodone AdvReac Unknown Verified 08/13/23 14:35 Home Medications Medication Instructions Recorded Confirmed Type calcium carbonate 600 mg-vitamin 1 tab PO BID #60 tabs 05/10/21 11/18/23 Rx D3 10 mcg (400 unit) tablet (Calcium 600 + D(3)) lidocaine 4 % topical patch 1 patch topical Q24H PRN pain #30 07/24/21 11/18/23 Rx ea omega-3 acid ethyl esters 1 gram 1 cap PO DAILY 11/09/21 11/18/23 History capsule psveolumjdew-ebnzhymv-wbzfda tablet 1 tab PO DAILY #90 tabs 12/13/21 11/18/23 Rx potassium chloride 10 mEq 10 meq PO DAILY #90 caps 01/09/23 11/18/23 Rx capsule,extended release clopidogrel 75 mg tablet (Plavix) 75 mg PO DAILY #90 tabs 02/20/23 11/18/23 Rx cyclosporine 0.05 % eye drops in a 1 drp OPB DAILY 05/07/23 11/18/23 History dropperette (Restasis) aspirin 81 mg tablet,delayed 81 mg PO QAM #30 tabs 05/09/23 11/18/23 Rx release carvedilol 12.5 mg tablet 12.5 mg PO BID #180 tabs 06/02/23 11/18/23 Rx pantoprazole 40 mg tablet,delayed 40 mg PO DAILY #90 tabs 06/03/23 11/18/23 Rx release (Protonix) amlodipine 5 mg tablet 5 mg PO BID #180 tabs 08/15/23 11/18/23 Rx magnesium oxide 400 mg PO BID 08/27/23 11/18/23 History fluticasone propionate 50 1 spray intranasal DAILY #48 mL 08/29/23 11/18/23 Rx mcg/actuation nasal spray,suspension (Flonase Allergy Relief) Past Med/Surg History Medical History (Updated 11/18/23 @ 22:21 by Jermaine Mares DO) History of CVA (cerebrovascular accident) Allergic rhinitis Diabetes mellitus, type 2 TIA (transient ischemic attack) (11/2021) Arthritis of wrist Lumbar facet joint syndrome Sacroiliitis Spinal stenosis, lumbar region without neurogenic claudication Lumbar pain with radiation down left leg Mild cognitive impairment Venous insufficiency (chronic) (peripheral) Anxiety and depression Hypertension Insomnia Osteopenia History of recurrent TIAs GERD (gastroesophageal reflux disease) Dyslipidemia Chronic kidney disease, stage 3 (moderate) Surgical History S/P blepharoplasty History of carpal tunnel surgery S/P appendectomy S/P cholecystectomy Hx of neck surgery secondary to cervical herniated discs Previous back surgery x3 Family History Father Myocardial infarction Prostate cancer Coronary heart disease Mother Stroke, Onset Age: 72 Myocardial infarction, Onset Age: 76 Hypertension Diabetes Brother Cancer Sister Hodgkins disease Sister Coronary heart disease Brother Diabetes Denies family history of Ovarian cancer Breast cancer Colorectal cancer Social History Smoking Status: Never smoker Second Hand Exposure: No; Do You Dip or Chew Tobacco: No; Hx Alcohol Use: No Hx Substance Use: No Preferred Language: [place] Communication Ability: Effective Visual Impairment: No Limitations Hearing Ability: Normal Studio Producer Required: No Beliefs That Will Affect Care: None marital status: Current Living Situation: Alone Current Living Situation Comment: Patient lives alone in an apartment building current occupational status: retired 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59 Other Information That Helps Us Care for You: No Feels Safe at Home: Yes Safety Concerns: Feels Safe At This Time Childhood Exposure to Second-Hand Smoke: No Diet: other Diet Comment: low sugar caffeine: No during the past year weight has: remained stable Dental Care, Regularly: No Physical Activity Frequency: Other Seatbelt Use: always Sunscreen Use: Yes Assistive Devices: Denture - Upper, Denture - Lower and Glasses Review of Systems Review of Systems: See HPI above Physical Exam Physical Exam: General: no acute distress; pleasant affect; non-toxic appearing; well- nourished; cooperative HEENT: normocephalic, atraumatic; no scleral icterus; PERRLA w/ EOMs intact; left eyelid is slightly more closed than right eyelid; moist mucus membrane; vision and hearing grossly intact; patient demonstrates the ability to protrude and wiggle tongue eipr-gh-pgyj; patient demonstrates ability to raise eyebrows bilaterally; no facial droop Neck: supple; no lymphadenopathy; trachea midline; patient can shrug shoulders against resistance; patient demonstrates ability to rotate neck left and right without becoming dizzy Skin: warm, dry without signs of tenting; no cyanosis; no rashes, bruising, lesions, or erythema noted CV: chest wall NTP; RRR; S1/S2 normal; no murmurs/rubs/gallops; pulses intact and symmetric at radial, DP, and PT Lungs: no acute respiratory distress; symmetrical chest wall expansion; clear breath sounds across all lung miles w/o adventitious sounds; no wheezing ABD: Soft, NTP; BS present; no rebound/guarding; no ascites; no distention; negative CVA tenderness MSK: no tics or fasciculations; no edema noted in the LEs b/l, nonerythematous Neuro: A&Ox3; normal mood and affect; fluent speech; no focal deficits; diminished sensation in the LLE compared to the right (but improving, per patient); sensation is intact, symmetric in the upper extremities and face bilaterally Results & Data Results & Data Vital Signs (Past 12 Hours) Vital Signs Temp Pulse Resp BP Pulse Ox O2 Del Method 11/18/23 18:10 75 15 94 Room Air 11/18/23 18:00 183/101 H 11/18/23 18:00 74 13 94 Room Air 11/18/23 17:50 74 14 93 11/18/23 17:40 75 13 95 11/18/23 17:30 199/102 H 11/18/23 17:30 75 15 97 11/18/23 17:28 180/102 H 11/18/23 17:28 73 19 96 11/18/23 17:20 74 16 96 11/18/23 17:16 188/101 H 11/18/23 17:16 79 16 96 11/18/23 17:10 73 15 96 11/18/23 17:00 75 24 98 11/18/23 16:54 80 11/18/23 16:50 77 10 L 98 11/18/23 16:44 86 19 191/111 H 97 11/18/23 16:03 36.6 C 73 15 216/124 H 97 Room Air Laboratory Results Abnormal lab results 11/18/23 Range/Units 15:14 [place] # (Auto) 0.68 H (0.11-0.59) K/uL BUN/Creatinine Ratio 26.6 H (10-20) Glucose 105 H (70-99(Fasting)) mg/dl Total Protein 8.4 H (6.0-8.3) gm/dl Diagnostic Findings Chest X-Ray 11/18/23 16:08 XR chest 1V portable HISTORY: 83 years-old Female neuro deficit, acute stroke suspected acute shortness of breath COMPARISON: 05/07/2023 TECHNIQUE: AP view of the chest FINDINGS: Cardiomediastinal and hilar silhouettes are within normal limits. No pneumothorax, pleural effusion or airspace consolidation. The bones appear grossly intact with degenerative changes of the shoulders and spine. Cervical spinal fusion hardware. IMPRESSION: No acute process of the chest. ACT 112: Negative or not required by law. The above report was generated using voice recognition software. It may contain grammatical, syntax or spelling errors. Electronically signed by: Eric Flanagan M.D. 11/18/2023 5:[address] 11/18/23 16:[address] DOSE: HISTORY: neuro deficit, acute stroke suspected TECHNIQUE: Multiaxial CT images of the head were performed without the use of intravenous contrast. Automated exposure control was utilized for this study. A dose lowering technique was utilized adhering to the principles of ALARA. Comparison: Head CT 07/28/2023. Findings: The paranasal sinuses and mastoid air cells are clear. The calvarium and skull base are intact. There is no mass, hematoma, midline shift, acute infarct. White matter hypodensity is nonspecific but suggestive of microvascular ischemic change. The ventricles and sulci demonstrate mild age-related involutional changes. Old lacunar infarct again noted within the left basal ganglia/external capsule. Impression: No significant change compared to the prior study. No acute intracranial abnormality. ACT 112: Negative or not required by law. Electronically signed by: Juan Robertson M.D. 11/18/2023 5:00 PM Head CTA 11/18/23 16:08 CT angio neck with con, CT angio head w con CLINICAL HISTORY: 83 years-old Female with neuro deficit, acute stroke suspected. Acute stroke like symptoms with left-sided numbness. COMPARISON STUDY: Head CT of same day, CTA head and neck 07/28/2023 and also 05/07/2023 TECHNIQUE: Following the IV administration of 115 mL of Optiray, CT angiogram of the head and neck was performed from the aortic arch to the skull apex. Images are reviewed in the axial, sagittal, and coronal planes. 3-D MIPS images are created and assessed. IV contrast was administered without complication. All measurements were calculated based on NASCET criteria. A dose lowering technique was utilized adhering to the principles of ALARA. CT DOSE: 1121.73 mGy.cm FINDINGS: Three-vessel morphology of the thoracic aortic arch. There is patency of the innominate and image subclavian arteries. The common carotid arteries are patent. There is mild atherosclerotic plaque at the carotid bulbs resulting in less than 50% stenosis. Short segment focus of high-grade stenosis within the supraclinoid segment of the right ICA on image 407 is unchanged. High-grade stenosis within the distal right CHELA and right EVENING SITTER again noted. This is similar to the prior study. Additional areas of mild to moderate multifocal stenosis within the remaining cerebral arteries remains unchanged. There is however a new short segment focus of moderate stenosis of the left EVENING SITTER on image 75 series 5. No aneurysms identified. Moderate stenosis within the proximal V1 segment of the right vertebral artery is unchanged on image 149 the right vertebral artery is dominant. Unchanged mild multifocal stenoses within the left vertebral artery. Patent basilar artery. No pneumothorax. Unremarkable soft tissues. Multilevel degenerative changes of the cervical spine lung with chronic postoperative changes. IMPRESSION: 1. Generally unchanged scattered areas of multifocal stenoses within the [place] as described above. No acute arterial occlusion identified. 2. Qqqf-tr-lwxqejcm narrowing within the proximal V1 segment of the right vertebral artery is unchanged. ACT 112: Negative or not required by law. The above report was generated using voice recognition software. It may contain grammatical, syntax or spelling errors. Electronically signed by: Eric Flanagan M.D. 11/18/2023 5:00 PM Neck CTA 11/18/23 16:08 CT angio neck with con, CT angio head w con CLINICAL HISTORY: 83 years-old Female with neuro deficit, acute stroke suspected. Acute stroke like symptoms with left-sided numbness. COMPARISON STUDY: Head CT of same day, CTA head and neck 07/28/2023 and also 05/07/2023 TECHNIQUE: Following the IV administration of 115 mL of Optiray, CT angiogram of the head and neck was performed from the aortic arch to the skull apex. Images are reviewed in the axial, sagittal, and coronal planes. 3-D MIPS images are created and assessed. IV contrast was administered without complication. All measurements were calculated based on NASCET criteria. A dose lowering technique was utilized adhering to the principles of ALARA. CT DOSE: 1121.73 mGy.cm FINDINGS: Three-vessel morphology of the thoracic aortic arch. There is patency of the innominate and image subclavian arteries. The common carotid arteries are patent. There is mild atherosclerotic plaque at the carotid bulbs resulting in less than 50% stenosis. Short segment focus of high-grade stenosis within the supraclinoid segment of the right ICA on image 407 is unchanged. High-grade stenosis within the distal right CHELA and right EVENING SITTER again noted. This is similar to the prior study. Additional areas of mild to moderate multifocal stenosis within the remaining cerebral arteries remains unchanged. There is however a new short segment focus of moderate stenosis of the left EVENING SITTER on image 75 series 5. No aneurysms identified. Moderate stenosis within the proximal V1 segment of the right vertebral artery is unchanged on image 149 the right vertebral artery is dominant. Unchanged mild multifocal stenoses within the left vertebral artery. Patent basilar artery. No pneumothorax. Unremarkable soft tissues. Multilevel degenerative changes of the cervical spine lung with chronic postoperative changes. IMPRESSION: 1. Generally unchanged scattered areas of multifocal stenoses within the [place] as described above. No acute arterial occlusion identified. 2. Trwx-id-jobxcrup narrowing within the proximal V1 segment of the right vertebral artery is unchanged. ACT 112: Negative or not required by law. The above report was generated using voice recognition software. It may contain grammatical, syntax or spelling errors. Electronically signed by: Eric Flanagan M.D. 11/18/2023 5:00 PM Code Status & VTE Plan Code Status DNR/DNI VTE Prophylaxis Plan VTE Prophylaxis will be ordered: Yes Supervising Physician Co-Signing Physician Notes I personally saw and examined the patient. I independently reviewed the labs, EKG, imaging, problem list, medication list, past medical history and family history. I verified all cortes points and agree with Juan Hussein PA-C with the following exceptions and/or additions: 83 year old female presents to the ER with left upper and lower extremity numbness and LLE weakness started approximately 11am today. Ongoing symptoms but improved from prior. Multiple previous episode put down to TIAs. No migraine headaches. Known L1 radiculopathy. O/E A&Ox3, HS RRR, no murmurs, Chest CTAB, Abdo SNT, PERRL, CN2-> 12 intact, Left hip flexion 4/5 otherwise 5/5 power throughout, generalized mild numbness on left side (lower > upper extremity) A/P Stroke-like symptoms - Stroke order set. TTE with bubble study if not previously performed, Continue aspirin/clopidogrel. Intolerant to statins. Brain MRI. c- spine MRI to assess for radiculopathy per telestroke recommendations. PG Care Time/CCT Total # of Minutes Spent Total Time Spent with Patient: Total time spent is greater than 50% in coordination of care (as documented) at patient's floor/unit and/or counseling patient: [place] [address] INT INP/OBS CARE 3/75MIN Patient Type Established Medical Decision Making High Complexity Diagnoses Stroke-like symptoms R29.90 Diabetes mellitus, type 2 E11.9 Hypertension I10 Dyslipidemia E78.5 GERD (gastroesophageal reflux disease) K21.9 Chronic kidney disease, stage 3 (moderate) N18.3 History of CVA (cerebrovascular accident) Z86.73 History of recurrent TIAs Z86.73
[2023-11-18] MEDS ORDERED: ASPIRIN 81 MG CHEW PO STA (19:25)
[2023-11-18 20:26] LABS: Appearance Urine Clear (Clear); Bilirubin Urine Negative (Negative); Blood Urine Negative (Negative); Color Urine Yellow; Glucose Urine UA Negative (Negative); Ketones Urine Negative (Negative); Leukocyte Esterase Urine Negative (Negative); Nitrite Urine Negative (Negative); Protein Urine Negative (Negative); Specific Gravity Urine 1.006 (1.000-1.030); Urobilinogen Urine Negative (Negative)
[2023-11-18] MEDS ORDERED: CARBOHYDRATES FOR HYPOGLYCEMIA PO PRN (20:34)
[2023-11-18] MEDS ORDERED: LABETALOL HCL IV 5 MG/ML 20ML IV PRN (20:34)
[2023-11-18] MEDS ORDERED: GLUCAGON FOR INJ 1 MG VIAL SQ PRN (20:34)
[2023-11-18] MEDS ORDERED: ACETAMINOPHEN 325 MG TAB PO PRN (20:34)
[2023-11-18] MEDS ORDERED: GLUCOSE 10 TAB/TUBE PO PRN (20:34)
[2023-11-18] MEDS ORDERED: DEXTROSE 50% 50 ML SYRINGE IV PRN (20:34)
[2023-11-18] MEDS ORDERED: GLUCOSE 40% GEL 15 GM TUBE PO PRN (20:34)
[2023-11-18] MEDS ORDERED: ONDANSETRON INJ 2 MG/ML 2 ML VIAL IV PRN (20:34)
[2023-11-18] MEDS ORDERED: PHARMACIST DISCHARGE MED REC CONSULT PRN (20:34)
[2023-11-18] MEDS ORDERED: LIDOCAINE 5% 1 PATCH TD PRN (20:39)
[2023-11-18] MEDS: MAGNESIUM OXIDE 400 MG TAB PO SCH (22:31)
[2023-11-18] MEDS: carvediloL 12.5 MG TAB PO SCH (22:31)
[2023-11-18] MEDS: INSULIN ASPART PER UNIT CHARGE SC SCH (22:32)
[2023-11-18] MEDS ORDERED: hydrOXYzine HCl 25 MG TAB PO ONE (22:38)
--- NOTE | 2023-11-18 23:08 | Magnetic Resonance Report ---
Exam(s): MRI HEAD Without Contrast EXAM: MR Head Without Intravenous Contrast CLINICAL HISTORY: Reason for exam: Stroke-like symptoms. TECHNIQUE: Magnetic resonance images of the head/brain without intravenous contrast in multiple planes. COMPARISON: CT head 11/18/2023. FINDINGS: Brain: Global parenchymal volume loss with chronic microvascular ischemic changes. No hemorrhage. Ventricles: No ventriculomegaly. Bones/joints: Unremarkable. No acute fracture. Sinuses: Mild mucosal thickening in the ethmoid sinuses. Mastoid air cells: Trace mastoid effusions. Orbits: Bilateral lens replacement. IMPRESSION: 1. No evidence of acute infarction. 2. Global parenchymal volume loss with chronic microvascular ischemic changes. Electronically signed by: Ronald Boggs MD 11/18/23 23:07 PM
--- NOTE | 2023-11-19 00:02 | Magnetic Resonance Report ---
Exam(s): MRI C SPINE EXAM: MR Cervical Spine Without Intravenous Contrast CLINICAL HISTORY: Reason for exam: Stroke-like symptoms. TECHNIQUE: Magnetic resonance images of the cervical spine without intravenous contrast in multiple planes. Mild metal artifact from orthopedic hardware in the spine. Mild motion artifact. COMPARISON: MRI cervical spine 05/07/23, and CTA neck done earlier. FINDINGS: Vertebrae: No marrow edema, compression deformity or interval change. Metal artifact from anterior fusion hardware C5-C7. Spinal cord: No abnormal signal. Soft tissues: No interspinous ligamentous edema, prevertebral edema or epidural hematoma. DISCS/SPINAL CANAL/NEURAL FORAMINA: C2-C3: Mild degenerative disc disease. C3-C4: Mild degenerative disc disease. C4-C5: Moderate degenerative disc disease. C5-C6: Postop fusion, patent central spinal canal. C6-C7: Postop fusion, patent central spinal canal. C7-T1: Mild degenerative disc disease. T1-T2: Moderate right uncovertebral joint hypertrophy and moderate right foraminal stenosis. OTHER: No disc herniation or central spinal stenosis. Moderate to severe facet hypertrophy, stable. IMPRESSION: 1. Stable degenerative and postsurgical change. 2. No disc herniation, spinal stenosis, epidural hematoma, abnormal cord signal, or discitis/osteomyelitis. 3. No interval change. Electronically signed by: Tammy Nicholson M.D. 11/19/23 00:01 AM
[2023-11-19 07:28] LABS: Basophils # (auto) 0.04 K/uL (0.00-0.20); Basophils % (auto) 0.6 %; Eosinophils # (auto) 0.24 K/uL (0.00-0.50); Eosinophils % (auto) 3.7 %; Hematocrit (blood only) 39.9 % (37.0-47.0); Immature Granulocytes # (auto) 0.05 K/uL (0.01-0.20); Immature Granulocytes % (auto) 0.8 %; Lymphocytes # (auto) 2.92 K/uL (1.20-3.40); Lymphocytes % (auto) 45.6 %; Mean Corpuscular Hemoglobin 31.8 pg (25.0-34.0); Mean Corpuscular Hgb Conc 35.1 g/dL (32.0-36.0); Mean Corpuscular Volume 90.7 fL (80.0-100.0); Mean Platelet Volume 9.5 fL (9.4-12.4); Monocytes % (auto) 9.4 %; Neutrophils # (auto) 2.56 K/uL (1.40-6.50); Neutrophils % (auto) 39.9 %; Platelet Count 165 K/uL (130-400); RDW Coefficient of Variation 12.5 % (11.5-14.5); White Blood Count 6.41 K/ul (4.8-10.8)
[2023-11-19 07:51] LABS: Anion Gap 9 (3-11); BUN Creatinine Ratio 23.6 (10-20); Blood Urea Nitrogen 17 mg/dl (6-23); Calcium 9.4 mg/dl (8.6-10.3); Carbon Dioxide 22 mmol/L (21-32); Chloride 106 mmol/L (98-107); Cholesterol 183 mg/dl (0-200); Creatinine Clr Calc Pharmacy 43.9 ml/min; Est GFR (African American) 89.1 ml/min; Est GFR (Non-African American) 76.9 ml/min; Glucose 107 mg/dl (70-99(Fasting)); HDL Cholesterol 33 mg/dl; Sodium 137 mmol/L (136-145); Triglycerides 459 mg/dl (0-150)
[2023-11-19 07:53] LABS: Chol HDL Ratio 5.5 (0-5)
[2023-11-19] MEDS: carvediloL 12.5 MG TAB PO SCH ×2 (08:14→17:28)
[2023-11-19] MEDS: CLOPIDOGREL BISULFATE 75 MG TAB PO SCH (08:14)
[2023-11-19] MEDS: ASPIRIN 81 MG CHEW PO SCH (08:14)
[2023-11-19] MEDS: PANTOprazole 40 MG TAB PO SCH (08:14)
[2023-11-19] MEDS: MAGNESIUM OXIDE 400 MG TAB PO SCH ×2 (08:14→19:40)
[2023-11-19] MEDS: POTASSIUM CHLORIDE 10 MEQ TABCR PO SCH (08:15)
[2023-11-19] MEDS: FLUTICASONE PROPIONATE NA SPR 16 GM BTL SCH (08:15)
[2023-11-19 08:23] LABS: Estimated Average Glucose 128 mg/dl; Hemoglobin A1C 6.1 % (4.5-5.6)
[2023-11-19] MEDS: INSULIN ASPART PER UNIT CHARGE SC SCH ×4 (08:30→19:46)
[2023-11-19] MEDS ORDERED: LANTUS PER UNIT CHARGE SQ SCH (09:00)
[2023-11-19] MEDS ORDERED: amLODIPine BESYLATE 5 MG TAB PO SCH (09:00)
[2023-11-19] MEDS ORDERED: ARTIFICIAL TEARS OPB PRN (09:00)
--- NOTE | 2023-11-19 10:12 | Hospitalist Progress Note ---
Date of Service November 19, 2023 Assessment & Plan (1) Stroke-like symptoms: Plan: Left-sided numbness and tingling from head to toe developed around 1100 on 11/18 Was a stroke alert in the ED, deemed not a TNKase candidate CT angio head and neck, MRI brain all within normal limits, MRI brain showed evidence of chronic microvascular ischemic changes Patient is on DAPT outpatient with ASA 81 mg daily, and Plavix 75 mg daily Teleneuro consulted, continue aspirin 325 daily, Plavix 75 daily and atorvastatin 80 mg daily Neurochecks q4h Fall precautions PT OT on board Follows up with neurology outpatient (2) Diabetes mellitus, type 2: Plan: Last A1c at 6.3% on 05/08/2023 Glucose 105 on admission Patient is not on diabetic medications at home Weight-based basalbolus while inpatient Lantus 4u BID starting the morning of 11/19 SSI; with target BSG range 110-140mg/dL, CF 75, carb ratio 25 T2DM diet BSG q6h while NPO, then advance to BSG ACHS once eating Adjust regimen as needed (3) Hypertension: Plan: BP 133/67 today Patient reports she has not been taking her amlodipine 5mg BID over the past 2 months; restart (4) Dyslipidemia: Plan: Statin intolerant; myalgias Follow fasting lipid panel in the a.m. 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 Physical Exam Physical Exam: The patient is awake, alert and oriented 3, well developed and well nourished, normocephalic and atraumatic, lying in bed and in no acute distress. HEENT--PERRL, EOMI, mucous membranes and oropharynx mildly dry Neck--supple. No JVD. No bruits. Thyroid normal, trachea midline, no adenopathy. Heart--normal S1 and S2. No murmurs, rubs or gallops. Lungs--clear bilaterally, no respiratory distress, no accessory muscle use. Abdomen--normal bowel sounds and soft. Mild epigastric and left sided abdominal pain Extremities--no cyanosis or clubbing. No edema. Dermatologic--normal skin turgor, normal color, no abnormal lymph nodes, no rash. Neurologic--cranial nerves II through XII grossly intact. Rheumatologic--normal range of motion. Psychiatric--normal affect. Results & Data Results & Data Vital Signs (Past 12 Hours) Vital Signs Temp Pulse Resp BP Pulse Ox O2 Del Method 11/19/23 07:53 97.5 F L 68 18 133/67 95 Room Air 11/19/23 02:09 97.3 F L 73 18 105/72 92 Room Air 11/18/23 23:22 97.3 F L 72 18 160/86 H 97 Room Air 11/18/23 22:35 97.3 F L 74 20 182/81 H 94 Room Air PG Care Time/CCT Total # of Minutes Spent Total Time Spent with Patient: Total time spent is greater than 50% in coordination of care (as documented) at patient's floor/unit and/or counseling patient: Coding Level of Care Code 65491 SUB INP/OBS CARE 2/35MIN Diagnoses Stroke-like symptoms R29.90 Diabetes mellitus, type 2 E11.9 Hypertension I10 Dyslipidemia E78.5 GERD (gastroesophageal reflux disease) K21.9 Chronic kidney disease, stage 3 (moderate) N18.3 History of CVA (cerebrovascular accident) Z86.73 History of recurrent TIAs Z86.73 Time Spent (min) 35
--- NOTE | 2023-11-19 10:48 | Pharmacy Report ---
- Date of Service November 19, 2023 - Pharmacy CVA/TIA Medication Review Medications to Prevent Stroke handout has been added to the patients discharge packet. Antiplatelet(s) * Aspirin 325 mg daily + Clopidogrel 75 mg daily Cholesterol * High intensity statin deferred due to statin intolerance in past (caused myalgias), waiting for LDL results. Also age > 75 y/o. DVT Prophylaxis * SCD knee Therapeutic Anticoagulation * No history of Afib/Aflutter noted Type 2 Diabetes * Patient does not have T2DM
--- NOTE | 2023-11-19 12:13 | XCELERA ---
[id number] [id number]
[2023-11-20 06:44] LABS: Basophils # (auto) 0.04 K/uL (0.00-0.20); Basophils % (auto) 0.7 %; Eosinophils # (auto) 0.14 K/uL (0.00-0.50); Eosinophils % (auto) 2.4 %; Hematocrit (blood only) 39.4 % (37.0-47.0); Hemoglobin 13.7 g/dl (12.0-16.0); Immature Granulocytes # (auto) 0.04 K/uL (0.01-0.20); Immature Granulocytes % (auto) 0.7 %; Lymphocytes # (auto) 2.73 K/uL (1.20-3.40); Lymphocytes % (auto) 47.4 %; Mean Corpuscular Hemoglobin 31.7 pg (25.0-34.0); Mean Corpuscular Hgb Conc 34.8 g/dL (32.0-36.0); Mean Corpuscular Volume 91.2 fL (80.0-100.0); Mean Platelet Volume 9.7 fL (9.4-12.4); Monocytes # (auto) 0.54 K/uL (0.11-0.59); Monocytes % (auto) 9.4 %; Neutrophils # (auto) 2.27 K/uL (1.40-6.50); Neutrophils % (auto) 39.4 %; Platelet Count 167 K/uL (130-400); RDW Coefficient of Variation 12.4 % (11.5-14.5); RDW Standard Deviation 41.6 fL (36.4-46.3); Red Blood Count 4.32 M/uL (4.20-5.40); White Blood Count 5.76 K/ul (4.8-10.8)
[2023-11-20 06:54] LABS: BUN Creatinine Ratio 28.8 (10-20); Calcium 9.1 mg/dl (8.6-10.3); Creatinine Clr Calc Pharmacy 39.5 ml/min; Est GFR (African American) 78.5 ml/min; Est GFR (Non-African American) 67.7 ml/min
[2023-11-20] MEDS: INSULIN ASPART PER UNIT CHARGE SC SCH ×2 (09:48→13:06)
[2023-11-20] MEDS: FLUTICASONE PROPIONATE NA SPR 16 GM BTL SCH (09:54)
[2023-11-20] MEDS: carvediloL 12.5 MG TAB PO SCH (09:54)
[2023-11-20] MEDS: MAGNESIUM OXIDE 400 MG TAB PO SCH (09:54)
[2023-11-20] MEDS: ASPIRIN 81 MG CHEW PO SCH (09:55)
[2023-11-20] MEDS: POTASSIUM CHLORIDE 10 MEQ TABCR PO SCH (09:56)
[2023-11-20] MEDS: PANTOprazole 40 MG TAB PO SCH (09:57)
[2023-11-20] MEDS: CLOPIDOGREL BISULFATE 75 MG TAB PO SCH (09:57)
[2023-11-20] MEDS ORDERED: LIDOCAINE 5% 1 PATCH TD STA (10:00)
[2023-11-20] MEDS ORDERED: STROKE PATIENT DISCHARGE STA (10:22)
--- NOTE | 2023-11-20 10:37 | Discharge Summary ---
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 Patient presented via EMS for numbness in the left side of her body extending from head to feet at 1100 on 11/18. EMS noted hypertension at 210/120. Patient notes this felt similar episodes of TIAs/CVAs. She felt fatigued, and had some brain fog like she "could not get her brain together". She also had numbness and tingling extending from her head to feet. Currently on DAPT, which she took this morning. Patient lives alone, however she denies slurred speech or facial droop. No unilateral deficits or ambulatory dysfunction. However, patient reports her symptoms today were worse than what she experienced in April 2023. Patient notes that she was having some runny nose that started last night. No at home supplemental oxygen use. Patient took her regular morning medications, including aspirin and Plavix. Patient notes that she has not been taking her amlodipine 5 mg twice daily over the past 2 months due to side effects (dizziness, lightheadedness); she has not brought this up with her PCP. She is still taking her carvedilol. She denies recent injuries, or trauma to the neck or head. No recent falls. Patient manages her own medications at home. However, she notes that she could use additional help at home, she does not have home health. Patient is hypertensive at 211/113 at time of admission; vitals otherwise stable. ROS: Patient endorses runny nose, dizziness, lightheadedness, and productive cough (dark). Patient denies fever, chills, night-sweats, GEORGE, loss of vision, diplopia, change in hearing, CP, chest palpitations, pleuritic CP, hemoptysis, SOB, abdominal pain, N/V/D, dysuria, burning with urination, or numbness/tingling on R-sided. Principal Diagnosis TIA Discharge Exam The patient is awake, alert and oriented 3, well developed and well nourished, normocephalic and atraumatic, lying in bed and in no acute distress. HEENT--PERRL, EOMI, mucous membranes and oropharynx mildly dry Neck--supple. No JVD. No bruits. Thyroid normal, trachea midline, no adenopathy. Heart--normal S1 and S2. No murmurs, rubs or gallops. Lungs--clear bilaterally, no respiratory distress, no accessory muscle use. Abdomen--normal bowel sounds and soft. Mild epigastric and left sided abdominal pain Extremities--no cyanosis or clubbing. No edema. Dermatologic--normal skin turgor, normal color, no abnormal lymph nodes, no rash. Neurologic--cranial nerves II through XII grossly intact. Rheumatologic--normal range of motion. Psychiatric--normal affect. Discharge Data Allergies Allergy/AdvReac Type Severity Reaction Status Date / Time doxycycline AdvReac Mild decreased Verified 08/13/23 14:35 urine output escitalopram AdvReac Mild decreased Verified 08/13/23 14:35 urine output prednisone AdvReac Mild feels Verified 08/13/23 14:35 agitated memantine AdvReac Unknown stomach Verified 08/13/23 14:35 pains amoxicillin AdvReac upset Verified 08/13/23 14:35 stomach cefdinir AdvReac Diarrhea Verified 08/13/23 14:35 ciprofloxacin [From Cipro] AdvReac Diarrhea Verified 08/13/23 14:35 fluticasone AdvReac Dizziness Verified 08/13/23 14:35 gabapentin AdvReac abdominal Verified 08/13/23 14:35 pain and drowsy gemfibrozil [From Lopid] AdvReac upset Verified 08/13/23 14:35 stomach irbesartan AdvReac Diarrhea Verified 08/13/23 14:35 lisinopril AdvReac hypertension Verified 08/13/23 14:35 and diarrhea meclizine AdvReac Drowsy Verified 08/13/23 14:35 pitavastatin [From Livalo] AdvReac Unknown Verified 08/13/23 14:35 Xrtmfrv-AWL-SgN Reductase AdvReac myalgia Verified 08/13/23 14:35 Inhibitor [Giulmni-Tlq-Rmn Reductase Inhibitor] tizanidine AdvReac nightmares Verified 08/13/23 14:35 tramadol AdvReac insomnia/pr Verified 08/13/23 14:35 uitus trazodone AdvReac Unknown Verified 08/13/23 14:35 Consultations 11/18/23 18:46 ED Decision to Admit Stat Ordered Studies 11/18/23 16:08 CT angio head w con Stat CT angio neck with con Stat CT head/brain wo con Stat 11/18/23 19:25 MRI Brain [MR brain wo con] Urgent MRI Cervical [MR cervical spine wo con] Urgent Hospital Course (1) Stroke-like symptoms: Transient Ischemic Attack Left-sided numbness and tingling from head to toe developed around 1100 on 11/18 Was a stroke alert in the ED, deemed not a TNKase candidate CT angio head and neck, MRI brain all within normal limits, MRI brain showed evidence of chronic microvascular ischemic changes Patient is on DAPT outpatient with ASA 81 mg daily, and Plavix 75 mg daily Teleneuro consulted, continue aspirin 325 daily, Plavix 75 daily and atorvastatin 80 mg daily Neurochecks q4h Fall precautions PT OT on board Follows up with neurology outpatient (2) Diabetes mellitus, type 2: Last A1c at 6.3% on 05/08/2023 Glucose 105 on admission Patient is not on diabetic medications at home Weight-based basalbolus while inpatient Lantus 4u BID starting the morning of 11/19 SSI; with target BSG range 110-140mg/dL, CF 75, carb ratio 25 T2DM diet BSG q6h while NPO, then advance to BSG ACHS once eating Adjust regimen as needed (3) Hypertension: BP 133/67 today Patient reports she has not been taking her amlodipine 5mg BID over the past 2 months; restart According to son and daughter, her blood pressure tends to be labile and she gets dizzy when she takes amlodipine with boderline low pressure (4) Dyslipidemia: Statin intolerant; myalgias Follow fasting lipid panel in the a.m. 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) (8) History of recurrent TIAs: Plan Disposition: Await evaluation by physical therapy, DNR/DNI VTE PPx: SCDs (hold chemical DVT Ppx pending MRI) Per neurostroke: ASA 324 mg daily Plavix 75 mg daily Total Time Total Time Spent Total Time Spent (In Minutes): 35 Discharge Plan Discharge Items Patient Disposition: Home - Self-Care Reason For Visit: STROKE-LIKE SYMPTOMS Discharge Diagnosis: TIA Activity: Resume your previous activity Non-emergency contact: Primary Care Provider Call non-emergency contact if: you have any medication questions Follow-up/Referrals: Clara Sarkar DO [Primary Care Provider] - 12/02/23 10:20 am Diet: Regular Addtl Attending Provider Instructions: please make appointment to follow up with your PCP Pending Studies at Discharge: No Stand-Alone Forms: My [facility], Smoking Cessation, Medications to Prevent Stroke Medications and DC Order Prescriptions: Continued calcium carbonate-vitamin D3 [Calcium 600 + D(3)] 600 mg(1,500mg) -400 unit tablet 1 tab PO BID Qty: 60 0RF hpvqizwlvlra-dastwbbv-uueesj Tablet 1 tab PO DAILY Qty: 90 1RF potassium chloride 10 mEq capsule, extended release 10 meq PO DAILY Qty: 90 1RF clopidogrel [Plavix] 75 mg tablet 75 mg PO DAILY Qty: 90 3RF carvedilol 12.5 mg tablet 12.5 mg PO BID Qty: 180 1RF pantoprazole [Protonix] 40 mg tablet,delayed release (DR/EC) 40 mg PO DAILY Qty: 90 1RF fluticasone propionate [Flonase Allergy Relief] 50 mcg/actuation spray,suspension 1 spray INTNAS DAILY Qty: 48 1RF lidocaine 4 % adhesive patch,medicated 1 patch topical Q24H PRN (Reason: pain) Qty: 30 5RF Rx Instructions: may leave on for up to 12 hrs magnesium oxide 400 mg magnesium capsule 400 mg PO BID omega-3 acid ethyl esters 1 gram capsule 1 cap PO DAILY cyclosporine [Restasis] 0.05 % dropperette 1 drp OPB DAILY aspirin 81 mg Tablet,Delayed Release (Dr/Ec) 81 mg PO QAM Qty: 30 5RF Held amlodipine 5 mg tablet 5 mg PO BID Qty: 180 1RF Hold Instructions: Resume on 11/27/23. Discharge Orders: Discharge Order (Routine); Ordered 11/20/23 Ordered By: Parish Umanzor/Other Patient Handouts: A1C Admission Data Admit Date/Time: 11/18/23 19:43 Attending Provider: Parish Patel Admit Provider: Giancarlo Culver Primary Care Provider: Clara Sarkar Other Providers: Giancarlo Culver Coding Level of Care Code 96304 INP/OBS DISCH >30 MIN Diagnoses Stroke-like symptoms R29.90 Diabetes mellitus, type 2 E11.9 Hypertension I10 Dyslipidemia E78.5 GERD (gastroesophageal reflux disease) K21.9 Chronic kidney disease, stage 3 (moderate) N18.3 History of CVA (cerebrovascular accident) Z86.73 History of recurrent TIAs Z86.73 Time Spent (min) 35
--- NOTE | 2023-11-21 18:09 | Electrocardiogram Report ---
Test Reason : Blood Pressure : / mmHG Vent. Rate : 074 BPM Atrial Rate : 074 BPM P-R Int : 178 ms QRS Dur : 074 ms QT Int : 398 ms P-R-T Axes : 067 -05 031 degrees QTc Int : 441 ms Normal sinus rhythm Normal ECG When compared with ECG of 28-JUL-2023 13:28, No significant change was found Confirmed by Jarad Oviedo ([id number]) on 11/21/2023 6:08:34 PM Referred By: REFERRED SELF Confirmed By:Jarad Oviedo
== END 2023-11-20 13:49 | disposition home health service (06) | DRG 69 ==
LOC: ED 15:38 → 4W 19:43 → SUATTDRO 19:43 → 4W 20:12

== ENCOUNTER 2024-01-25 13:25 | Inpatient (IN) ==
--- NOTE | 2024-01-25 14:10 | Emergency Department Note ---
Impression & Plan Ambulatory dysfunction, Dizziness, Hypertensive urgency, Numbness and tingling ED Provider Note HISTORY OF PRESENT ILLNESS: Patient is an 83-year-old female presenting with bilateral lower extremity numbness and right-sided weakness. Patient reports that she developed numbness in her bilateral feet starting a week ago. The numbness has progressed and worked up her legs bilaterally. She states in the last 2 to 3 days her numbness has also advanced up the right side of her body and into her right arm. She reports "I can barely lift anything up with my right hand." She denies any headache, but does report blurry vision over the last week. Denies any chest pain or shortness of breath. She is on Plavix for previous history of mini strokes. She is on carvedilol for her blood pressure management. She states her blood pressure has been over 200 systolic over the last week. Denies any recent falls or head injuries. Denies any nausea or vomiting. Denies any recent fevers. She does report she has been diagnosed with lumbar stenosis in the past, but has never had numbness like she has had in the last week. ROS: as above PHYSICAL EXAM: Constitutional: Patient appears in no acute distress. HENT: Head: Normocephalic and atraumatic. Eyes: EOMI, PERRL Mouth/Throat: Mucous membranes moist. Neck: Trachea midline. Neck supple. Cardiovascular: RRR, No murmurs, rubs or gallops. Intact distal pulses. Pulmonary/Chest: No respiratory distress. Breath sounds clear and equal bilaterally. No wheezes or rales. Abdominal: Abdomen soft, no tenderness, rebound or guarding. Musculoskeletal: No edema, tenderness or deformity noted. Skin: Warm and dry. No rash, erythema, pallor or cyanosis Psychiatric: Appropriate mood and affect for situation. Neurological: Alert and keenly responsive. Facies symmetric. Able to raise eyebrows, close eyes, smile, puff mouth, stick out tongue, move tongue left and right and raise palate symmetrically. Able to shrug shoulders. PERRLA. SILT to forehead below eye and at jawline. Can hear soft noise bilaterally. Strength 5/5 in bilateral upper and lower extremities. SILT throughout bilateral upper and lower extremities. MDM: - Vitals signs showed hypertension - History obtained via patient. History as above. - Chronic conditions affecting care: CVA; HTN; anxiety/depression; spinal stenosis; CKD stage 3; HLD - Differential diagnoses include, but are not limited to: HTN urgency vs emergency; ACS; pneumonia; UTI; CVA; intracranial hemorrhage - Order placed for continuous cardiac monitoring. At this time, monitor showed rate of 75 bpm with normal sinus rhythm, per my interpretation. - External medical records reviewed. Primary care visit note dated 12/17/2023 was reviewed. Patient had her losartan 50 mg daily changed to 75 mg daily. - EKG interpreted by myself showed normal sinus rhythm. Rate 71 bpm. QT 390. No acute ischemic changes. - Laboratory workup interpreted by myself showed normal WBC; stable electrolytes; normal troponin; normal magnesium - UA negative - COVID negative - CXR negative for pneumonia, per my interpretation - CT head wo contrast negative for acute intracranial pathology - Patient given 10 mg IV hydralazine for BP control in ER. On reassessment, her SBP came down to 160s. It then started to become elevated again. - On reassessment, patient is still complaining of numbness and blurry vision. Symptoms have been ongoing a week, but CT head wo contrast negative for acute pathology. - Repeat BPs again in the 200s. Patient ambulated to the bathroom and became very dizzy and her blood pressure went up to 220. She was given her home dose of 12.5 mg of carvedilol and an extra 50 mg of her p.o. losartan. - Discussed results with patient. She lives home alone and is expressing concern that she is unable to care for herself at home. She would be interested in possible rehab if evaluated by PT/OT on the inpatient side. - Discussion was had with family independence case manager about patient's case and need for admission - Hospitalist consulted for admission - [facility] 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 Sacroiliitis Spinal stenosis, lumbar region without neurogenic claudication Lumbar pain with radiation down left leg Mild cognitive impairment Venous insufficiency (chronic) (peripheral) Anxiety and depression Hypertension Insomnia Osteopenia History of recurrent TIAs GERD (gastroesophageal reflux disease) Dyslipidemia Chronic kidney disease, stage 3 (moderate) Surgical History S/P blepharoplasty History of carpal tunnel surgery S/P appendectomy S/P cholecystectomy Hx of neck surgery Previous back surgery Family History Father Myocardial infarction Prostate cancer Coronary heart disease Mother Stroke, Onset Age: 72 Myocardial infarction, Onset Age: 76 Hypertension Diabetes Brother Cancer Sister Hodgkins disease Sister Coronary heart disease Brother Diabetes Denies family history of Ovarian cancer Breast cancer Colorectal cancer Social History Smoking Status: Never smoker Second Hand Exposure: No; Do You Dip or Chew Tobacco: No; Hx Alcohol Use: No Hx Substance Use: No Preferred Language: Malay Communication Ability: Effective Visual Impairment: No Limitations Hearing Ability: Normal Vp Project Required: No Beliefs That Will Affect Care: None marital status: Current Living Situation: Alone Current Living Situation Comment: Patient lives alone in an apartment building current occupational status: retired 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59 Feels Safe at Home: Yes Childhood Exposure to Second-Hand Smoke: No Diet: other Diet Comment: low sugar caffeine: No during the past year weight has: remained stable Dental Care, Regularly: No Physical Activity Frequency: Other Seatbelt Use: always Sunscreen Use: Yes Assistive Devices: Cane and Walker Allergies Allergies Allergy/AdvReac Type Severity Reaction Status Date / Time doxycycline AdvReac Mild decreased Verified 01/25/24 16:48 urine output escitalopram AdvReac Mild decreased Verified 01/25/24 16:48 urine output prednisone AdvReac Mild feels Verified 01/25/24 16:48 agitated memantine AdvReac Unknown stomach Verified 01/25/24 16:48 pains amoxicillin AdvReac upset Verified 01/25/24 16:48 stomach cefdinir AdvReac Diarrhea Verified 01/25/24 16:48 ciprofloxacin [From Cipro] AdvReac Diarrhea Verified 01/25/24 16:48 fluticasone AdvReac Dizziness Verified 01/25/24 16:48 gabapentin AdvReac abdominal Verified 01/25/24 16:48 pain and drowsy gemfibrozil [From Lopid] AdvReac upset Verified 01/25/24 16:48 stomach irbesartan AdvReac Diarrhea Verified 01/25/24 16:48 lisinopril AdvReac hypertension Verified 01/25/24 16:48 and diarrhea meclizine AdvReac Drowsy Verified 01/25/24 16:48 pitavastatin [From Livalo] AdvReac Unknown Verified 01/25/24 16:48 Btvasmq-VPM-UbZ Reductase AdvReac myalgia Verified 01/25/24 16:48 Inhibitor [Quuowut-Hch-Mtx Reductase Inhibitor] tizanidine AdvReac nightmares Verified 01/25/24 16:48 tramadol AdvReac insomnia/pr Verified 01/25/24 16:48 uitus trazodone AdvReac Unknown Verified 01/25/24 16:48 Home Meds Home Medications Medication Instructions Recorded Confirmed omega-3 acid ethyl esters 1 gram 1 cap PO DAILY 11/09/21 01/25/24 capsule cyclosporine 0.05 % eye drops in a 1 drp OPB DAILY 05/07/23 01/25/24 dropperette (Restasis) magnesium oxide 400 mg PO BID 08/27/23 01/25/24 estradiol 0.01% (0.1 mg/gram) 1 applic vaginal 3XWK 01/25/24 01/25/24 vaginal cream Previous Rx's Medication Instructions Recorded calcium carbonate 600 mg-vitamin 1 tab PO BID #60 tabs 05/10/21 D3 10 mcg (400 unit) tablet (Calcium 600 + D(3)) lidocaine 4 % topical patch 1 patch topical Q24H PRN pain #30 07/24/21 ea sgqxubdpygnh-nifaypxo-aqdbid tablet 1 tab PO DAILY #90 tabs 12/13/21 clopidogrel 75 mg tablet (Plavix) 75 mg PO DAILY #90 tabs 02/20/23 aspirin 81 mg tablet,delayed 81 mg PO QAM #30 tabs 05/09/23 release pantoprazole 40 mg tablet,delayed 40 mg PO DAILY #90 tabs 06/03/23 release (Protonix) fluticasone propionate 50 1 spray intranasal DAILY #48 mL 08/29/23 mcg/actuation nasal spray,suspension (Flonase Allergy Relief) potassium chloride 10 mEq 10 meq PO DAILY #90 caps 11/27/23 capsule,extended release carvedilol 12.5 mg tablet 12.5 mg PO BID #60 tabs 12/23/23 losartan 25 mg tablet 50 mg (2 x 25 mg) PO DAILY 1 month 12/23/23 #60 tabs fenofibrate nanocrystallized 145 145 mg PO DAILY #90 tabs 12/25/23 mg tablet (Tricor) Results & Data (ED) Vital Signs Vital Signs - 24 hr 01/25/24 13:30 01/25/24 14:01 01/25/24 14:08 Temperature 36.0 C L Temperature Source Temporal Artery Scan Pulse Rate 75 66 Pulse Rate [Apical] 65 Pulse Rate from SpO2 Sensor Pulse Rhythm Regular Pulse Rhythm [Apical] Regular Pulse Strength [Apical] Normal Respiratory Rate 20 20 18 Respiratory Effort / Characteristics Non-Labored Spontaneous Non-Labored Spontaneous Respiratory Depth Normal Normal Respiratory Pattern Regular Blood Pressure 225/110 H Blood Pressure [Right Arm] 218/116 H Blood Pressure Mean 148 Blood Pressure Mean [Right Arm] 150 Blood Pressure Position [Right Arm] Lying Pulse Oximetry 95 96 98 Oxygen Delivery Method Room Air Room Air Room Air Sepsis Recent Fever Within 48 Hours No Sepsis New/Unexplained Change in Mental Status N/A Sepsis Action Taken by Nursing No Action Required 01/25/24 14:20 01/25/24 14:30 01/25/24 14:32 Temperature Temperature Source Pulse Rate 70 75 69 Pulse Rate [Apical] Pulse Rate from SpO2 Sensor 71 74 Pulse Rhythm Pulse Rhythm [Apical] Pulse Strength [Apical] Respiratory Rate 13 20 Respiratory Effort / Characteristics Respiratory Depth Respiratory Pattern Blood Pressure 168/82 H 161/76 H Blood Pressure [Right Arm] Blood Pressure Mean 110 104 Blood Pressure Mean [Right Arm] Blood Pressure Position [Right Arm] Pulse Oximetry 95 95 Oxygen Delivery Method Room Air Room Air Sepsis Recent Fever Within 48 Hours Sepsis New/Unexplained Change in Mental Status Sepsis Action Taken by Nursing 01/25/24 14:40 01/25/24 14:50 01/25/24 14:50 Temperature Temperature Source Pulse Rate 73 74 Pulse Rate [Apical] Pulse Rate from SpO2 Sensor 74 76 Pulse Rhythm Pulse Rhythm [Apical] Pulse Strength [Apical] Respiratory Rate 17 15 Respiratory Effort / Characteristics Respiratory Depth Respiratory Pattern Blood Pressure 167/74 H 169/82 H Blood Pressure [Right Arm] Blood Pressure Mean 105 134 Blood Pressure Mean [Right Arm] Blood Pressure Position [Right Arm] Pulse Oximetry 96 96 Oxygen Delivery Method Room Air Sepsis Recent Fever Within 48 Hours Sepsis New/Unexplained Change in Mental Status Sepsis Action Taken by Nursing 01/25/24 15:00 01/25/24 15:00 01/25/24 15:10 Temperature Temperature Source Pulse Rate 71 73 Pulse Rate [Apical] Pulse Rate from SpO2 Sensor 71 73 Pulse Rhythm Pulse Rhythm [Apical] Pulse Strength [Apical] Respiratory Rate 14 12 Respiratory Effort / Characteristics Respiratory Depth Respiratory Pattern Blood Pressure 168/82 H Blood Pressure [Right Arm] Blood Pressure Mean 135 Blood Pressure Mean [Right Arm] Blood Pressure Position [Right Arm] Pulse Oximetry 96 96 Oxygen Delivery Method Sepsis Recent Fever Within 48 Hours Sepsis New/Unexplained Change in Mental Status Sepsis Action Taken by Nursing 01/25/24 15:10 01/25/24 15:20 01/25/24 15:20 Temperature Temperature Source Pulse Rate Pulse Rate [Apical] Pulse Rate from SpO2 Sensor 75 Pulse Rhythm Pulse Rhythm [Apical] Pulse Strength [Apical] Respiratory Rate Respiratory Effort / Characteristics Respiratory Depth Respiratory Pattern Blood Pressure 191/96 H 203/99 H Blood Pressure [Right Arm] Blood Pressure Mean 156 118 Blood Pressure Mean [Right Arm] Blood Pressure Position [Right Arm] Pulse Oximetry 97 Oxygen Delivery Method Sepsis Recent Fever Within 48 Hours Sepsis New/Unexplained Change in Mental Status Sepsis Action Taken by Nursing 01/25/24 15:26 01/25/24 15:30 Temperature Temperature Source Pulse Rate Pulse Rate [Apical] Pulse Rate from SpO2 Sensor Pulse Rhythm Pulse Rhythm [Apical] Pulse Strength [Apical] Respiratory Rate Respiratory Effort / Characteristics Respiratory Depth Respiratory Pattern Blood Pressure 211/99 H 182/87 H Blood Pressure [Right Arm] Blood Pressure Mean 147 160 Blood Pressure Mean [Right Arm] Blood Pressure Position [Right Arm] Pulse Oximetry Oxygen Delivery Method Sepsis Recent Fever Within 48 Hours Sepsis New/Unexplained Change in Mental Status Sepsis Action Taken by Nursing Laboratory Data 01/25/24 14:06 01/25/24 14:06 Lab Results 01/25/24 01/25/24 01/25/24 Range/Units 14:06 14:14 15:25 WBC 5.74 (4.8-10.8) K/ul RBC 4.72 (4.20-5.40) M/uL Hgb 14.7 (12.0-16.0) g/dl Hct 42.9 (37.0-47.0) % MCV 90.9 (80.0-100.0) fL MCH 31.1 (25.0-34.0) pg MCHC 34.3 (32.0-36.0) g/dL RDW Std Deviation 39.4 (36.4-46.3) fL RDW Coeff of Johan 11.9 (11.5-14.5) % Plt Count 197 (130-400) K/uL MPV 9.6 (9.4-12.4) fL Immature Gran % (Auto) 0.5 % Neut % (Auto) 42.5 % Lymph % (Auto) 43.2 % [place] % (Auto) 10.1 % Eos % (Auto) 3.0 % Baso % (Auto) 0.7 % Neut # (Auto) 2.44 (1.40-6.50) K/uL Lymph # (Auto) 2.48 (1.20-3.40) K/uL [place] # (Auto) 0.58 (0.11-0.59) K/uL Eos # (Auto) 0.17 (0.00-0.50) K/uL Baso # (Auto) 0.04 (0.00-0.20) K/uL Immature Gran # (Auto) 0.03 (0.01-0.20) K/uL Sodium 137 (136-145) mmol/L Potassium 4.1 (3.5-5.1) mmol/L Chloride 104 (98-107) mmol/L Carbon Dioxide 25 (21-32) mmol/L Anion Gap 8 (3-11) BUN 18 (6-23) mg/dl Creatinine 0.89 (0.6-1.2) mg/dl Est Cr Clr Drug Dosing Not Reportable Est GFR ( Amer) 69.0 ml/min Est GFR (Non-Af Amer) 59.5 ml/min BUN/Creatinine Ratio 20.2 H (10-20) Glucose 136 H (70-99(Fasting)) mg/dl Lactate (0.4-2.0) mmol/L Calcium 10.1 (8.6-10.3) mg/dl Magnesium 1.8 (1.7-2.4) mg/dl Total Bilirubin 0.5 (0.2-1.0) mg/dl AST 24 (13-39) U/L ALT 19 (7-52) U/L Alkaline Phosphatase 51 (34-104) U/L Troponin I High Sens 4.4 (0-14) pg/ml Total Protein 7.5 (6.0-8.3) gm/dl Albumin 4.4 (3.4-5.0) gm/dl Globulin 3.1 (2.5-4.0) gm/dl Albumin/Globulin Ratio 1.4 (0.9-2) Urine Color Yellow Urine Appearance Clear (Clear) Urine pH 7.5 (4.5-7.5) Ur Specific [place] 1.004 (1.000-1.030) Urine Protein Negative (Negative) Urine Glucose (UA) Negative (Negative) Urine Ketones Negative (Negative) Urine Blood Negative (Negative) Urine Nitrite Negative (Negative) Urine Bilirubin Negative (Negative) Urine Urobilinogen Negative (Negative) Ur Leukocyte Esterase Negative (Negative) SARS-CoV-2 (PCR) NEGATIVE (Negative) 01/25/24 Range/Units 15:35 WBC (4.8-10.8) K/ul RBC (4.20-5.40) M/uL Hgb (12.0-16.0) g/dl Hct (37.0-47.0) % MCV (80.0-100.0) fL MCH (25.0-34.0) pg MCHC (32.0-36.0) g/dL RDW Std Deviation (36.4-46.3) fL RDW Coeff of Johan (11.5-14.5) % Plt Count (130-400) K/uL MPV (9.4-12.4) fL Immature Gran % (Auto) % Neut % (Auto) % Lymph % (Auto) % [place] % (Auto) % Eos % (Auto) % Baso % (Auto) % Neut # (Auto) (1.40-6.50) K/uL Lymph # (Auto) (1.20-3.40) K/uL [place] # (Auto) (0.11-0.59) K/uL Eos # (Auto) (0.00-0.50) K/uL Baso # (Auto) (0.00-0.20) K/uL Immature Gran # (Auto) (0.01-0.20) K/uL Sodium (136-145) mmol/L Potassium (3.5-5.1) mmol/L Chloride (98-107) mmol/L Carbon Dioxide (21-32) mmol/L Anion Gap (3-11) BUN (6-23) mg/dl Creatinine (0.6-1.2) mg/dl Est Cr Clr Drug Dosing Est GFR ( Amer) ml/min Est GFR (Non-Af Amer) ml/min BUN/Creatinine Ratio (10-20) Glucose (70-99(Fasting)) mg/dl Lactate 1.5 (0.4-2.0) mmol/L Calcium (8.6-10.3) mg/dl Magnesium (1.7-2.4) mg/dl Total Bilirubin (0.2-1.0) mg/dl AST (13-39) U/L ALT (7-52) U/L Alkaline Phosphatase (34-104) U/L Troponin I High Sens (0-14) pg/ml Total Protein (6.0-8.3) gm/dl Albumin (3.4-5.0) gm/dl Globulin (2.5-4.0) gm/dl Albumin/Globulin Ratio (0.9-2) Urine Color Urine Appearance (Clear) Urine pH (4.5-7.5) Ur Specific [place] (1.000-1.030) Urine Protein (Negative) Urine Glucose (UA) (Negative) Urine Ketones (Negative) Urine Blood (Negative) Urine Nitrite (Negative) Urine Bilirubin (Negative) Urine Urobilinogen (Negative) Ur Leukocyte Esterase (Negative) SARS-CoV-2 (PCR) (Negative) Administered Medications Discontinued Medications Hydralazine HCl (Hydralazine Hcl 20 Mg/Ml Vial) 10 mg IV NOW STA Stop: 01/25/24 14:08 Last Admin: 01/25/24 14:11 Dose: 10 mg Documented By: [facility] Imaging Data Radiologist's Impression: Chest X-Ray 01/25/24 14:06 XR chest 1V portable CLINICAL HISTORY: weakness TECHNIQUE: Single frontal radiograph of the chest was obtained. Comparison: Comparison is made to chest radiograph 11/18/2023 FINDINGS: ACDF is seen. The cardiomediastinal silhouette is normal. The lungs are clear. No evidence of pleural effusion or pneumothorax. IMPRESSION: No acute chest disease. ACT 112: Negative or not required by law. Electronically signed by: Iron Julio M.D. 01/25/2024 2:[address] 01/25/24 14:06 CT head/brain wo con CLINICAL HISTORY: R sided numbness/tingling Technique: Contiguous axial CT images of the head were acquired from the base of the skull to the vertex without intravenous contrast administration. Images were viewed in brain, subdural and bone windows. Automated dose lowering techniques and/or adjustment according to patient size were utilized for this exam. Comparison: Comparison is made to CT head 11/18/2023 Findings: Areas of decreased attenuation are present in the periventricular and subcortical white matter bilaterally consistent with small vessel ischemic disease. Generalized cerebral atrophy with commensurate enlargement of the ventricles, sulci, and cisterns is also present. There is no acute intracranial hemorrhage or evidence of acute territorial infarction. No shift of the midline structures, mass effect, or extra-axial abnormalities are shown. Atherosclerotic calcifications are present in the intracranial segments of the internal carotid arteries. Encephalomalacia is in the left insular white matter compatible with old lacunar infarct. Imaged portions of the paranasal sinuses and mastoid air cells are clear. The orbits appear normal. There are no acute fractures of the calvaria or scalp swelling. Impression: No acute intracranial hemorrhage, no evidence of acute territorial infarction or other acute intracranial disease process. ACT 112: Negative or not required by law. Electronically signed by: Iron Julio M.D. 01/25/2024 4:10 PM Discharge Plan Visit Data Chief Complaint: TIA Symptoms Stated Complaint: BILAT LEG NUMBNESS, R ARM TINGLING ED Provider: Anum Palumbo Discharge Problem: Ambulatory dysfunction, Dizziness, Hypertensive urgency, Numbness and tingling Forms Stand Alone Forms: [employer] Prescriptions Prescriptions: No Action calcium carbonate-vitamin D3 [Calcium 600 + D(3)] 600 mg(1,500mg) -400 unit tablet 1 tab PO BID Qty: 60 0RF [id number]-ahszucpk-klmvoz Tablet 1 tab PO DAILY Qty: 90 1RF clopidogrel [Plavix] 75 mg tablet 75 mg PO DAILY Qty: 90 3RF pantoprazole [Protonix] 40 mg tablet,delayed release (DR/EC) 40 mg PO DAILY Qty: 90 1RF fluticasone propionate [Flonase Allergy Relief] 50 mcg/actuation spray,suspension 1 spray INTNAS DAILY Qty: 48 1RF potassium chloride 10 mEq capsule, extended release 10 meq PO DAILY Qty: 90 1RF losartan 25 mg tablet 50 mg PO DAILY 30 Days Qty: 60 2RF carvedilol 12.5 mg tablet 12.5 mg PO BID Qty: 60 2RF Rx Instructions: must administer with a meal/food fenofibrate nanocrystallized [Tricor] 145 mg tablet 145 mg PO DAILY Qty: 90 2RF lidocaine 4 % adhesive patch,medicated 1 patch topical Q24H PRN (Reason: pain) Qty: 30 5RF Rx Instructions: may leave on for up to 12 hrs magnesium oxide 400 mg magnesium capsule 400 mg PO BID omega-3 acid ethyl esters 1 gram capsule 1 cap PO DAILY cyclosporine [Restasis] 0.05 % dropperette 1 drp OPB DAILY aspirin 81 mg Tablet,Delayed Release (Dr/Ec) 81 mg PO QAM Qty: 30 5RF estradiol 0.01 % (0.1 mg/gram) cream 1 applic VAGINAL 3XWK Referrals Referrals: Clara Sarkar DO [Primary Care Provider] -
[2024-01-25] MEDS: hydrALAZINE HCL 20 MG/ML VIAL IV STA (14:11)
[2024-01-25 14:32] LABS: Basophils # (auto) 0.04 K/uL (0.00-0.20); Basophils % (auto) 0.7 %; Eosinophils # (auto) 0.17 K/uL (0.00-0.50); Hematocrit (blood only) 42.9 % (37.0-47.0); Hemoglobin 14.7 g/dl (12.0-16.0); Immature Granulocytes # (auto) 0.03 K/uL (0.01-0.20); Immature Granulocytes % (auto) 0.5 %; Lymphocytes # (auto) 2.48 K/uL (1.20-3.40); Lymphocytes % (auto) 43.2 %; Mean Corpuscular Hemoglobin 31.1 pg (25.0-34.0); Mean Corpuscular Hgb Conc 34.3 g/dL (32.0-36.0); Mean Corpuscular Volume 90.9 fL (80.0-100.0); Mean Platelet Volume 9.6 fL (9.4-12.4); Monocytes # (auto) 0.58 K/uL (0.11-0.59); Monocytes % (auto) 10.1 %; Neutrophils # (auto) 2.44 K/uL (1.40-6.50); Neutrophils % (auto) 42.5 %; Platelet Count 197 K/uL (130-400); RDW Coefficient of Variation 11.9 % (11.5-14.5); RDW Standard Deviation 39.4 fL (36.4-46.3); Red Blood Count 4.72 M/uL (4.20-5.40); White Blood Count 5.74 K/ul (4.8-10.8)
[2024-01-25 14:44] LABS: Alanine Aminotransferase 19 U/L (7-52); Albumin Globulin Ratio 1.4 (0.9-2); Albumin Level 4.4 gm/dl (3.4-5.0); Alkaline Phosphatase 51 U/L (34-104); Anion Gap 8 (3-11); Aspartate Aminotransferase 24 U/L (13-39); BUN Creatinine Ratio 20.2 (10-20); Bilirubin,Total 0.5 mg/dl (0.2-1.0); Blood Urea Nitrogen 18 mg/dl (6-23); Calcium 10.1 mg/dl (8.6-10.3); Carbon Dioxide 25 mmol/L (21-32); Chloride 104 mmol/L (98-107); Est GFR (Non-African American) 59.5 ml/min; Globulin 3.1 gm/dl (2.5-4.0); Glucose 136 mg/dl (70-99(Fasting)); Magnesium 1.8 mg/dl (1.7-2.4); Potassium 4.1 mmol/L (3.5-5.1); Sodium 137 mmol/L (136-145); Total Protein 7.5 gm/dl (6.0-8.3)
[2024-01-25 14:50] LABS: Troponin I High Sensitivity 4.4 pg/ml (0-14)
--- NOTE | 2024-01-25 14:55 | XRay Report ---
XR chest 1V portable CLINICAL HISTORY: weakness TECHNIQUE: Single frontal radiograph of the chest was obtained. Comparison: Comparison is made to chest radiograph 11/18/2023 FINDINGS: ACDF is seen. The cardiomediastinal silhouette is normal. The lungs are clear. No evidence of pleural effusion or pneumothorax. IMPRESSION: No acute chest disease. ACT 112: Negative or not required by law. Electronically signed by: Iron Julio M.D. 01/25/2024 2:54 PM
--- NOTE | 2024-01-25 15:07 | Electrocardiogram Report ---
Test Reason : Blood Pressure : / mmHG Vent. Rate : 071 BPM Atrial Rate : 071 BPM P-R Int : 186 ms QRS Dur : 072 ms QT Int : 390 ms P-R-T Axes : 059 -16 043 degrees QTc Int : 423 ms Normal sinus rhythm Normal ECG When compared with ECG of 18-NOV-2023 16:18, No significant change Confirmed by Sravan Cheng ([id number]) on 01/25/2024 3:07:03 PM Referred By: REFERRED SELF Confirmed By:Sravan Cheng
[2024-01-25 15:42] LABS: Appearance Urine Clear (Clear); Bilirubin Urine Negative (Negative); Blood Urine Negative (Negative); Color Urine Yellow; Glucose Urine UA Negative (Negative); Ketones Urine Negative (Negative); Leukocyte Esterase Urine Negative (Negative); Nitrite Urine Negative (Negative); Protein Urine Negative (Negative); Specific Gravity Urine 1.004 (1.000-1.030); Urobilinogen Urine Negative (Negative); pH Urine 7.5 (4.5-7.5)
--- NOTE | 2024-01-25 16:12 | CT Scan Report ---
CT head/brain wo con CLINICAL HISTORY: R sided numbness/tingling Technique: Contiguous axial CT images of the head were acquired from the base of the skull to the rissa porfirio without intravenous contrast administration. Images were viewed in brain, subdural and bone windo ws. Automated dose lowering techniques and/or adjustment according to patient size were utilized for this exam. Comparison: Comparison is made to CT head 11/18/2023 Findings: Areas of decreased attenuation are present in the periventricular and subcortical white matter bilate rally consistent with small vessel ischemic disease. Generalized cerebral atrophy with commensurate e nlargement of the ventricles, sulci, and cisterns is also present. There is no acute intracranial hem orrhage or evidence of acute territorial infarction. No shift of the midline structures, mass effect, or extra-axial abnormalities are shown. Atherosclerotic calcifications are present in the intracran ial segments of the internal carotid arteries. Encephalomalacia is in the left insular white matter c ompatible with old lacunar infarct. Imaged portions of the paranasal sinuses and mastoid air cells are clear. The orbits appear normal. There are no acute fractures of the calvaria or scalp swelling. Impression: No acute intracranial hemorrhage, no evidence of acute territorial infarction or other acute intracra nial disease process. ACT 112: Negative or not required by law. Electronically signed by: Iron Julio M.D. 01/25/2024 4:10 PM
--- NOTE | 2024-01-25 16:57 | History & Physical Report ---
Date of Service January 25, 2024 Assessment & Plan (1) Hypertensive urgency: Plan: -Admit to the PCU on tele -Still currently hypertensive with systolic BP in the low 200's but is asymptomatic and without signs of end organ damage -Presented to the ED with 3+ days of paresthesias/sensation of BL LE swelling, right abd/chest numbness, and paresthesias in the RUE -Noted BL blurry vision this am which has subsequently resolved -Was significantly hypertensive on arrival at -She is non-focal on neurologic exam, do not think she is experiencing a CVA at this time -CT of the head/brain wo con was negative for acute findings -The patient had a very similar presentation during her last admission in November of this year where she had neurologic symptoms with significant hypertension >CT head, CTA's of the head/neck, and MRI of the brain were unremarkable at t hat time -She was supposed to increase her dose of losartan from 5o mg daily to 75 mg daily after her last PCP visit in December, but the patient was unaware of this change -She also has not been following a low sodium diet -S/P one dose of 10 mg IV hydralazine on arrival to the ED -Was given 50 mg PO losartan and 12.5 mg Carvedilol as I was waslking into her room -Will allow these PO medications to take effect and re-evaluate -Will plan on continuing with losartan at 75 mg daily, could also consider increasing to 100 mg daily prior to discharge if she remains hypertensive -BL BOBBI's for DVT PPX -HH/DMII diet with 2gm sodium restriction -AM CBC, BMP (2) History of CVA (cerebrovascular accident): Plan: -Non-focal neurologic exam -Continue aspirin and plavix (3) Diabetes mellitus, type 2: Plan: -Not on outpatient treatment, Hgb A1c in November of this year was 6.1 -Monitor BSG ACHS, goal is 110-160 -Start CF of 50 ACHS for now -Adjust regimen as needed (4) Anxiety and depression: Plan: -Consider starting an antidepressant if her anxiety remains high (5) Leg swelling: Plan: -Will obtain BL venous dopplers to rule out possible DVT -Continue with BL BOBBI's and los sodium diet (6) GERD (gastroesophageal reflux disease): Plan: -Continue pantoprazole (7) Dyslipidemia: Plan: -Continue statin Plan The patient was discussed with Dr. 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 On arrival she was noted to be hypertensive at 203/99 but otherwise stable. Labs including CBC, CMP, high sen trop, and covid [address] of the head/brain wo con and chest xray were read as negative for acute findings. ECG shows NSR without acute changes. Prior to admission the patient was initially given 10 mg of IV hydralazine with improvement of her BP to 182/87. However, upon ambulatory trial the patient felt weak and her systolic BP went back into the 220's. We were asked to admit the patient for ongoing HTN and weakness. The patient reported she would be interested in rehab on DC if needed. At the time of the exam the patient was sitting in bed in no acute distress, she does appear mildly anxious. She states that for the past 3 days she has been experiencing a sensation that her BL LE's feels swollen or heavier than normal. She was thinking abut this frequently over the past 72 hours and feels as thought she was getting more anxious. This am she started to notice a numbness like sensation on her right abdomen and chest which eventually moved up her her right am. This am she felt as though her vision was more blurry when she had her glasses on than off. Currently, her thorax, RUE, and vision changes have all resolved. She still feels as though her legs feel swollen. She denies recent fever, chills, chest pain, SOB, palpitations, cough, abd pain, nausea, vomiting, diarrhea, dysuria, hematuria, melena, and recent trauma. When asked about diet she first tells me that she tries to limit her sodium intake. However, when asked further, she does have a small salt shaker she uses. She also eats regular canned soups and frozen meals frequently. I explained that these foods can be high in sodium and causing ongoing hypertension. Per the last PCP note on 12/15/23, the patient was instructed to increase the dose of her Losartan from 50 mg daily to 75 mg daily. She was unaware of this and had not made this change. She did take her am doses of Carvedilol and 50 mg Losartan today. She is a conditional code. She does not want CPR or defibrillation in the event of cardiac arrest. In the event of respiratory failure she would want a trial of intubation. Her daughter would make medical decisions for her if she cannot make them herself. Please refer to Dr. Culver's attestation for any changes to the treatment plan Allergies Allergy/AdvReac Type Severity Reaction Status Date / Time doxycycline AdvReac Mild decreased Verified 01/25/24 16:48 urine output escitalopram AdvReac Mild decreased Verified 01/25/24 16:48 urine output prednisone AdvReac Mild feels Verified 01/25/24 16:48 agitated memantine AdvReac Unknown stomach Verified 01/25/24 16:48 pains amoxicillin AdvReac upset Verified 01/25/24 16:48 stomach cefdinir AdvReac Diarrhea Verified 01/25/24 16:48 ciprofloxacin [From Cipro] AdvReac Diarrhea Verified 01/25/24 16:48 fluticasone AdvReac Dizziness Verified 01/25/24 16:48 gabapentin AdvReac abdominal Verified 01/25/24 16:48 pain and drowsy gemfibrozil [From Lopid] AdvReac upset Verified 01/25/24 16:48 stomach irbesartan AdvReac Diarrhea Verified 01/25/24 16:48 lisinopril AdvReac hypertension Verified 01/25/24 16:48 and diarrhea meclizine AdvReac Drowsy Verified 01/25/24 16:48 pitavastatin [From Livalo] AdvReac Unknown Verified 01/25/24 16:48 Calysvg-PWZ-RhM Reductase AdvReac myalgia Verified 01/25/24 16:48 Inhibitor [Zdrlifm-Prl-Fux Reductase Inhibitor] tizanidine AdvReac nightmares Verified 01/25/24 16:48 tramadol AdvReac insomnia/pr Verified 01/25/24 16:48 uitus trazodone AdvReac Unknown Verified 01/25/24 16:48 Home Medications Medication Instructions Recorded Confirmed Type calcium carbonate 600 mg-vitamin 1 tab PO BID #60 tabs 05/10/21 01/25/24 Rx D3 10 mcg (400 unit) tablet (Calcium 600 + D(3)) lidocaine 4 % topical patch 1 patch topical Q24H PRN pain #30 07/24/21 01/25/24 Rx ea omega-3 acid ethyl esters 1 gram 1 cap PO DAILY 11/09/21 01/25/24 History capsule euuirlfjosoz-nisoaday-ogudxc tablet 1 tab PO DAILY #90 tabs 12/13/21 01/25/24 Rx clopidogrel 75 mg tablet (Plavix) 75 mg PO DAILY #90 tabs 02/20/23 01/25/24 Rx cyclosporine 0.05 % eye drops in a 1 drp OPB DAILY 05/07/23 01/25/24 History dropperette (Restasis) aspirin 81 mg tablet,delayed 81 mg PO QAM #30 tabs 05/09/23 01/25/24 Rx release pantoprazole 40 mg tablet,delayed 40 mg PO DAILY #90 tabs 06/03/23 01/25/24 Rx release (Protonix) magnesium oxide 400 mg PO BID 08/27/23 01/25/24 History fluticasone propionate 50 1 spray intranasal DAILY #48 mL 08/29/23 01/25/24 Rx mcg/actuation nasal spray,suspension (Flonase Allergy Relief) potassium chloride 10 mEq 10 meq PO DAILY #90 caps 11/27/23 01/25/24 Rx capsule,extended release carvedilol 12.5 mg tablet 12.5 mg PO BID #60 tabs 12/23/23 01/25/24 Rx losartan 25 mg tablet 50 mg (2 x 25 mg) PO DAILY 1 month 12/23/23 01/25/24 Rx #60 tabs fenofibrate nanocrystallized 145 145 mg PO DAILY #90 tabs 12/25/23 01/25/24 Rx mg tablet (Tricor) estradiol 0.01% (0.1 mg/gram) 1 applic vaginal 3XWK 01/25/24 01/25/24 History vaginal cream Past Med/Surg History Medical History History of CVA (cerebrovascular accident) Allergic rhinitis Diabetes mellitus, type 2 TIA (transient ischemic attack) (11/2021) Arthritis of wrist Lumbar facet joint syndrome Sacroiliitis Spinal stenosis, lumbar region without neurogenic claudication Lumbar pain with radiation down left leg Mild cognitive impairment Venous insufficiency (chronic) (peripheral) Anxiety and depression Hypertension Insomnia Osteopenia History of recurrent TIAs GERD (gastroesophageal reflux disease) Dyslipidemia Chronic kidney disease, stage 3 (moderate) Surgical History S/P blepharoplasty History of carpal tunnel surgery S/P appendectomy S/P cholecystectomy Hx of neck surgery Previous back surgery Family History Father Myocardial infarction Prostate cancer Coronary heart disease Mother Stroke, Onset Age: 72 Myocardial infarction, Onset Age: 76 Hypertension Diabetes Brother Cancer Sister Hodgkins disease Sister Coronary heart disease Brother Diabetes Denies family history of Ovarian cancer Breast cancer Colorectal cancer Social History Smoking Status: Never smoker Second Hand Exposure: No; Do You Dip or Chew Tobacco: No; Hx Alcohol Use: No Hx Substance Use: No Preferred Language: Yakut Communication Ability: Effective Visual Impairment: No Limitations Hearing Ability: Normal Platform Man Required: No Beliefs That Will Affect Care: None marital status: Current Living Situation: Alone Current Living Situation Comment: Patient lives alone in an apartment building current occupational status: retired 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59 Other Information That Helps Us Care for You: No Feels Safe at Home: Yes Safety Concerns: Feels Safe At This Time Childhood Exposure to Second-Hand Smoke: No Diet: other Diet Comment: low sugar caffeine: No during the past year weight has: remained stable Dental Care, Regularly: No Physical Activity Frequency: Other Seatbelt Use: always Sunscreen Use: Yes Assistive Devices: Cane and Walker Physical Exam Physical Exam: Physical Exam: General: In no acute distress, stated age, well-nourished, non-toxic appearing HEENT: Normocephalic, atraumatic, no scleral icterus, pupils around round, symmetrical, and reactive to light, moist mucus membranes, trachea midline, no thyromegaly Chest/Pulm: No respiratory distress, symmetrical chest expansion, clear breath sounds throughout Cardiac: RRR, no murmurs noted Abdomen: Negative for ascites and bruising, normoactive bowel sounds, soft, non-tender to palpation throughout Musculoskeletal: Symmetrical and without signs of acute trauma, upper and lower extremities with full ROM, no atrophy, spasticity, or flaccidity Extremities: Radial, dorsalis pedis, and posterior tibial pulses are intact and symmetrical, mild edema in the BL LE's with Right > left Skin: Warm, dry, no rashes , lesions, or scars noted Neuro: Alert and oriented to person, place, month, year, and president, no focal defects, CN II-XII tested and intact, negative BL cerebellar and pronator drift, no tremors noted Psych: No acute distress, calm and cooperative during the exam Results & Data Results & Data Vital Signs (Past 12 Hours) Vital Signs Temp Pulse Pulse Resp BP BP Pulse Ox 01/25/24 15:30 182/87 H 01/25/24 15:26 211/99 H 01/25/24 15:20 203/99 H 01/25/24 15:20 97 01/25/24 15:10 191/96 H 01/25/24 15:10 73 12 96 01/25/24 15:00 168/82 H 01/25/24 15:00 71 14 96 01/25/24 14:50 169/82 H 01/25/24 14:50 74 15 96 01/25/24 14:40 73 17 167/74 H 96 01/25/24 14:32 69 01/25/24 14:30 75 20 161/76 H 95 01/25/24 14:20 70 13 168/82 H 95 01/25/24 14:08 66 18 98 01/25/24 14:01 65 20 218/116 H 96 01/25/24 13:30 36.0 C L 75 20 225/110 H 95 O2 Del Method 01/25/24 15:30 01/25/24 15:26 01/25/24 15:20 01/25/24 15:20 01/25/24 15:10 01/25/24 15:10 01/25/24 15:00 01/25/24 15:00 01/25/24 14:50 01/25/24 14:50 01/25/24 14:40 Room Air 01/25/24 14:32 01/25/24 14:30 Room Air 01/25/24 14:20 Room Air 01/25/24 14:08 Room Air 01/25/24 14:01 Room Air 01/25/24 13:30 Room Air Laboratory Results Abnormal lab results 01/25/24 Range/Units 14:06 BUN/Creatinine Ratio 20.2 H (10-20) Glucose 136 H (70-99(Fasting)) mg/dl Diagnostic Findings Chest X-Ray 01/25/24 14:06 XR chest 1V portable CLINICAL HISTORY: weakness TECHNIQUE: Single frontal radiograph of the chest was obtained. Comparison: Comparison is made to chest radiograph 11/18/2023 FINDINGS: ACDF is seen. The cardiomediastinal silhouette is normal. The lungs are clear. No evidence of pleural effusion or pneumothorax. IMPRESSION: No acute chest disease. ACT 112: Negative or not required by law. Electronically signed by: Iron Julio M.D. 01/25/2024 2:[address] 01/25/24 14:06 CT head/brain wo con CLINICAL HISTORY: R sided numbness/tingling Technique: Contiguous axial CT images of the head were acquired from the base of the skull to the vertex without intravenous contrast administration. Images were viewed in brain, subdural and bone windows. Automated dose lowering techniques and/or adjustment according to patient size were utilized for this exam. Comparison: Comparison is made to CT head 11/18/2023 Findings: Areas of decreased attenuation are present in the periventricular and subcortical white matter bilaterally consistent with small vessel ischemic disease. Generalized cerebral atrophy with commensurate enlargement of the ventricles, sulci, and cisterns is also present. There is no acute intracranial hemorrhage or evidence of acute territorial infarction. No shift of the midline structures, mass effect, or extra-axial abnormalities are shown. Atherosclerotic calcifications are present in the intracranial segments of the internal carotid arteries. Encephalomalacia is in the left insular white matter compatible with old lacunar infarct. Imaged portions of the paranasal sinuses and mastoid air cells are clear. The orbits appear normal. There are no acute fractures of the calvaria or scalp swelling. Impression: No acute intracranial hemorrhage, no evidence of acute territorial infarction or other acute intracranial disease process. ACT 112: Negative or not required by law. Electronically signed by: Iron Julio M.D. 01/25/2024 4:10 PM ECG Additional Comments: Normal sinus rhythm Normal ECG When compared with ECG of 18-NOV-2023 16:18, No significant change Confirmed by Sravan Cheng ([id number]) on 01/25/2024 3:07:03 PM Code Status & VTE Plan Code Status Conditional code; see HPI VTE Prophylaxis Plan VTE Prophylaxis will be ordered: Yes Supervising Physician Co-Signing Physician Notes I personally saw and examined the patient. I verified all cortes points and agree with Jermaine Moreno PA-C with the following exceptions and/or additions: 83 year old female presents to the ER with bilateral lower extremity feeling like it was swollen. She reports already improved since admission with just her usual anti-hypertensives. Multiple other complaints including numbness tingling in extremities, dizziness. O/E HS RRR, no murmurs, Chest CTAB, Abdo SNT, no CVA tenderness, no one sided weakness or change in sensation, no facial droop, trace pedal edema b/l A/P Hypertensive urgency - Restart her usual BP medications. Hydralazine for sBP > 220, dBP > 120. Subjective bilateral leg swelling - subjectively improved since admission with anti-hypertensives given in the ER. Unclear if taking medications as prescribed at home. Restart her usual medications and monitor, she reports this has already improved. Similar complaints to hospitalization in November when he was diagnosed with TIA although not clear diagnosis. PG Care Time/CCT Total # of Minutes Spent Total Time Spent with Patient: Total time spent is greater than 50% in coordination of care (as documented) at patient's floor/unit and/or counseling patient: C[place] [address] INT INP/OBS CARE 3/75MIN Patient Type Established Medical Decision Making High Complexity Diagnoses Hypertensive urgency I16.0 History of CVA (cerebrovascular accident) Z86.73 Diabetes mellitus, type 2 E11.9 Anxiety and depression F41.9; F32.9 Leg swelling M79.89 GERD (gastroesophageal reflux disease) K21.9 Dyslipidemia E78.5
[2024-01-25] MEDS: carvediloL 12.5 MG TAB PO ONE (17:00)
[2024-01-25] MEDS: LOSARTAN POTASSIUM 50 MG TAB PO STA (17:04)
[2024-01-25] MEDS ORDERED: DEXTROSE 50% 50 ML SYRINGE IV PRN (17:37)
[2024-01-25] MEDS ORDERED: CARBOHYDRATES FOR HYPOGLYCEMIA PO PRN (17:37)
[2024-01-25] MEDS ORDERED: GLUCAGON FOR INJ 1 MG VIAL SQ PRN (17:37)
[2024-01-25] MEDS ORDERED: GLUCOSE 40% GEL 15 GM TUBE PO PRN (17:37)
[2024-01-25] MEDS ORDERED: GLUCOSE 10 TAB/TUBE PO PRN (17:37)
--- NOTE | 2024-01-25 18:47 | Ultrasound Report ---
US venous doppler LE BI CLINICAL HISTORY: BL LE swelling, right > left TECHNIQUE: Bilateral lower extremity real-time compression venous ultrasound with Color Doppler imagi ng. Utilizing real-time ultrasonic imaging multiple real time high-resolution ultrasonic images with compression and noncompression maneuvers of the deep venous system in addition to color doppler imagi ng were performed from the common femoral vein through the proximal calf veins. COMPARISON: None available at the time of this dictation. FINDINGS/IMPRESSION: Currently there is normal compressibility of the deep venous system from the common femoral vein thro ugh the proximal calf veins. Right popliteal cyst is seen. ACT 112: Negative or not required by law. Electronically signed by: Iron Julio M.D. 01/25/2024 6:46 PM
[2024-01-25] MEDS: MAGNESIUM OXIDE 400 MG TAB PO SCH (20:03)
[2024-01-25] MEDS: ACETAMINOPHEN 325 MG TAB PO PRN (20:15)
[2024-01-25] MEDS: SODIUM CHLORIDE 0.65% NA SOLN 45 ML (OCEAN) PRN (20:17)
[2024-01-25] MEDS: INSULIN ASPART PER UNIT CHARGE SC SCH (21:06)
[2024-01-26 06:53] LABS: Hematocrit (blood only) 40.3 % (37.0-47.0); Hemoglobin 13.7 g/dl (12.0-16.0); Mean Corpuscular Hemoglobin 31.1 pg (25.0-34.0); Mean Corpuscular Volume 91.6 fL (80.0-100.0); Mean Platelet Volume 9.5 fL (9.4-12.4); Platelet Count 179 K/uL (130-400); RDW Standard Deviation 40.1 fL (36.4-46.3); White Blood Count 6.34 K/ul (4.8-10.8)
[2024-01-26 07:17] LABS: BUN Creatinine Ratio 22.8 (10-20); Calcium 9.4 mg/dl (8.6-10.3); Creatinine Clr Calc Pharmacy 41.9 ml/min; Est GFR (African American) 79.7 ml/min; Est GFR (Non-African American) 68.7 ml/min; Magnesium 1.7 mg/dl (1.7-2.4); Potassium 3.9 mmol/L (3.5-5.1)
[2024-01-26] MEDS: CLOPIDOGREL BISULFATE 75 MG TAB PO SCH (08:00)
[2024-01-26] MEDS: ASPIRIN 81 MG ECTAB PO SCH (08:00)
[2024-01-26] MEDS: LOSARTAN POTASSIUM 25 MG TAB PO SCH (08:00)
[2024-01-26] MEDS: POTASSIUM CHLORIDE 10 MEQ TABCR PO SCH (08:00)
[2024-01-26] MEDS: PANTOprazole 40 MG TAB PO SCH (08:01)
[2024-01-26] MEDS: carvediloL 12.5 MG TAB PO SCH (08:01)
[2024-01-26] MEDS: FENOFIBRATE NANOCRYSTALLIZED 145 MG TABLET PO SCH (08:01)
[2024-01-26] MEDS: oxyCODONE HCL IR 5 MG TAB (IMMEDIATE RELEASE) PO STA (11:47)
[2024-01-26] MEDS: ACETAMINOPHEN 325 MG TAB PO ONE (12:50)
[2024-01-26] MEDS: ACETAMINOPHEN 500 MG TAB PO STA (12:50)
--- NOTE | 2024-01-26 13:39 | Hospitalist Progress Note ---
Date of Service January 26, 2024 Assessment & Plan (1) Hypertensive urgency: Plan: ongoing very labile BPs despite mild increase in losartan and coreg by report was supposed to have increased her losartan to 75mg daily in December (advised by PCP) but this never occurred if BPs continue to remain high would recommend going to 50mg BID of losartan in addition to her usual coreg BID of note - she had a very similar presentation during her last admission in November 2023 where she had neurologic symptoms with significant hypertension CT head, CTA head/neck, and MRI of the brain were unremarkable at that time due to ongoing severe headache (uncertain if this is making BP worse or the BP itself is causing headache), h/o CVA, etc will obtain MRI brain to r/o acute CVA (2) Headache: Plan: uncertain if the headache is primary and the BP elevations are secondary OR, vice versa she has remote h/o migraines but would hate to blame her current headache on such as her migraines have been quiescent for years check sed rate and crp in light of jaw pain - r/o GCA check MRI brain check flu test (having chills, poor appetite, doesn't feel well, etc) tylenol prn oxy prn unfortunately has many drug intolerances and allergies limiting what we can give her work on BP control (3) History of CVA (cerebrovascular accident): Plan: Continue aspirin and plavix for secondary prevention see #1 above (4) Diabetes mellitus, type 2: Plan: Hgb A1c 6.1% in 11/2023 loose novolog SSI (5) Anxiety and depression: Plan: very anxious during the visit with her certainly her headache, BPs, and anxiety could all be intertwined monitor (6) Leg swelling: Plan: dopplers neg for DVT no significant edema today monitor suspect due to uncontrolled HTN (7) GERD (gastroesophageal reflux disease): Plan: cont PPI (8) Dyslipidemia: Plan: cont statin (9) Numbness and tingling: Plan: diffuse and b/l improved today ?related to #1? other? check MRI brain check TSH, B12 had rather normal MRI c-spine in 11/2023 as well - defer on repeat await MRI brain (10) 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: Plan: noted cont asa/plavix for secondary prevention (11) Chronic kidney disease, stage 3 (moderate): Plan: Cr at baseline today Plan cold chills -- check flu test; u/a noted to be normal; COVID negative monitor for other signs/symptoms of infection Admission and Anticipated Discharge Date Admission Date: January 25, 2024 Subjective multiple complaints during the visit ongoing severe headache - entirety of left side of head - frontal region, maxillary region, even the jaw -- with extension to left scalp, left posterior head, and left neck/shoulder area had numbness of distal RLE earlier today/yesterday - now better a little nauseas today also with left arm and left leg numbness - this is better does have remote h/o migraines but hasn't had one in many years did get some headache relief with tylenol and oxy given prior to my arrival continues with severely labile BPs tele overnight wnl Review of Systems Review of Systems: gen - denies fever, but has had cold chills today cv - no chest pain pulm - no dyspnea GI - no abd pain HENT - feels congested in sinuses Physical Exam Physical Exam: gen - looks uncomfortable, poor historian eyes - PERRL, no photophobia, EOMI face - tender left frontal sinus area, left maxillary sinus area - but no gross abnormalities neck - no JVD heart - RRR, s1 s2 lungs - CTA b/l abd - soft NT ND BS+ neuro - CN 3-12 intact although she reports slightly decreased sensation over entire left face, DTRs 2+ b/l upper and lower extremities, strength 5/5 x 4 exts ext - no edema, pulses 2+ b/l psych - mild confusion noted Results & Data Results & Data Vital Signs (Past 12 Hours) Vital Signs Temp Pulse Pulse Resp BP BP Pulse Ox 01/26/24 11:23 36.3 C L 64 17 154/85 H 96 01/26/24 08:00 64 01/26/24 07:09 36.5 C 68 18 167/90 H 95 01/26/24 02:39 36.4 C L 66 16 151/81 H 95 O2 Del Method 01/26/24 11:23 Room Air 01/26/24 08:00 01/26/24 07:09 Room Air 01/26/24 02:39 Room Air Laboratory Results Laboratory Results - last 48 hr 01/25/24 01/25/24 01/25/24 14:06 14:14 15:25 WBC 5.74 RBC 4.72 Hgb 14.7 Hct 42.9 MCV 90.9 MCH 31.1 MCHC 34.3 RDW Std Deviation 39.4 RDW Coeff of Johan 11.9 Plt Count 197 MPV 9.6 Immature Gran % (Auto) 0.5 Neut % (Auto) 42.5 Lymph % (Auto) 43.2 Taney % (Auto) 10.1 Eos % (Auto) 3.0 Baso % (Auto) 0.7 Neut # (Auto) 2.44 Lymph # (Auto) 2.48 Taney # (Auto) 0.58 Eos # (Auto) 0.17 Baso # (Auto) 0.04 Immature Gran # (Auto) 0.03 ESR Sodium 137 Potassium 4.1 Chloride 104 Carbon Dioxide 25 Anion Gap 8 BUN 18 Creatinine 0.89 Est Cr Clr Drug Dosing Not Reportable Est GFR ( Amer) 69.0 Est GFR (Non-Af Amer) 59.5 BUN/Creatinine Ratio 20.2 H Glucose 136 H POC Glucose Lactate Calcium 10.1 Magnesium 1.8 Total Bilirubin 0.5 AST 24 ALT 19 Alkaline Phosphatase 51 Troponin I High Sens 4.4 C-Reactive Protein Total Protein 7.5 Albumin 4.4 Globulin 3.1 Albumin/Globulin Ratio 1.4 Vitamin B12 TSH Urine Color Yellow Urine Appearance Clear Urine pH 7.5 Ur Specific [place] 1.004 Urine Protein Negative Urine Glucose (UA) Negative Urine Ketones Negative Urine Blood Negative Urine Nitrite Negative Urine Bilirubin Negative Urine Urobilinogen Negative Ur Leukocyte Esterase Negative SARS-CoV-2 (PCR) NEGATIVE Influenza A (RT-PCR) Influenza B (RT-PCR) 01/25/24 01/25/24 01/26/24 15:35 20:30 06:13 WBC 6.34 RBC 4.40 Hgb 13.7 Hct 40.3 MCV 91.6 MCH 31.1 MCHC 34.0 RDW Std Deviation 40.1 RDW Coeff of Johan 12.0 Plt Count 179 MPV 9.5 Immature Gran % (Auto) Neut % (Auto) Lymph % (Auto) Taney % (Auto) Eos % (Auto) Baso % (Auto) Neut # (Auto) Lymph # (Auto) Taney # (Auto) Eos # (Auto) Baso # (Auto) Immature Gran # (Auto) ESR Sodium 138 Potassium 3.9 Chloride 107 Carbon Dioxide 25 Anion Gap 6 BUN 18 Creatinine 0.79 Est Cr Clr Drug Dosing 41.9 Est GFR ( Amer) 79.7 Est GFR (Non-Af Amer) 68.7 BUN/Creatinine Ratio 22.8 H Glucose 171 H POC Glucose 128 H Lactate 1.5 Calcium 9.4 Magnesium 1.7 Total Bilirubin AST ALT Alkaline Phosphatase Troponin I High Sens C-Reactive Protein Total Protein Albumin Globulin Albumin/Globulin Ratio Vitamin B12 TSH Urine Color Urine Appearance Urine pH Ur Specific [place] Urine Protein Urine Glucose (UA) Urine Ketones Urine Blood Urine Nitrite Urine Bilirubin Urine Urobilinogen Ur Leukocyte Esterase SARS-CoV-2 (PCR) Influenza A (RT-PCR) Influenza B (RT-PCR) 01/26/24 01/26/24 01/26/24 07:11 11:21 14:05 WBC RBC Hgb Hct MCV MCH MCHC RDW Std Deviation RDW Coeff of Johan Plt Count MPV Immature Gran % (Auto) Neut % (Auto) Lymph % (Auto) Taney % (Auto) Eos % (Auto) Baso % (Auto) Neut # (Auto) Lymph # (Auto) Taney # (Auto) Eos # (Auto) Baso # (Auto) Immature Gran # (Auto) ESR Sodium Potassium Chloride Carbon Dioxide Anion Gap BUN Creatinine Est Cr Clr Drug Dosing Est GFR ( Amer) Est GFR (Non-Af Amer) BUN/Creatinine Ratio Glucose POC Glucose 144 H 106 H Lactate Calcium Magnesium Total Bilirubin AST ALT Alkaline Phosphatase Troponin I High Sens C-Reactive Protein Total Protein Albumin Globulin Albumin/Globulin Ratio Vitamin B12 TSH Urine Color Urine Appearance Urine pH Ur Specific [place] Urine Protein Urine Glucose (UA) Urine Ketones Urine Blood Urine Nitrite Urine Bilirubin Urine Urobilinogen Ur Leukocyte Esterase SARS-CoV-2 (PCR) Influenza A (RT-PCR) Negative Influenza B (RT-PCR) Negative PG Care Time/CCT Total # of Minutes Spent Total Time Spent with Patient: Total time spent is greater than 50% in coordination of care (as documented) at patient's floor/unit and/or counseling patient: Coding Level of Care Code 01961 SUB INP/OBS CARE 3/50MIN Diagnoses Hypertensive urgency I16.0 Headache R51.9 Headache chronicity pattern: acute headache Headache type: unspecified Intractability: not intractable History of CVA (cerebrovascular accident) Z86.73 Diabetes mellitus, type 2 E11.9 Anxiety and depression F41.9; F32.9 Leg swelling M79.89 GERD (gastroesophageal reflux disease) K21.9 Dyslipidemia E78.5 Numbness and tingling R20.0; R20.2 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 I63.531 Chronic kidney disease, stage 3 (moderate) N18.3 (2) Headache Headache chronicity pattern: acute headache Headache type: unspecified Intractability: not intractable Qualified Code(s): R51.9 - Headache, unspecified
[2024-01-26] MEDS ORDERED: oxyCODONE HCL IR 5 MG TAB (IMMEDIATE RELEASE) PO PRN (13:42)
[2024-01-26] MEDS: DICLOFENAC SOD 1% GEL 100 GM TUBE EXT SCH (16:44)
[2024-01-26] MEDS: LOSARTAN POTASSIUM 25 MG TAB PO ONE (16:44)
[2024-01-26] MEDS: hydrALAZINE HCL 20 MG/ML VIAL IV PRN (20:18)
[2024-01-26] MEDS: amLODIPine BESYLATE 5 MG TAB PO SCH (21:56)
[2024-01-26 23:35] LABS: Influenza A PCR (Fusion) Negative (Negative); Influenza B PCR (Fusion) Negative (Negative)
[2024-01-27] MEDS: SIMETHICONE 80 MG CHEW PO ONE (02:20)
[2024-01-27 07:26] LABS: C Reactive Protein < 0.50 mg/dl (0-0.5)
[2024-01-27 07:41] LABS: Thyroid Stimulating Hormone 2.934 uIu/ml (0.300-4.500)
[2024-01-27] MEDS: LOSARTAN POTASSIUM 50 MG TAB PO SCH (08:55)
[2024-01-27] MEDS: LORazepam 0.5 MG TAB PO STA (16:40)
--- NOTE | 2024-01-27 17:45 | Magnetic Resonance Report ---
MRI OF THE BRAIN WITHOUT IV CONTRAST CLINICAL HISTORY: Left-sided headache. Facial numbness. COMPARISON STUDY: CT of the brain dated 01/25/2024. MRI of the brain dated 11/18/2023. TECHNIQUE: MRI of the brain was performed utilizing various T1 and T2-weighted sequences in the axial , sagittal, and coronal planes. IV contrast was not administered for this examination. FINDINGS: Brain parenchyma: There is age related involutional change noting moderate subcortical and periventri cular microangiopathic disease. There is no hemorrhage or mass effect. There is no restricted diffusi on to suggest acute ischemia. Palacios-white matter differentiation is preserved. No extra-axial fluid co llection is seen. The cerebellar tonsils are normal in configuration. Ventricles, sulci, and cisterns: Prominent secondary to change. Pituitary and sella: Unremarkable. Intracranial vasculature: Normal flow voids are maintained at the skull base. Orbits: The bony orbits are grossly intact. Orbital contents are normal in appearance noting bilatera l ocular lens implants. Sinuses and mastoids: There is trace mucosal thickening within the ethmoid sinuses. The remaining par anasal sinuses and the mastoid air cells are clear. Calvarium: Unremarkable. Cervical cord: Partially visualized cervical spinal cord is normal in morphology and signal intensity . IMPRESSION: No acute intracranial abnormality. ACT 112: Negative or not required by law. Electronically signed by: Uriel Eubanks M.D. 01/27/2024 5:44 PM
--- NOTE | 2024-01-27 19:21 | Hospitalist Progress Note ---
Date of Service January 27, 2024 Assessment & Plan (1) Hypertensive urgency: Plan: resolved with titration of her losartan to 50mg BID did receive a dose of low-dose norvasc but will hold moving forward continue coreg BID by report was supposed to have increased her losartan to 75mg daily in December (advised by PCP) but this never occurred is she compliant with home BP med regimen? of note - she had a very similar presentation during her last admission in Nov where she had neurologic symptoms with significant hypertension CT head, CTA head/neck, and MRI of the brain were unremarkable at that time patient agreeable to getting MRI brain today in light of recent paresthesias and headache (2) Headache: Plan: suspect 2nd to #1 above headache resolved remote h/o migraine headache but doubt she had such sed rate/crp wnl -- GCA not suspected finally agreeable to MRI brain today COVID & Flu tests negative tylenol prn oxy prn (3) History of CVA (cerebrovascular accident): Plan: Continue aspirin and plavix for secondary prevention see #1 above (4) Diabetes mellitus, type 2: Plan: Hgb A1c 6.1% in 11/2023 loose novolog SSI (5) Anxiety and depression: Plan: has been anxious at times while here certainly her headache, BPs, and anxiety could have all been intertwined monitor (6) Leg swelling: Plan: dopplers neg for DVT no significant edema on exam monitor suspect due to uncontrolled HTN (7) GERD (gastroesophageal reflux disease): Plan: cont PPI (8) Dyslipidemia: Plan: cont statin (9) Numbness and tingling: Plan: diffuse and b/l resolved 2nd to #1? 2nd to acute CVA? --> MRI brain today TSH, B12 both wnl sed rate/crp wnl had rather normal MRI c-spine in 11/2023 as well - defer on repeat (10) 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: Plan: noted cont asa/plavix for secondary prevention (11) Chronic kidney disease, stage 3 (moderate): Plan: repeat BMP am for stability Plan son updated at bedside hopefully d/c home tomorrow did well with PT/OT good candidate for home nursing to help with med management, BPs, etc Admission and Anticipated Discharge Date Admission Date: January 25, 2024 Subjective tele overnight wnl headache nearly resolved slight dullness on left side of head/scalp and left occipital area but otherwise marked improvement all areas of paresthesias - resolved no facial pain or numbness today still c/o mild nasal congestion eating well today no dizziness or lightheadedness no new neurological complaints son at bedside during the visit Review of Systems Review of Systems: CV - no chest pain pulm - no cough or dyspnea GI - no abd pain or N/V gen - feels good today Physical Exam Physical Exam: gen - looks much better today, NAD face - nontender to palpation over her sinuses neck - no JVD heart - RRR, s1 s2 lungs - CTA b/l abd - soft NT ND BS+ ext - no edema, pulses 2+ b/l psych - poor recall Results & Data Results & Data Vital Signs (Past 12 Hours) Vital Signs Temp Pulse Resp BP BP Pulse Ox O2 Del Method 01/27/24 15:35 36.3 C L 79 18 133/78 97 Room Air 01/27/24 11:00 36.3 C L 79 18 120/72 93 Room Air Laboratory Results Laboratory Results - last 24 hr 01/26/24 01/26/24 01/27/24 14:05 20:13 06:47 ESR 19 POC Glucose 119 H C-Reactive Protein < 0.50 Vitamin B12 406 TSH 2.934 Influenza A (RT-PCR) Negative Influenza B (RT-PCR) Negative 01/27/24 01/27/24 01/27/24 07:13 11:01 15:57 ESR POC Glucose 119 H 196 H 117 H C-Reactive Protein Vitamin B12 TSH Influenza A (RT-PCR) Influenza B (RT-PCR) PG Care Time/CCT Total # of Minutes Spent Total Time Spent with Patient: Total time spent is greater than 50% in coordination of care (as documented) at patient's floor/unit and/or counseling patient: Coding Level of Care Code 71563 SUB INP/OBS CARE 2/35MIN Diagnoses Hypertensive urgency I16.0 Headache R51.9 Headache chronicity pattern: acute headache Headache type: unspecified Intractability: not intractable History of CVA (cerebrovascular accident) Z86.73 Diabetes mellitus, type 2 E11.9 Anxiety and depression F41.9; F32.9 Leg swelling M79.89 GERD (gastroesophageal reflux disease) K21.9 Dyslipidemia E78.5 Numbness and tingling R20.0; R20.2 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 I63.531 Chronic kidney disease, stage 3 (moderate) N18.3 (2) Headache Headache chronicity pattern: acute headache Headache type: unspecified Intractability: not intractable Qualified Code(s): R51.9 - Headache, unspecified
[2024-01-28 07:28] LABS: BUN Creatinine Ratio 29.2 (10-20); Creatinine Clr Calc Pharmacy 37.2 ml/min; Est GFR (Non-African American) 59.5 ml/min; Potassium 4.1 mmol/L (3.5-5.1)
--- NOTE | 2024-01-28 14:41 | Discharge Summary ---
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 ED on 01/25/24 with complaints of ongoing BL LE numbness, numbness in the RUE, and BL blurry vision for the past week. On arrival she was noted to be hypertensive at 203/99 but otherwise stable. Labs including CBC, CMP, high sen trop, and covid [address] of the head/brain wo con and chest xray were read as negative for acute findings. ECG shows NSR without acute changes. Prior to admission the patient was initially given 10 mg of IV hydralazine with improvement of her BP to 182/87. However, upon ambulatory trial the patient felt weak and her systolic BP went back into the 220's. We were asked to admit the patient for ongoing HTN and weakness. The patient reported she would be interested in rehab on DC if needed. At the time of the exam the patient was sitting in bed in no acute distress, she does appear mildly anxious. She states that for the past 3 days she has been experiencing a sensation that her BL LE's feels swollen or heavier than normal. She was thinking abut this frequently over the past 72 hours and feels as thought she was getting more anxious. This am she started to notice a numbness like sensation on her right abdomen and chest which eventually moved up her her right am. This am she felt as though her vision was more blurry when she had her glasses on than off. Currently, her thorax, RUE, and vision changes have all resolved. She still feels as though her legs feel swollen. She denies recent fever, chills, chest pain, SOB, palpitations, cough, abd pain, nausea, vomiting, diarrhea, dysuria, hematuria, melena, and recent trauma. When asked about diet she first tells me that she tries to limit her sodium intake. However, when asked further, she does have a small salt shaker she uses. She also eats regular canned soups and frozen meals frequently. I explained that these foods can be high in sodium and causing ongoing hypertension. Per the last PCP note on 12/15/23, the patient was instructed to increase the dose of her Losartan from 50 mg daily to 75 mg daily. She was unaware of this and had not made this change. She did take her am doses of Carvedilol and 50 mg Losartan today. She is a conditional code. She does not want CPR or defibrillation in the event of cardiac arrest. In the event of respiratory failure she would want a trial of intubation. Her daughter would make medical decisions for her if she cannot make them herself. Please refer to Dr. Culver's attestation for any changes to the treatment plan Discharge Exam gen - looks much better today, NAD face - nontender to palpation over her sinuses neck - no JVD heart - RRR, s1 s2 lungs - CTA b/l abd - soft NT ND BS+ ext - no edema, pulses 2+ b/l psych - poor recall Discharge Data Allergies Allergy/AdvReac Type Severity Reaction Status Date / Time doxycycline AdvReac Mild decreased Verified 01/25/24 16:48 urine output escitalopram AdvReac Mild decreased Verified 01/25/24 16:48 urine output prednisone AdvReac Mild feels Verified 01/25/24 16:48 agitated memantine AdvReac Unknown stomach Verified 01/25/24 16:48 pains amoxicillin AdvReac upset Verified 01/25/24 16:48 stomach cefdinir AdvReac Diarrhea Verified 01/25/24 16:48 ciprofloxacin [From Cipro] AdvReac Diarrhea Verified 01/25/24 16:48 fluticasone AdvReac Dizziness Verified 01/25/24 16:48 gabapentin AdvReac abdominal Verified 01/25/24 16:48 pain and drowsy gemfibrozil [From Lopid] AdvReac upset Verified 01/25/24 16:48 stomach irbesartan AdvReac Diarrhea Verified 01/25/24 16:48 lisinopril AdvReac hypertension Verified 01/25/24 16:48 and diarrhea meclizine AdvReac Drowsy Verified 01/25/24 16:48 pitavastatin [From Livalo] AdvReac Unknown Verified 01/25/24 16:48 Rottclc-KOX-OjR Reductase AdvReac myalgia Verified 01/25/24 16:48 Inhibitor [Mrmivpt-Pbi-Vfg Reductase Inhibitor] tizanidine AdvReac nightmares Verified 01/25/24 16:48 tramadol AdvReac insomnia/pr Verified 01/25/24 16:48 uitus trazodone AdvReac Unknown Verified 01/25/24 16:48 Consultations 01/25/24 16:50 ED Decision to Admit Stat Ordered Studies 01/25/24 14:06 CT head/brain wo con Stat 01/25/24 17:26 US venous doppler LE BI Routine 01/27/24 17:00 MR brain wo con Routine Hospital Course (1) Hypertensive urgency: resolved with titration of her losartan to 50mg BID did receive a dose of low-dose norvasc but will hold moving forward continue coreg BID by report was supposed to have increased her losartan to 75mg daily in December (advised by PCP) but this never occurred is she compliant with home BP med regimen? of note - she had a very similar presentation during her last admission in November 2023 where she had neurologic symptoms with significant hypertension CT head, CTA head/neck, and MRI of the brain were unremarkable at that time patient agreeable to getting MRI brain today in light of recent paresthesias and headache (2) Headache: suspect 2nd to #1 above headache resolved remote h/o migraine headache but doubt she had such sed rate/crp wnl -- GCA not suspected finally agreeable to MRI brain today COVID & Flu tests negative tylenol prn oxy prn (3) History of CVA (cerebrovascular accident): Continue aspirin and plavix for secondary prevention see #1 above (4) Diabetes mellitus, type 2: Hgb A1c 6.1% in 11/2023 loose novolog SSI (5) Anxiety and depression: has been anxious at times while here certainly her headache, BPs, and anxiety could have all been intertwined monitor (6) Leg swelling: dopplers neg for DVT no significant edema on exam monitor suspect due to uncontrolled HTN (7) GERD (gastroesophageal reflux disease): cont PPI (8) Dyslipidemia: cont statin (9) Numbness and tingling: diffuse and b/l resolved 2nd to #1? 2nd to acute CVA? --> MRI brain today TSH, B12 both wnl sed rate/crp wnl had rather normal MRI c-spine in 11/2023 as well - defer on repeat (10) 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: noted cont asa/plavix for secondary prevention (11) Chronic kidney disease, stage 3 (moderate): repeat BMP am for stability Plan son updated at bedside hopefully d/c home tomorrow did well with PT/OT good candidate for home nursing to help with med management, BPs, etc Home Health Attestation I certify that this patient is under my care and that I, or a physicians school bus driver/teacher assistant working with me, had a face to-face encounter that meets the home health opba-rt-zxit encounter requirements with this patient. The encounter with the patient was in whole, or in part, for the following medical condition, which is the primary reason for home health care (list medical condition): HTN I certify that, based on my findings, the following services are medically necessary home health services: My clinical findings support the need for the above services because: OT Assess ADL Status and Restore Function w ADLs PT Assessment for Endurance / Balance / Strength PT Eval for Safety and Mobility PT Eval for Safety, Gait Training, Assistive Devices PT Gait and Balance Training, Strengthening and Safety Skilled Nsg Assessment Further, I certify that my clinical findings support that this patient is homebound (i.e. absences from home require considerable and taxing effort and are for medical reasons or synagogue services or infrequently or of short duration when for other reasons) because: Supportive Aid - Walker Certification for Home Health Services: Based on the above findings, I certify that this patient is confined to the home and needs intermittent assisted care, physical therapy and/or speech therapy or continues to need occupational therapy. The patient is under my care, and I have initiated the establishment of the plan of care. This patient will be followed by a physician who will periodically review the plan of care. Discharge Plan Discharge Items Patient Disposition: Home - Home Health Services Reason For Visit: HYPERTENSIVE URGENCY, GENERALIZED WEAKNESS Discharge Diagnosis: 1. uncontrolled high blood pressure - improved 2. severe headache - resolved; was likely due to uncontrolled blood pressure 3. numbness of the arms and legs - resolved; possibly due to #1 above; no stroke seen on MRI brain 4. memory impairment 5. history of prior TIAs and stroke 6. diabetes - diet control at home for now Activity: Resume your previous activity Non-emergency contact: Primary Care Provider Call non-emergency contact if: you have any medication questions and your symptoms worsen Follow-up/Referrals: Clara Sarkar DO [Primary Care Provider] - 02/05/24 10:20 am (with IRENE Colby. Thank you! ) Diet: Carb Consistent or DM2 and Heart Healthy Addtl Attending Provider Instructions: Mrs Gutiérrez, You were hospitalized due to severely high blood pressure, headache, numbness in your arms/legs, etc. Your MRI of the brain did not show a new stroke. Your blood pressures improved nicely with adjustment of your medicines. As the blood pressure improved your headache resolved and your numbness resolved. For 24 hours prior to discharge all of your systolic blood pressures (the top number) have been less than 140. I suspect that most of your symptoms were from the severely high blood pressure itself. It is uncertain why the blood pressure increased to high levels like it did. Missing doses of blood pressure medicine, pain, anxiety, poor sleep, etc can all cause blood pressure to rise, sometimes to very high levels. At this time please: INCREASE your losartan as follows -- * take 2 tablets of 25mg every morning (total morning dose of 50mg) * take 1 tablet of 25mg at bedtime I have refilled the losartan for you. Sent to [facility]. We did call [facility] and confirmed with them that they do create "pill packs" which sorts all of your medicines into each day of the week. If this is something you are interested in please discuss this with your family doctor. I have made no other changes to your chronic medicines. If possible please check your blood pressure twice a day at home and write these in a notebook. Please share your blood pressure readings with your family doctor. See Dr Sarkar's office within 1 week. Return to [facility] if - * you have fevers over 100 degrees * you have shortness of breath * you have chest pains * you have any concerns about a stroke (difficulty moving an arm or leg, difficulty speaking, difficulty swallowing, etc) * any other concerns It was our pleasure to care for you! Pending Studies at Discharge: No Stand-Alone Forms: My [facility], Smoking Cessation Medications and DC Order Prescriptions: New losartan 25 mg tablet 25 mg PO DIRECTED Qty: 90 5RF Rx Instructions: take 2 tablets each morning and 1 tablet at bedtime Continued calcium carbonate-vitamin D3 [Calcium 600 + D(3)] 600 mg(1,500mg) -400 unit tablet 1 tab PO BID Qty: 60 0RF albinqkrntlb-joywewnm-uxbzqy Tablet 1 tab PO DAILY Qty: 90 1RF clopidogrel [Plavix] 75 mg tablet 75 mg PO DAILY Qty: 90 3RF pantoprazole [Protonix] 40 mg tablet,delayed release (DR/EC) 40 mg PO DAILY Qty: 90 1RF fluticasone propionate [Flonase Allergy Relief] 50 mcg/actuation spray,suspension 1 spray INTNAS DAILY Qty: 48 1RF potassium chloride 10 mEq capsule, extended release 10 meq PO DAILY Qty: 90 1RF carvedilol 12.5 mg tablet 12.5 mg PO BID Qty: 60 2RF Rx Instructions: must administer with a meal/food fenofibrate nanocrystallized [Tricor] 145 mg tablet 145 mg PO DAILY Qty: 90 2RF lidocaine 4 % adhesive patch,medicated 1 patch topical Q24H PRN (Reason: pain) Qty: 30 5RF Rx Instructions: may leave on for up to 12 hrs magnesium oxide 400 mg magnesium capsule 400 mg PO BID omega-3 acid ethyl esters 1 gram capsule 1 cap PO DAILY cyclosporine [Restasis] 0.05 % dropperette 1 drp OPB DAILY aspirin 81 mg Tablet,Delayed Release (Dr/Ec) 81 mg PO QAM Qty: 30 5RF estradiol 0.01 % (0.1 mg/gram) cream 1 applic VAGINAL [id number] Discontinued losartan 25 mg tablet 50 mg PO DAILY 30 Days Qty: 60 2RF Discharge Orders: Discharge Order (Routine); Ordered 01/28/24 Ordered By: Giancarlo Maier Admission Data Admit Date/Time: 01/25/24 17:00 Attending Provider: Giancarlo Maier Admit Provider: Giancarlo Culver Primary Care Provider: Clara Sarkar Other Providers: Giancarlo Culver Coding Diagnoses Hypertensive urgency I16.0 Headache R51.9 Headache chronicity pattern: acute headache Headache type: unspecified Intractability: not intractable History of CVA (cerebrovascular accident) Z86.73 Diabetes mellitus, type 2 E11.9 Anxiety and depression F41.9; F32.9 Leg swelling M79.89 GERD (gastroesophageal reflux disease) K21.9 Dyslipidemia E78.5 Numbness and tingling R20.0; R20.2 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 I63.531 Chronic kidney disease, stage 3 (moderate) N18.3
== END 2024-01-28 16:44 | disposition home health service (06) | DRG 305 ==
LOC: ED 13:25 → 2S 17:00 → SUATTDRO 17:00 → 2S 18:49
DX: R20.0 Anesthesia of skin; Z86.73 Personal history of transient ischemic attack (TIA), and cerebral infarction without residual deficits; M48.061 Spinal stenosis, lumbar region without neurogenic claudication; R51.9 Headache, unspecified; E11.22 Type 2 diabetes mellitus with diabetic chronic kidney disease; I16.0 Hypertensive urgency; Z88.1 Allergy status to other antibiotic agents; Z88.5 Allergy status to narcotic agent; Z83.3 Family history of diabetes mellitus; Z82.3 Family history of stroke; K21.9 Gastro-esophageal reflux disease without esophagitis; E78.5 Hyperlipidemia, unspecified; F32.A Depression, unspecified; J30.9 Allergic rhinitis, unspecified; N18.30 Chronic kidney disease, stage 3 unspecified; Z79.51 Long term (current) use of inhaled steroids; Z79.899 Other long term (current) drug therapy; Z88.0 Allergy status to penicillin; Z79.02 Long term (current) use of antithrombotics/antiplatelets; Z79.82 Long term (current) use of aspirin; Z82.49 Family history of ischemic heart disease and other diseases of the circulatory system; Z60.2 Problems related to living alone; M79.89 Other specified soft tissue disorders; I12.9 Hypertensive chronic kidney disease with stage 1 through stage 4 chronic kidney disease, or unspecified chronic kidney disease; F41.9 Anxiety disorder, unspecified; Z88.8 Allergy status to other drugs, medicaments and biological substances

== ENCOUNTER 2025-01-27 13:51 | Inpatient (IN) ==
--- NOTE | 2025-01-27 14:09 | Emergency Department Note ---
Impression & Plan Hypertensive emergency, Left leg weakness, Left sided numbness ED Provider Note NAME: CHRISTOPHE MASON AGE: 84 SEX: F : 1940 ARRIVES VIA: Walk-In INFORMANT: Patient, ED PROVIDER(S): Teo Tovar MD CHIEF COMPLAINT: Outpatient referral, numbness MEDICAL DECISION MAKING: Patient presents with the above. The patient does have leg weakness which she states is new but it was developed several days ago. Not a TNK candidate based on length of symptoms. IV was established and blood work was obtained along with CT head CT angiography of the head and neck. Patient was ordered IV labetalol 10 mg. Patient's blood work grossly unremarkable. Patient has a normal white count H&H and platelet count kidney function unremarkable. Patient did undergo CT head and CT angiography of the head and neck. No major abnormalities noted. Patient does have 50% stenosis of the origin of the right vertebral artery. CT head without any acute pathology but does show old basal ganglia infarct. Given the patient's left leg weakness and left-sided numbness to believe the patient would benefit from admission. Upon reassessment the patient was feeling improved and blood pressure also improved after the IV labetalol. I did speak with the on- call hospitalist Dr. Rodgers the patient was admitted to the medicine service. MRI of the brain pending at the time of admission. Critical Care: I have personally spent 35 minutes of critical care time in direct management of this patient. This includes bedside care, interpretation of diagnostic studies, and testing, discussion with consultants, patient, and family members, and other require inpatient management activities. This 35 minutes is in excess of all separately billable procedures. Discussion w/ other healthcare providers: Dr. Rodgers inpatient medicine service Prior /Outside records reviewed: I reviewed part of a PCP visit from Agusto Castillo. Patient was seen for hypertensive emergency with complaints of left leg weakness and left arm numbness. Differential diagnosis: Infection, dehydration, metabolic abnormality, hypo/hyperglycemia, electrolyte imbalance, anemia, UTI, pneumonia, thyroid dysfunction among others were considered. Diagnostics, as interpreted by me: ECG: Normal sinus rhythm, rate of 68, normal intervals, left axis deviation no obvious ST elevations T wave version in aVL. No obvious STEMI. Cardiac monitoring: An order was placed for continuous cardiac monitoring. The monitor shows a rate of 67 with sinus rhythm. Patient was placed on pulse oximetry Medical decision rules: none Imaging studies: I informally interpreted the patient's CT head does not show obvious ICH with formal report to follow. HPI: Patient presents due to concern for numbness and weakness. The patient reports that she developed some numbness that felt as though she was "struck in the head." Patient denies ever being struck in the head or falling or hitting her head. She states that this feeling seem to result in some numbness in her left side which was left side of the head face as well as the arm and the leg. Patient states that she presented to her PCP today and she was having some difficulty walking with the associated numbness. The patient states that he does take blood thinning medications but is unsure as to which 1. Prior history of stroke several years ago and did receive TNK. Patient states that she does take her blood pressure medication was noted to that this was elevated in clinic. Patient denies any increase in salt. The patient did take her morning blood pressure medication no recent changes or missed doses. Patient denies any alcohol tobacco or drug use and does not use any caffeine. PAST MEDICAL HISTORY: See Below PAST SURGICAL HISTORY: See Below SOCIAL HISTORY: See Below HOME MEDICATIONS: See Below ALLERGIES: See Below VITALS: See Below PHYSICAL EXAMINATION: GENERAL: NAD, non-toxic. EYE EXAM: Normal conjunctiva. PERRL, no anisocoria and EOM's grossly intact w/o pain. OROPHARYNX: Moist mucus membranes, grossly normal dentition. NECK: Trachea midline, no stridor. Supple, no nuchal rigidity, no adenopathy, non-tender. No signs of meningismus. FROM of the neck with good chin to chest and neck extension. LUNGS: Clear to auscultation. Normal chest wall mechanics. HEART: NSR, no MRG. ABDOMEN: Abdomen soft, non-tender, no masses, no rebound or guarding. BACK: No CVA TTP. SKIN: No rashes and no bruising. UPPER EXTREMITIES: Upper extremities are grossly normal. LOWER EXTREMITIES: Grossly normal, no edema. NEURO EXAM: A&O x3, cranial nerves II-XII grossly intact, normal speech, moves all 4 extremities. Good mhgsmb-pu-qrax, left lower extremity drift. Weakness of left lower extremity compared to right. Past Med/Surg History Problem List (Updated 01/28/25 @ 14:51 by Teo Tovar MD) Left sided numbness (Acute) Left leg weakness (Acute) Hypertensive emergency (Acute) Left-sided weakness Migraine Ambulatory dysfunction (Acute) Vaginal atrophy History of CVA (cerebrovascular accident) Lumbosacral radiculopathy at S1 Allergic rhinitis Diabetes mellitus, type 2 Chronic cerebral ischemia Transient left leg weakness Arthritis of wrist Lumbar facet joint syndrome Spinal stenosis, lumbar region without neurogenic claudication Mild cognitive impairment Venous insufficiency (chronic) (peripheral) Anxiety and depression Hypertension Insomnia Osteopenia History of recurrent TIAs GERD (gastroesophageal reflux disease) Dyslipidemia Medical History 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) Sacroiliitis Lumbar pain with radiation down left leg Dizziness Cognitive impairment Hypertensive emergency Leg swelling Numbness and tingling Hypertensive urgency Left sided numbness Left leg weakness Weakness of left leg Stroke-like symptoms TIA (transient ischemic attack) (11/2021) Chronic kidney disease, stage 3 (moderate) Surgical History S/P blepharoplasty History of carpal tunnel surgery S/P appendectomy S/P cholecystectomy Hx of neck surgery secondary to cervical herniated discs Previous back surgery x3 Family History Father , age 81 of heart issues Myocardial infarction Prostate cancer Coronary heart disease Mother , age 76 of a stroke Stroke, Onset Age: 72 Myocardial infarction, Onset Age: 76 Hypertension Diabetes Brother Cancer Sister , 71 Hodgkins disease Sister Coronary heart disease Brother Diabetes Denies family history of Ovarian cancer Breast cancer Colorectal cancer Social History Smoking Status: Never smoker Second Hand Exposure: No; Do You Dip or Chew Tobacco: No; Tobacco Cessation Education Requested by Patient: No Hx Alcohol Use: No Hx Substance Use: No Preferred Language: [place]er Communication Ability: Effective Visual Impairment: No Limitations Hearing Ability: Normal Handbag Finisher Required: No Beliefs That Will Affect Care: None marital status: Current Living Situation: Alone Current Living Situation Comment: Patient lives alone in an apartment building current occupational status: retired 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59 Other Information That Helps Us Care for You: No Feels Safe at Home: Yes Safety Concerns: Feels Safe At This Time Childhood Exposure to Second-Hand Smoke: No Diet: other Diet Comment: low sugar caffeine: No during the past year weight has: remained stable Dental Care, Regularly: No Physical Activity Frequency: Other Seatbelt Use: always Sunscreen Use: Yes Assistive Devices: Cane and Walker Allergies Allergies Allergy/AdvReac Type Severity Reaction Status Date / Time fenofibrate Allergy Intermediate Abdominal Verified 01/27/25 11:44 Pain doxycycline AdvReac Mild decreased Verified 01/27/25 11:44 urine output escitalopram AdvReac Mild decreased Verified 01/27/25 11:44 urine output prednisone AdvReac Mild feels Verified 01/27/25 11:44 agitated memantine AdvReac Unknown stomach Verified 01/27/25 11:44 pains amoxicillin AdvReac upset Verified 01/27/25 11:44 stomach cefdinir AdvReac Diarrhea Verified 01/27/25 11:44 ciprofloxacin [From Cipro] AdvReac Diarrhea Verified 01/27/25 11:44 fluticasone AdvReac Dizziness Verified 01/27/25 11:44 gabapentin AdvReac abdominal Verified 01/27/25 11:44 pain and drowsy gemfibrozil [From Lopid] AdvReac upset Verified 01/27/25 11:44 stomach irbesartan AdvReac Diarrhea Verified 01/27/25 11:44 lisinopril AdvReac hypertension Verified 01/27/25 11:44 and diarrhea meclizine AdvReac Drowsy Verified 01/27/25 11:44 pitavastatin [From Livalo] AdvReac Unknown Verified 01/27/25 11:44 Cvrzyqs-CMT-WqZ Reductase AdvReac myalgia Verified 01/27/25 11:44 Inhibitor [Zjnbzwm-Utd-Pxi Reductase Inhibitor] tizanidine AdvReac nightmares Verified 01/27/25 11:44 tramadol AdvReac insomnia/pr Verified 01/27/25 11:44 uitus trazodone AdvReac Unknown Verified 01/27/25 11:44 Home Meds Home Medications Medication Instructions Recorded Confirmed omega-3 acid ethyl esters 1 gram 1 cap PO DAILY 11/09/21 01/27/25 capsule cyclosporine 0.05 % eye drops in a 1 drp OPB UD 05/07/23 01/27/25 dropperette (Restasis) magnesium oxide 400 mg PO BID 08/27/23 01/27/25 fluticasone propionate 50 2 spray intranasal UD 01/27/25 01/27/25 mcg/actuation nasal spray,suspension (Flonase Allergy Relief) ipratropium bromide 21 mcg (0.03 2 spray intranasal UD 01/27/25 01/27/25 %) nasal spray Previous Rx's Medication Instructions Recorded calcium 600 mg (as 1 tab PO BID #60 tabs 05/10/21 carbonate)-vitamin D3 10 mcg (400 unit) tablet (Calcium 600 + D(3)) ldidptathyjk-qttolxew-tnoehi tablet 1 tab PO DAILY #90 tabs 12/13/21 aspirin 81 mg tablet,delayed 81 mg PO QAM #30 tabs 05/09/23 release clopidogrel 75 mg tablet (Plavix) 75 mg PO DAILY #90 tabs 03/04/24 lidocaine 5 % topical patch 1 patch topical DAILY #15 ea 05/13/24 (Lidoderm) estradiol 0.01% (0.1 mg/gram) 1 applic vaginal 3XWK #42.5 grams 08/26/24 vaginal cream potassium chloride 10 mEq 10 meq PO DAILY #90 caps 11/19/24 capsule,extended release losartan 25 mg tablet 25 mg PO TID #90 tabs 11/25/24 carvedilol 12.5 mg tablet 12.5 mg PO BID #90 tabs 12/17/24 Results & Data (ED) Vital Signs Vital Signs - 24 hr 01/27/25 14:53 01/27/25 14:57 01/27/25 15:03 Pulse Rate 67 62 60 Pulse Rate from SpO2 Sensor Respiratory Rate 17 15 Blood Pressure 212/104 H 171/83 H 179/93 H Blood Pressure Mean 112 121 Pulse Oximetry Oxygen Delivery Method 01/27/25 15:30 01/27/25 15:36 01/27/25 16:31 Pulse Rate 61 61 67 Pulse Rate from SpO2 Sensor Respiratory Rate 15 15 Blood Pressure 183/87 H 167/89 H 190/95 H Blood Pressure Mean 119 115 142 Pulse Oximetry 93 Oxygen Delivery Method Room Air 01/27/25 16:39 01/27/25 16:46 01/27/25 17:09 Pulse Rate 65 73 65 Pulse Rate from SpO2 Sensor 71 Respiratory Rate 16 Blood Pressure 173/92 H 178/98 H 202/104 H Blood Pressure Mean 119 Pulse Oximetry 93 Oxygen Delivery Method Home Medications Current Medication List: was personally reviewed by me Laboratory Data Attestation: I reviewed the patient's lab results. 01/28/25 04:26 01/28/25 04:26 Lab Results 01/27/25 01/27/25 Range/Units 14:14 14:23 WBC 7.08 (4.8-10.8) K/ul RBC 4.34 (4.20-5.40) M/uL Hgb 14.3 (12.0-16.0) g/dl POC Hgb 13.6 (12.0-16.0) g/dl Hct 39.9 (37.0-47.0) % POC Hct 40 (37-47) % MCV 91.9 (80.0-100.0) fL MCH 32.9 (25.0-34.0) pg MCHC 35.8 (32.0-36.0) g/dL RDW Std Deviation 39.9 (36.4-46.3) fL RDW Coeff of Johan 11.8 (11.5-14.5) % Plt Count 177 (130-400) K/uL MPV 9.4 (9.4-12.4) fL Immature Gran % (Auto) 0.6 % Neut % (Auto) 45.5 % Lymph % (Auto) 39.3 % Mingo % (Auto) 10.9 % Eos % (Auto) 3.0 % Baso % (Auto) 0.7 % Neut # (Auto) 3.23 (1.40-6.50) K/uL Lymph # (Auto) 2.78 (1.20-3.40) K/uL Mingo # (Auto) 0.77 H (0.11-0.59) K/uL Eos # (Auto) 0.21 (0.00-0.50) K/uL Baso # (Auto) 0.05 (0.00-0.20) K/uL Immature Gran # (Auto) 0.04 (0.01-0.20) K/uL PT 10.9 (9.0-12.0) Seconds INR 1.0 (0.9-1.1) APTT 26 (21-31) Seconds PTT Ratio 1.0 POC Sodium 138 (135-144) mmol/L Sodium 137 (136-145) mmol/L POC Potassium 4.5 (3.3-5.0) mmol/L Potassium 4.4 (3.5-5.1) mmol/L POC Chloride 106 (101-112) mmol/L Chloride 106 (98-107) mmol/L Carbon Dioxide 25 (21-32) mmol/L POC Total CO2 22 L (24-31) mmol/L Anion Gap 6 (3-11) POC Anion Gap 16.0 (16-25) mmol/L POC BUN 22 H (7-18) mg/dl BUN 21 (6-23) mg/dl Creatinine 0.74 (0.6-1.2) mg/dl POC Creatinine 0.7 (0.6-1.3) mg/dl Est Cr Clr Drug Dosing Not Reportable eGFR 79.24 BUN/Creatinine Ratio 28.4 H (10-20) Glucose 108 H (70-99(Fasting)) mg/dl POC Glucose (other) 110 H (70-99) mg/dl Calcium 10.1 (8.6-10.3) mg/dl POC Ioniz Calcium Kael 1.29 (1.12-1.32) mmol/l Magnesium 1.7 (1.7-2.4) mg/dl Total Bilirubin 0.4 (0.2-1.0) mg/dl AST 23 (13-39) U/L ALT 23 (7-52) U/L Alkaline Phosphatase 37 (34-104) U/L Troponin I High Sens 4.1 (0-14) pg/ml Total Protein 7.8 (6.0-8.3) gm/dl Albumin 4.4 (3.4-5.0) gm/dl Globulin 3.4 (2.5-4.0) gm/dl Albumin/Globulin Ratio 1.3 (0.9-2) Administered Medications Aspirin (Aspirin 81 Mg Ectab) 81 mg PO QAM [facility] Stop: 02/27/25 08:59 Last Admin: 01/28/25 07:49 Dose: 81 mg Documented By: WS Calcium/Vitamin D (Calcium 600mg + Vit D 400 Iu Tab) 1 tab PO BID [facility] Stop: 02/26/25 20:59 Last Admin: 01/28/25 07:51 Dose: 1 tab Documented By: Admin: 01/27/25 20:27 Dose: 1 tab Documented By: KIM Carvedilol (Carvedilol 12.5 Mg Tab) 12.5 mg PO BID [facility] Stop: 02/27/25 08:59 Last Admin: 01/28/25 08:04 Dose: 12.5 mg Documented By: DIANDRA Clopidogrel Bisulfate (Clopidogrel Bisulfate 75 Mg Tab) 75 mg PO DAILY [facility] Stop: 02/27/25 08:59 Last Admin: 01/28/25 07:48 Dose: 75 mg Documented By: DIANDRA Fish Oil (Melfa-3 (Purified Fish Oil) 1 Gm Cap) 1 cap PO DAILY [facility] Stop: 02/27/25 08:59 Last Admin: 01/28/25 07:49 Dose: 1 cap Documented By: DIANDRA Insulin Aspart (Insulin Aspart Per Unit Charge) 0 units SC ACHS [facility] Stop: 02/26/25 20:59 Last Admin: 01/28/25 13:05 Dose: Not Given Documented By: Admin: 01/28/25 08:00 Dose: Not Given Documented By: Admin: 01/27/25 20:27 Dose: Not Given Documented By: KIM Labetalol HCl (Labetalol Hcl Iv 5 Mg/Ml 20ml) 5 mg IV Q6H PRN PRN Reason: SBP > 180 Stop: 02/26/25 17:01 Last Admin: 01/27/25 17:09 Dose: 5 mg Documented By: MAREN Losartan Potassium (Losartan Potassium 25 Mg Tab) 25 mg PO TID [facility] Stop: 02/26/25 20:59 Last Admin: 01/28/25 13:04 Dose: 25 mg Documented By: Admin: 01/28/25 07:48 Dose: 25 mg Documented By: Admin: 01/27/25 20:27 Dose: 25 mg Documented By: KIM Magnesium Oxide (Magnesium Oxide 400 Mg Tab) 400 mg PO BID [facility] Stop: 02/26/25 20:59 Last Admin: 01/28/25 08:04 Dose: 400 mg Documented By: Admin: 01/27/25 20:27 Dose: 400 mg Documented By: KIM Miscellaneous (Estradiol 0.01 % (0.1 Mg/Gram) Cream--Order Awaiting Action) 1 each N/A QS [facility] Stop: 02/27/25 00:00 Last Admin: 01/28/25 07:50 Dose: Not Given Documented By: Admin: 01/28/25 02:47 Dose: Not Given Documented By: KIM Multivitamins/Minerals (Cerovite Adv Formula Tab) 1 tab PO QD [facility] Stop: 02/26/25 20:14 Last Admin: 01/27/25 20:27 Dose: 1 tab Documented By: KIM Potassium Chloride (Potassium Chloride 10 Meq Tabcr) 10 meq PO DAILY [facility] Stop: 02/27/25 08:59 Last Admin: 01/28/25 08:04 Dose: 10 meq Documented By: DIANDRA Prednisone (Prednisone 20 Mg Tab) 40 mg PO DAILY [facility] Stop: 02/27/25 12:44 Last Admin: 01/28/25 13:04 Dose: 40 mg Documented By: DIANDRA Discontinued Medications Amlodipine Besylate (Amlodipine Besylate 5 Mg Tab) 10 mg PO NOW STA Stop: 01/27/25 17:05 Last Admin: 01/27/25 17:36 Dose: 10 mg Documented By: MAREN Carvedilol (Carvedilol 12.5 Mg Tab) 12.5 mg PO NOW ONE Stop: 01/27/25 17:23 Last Admin: 01/27/25 17:36 Dose: 12.5 mg Documented By: MAREN Ioversol (Optiray 320 125ml) 115 ml IV ONCE ONE Stop: 01/27/25 15:58 Last Admin: 01/27/25 15:58 Dose: 115 ml Documented By: ZAY Labetalol HCl (Labetalol Hcl Iv 5 Mg/Ml 20ml) 10 mg IV NOW STA Stop: 01/27/25 14:29 Last Admin: 01/27/25 14:53 Dose: 10 mg Documented By: HEIDI Lorazepam (Lorazepam 2 Mg/1 Ml Vial) 0.5 mg IV NOW STA Stop: 01/27/25 17:20 Last Admin: 01/27/25 17:36 Dose: 0.5 mg Documented By: MAREN Imaging Data Radiologist's Impression: Head CT 01/27/25 14:28 Clinical History: Hypertension Technique: Axial computed tomography images were obtained of the brain without intravenous contrast. Comparison is made to the prior CT dated 01/24/2025 Findings: There is cerebral atrophy, within expected limits for the patient's age. Areas of decreased attenuation are seen within the periventricular white matter, likely representing chronic small vessel ischemic disease. There is a small old infarct of the left lentiform nucleus. There is mild prominence of the prefrontal extra-axial space bilaterally, likely due to the cerebral atrophy There is no definite sign of acute infarction. No intracranial hemorrhage is evident. No definite mass lesion is seen on this noncontrast examination. There is no midline shift or other form of herniation. No hydrocephalus is seen. No fracture is identified. The orbits and the visualized paranasal sinuses appear unremarkable. The mastoid air cells appear clear. Impression: 1. Cerebral atrophy, old basal ganglia infarct, and chronic small vessel ischemic disease 2. No definite acute pathology Electronically signed by Jimenez Chase 01-27-2025 4:23 PM Head CTA 01/27/25 14:28 Clinical History: Hypertension Technique: Axial computed tomography images were obtained of the brain after the administration of intravenous contrast according to the CT angiogram protocol Findings: There is calcified plaque within the cavernous and supraclinoid segments of the internal carotid arteries bilaterally, without stenosis No definite stenosis or aneurysm is seen of the anterior, middle, or posterior cerebral artery circulations. The visualized vertebral arteries and the basilar artery appear unremarkable Impression: No definite stenosis or aneurysm of the intracranial arteries Electronically signed by Jimenez Chase 01-27-2025 4:25 PM Neck CTA 01/27/25 14:28 Clinical History: Hypertension Technique: Axial computed tomography images were obtained of the neck after the administration of intravenous contrast according to the CT angiogram protocol Findings: No stenosis is seen in the common carotid arteries bilaterally. There is calcified plaque in the right carotid bulb, with less than 30% diameter narrowing. There is also mild plaque in the left carotid bulb and proximal left internal carotid artery. The remainder of the internal carotid arteries appear patent bilaterally. No stenosis of the external carotid arteries is seen There is an approximately 50% diameter stenosis at the origin of the right vertebral artery. There is mild plaque in the distal right vertebral artery, without significant stenosis. No stenosis of the left vertebral artery is seen. The visualized thoracic aorta appears unremarkable There is multilevel degenerative disc disease and osteoarthritis of the cervical spine. There is a cervical fusion Impression: 1. Atherosclerotic plaque in the carotid bulbs and proximal ICA bilaterally, without significant stenosis 2. Approximately 50% diameter stenosis at the origin of the right vertebral artery ACT 112: Positive. There are findings on this exam that require communication between the performing entity and the patient following Patient Test Result Information Act ([place] ACT 112) guidelines. Electronically signed by Jimenez Chase 01-27-2025 4:29 PM Brain MRI 01/27/25 16:52 Clinical History: Hypertension. Left-sided numbness and weakness Technique: Multiple T1 and T2-weighted magnetic resonance images were obtained of the brain without gadolinium contrast Findings: There is no sign of acute or old infarction with normal-appearing diffusion weighted images. There is cerebral atrophy, within expected limits for the patient's age. There are focal and confluent areas of increased T2 signal intensity within the periventricular white matter of the cerebral hemispheres bilaterally. This is most likely due to chronic small vessel ischemic disease. No definite mass lesion is seen on this noncontrast study. There is no intracranial hemorrhage or other fluid collection. No midline shift or other form of herniation is seen. There is no hydrocephalus. Normal flow-voids are seen within the arteries of the ekkvop-fu-Tvfgiu. The orbits and paranasal sinuses appear normal. The mastoid air cells appear clear. Impression: 1. Cerebral atrophy and chronic small vessel ischemic disease 2. Otherwise unremarkable noncontrast MRI of the brain Electronically signed by Jimenez Chase 01-27-2025 7:12 PM Discharge Plan Visit Data Chief Complaint: Hypertension Stated Complaint: HIGH BLOOD PRESSURE NUMBNESS ED Provider: Teo Tovar Discharge Problem: Hypertensive emergency, Left leg weakness, Left sided numbness Patient Disposition: Admitted As Inpatient Discharge Instructions Interventions: ED Discharge Assessment Last Done: 01/27/25 21:04
[2025-01-27 14:35] LABS: iSTAT Creatinine 0.7 mg/dl (0.6-1.3); iSTAT Hemoglobin 13.6 g/dl (12.0-16.0); iSTAT Ionized Calcium 1.29 mmol/l (1.12-1.32); iSTAT Potassium 4.5 mmol/L (3.3-5.0)
[2025-01-27 14:45] LABS: Basophils # (auto) 0.05 K/uL (0.00-0.20); Basophils % (auto) 0.7 %; Eosinophils # (auto) 0.21 K/uL (0.00-0.50); Hematocrit (blood only) 39.9 % (37.0-47.0); Hemoglobin 14.3 g/dl (12.0-16.0); Immature Granulocytes # (auto) 0.04 K/uL (0.01-0.20); Immature Granulocytes % (auto) 0.6 %; Lymphocytes # (auto) 2.78 K/uL (1.20-3.40); Lymphocytes % (auto) 39.3 %; Mean Corpuscular Hemoglobin 32.9 pg (25.0-34.0); Mean Corpuscular Hgb Conc 35.8 g/dL (32.0-36.0); Mean Corpuscular Volume 91.9 fL (80.0-100.0); Mean Platelet Volume 9.4 fL (9.4-12.4); Monocytes # (auto) 0.77 K/uL (0.11-0.59); Monocytes % (auto) 10.9 %; Neutrophils # (auto) 3.23 K/uL (1.40-6.50); Neutrophils % (auto) 45.5 %; Platelet Count 177 K/uL (130-400); RDW Coefficient of Variation 11.8 % (11.5-14.5); RDW Standard Deviation 39.9 fL (36.4-46.3); Red Blood Count 4.34 M/uL (4.20-5.40); White Blood Count 7.08 K/ul (4.8-10.8)
[2025-01-27] MEDS: LABETALOL HCL IV 5 MG/ML 20ML IV STA (14:53)
[2025-01-27 14:59] LABS: Alanine Aminotransferase 23 U/L (7-52); Albumin Globulin Ratio 1.3 (0.9-2); Albumin Level 4.4 gm/dl (3.4-5.0); Alkaline Phosphatase 37 U/L (34-104); Anion Gap 6 (3-11); Aspartate Aminotransferase 23 U/L (13-39); BUN Creatinine Ratio 28.4 (10-20); Bilirubin,Total 0.4 mg/dl (0.2-1.0); Blood Urea Nitrogen 21 mg/dl (6-23); Calcium 10.1 mg/dl (8.6-10.3); Carbon Dioxide 25 mmol/L (21-32); Chloride 106 mmol/L (98-107); Globulin 3.4 gm/dl (2.5-4.0); Glucose 108 mg/dl (70-99(Fasting)); Magnesium 1.7 mg/dl (1.7-2.4); Potassium 4.4 mmol/L (3.5-5.1); Sodium 137 mmol/L (136-145); Total Protein 7.8 gm/dl (6.0-8.3)
[2025-01-27 15:06] LABS: Troponin I High Sensitivity 4.1 pg/ml (0-14)
[2025-01-27 15:29] LABS: Partial Thromboplastin Time 26 Seconds (21-31); Prothrombin Time 10.9 Seconds (9.0-12.0)
[2025-01-27] MEDS: OPTIRAY 320 125ml IV ONE (15:58)
--- NOTE | 2025-01-27 16:24 | CT Scan Report ---
Clinical History: Hypertension Technique: Axial computed tomography images were obtained of the brain without intravenous contrast. Comparison is made to the prior CT dated 01/24/2025 Findings: There is cerebral atrophy, within expected limits for the patient's age. Areas of decreased attenuation are seen within the periventricular white matter, likely representing chronic small vessel ischemic disease. There is a small old infarct of the left lentiform nucleus. There is mild prominence of the prefrontal extra-axial space bilaterally, likely due to the cerebral atrophy There is no definite sign of acute infarction. No intracranial hemorrhage is evident. No definite mass lesion is seen on this noncontrast examination. There is no midline shift or other form of herniation. No hydrocephalus is seen. No fracture is identified. The orbits and the visualized paranasal sinuses appear unremarkable. The mastoid air cells appear clear. Impression: 1. Cerebral atrophy, old basal ganglia infarct, and chronic small vessel ischemic disease 2. No definite acute pathology Electronically signed by Jimenez Chase 01-27-2025 4:23 PM
--- NOTE | 2025-01-27 16:25 | CT Scan Report ---
Clinical History: Hypertension Technique: Axial computed tomography images were obtained of the brain after the administration of intravenous contrast according to the CT angiogram protocol Findings: There is calcified plaque within the cavernous and supraclinoid segments of the internal carotid arteries bilaterally, without stenosis No definite stenosis or aneurysm is seen of the anterior, middle, or posterior cerebral artery circulations. The visualized vertebral arteries and the basilar artery appear unremarkable Impression: No definite stenosis or aneurysm of the intracranial arteries Electronically signed by Jimenez Chase 01-27-2025 4:25 PM
--- NOTE | 2025-01-27 16:29 | CT Scan Report ---
Clinical History: Hypertension Technique: Axial computed tomography images were obtained of the neck after the administration of intravenous contrast according to the CT angiogram protocol Findings: No stenosis is seen in the common carotid arteries bilaterally. There is calcified plaque in the right carotid bulb, with less than 30% diameter narrowing. There is also mild plaque in the left carotid bulb and proximal left internal carotid artery. The remainder of the internal carotid arteries appear patent bilaterally. No stenosis of the external carotid arteries is seen There is an approximately 50% diameter stenosis at the origin of the right vertebral artery. There is mild plaque in the distal right vertebral artery, without significant stenosis. No stenosis of the left vertebral artery is seen. The visualized thoracic aorta appears unremarkable There is multilevel degenerative disc disease and osteoarthritis of the cervical spine. There is a cervical fusion Impression: 1. Atherosclerotic plaque in the carotid bulbs and proximal ICA bilaterally, without significant stenosis 2. Approximately 50% diameter stenosis at the origin of the right vertebral artery ACT 112: Positive. There are findings on this exam that require communication between the performing entity and the patient following Patient Test Result Information Act ([place] ACT 112) guidelines. Electronically signed by Jimenez Chase 01-27-2025 4:29 PM
--- NOTE | 2025-01-27 17:02 | History & Physical Report ---
Date of Service January 27, 2025 Assessment & Plan (1) History of CVA (cerebrovascular accident): Plan: 84-year-old female who presents with left lower extremity weakness for several days, and numbness and tingling of 1 day. Is recommended for admission for hypertensive emergency versus CVA. If her presentation is consistent with CVA she is outside of the window for thrombolysis/thrombectomy. Was recommended for admission for completion of stroke protocol with MRI, and blood pressure control. Left-sided numbness/weakness - Symptom onset of LLE weakness x several days, numbness of LUE and LLE x24 hours DDx includes CVA versus hypertensive emergency CThead: Old basal ganglia infarct, chronic small vessel ischemic disease, cerebral atrophy. No definitive acute stroke CTAhead/neck: No definite stenosis/aneurysm of intracranial arteries. 50% diameter stenosis at the origin of the right vertebral artery. Atherosclerotic plaque in the carotid bulbs and proximal ICA without significant stenosis DAPT continued MRI pending Continue home losartan, carvedilol. Amlodipine 5 mg daily added. If this was sales and service representative of stroke she is outside of the window for permissive hypertension. Labetalol 10 mg IV every 6 hours as needed SBP BP target less than 180 TTE 11/2023: EF 60 to 65%, no regional wall motion abnormalities. Bubble study was performed 11/2021 with agitated saline, no evidence of interarterial shunt at that time EKG normal sinus rhythm no acute changes. Troponin normal. Hypertensive emergency Left leg weakness/left arm numbness with BP 200/100 at PCP office BP [id number] systolic in the ER with left leg weakness. Treated as hypertensive emergency Carvedilol, losartan, amlodipine p.o. as noted, labetalol as needed No confusion or encephalopathy suggestive of press Improving to 150 systolic on recheck, nicardipine drip required post MRI and reassessment. Admitted to PCU History of CVA History of CVA s/p thrombolysis 04/2023 without residual symptoms Severe known right MOSAIC LAYER/vertebral stenosis Patient declined/defers statin therapy DAPT continued Spinal stenosis PT/OT pending DM2 Last A1c 6.6%, diet controlled DM2 diet, SSI with CF 50 no carb ratio on admission Goal BSG [id number] If persistently elevated add carb ratio and low basal dose CKD 3 Baseline creatinine approximately 0.9 Creatinine on admission 0.74, no VICTORINA (2) Chronic cerebral ischemia: (3) Transient left leg weakness: (4) Spinal stenosis, lumbar region without neurogenic claudication: (5) Mild cognitive impairment: (6) Anxiety and depression: (7) Hypertension: History of Present Illness Primary Care Provider: Clara Sarkar DO Jacy is an 84-year-old female with past medical history of CVA, type II DM, chronic cerebral ischemia, lumbar spinal stenosis, GERD, hyperlipidemia, anxiety/depression who presents to the emergency department with several days of left sided weakness and one day of numbess. Patient has had difficulty walking and associates numbness in her left arm and leg. In the ER she is evaluated, stroke alert was not activated as she is outside the window for thrombolysis/interventional procedures due to symptom onset several days prior. She was hypertensive on arrival [id number] systolic. Received 10 mg of labetalol with improvement to 170s/90s. Due to onset of symptoms several days prior patient was not felt to be within the window for permissive hypertension and SBP goal target is less than 180. DDx included hypertensive emergency. Jacy is seen at the bedside. She reports that Last week or so BPs on average have been 180s-200s. She noted several days ago, round 4 to 5 days while her left lower extremity is chronically weaker it has been with a very heavy quality and more weakness in the last 4 to 5 days. Yesterday she also started to notice that she had some left-sided numbness and tingling on the left side of her face, left upper extremity, and left lower extremity. She has had some twitching/tremors of her left lower leg as well which are unusual for her. No pain and no muscle spasms. Otherwise she has noticed some mild sinus congestion but no fevers chills sweats. No chest pain or chest pressure. No cough. No shortness of breath. No difficulty breathing. She has no pain in her back. No vision change. She does have a past history of CVA. Was seen at her PCPs office and was significantly hypertensive in the 200s and was referred to the ER for concern of CVA versus hypertensive emergency. She notes that her blood pressure had us ually been fairly well-controlled in the last few months but in the last week or so has been much higher around the [id number]. She has been taking all of her medications as prescribed and has not been missing doses of these Medical History: Reviewed Medications: Reviewed. Took Surgical History: Reviewed Family history: Reviewed Allergies: Reviewed Social History: No tobacco, no ETOH Code Status: DNR/DNI. Discussed patient at bedside. This is an update from prior CODE STATUS. "If I have gone, let me go " Allergies Allergy/AdvReac Type Severity Reaction Status Date / Time fenofibrate Allergy Intermediate Abdominal Verified 01/27/25 11:44 Pain doxycycline AdvReac Mild decreased Verified 01/27/25 11:44 urine output escitalopram AdvReac Mild decreased Verified 01/27/25 11:44 urine output prednisone AdvReac Mild feels Verified 01/27/25 11:44 agitated memantine AdvReac Unknown stomach Verified 01/27/25 11:44 pains amoxicillin AdvReac upset Verified 01/27/25 11:44 stomach cefdinir AdvReac Diarrhea Verified 01/27/25 11:44 ciprofloxacin [From Cipro] AdvReac Diarrhea Verified 01/27/25 11:44 fluticasone AdvReac Dizziness Verified 01/27/25 11:44 gabapentin AdvReac abdominal Verified 01/27/25 11:44 pain and drowsy gemfibrozil [From Lopid] AdvReac upset Verified 01/27/25 11:44 stomach irbesartan AdvReac Diarrhea Verified 01/27/25 11:44 lisinopril AdvReac hypertension Verified 01/27/25 11:44 and diarrhea meclizine AdvReac Drowsy Verified 01/27/25 11:44 pitavastatin [From Livalo] AdvReac Unknown Verified 01/27/25 11:44 Abvwzmn-HMA-PrA Reductase AdvReac myalgia Verified 01/27/25 11:44 Inhibitor [Beojyed-Xxd-Iva Reductase Inhibitor] tizanidine AdvReac nightmares Verified 01/27/25 11:44 tramadol AdvReac insomnia/pr Verified 01/27/25 11:44 uitus trazodone AdvReac Unknown Verified 01/27/25 11:44 Home Medications Medication Instructions Recorded Confirmed Type calcium 600 mg (as 1 tab PO BID #60 tabs 05/10/21 01/27/25 Rx carbonate)-vitamin D3 10 mcg (400 unit) tablet (Calcium 600 + D(3)) omega-3 acid ethyl esters 1 gram 1 cap PO DAILY 11/09/21 01/27/25 History capsule rfezboqrohej-lgkhfqwi-kwdtrn tablet 1 tab PO DAILY #90 tabs 12/13/21 01/27/25 Rx cyclosporine 0.05 % eye drops in a 1 drp OPB UD 05/07/23 01/27/25 History dropperette (Restasis) aspirin 81 mg tablet,delayed 81 mg PO QAM #30 tabs 05/09/23 01/27/25 Rx release magnesium oxide 400 mg PO BID 08/27/23 01/27/25 History clopidogrel 75 mg tablet (Plavix) 75 mg PO DAILY #90 tabs 03/04/24 01/27/25 Rx lidocaine 5 % topical patch 1 patch topical DAILY #15 ea 05/13/24 01/27/25 Rx (Lidoderm) estradiol 0.01% (0.1 mg/gram) 1 applic vaginal 3XWK #42.5 grams 08/26/24 01/27/25 Rx vaginal cream potassium chloride 10 mEq 10 meq PO DAILY #90 caps 11/19/24 01/27/25 Rx capsule,extended release losartan 25 mg tablet 25 mg PO TID #90 tabs 11/25/24 01/27/25 Rx carvedilol 12.5 mg tablet 12.5 mg PO BID #90 tabs 12/17/24 01/27/25 Rx fluticasone propionate 50 2 spray intranasal UD 01/27/25 01/27/25 History mcg/actuation nasal spray,suspension (Flonase Allergy Relief) ipratropium bromide 21 mcg (0.03 2 spray intranasal UD 01/27/25 01/27/25 History %) nasal spray Past Med/Surg History Problem List (Updated 01/27/25 @ 12:51 by Agusto Solomon DO) Ambulatory dysfunction (Acute) Vaginal atrophy History of CVA (cerebrovascular accident) Lumbosacral radiculopathy at S1 Allergic rhinitis Diabetes mellitus, type 2 Chronic cerebral ischemia Transient left leg weakness Arthritis of wrist Lumbar facet joint syndrome Spinal stenosis, lumbar region without neurogenic claudication Mild cognitive impairment Venous insufficiency (chronic) (peripheral) Anxiety and depression Hypertension Insomnia Osteopenia History of recurrent TIAs GERD (gastroesophageal reflux disease) Dyslipidemia Medical History (Updated 01/27/25 @ 12:51 by Agusto Solomon DO) Cerebrovascular accident (CVA) due to stenosis of right posterior cerebral dane ry (04/2023) Sacroiliitis Lumbar pain with radiation down left leg Dizziness Cognitive impairment Hypertensive emergency Leg swelling Numbness and tingling Hypertensive urgency Left sided numbness Left leg weakness Weakness of left leg Stroke-like symptoms TIA (transient ischemic attack) (11/2021) Chronic kidney disease, stage 3 (moderate) Surgical History S/P blepharoplasty History of carpal tunnel surgery S/P appendectomy S/P cholecystectomy Hx of neck surgery secondary to cervical herniated discs Previous back surgery x3 Family History Father Myocardial infarction Prostate cancer Coronary heart disease Mother Stroke, Onset Age: 72 Myocardial infarction, Onset Age: 76 Hypertension Diabetes Brother Cancer Sister Hodgkins disease Sister Coronary heart disease Brother Diabetes Denies family history of Ovarian cancer Breast cancer Colorectal cancer Social History Smoking Status: Never smoker Second Hand Exposure: No; Do You Dip or Chew Tobacco: No; Hx Alcohol Use: No Hx Substance Use: No Preferred Language: Samoan Communication Ability: Effective Visual Impairment: No Limitations Hearing Ability: Normal College Director Required: No Beliefs That Will Affect Care: Mosque Mosque Beliefs: Latter Day marital status: Current Living Situation: Alone Current Living Situation Comment: Patient lives alone in an apartment building current occupational status: retired 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 NAD. Cooperative. HEENT: Atraumatic, normocephalic. Patient and hearing grossly intact. Pupils equal and reactive to light. No facial asymmetry. No dysarthria. Tongue protrudes midline. Cheek puff/eyebrow raise/smile symmetrical Pulm: CTAB A&P. -wheezes, -rales, -rhonchi. Symmetrical chest rise. No increased work of breathing. No respiratory distress. Cardiac: RRR, soft systolic murmur. Radial pulses intact and symmetrical. Abdominal: Nontender, nondistended, soft. BS present. Extremities: Left hip flexion, knee flexion/extension, left ankle dorsiflexion/plantarflexion are intact but qualitatively diminished compared to the right. Patient endorses intact sensation to soft touch in her upper and lower extremities bilaterally although endorses a tingling paresthesia in her left arm which is improved from prior but still persistent. This does not extend to the shoulder. Water Pump Servicer strength, elbow flexion/extension, shoulder flexion 5/5 bilaterally Results & Data Results & Data Vital Signs (Past 12 Hours) Vital Signs Temp Pulse Pulse Resp BP Pulse Ox O2 Del Method 01/27/25 16:46 73 178/98 H 01/27/25 16:39 65 16 173/92 H 93 01/27/25 16:31 67 190/95 H 93 Room Air 01/27/25 15:36 61 15 167/89 H 01/27/25 15:30 61 15 183/87 H 01/27/25 15:03 60 15 179/93 H 01/27/25 14:57 62 17 171/83 H 01/27/25 14:53 67 212/104 H 01/27/25 14:48 65 20 212/104 H 01/27/25 14:45 62 17 168/95 H 01/27/25 14:32 73 01/27/25 14:28 63 20 93 Room Air 01/27/25 13:54 36.6 C 71 22 179/93 H 92 Room Air PG Care Time/CCT Total # of Minutes Spent Total Time Spent with Patient: Total time spent is greater than 50% in coordination of care (as documented) at patient's floor/unit and/or counseling patient: Coding Level of Care Code 27868 INT INP/OBS CARE 3/75MIN Diagnoses History of CVA (cerebrovascular accident) Z86.73 Chronic cerebral ischemia I67.82 Transient left leg weakness R29.898 Spinal stenosis, lumbar region without neurogenic claudication M48.061 Mild cognitive impairment G31.84 Anxiety and depression F41.9; F32.9 Hypertension I10
[2025-01-27] MEDS: LABETALOL HCL IV 5 MG/ML 20ML IV PRN (17:09)
[2025-01-27] MEDS: carvediloL 12.5 MG TAB PO ONE (17:36)
[2025-01-27] MEDS: LORazepam 2 MG/1 ML VIAL IV STA (17:36)
[2025-01-27] MEDS: amLODIPine BESYLATE 5 MG TAB PO STA (17:36)
--- NOTE | 2025-01-27 19:13 | Magnetic Resonance Report ---
Clinical History: Hypertension. Left-sided numbness and weakness Technique: Multiple T1 and T2-weighted magnetic resonance images were obtained of the brain without gadolinium contrast Findings: There is no sign of acute or old infarction with normal-appearing diffusion weighted images. There is cerebral atrophy, within expected limits for the patient's age. There are focal and confluent areas of increased T2 signal intensity within the periventricular white matter of the cerebral hemispheres bilaterally. This is most likely due to chronic small vessel ischemic disease. No definite mass lesion is seen on this noncontrast study. There is no intracranial hemorrhage or other fluid collection. No midline shift or other form of herniation is seen. There is no hydrocephalus. Normal flow-voids are seen within the arteries of the vpgtsv-ox-Yifgvt. The orbits and paranasal sinuses appear normal. The mastoid air cells appear clear. Impression: 1. Cerebral atrophy and chronic small vessel ischemic disease 2. Otherwise unremarkable noncontrast MRI of the brain Electronically signed by Jimenez Chase 01-27-2025 7:12 PM
[2025-01-27] MEDS ORDERED: GLUCOSE 10 TAB/TUBE PO PRN (20:07)
[2025-01-27] MEDS ORDERED: PHARMACIST DISCHARGE MED REC CONSULT PRN (20:07)
[2025-01-27] MEDS ORDERED: GLUCAGON FOR INJ 1 MG VIAL SQ PRN (20:07)
[2025-01-27] MEDS ORDERED: CARBOHYDRATES FOR HYPOGLYCEMIA PO PRN (20:07)
[2025-01-27] MEDS ORDERED: GLUCOSE 40% GEL 15 GM TUBE PO PRN (20:07)
[2025-01-27] MEDS ORDERED: DEXTROSE 50% 50 ML SYRINGE IV PRN (20:07)
[2025-01-27] MEDS ORDERED: ARTIFICIAL TEARS OP PRN (20:12)
[2025-01-27] MEDS: INSULIN ASPART PER UNIT CHARGE SC SCH (20:27)
[2025-01-27] MEDS: CEROVITE ADV FORMULA TAB PO SCH (20:27)
[2025-01-27] MEDS: MAGNESIUM OXIDE 400 MG TAB PO SCH (20:27)
[2025-01-27] MEDS: CALCIUM 600MG + VIT D 400 IU TAB PO SCH (20:27)
[2025-01-27] MEDS: LOSARTAN POTASSIUM 25 MG TAB PO SCH (20:27)
[2025-01-28 05:29] LABS: Basophils # (auto) 0.05 K/uL (0.00-0.20); Basophils % (auto) 0.7 %; Hematocrit (blood only) 38.6 % (37.0-47.0); Hemoglobin 13.5 g/dl (12.0-16.0); Immature Granulocytes # (auto) 0.03 K/uL (0.01-0.20); Immature Granulocytes % (auto) 0.4 %; Lymphocytes # (auto) 2.83 K/uL (1.20-3.40); Lymphocytes % (auto) 42.1 %; Mean Corpuscular Hemoglobin 31.8 pg (25.0-34.0); Mean Platelet Volume 9.3 fL (9.4-12.4); Monocytes # (auto) 0.63 K/uL (0.11-0.59); Monocytes % (auto) 9.4 %; Neutrophils # (auto) 2.98 K/uL (1.40-6.50); Neutrophils % (auto) 44.4 %; Platelet Count 167 K/uL (130-400); RDW Coefficient of Variation 11.9 % (11.5-14.5); RDW Standard Deviation 39.6 fL (36.4-46.3); Red Blood Count 4.24 M/uL (4.20-5.40); White Blood Count 6.72 K/ul (4.8-10.8)
[2025-01-28 06:26] LABS: Anion Gap 7 (3-11); BUN Creatinine Ratio 28.8 (10-20); Blood Urea Nitrogen 21 mg/dl (6-23); Carbon Dioxide 23 mmol/L (21-32); Chloride 107 mmol/L (98-107); Cholesterol 187 mg/dl (0-200); Creatinine Clr Calc Pharmacy 42.5 ml/min; Glucose 100 mg/dl (70-99(Fasting)); HDL Cholesterol 33 mg/dl; Potassium 4.3 mmol/L (3.5-5.1); Sodium 137 mmol/L (136-145); Triglycerides 411 mg/dl (0-150)
[2025-01-28 06:33] LABS: Chol HDL Ratio 5.7 (0-5)
[2025-01-28 07:08] LABS: Estimated Average Glucose 128 mg/dl; Hemoglobin A1C 6.1 % (4.5-5.6)
[2025-01-28] MEDS: CLOPIDOGREL BISULFATE 75 MG TAB PO SCH (07:48)
[2025-01-28] MEDS: ASPIRIN 81 MG ECTAB PO SCH (07:49)
[2025-01-28] MEDS: OMEGA-3 (PURIFIED FISH OIL) 1 GM CAP PO SCH (07:49)
[2025-01-28] MEDS: POTASSIUM CHLORIDE 10 MEQ TABCR PO SCH (08:04)
[2025-01-28] MEDS: carvediloL 12.5 MG TAB PO SCH (08:04)
[2025-01-28] MEDS ORDERED: amLODIPine BESYLATE 5 MG TAB PO SCH (09:00)
--- NOTE | 2025-01-28 12:37 | Hospitalist Progress Note ---
Date of Service January 28, 2025 Assessment & Plan (1) Migraine: (2) Left-sided weakness: (3) Hypertension: Plan This patient is AN 84-year-old female with a history of HTN, aborted CVA/TIA, lumbar spinal stenosis with radiculopathy, DM 2, CKD stage III, who presents with recurrent left sided weakness, numbness, left facial numbness and headache for several days. She is admitted for stroke workup. MRI of the brain is again negative for new or old stroke. She has had this exact same presentation numerous times over the last several years with extensive workup. Suspect complex migraine #Left-sided numbness/weakness/suspected complex migraine-stroke is ruled out and still has 50% stenosis at origin of right vertebral artery which would not account for her symptoms. Echo without thrombus, no arrhythmias on telemetry. Symptoms are waxing and waning for many days and associated with headache. Blood pressures were quite elevated on admission and now too low. -Will start trial of prednisone 40 mg p.o. daily for abortive therapy for migraine -Continue blood pressure control but not as aggressive-hold amlodipine -Continue to monitor on telemetry -Continue aspirin, Plavix #Hypertensive emergency-blood pressures as high as 212 systolic on admission, treated with IV labetalol, higher doses of amlodipine in addition to home carvedilol and losartan. Blood pressure then dropped to 97 systolic which is too big of a drop too quickly. -Hold amlodipine -Continue home carvedilol, losartan, and give IV labetalol as needed #History of aborted CVA History of CVA s/p thrombolysis 04/2023 without residual symptoms. 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 50% Patient declined/defers statin therapy DAPT continued #Lumbar spinal stenosis with lumbar radiculopathy on left side proven on EMG- doubt her current symptoms are related to this PT/OT pending #DM2A1c 6.1%, diet controlled DM2 diet, SSI with CF 50 no carb ratio on admission Goal BSG [id number] If persistently elevated add carb ratio and low basal dose #CKD 3 Baseline creatinine approximately 0.9 Creatinine on admission 0.74, no VICTORINA DVT prophylaxis-SCDs Disposition-continued stay in PCU, PT/OT consults placed Admission and Anticipated Discharge Date Admission Date: January 27, 2025 Subjective Patient continues to have waxing and waning left arm and left lower extremity weakness and numbness/tingling. Also with numbness in the left side of face, no facial droop. She also complains of a frontal and left-sided headache that has been going on for several days. It is moderate to severe in nature and associated with photophobia but no nausea. Review of the chart shows that she has had this exact same presentation numerous times and been hospitalized for such and even received TNK twice in the past for the same symptoms. I discussed her care with neurology who did not feel a neuro consultation was necessary, but did concur with my thoughts on treating for migraine. Telemetry with normal sinus rhythm and normal rates Physical Exam Constitutional: WD/WN, vitals as above Eyes: PERRL, conjunctivae normal, anicteric sclerae ENMT: external ear and nose normal, oropharynx normal Respiratory: normal respiratory effort, lungs clear to auscultation Cardiovascular: RRR, no murmur, no edema Gastrointestinal (Abdomen): normal bowel sounds, soft, nontender, no hepatosplenomegaly Musculoskeletal: no cyanosis or clubbing, extremities motor strength 5/5 Skin: no rashes, warm and dry Neurologic: PERRL, EOMI, accommodation nl, no face palsy, no dysarthria CN's II-XI intact bilaterally (Except mild decrease to light touch left V1-V3), moves all extremities and awake; no focal motor deficits and not confused Speech / Cognition: normal speech Motor/Sensory: + sensory deficit (Decrease to light touch throughout entire left side of body); no tremor and no pronator drift Coordination: normal hkanwb-pp-xeeb test and normal xhhw-tu-vgpz test Psychiatric: Orientation: alert and oriented x 3 Affect: + anxious affect Results & Data Results & Data Vital Signs (Past 12 Hours) Vital Signs Temp Pulse Pulse Resp BP BP Pulse Ox 01/28/25 11:39 36.5 C 94 H 16 139/73 94 01/28/25 08:00 123/73 01/28/25 08:00 01/28/25 07:47 36.1 C L 74 18 97/45 L 93 01/28/25 07:45 01/28/25 06:50 60 01/28/25 06:00 66 17 91 01/28/25 04:00 97/45 L 01/28/25 04:00 97/45 L 01/28/25 04:00 97/45 L 01/28/25 04:00 97/45 L 01/28/25 04:00 97/45 L 01/28/25 04:00 97/45 L 01/28/25 04:00 97/45 L 01/28/25 04:00 97/45 L 01/28/25 04:00 97/45 L 01/28/25 04:00 97/45 L 01/28/25 04:00 97/45 L 01/28/25 04:00 97/45 L 01/28/25 04:00 97/45 L 01/28/25 04:00 97/45 L 01/28/25 04:00 97/45 L 01/28/25 04:00 97/45 L 01/28/25 04:00 97/45 L 01/28/25 04:00 97/45 L 01/28/25 04:00 97/45 L 01/28/25 04:00 97/45 L 01/28/25 04:00 97/45 L 01/28/25 04:00 97/45 L 01/28/25 04:00 97/45 L 01/28/25 04:00 97/45 L 01/28/25 04:00 97/45 L 01/28/25 04:00 97/45 L 01/28/25 04:00 97/45 L 01/28/25 04:00 59 L 14 90 01/28/25 04:00 97/45 L 01/28/25 04:00 97/45 L 01/28/25 04:00 97/45 L 01/28/25 04:00 97/45 L 01/28/25 04:00 97/45 L 01/28/25 04:00 97/45 L 01/28/25 04:00 97/45 L 01/28/25 04:00 97/45 L 01/28/25 04:00 97/45 L 01/28/25 04:00 97/45 L 01/28/25 04:00 97/45 L 01/28/25 04:00 97/45 L 01/28/25 04:00 97/45 L 01/28/25 04:00 01/28/25 04:00 36.7 C 01/28/25 02:00 60 17 90 Pulse Ox O2 Del Method O2 Del Method 01/28/25 11:39 Room Air 01/28/25 08:00 01/28/25 08:00 93 Room Air 01/28/25 07:47 Room Air 01/28/25 07:45 Room Air 01/28/25 06:50 01/28/25 06:00 01/28/25 04:00 01/28/25 04:00 01/28/25 04:00 01/28/25 04:00 01/28/25 04:00 01/28/25 04:00 01/28/25 04:00 01/28/25 04:00 01/28/25 04:00 01/28/25 04:00 01/28/25 04:00 01/28/25 04:00 01/28/25 04:00 01/28/25 04:00 01/28/25 04:00 01/28/25 04:00 01/28/25 04:00 01/28/25 04:00 01/28/25 04:00 01/28/25 04:00 01/28/25 04:00 01/28/25 04:00 01/28/25 04:00 01/28/25 04:00 01/28/25 04:00 01/28/25 04:00 01/28/25 04:00 01/28/25 04:00 01/28/25 04:00 01/28/25 04:00 01/28/25 04:00 01/28/25 04:00 01/28/25 04:00 01/28/25 04:00 01/28/25 04:00 01/28/25 04:00 01/28/25 04:00 01/28/25 04:00 01/28/25 04:00 01/28/25 04:00 01/28/25 04:00 01/28/25 04:00 91 Room Air 01/28/25 04:00 01/28/25 02:00 Laboratory Results CBC, CMP, HgbA1c, lipid panel reviewed Diagnostic Findings MRI brain reviewed Echocardiogram reviewed PG Care Time/CCT Total # of Minutes Spent Total Time Spent with Patient: Total time spent is greater than 50% in coordination of care (as documented) at patient's floor/unit and/or counseling patient: Coding Level of Care Code 04414 SUB INP/OBS CARE 50MIN Diagnoses Migraine G43.909 Left-sided weakness R53.1 Hypertension I10
--- NOTE | 2025-01-28 12:49 | XCELERA ---
[id number] \\[email or web address]\[id number]
[2025-01-28] MEDS: predniSONE 20 MG TAB PO SCH (13:04)
--- NOTE | 2025-01-28 14:04 | Electrocardiogram Report ---
Test Reason : Blood Pressure : */* mmHG Vent. Rate : 68 BPM Atrial Rate : 68 BPM P-R Int : 196 ms QRS Dur : 76 ms QT Int : 398 ms P-R-T Axes : 79 1 80 degrees QTcB Int : 423 ms Normal sinus rhythm Normal ECG When compared with ECG of 25-Jan-2024 13:43, Criteria for Septal infarct are no longer Present Confirmed by Popeye Courtney ([id number]) on 01/28/2025 2:04:17 PM Referred By: REFERRED SELF Confirmed By: Popeye Courtney
[2025-01-28] MEDS: ACETAMINOPHEN 325 MG TAB PO PRN (20:33)
[2025-01-28] MEDS: CALCIUM CARBONATE 500 MG CHEWABLE TAB PO PRN (21:53)
[2025-01-29 04:31] LABS: Basophils # (auto) 0.01 K/uL (0.00-0.20); Basophils % (auto) 0.1 %; Hematocrit (blood only) 39.3 % (37.0-47.0); Hemoglobin 13.9 g/dl (12.0-16.0); Immature Granulocytes # (auto) 0.04 K/uL (0.01-0.20); Immature Granulocytes % (auto) 0.4 %; Lymphocytes # (auto) 1.65 K/uL (1.20-3.40); Lymphocytes % (auto) 17.6 %; Mean Corpuscular Hemoglobin 32.1 pg (25.0-34.0); Mean Corpuscular Hgb Conc 35.4 g/dL (32.0-36.0); Mean Corpuscular Volume 90.8 fL (80.0-100.0); Mean Platelet Volume 9.1 fL (9.4-12.4); Monocytes % (auto) 6.4 %; Neutrophils # (auto) 7.05 K/uL (1.40-6.50); Neutrophils % (auto) 75.5 %; Platelet Count 180 K/uL (130-400); RDW Coefficient of Variation 11.8 % (11.5-14.5); RDW Standard Deviation 39.4 fL (36.4-46.3); Red Blood Count 4.33 M/uL (4.20-5.40); White Blood Count 9.35 K/ul (4.8-10.8)
[2025-01-29 04:45] LABS: BUN Creatinine Ratio 29.3 (10-20); Calcium 10.3 mg/dl (8.6-10.3); Creatinine Clr Calc Pharmacy 37.8 ml/min; Potassium 4.4 mmol/L (3.5-5.1)
--- NOTE | 2025-01-29 15:31 | Hospitalist Progress Note ---
Date of Service January 29, 2025 Assessment & Plan (1) Migraine: (2) Left-sided weakness: (3) Hypertension: Plan This patient is AN 84-year-old female with a history of HTN, aborted CVA/TIA, lumbar spinal stenosis with radiculopathy, DM 2, CKD stage III, who presents with recurrent left sided weakness, numbness, left facial numbness and headache for several days. She is admitted for stroke workup. MRI of the brain is again negative for new or old stroke. She has had this exact same presentation numerous times over the last several years with extensive workup. 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 Echo without thrombus, no arrhythmias on telemetry. Symptoms are waxing and waning for many days and associated with headache. Blood pressures were quite elevated on admission and then became too low after receiving amlodipine 10 mg daily. Headache and left- sided neurologic symptoms are improving after starting prednisone. She is confused at times and may be related to hospital delirium versus secondary to prednisone. -Continue prednisone 40 mg p.o. daily x 5-day course for abortive therapy for migraine -Continue blood pressure control with her home losartan and carvedilol-increase dose of carvedilol if blood pressures increase further -Continue to monitor on telemetry -Continue aspirin, Plavix, patient declines statin therapy -Supportive care, encourage/promote good sleep-wake cycles #Hypertensive emergency-blood pressures as high as 212 systolic on admission, treated with IV labetalol, higher doses of amlodipine in addition to home carvedilol and losartan. Blood pressure then dropped to 97 systolic which is too big of a drop too quickly. -Increase carvedilol to 18.75 Mg p.o. 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 MRI of the brain again negative for new or old stroke this admission known right [employer]/vertebral stenosis 50% Patient declined/defers statin therapy DAPT continued #Lumbar spinal stenosis with lumbar radiculopathy on left side proven on EMG- doubt her current symptoms are related to this PT/OT pending #DM2A1c 6.1%, diet controlled DM2 diet, SSI with CF 50 no carb ratio on admission Goal BSG [id number] If persistently elevated add carb ratio and low basal dose #CKD 3 Baseline creatinine approximately 0.9 Creatinine remains normal at 0.82 -Follow BMP DVT prophylaxis-SCDs Disposition-continued stay in PCU, PT/OT consults recommend home with 24/7 care if remains mildly confused-will reevaluate daily. I discussed all care with her daughter at the bedside on 01/29. Expect discharge likely on 01/30 Admission and Anticipated Discharge Date Admission Date: January 27, 2025 Anticipated date of discharge: 01/30/25 Subjective Patient feels a little bit better today but reports she was confused this morning had diarrhea related to eating ice cream and milk because she is lactose intolerant. Otherwise, the left sided weakness and numbness is mostly better today. Still has some occasional numbness in the left leg. Still has a mild l eft sided headache and some mild left-sided neck pain. She is forgetful at times. Telemetry with normal sinus rhythm Physical Exam Constitutional: WD/WN, vitals as above Respiratory: normal respiratory effort, lungs clear to auscultation Cardiovascular: RRR, no murmur, no edema Gastrointestinal (Abdomen): normal bowel sounds, soft, nontender, no hepatosplenomegaly Musculoskeletal: no cyanosis or clubbing, extremities motor strength 5/5 Skin: no rashes, warm and dry Neurologic: moves all extremities and awake; no focal motor deficits Speech / Cognition: normal speech Motor/Sensory: no tremor Psychiatric: Orientation: alert Results & Data Results & Data Vital Signs (Past 12 Hours) Vital Signs Temp Pulse Pulse Resp BP Pulse Ox O2 Del Method 01/29/25 12:00 36.3 C L 72 18 144/64 H 94 Room Air 01/29/25 08:00 Room Air 01/29/25 08:00 36.5 C 79 20 144/65 H 94 Room Air 01/29/25 06:50 74 Laboratory Results CBC, BMP reviewed Diagnostic Findings Echocardiogram reviewed PG Care Time/CCT Total # of Minutes Spent Total Time Spent with Patient: Total time spent is greater than 50% in coordination of care (as documented) at patient's floor/unit and/or counseling patient: Coding Level of Care Code 00140 SUB INP/OBS CARE 3/50MIN Diagnoses Migraine G43.909 Left-sided weakness R53.1 Hypertension I10
[2025-01-29] MEDS: carvediloL 6.25 MG TAB PO SCH (21:13)
[2025-01-30 07:39] LABS: Basophils # (auto) 0.03 K/uL (0.00-0.20); Basophils % (auto) 0.2 %; Eosinophils # (auto) 0.03 K/uL (0.00-0.50); Eosinophils % (auto) 0.2 %; Hematocrit (blood only) 41.4 % (37.0-47.0); Hemoglobin 14.4 g/dl (12.0-16.0); Immature Granulocytes % (auto) 0.7 %; Lymphocytes # (auto) 4.26 K/uL (1.20-3.40); Mean Corpuscular Hemoglobin 32.4 pg (25.0-34.0); Mean Corpuscular Hgb Conc 34.8 g/dL (32.0-36.0); Mean Platelet Volume 9.4 fL (9.4-12.4); Monocytes # (auto) 0.96 K/uL (0.11-0.59); Monocytes % (auto) 6.8 %; Neutrophils # (auto) 8.84 K/uL (1.40-6.50); Neutrophils % (auto) 62.1 %; Platelet Count 195 K/uL (130-400); RDW Coefficient of Variation 11.9 % (11.5-14.5); RDW Standard Deviation 40.8 fL (36.4-46.3); Red Blood Count 4.45 M/uL (4.20-5.40); White Blood Count 14.22 K/ul (4.8-10.8)
[2025-01-30 07:48] LABS: Calcium 10.2 mg/dl (8.6-10.3); Creatinine Clr Calc Pharmacy 42.5 ml/min
[2025-01-30 11:09] VITALS: BP 149/80; PULSE 61; RESP 18; TEMP 97.7; O2SAT 96
--- NOTE | 2025-01-30 13:10 | Discharge Summary ---
Discharge Summary Date of Service January 30, 2025 Principal Dx & Hospital Course #1 = Principal Diagnosis (1) Migraine: (2) Left-sided weakness: (3) Hypertension: Plan This patient is AN 84-year-old female with a history of HTN, aborted CVA/TIA, lumbar spinal stenosis with radiculopathy, DM 2, CKD stage III, who presents with recurrent left sided weakness, numbness, left facial numbness and headache for several days. She is admitted for stroke workup. MRI of the brain is again negative for new or old stroke. She has had this exact same presentation numerous times over the last several years with extensive workup. 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 Echo without thrombus, no arrhythmias on telemetry. Symptoms are waxing and waning for many days and associated with headache. Blood pressures were quite elevated on admission and then became too low after receiving amlodipine 10 mg daily. Headache and left- sided neurologic symptoms are now much improved after starting prednisone. She is confused at times and may be related to hospital delirium versus secondary to prednisone-suspect may be some underlying cognitive issues as well. Confusion now much improved on the day of discharge. -Continue prednisone 40 mg p.o. daily x 5-day course for abortive therapy for migraine-give 3 more days after discharge -Start verapamil 120 mg ER p.o. at bedtime for complex migraine prevention as well as for antihypertensive purposes -Continue blood pressure control with her home losartan and carvedilol -Continue aspirin, Plavix, patient declines statin therapy -Recommend follow-up with neurology, Dr. Perez, in the office within 2 to 3 weeks after discharge-she has seen him in the past for EMG/NCS and seen him in the hospital #Hypertensive emergency-blood pressures as high as 212 systolic on admission, treated with IV labetalol, higher doses of amlodipine in addition to home carvedilol and losartan. Blood pressure then dropped to 97 systolic which is too big of a drop too quickly. Amlodipine was discontinued and then blood pressure steadily angélica again to the 170s-180s systolic. She was given an extra dose of carvedilol 6.25 Mg on the morning of discharge. Blood pressures were improved -Continue home dose of carvedilol, continue home losartan, and verapamil 120 Mg ER p.o. 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 Confusion resolved-discharge to home #DM2A1c 6.1%, diet controlled Continue diet control at home, no medications #CKD 3 Baseline creatinine approximately 0.9 Creatinine remains normal at 0.8 -Follow-up as an outpatient DVT prophylaxis-SCDs Disposition-DC to home Notes For Next Care Provider Needs follow-up with neurology within 2 to 3 weeks Follow blood pressure closely after discharge Medication Changes From Visit Added verapamil 120 Mg ER p.o. at bedtime Added prednisone 40 mg p.o. daily x 3 more days Admission HPI Per Admitting Provider Jacy is an 84-year-old female with past medical history of CVA, type II DM, chronic cerebral ischemia, lumbar spinal stenosis, GERD, hyperlipidemia, anxiety/depression who presents to the emergency department with several days of left sided weakness and one day of numbess. Patient has had difficulty walking and associates numbness in her left arm and leg. In the ER she is evaluated, stroke alert was not activated as she is outside the window for thrombolysis/interventional procedures due to symptom onset several days prior. She was hypertensive on arrival [id number] systolic. Received 10 mg of labetalol with improvement to 170s/90s. Due to onset of symptoms several days prior patient was not felt to be within the window for permissive hypertension and SBP goal target is less than 180. DDx included hypertensive emergency. Jacy is seen at the bedside. She reports that Last week or so BPs on average have been 180s-200s. She noted several days ago, round 4 to 5 days while her left lower extremity is chronically weaker it has been with a very heavy quality and more weakness in the last 4 to 5 days. Yesterday she also started to notice that she had some left-sided numbness and tingling on the left side of her face, left upper extremity, and left lower extremity. She has had some twitching/tremors of her left lower leg as well which are unusual for her. No pain and no muscle spasms. Otherwise she has noticed some mild sinus congestion but no fevers chills sweats. No chest pain or chest pressure. No cough. No shortness of breath. No difficulty breathing. She has no pain in her back. No vision change. She does have a past history of CVA. Was seen at her PCPs office and was significantly hypertensive in the 200s and was referred to the ER for concern of CVA versus hypertensive emergency. She notes that her blood pressure had usually been fairly well-controlled in the last few months but in the last week or so has been much higher around the [id number]. She has been taking all of her medications as prescribed and has not been missing doses of these Medical History: Reviewed Medications: Reviewed. Took Surgical History: Reviewed Family history: Reviewed Allergies: Reviewed Social History: No tobacco, no ETOH Code Status: DNR/DNI. Discussed patient at bedside. This is an update from prior CODE STATUS. "If I have gone, let me go " Discharge Exam Constitutional WD/WN, vitals as above Eyes PERRL, conjunctivae normal, anicteric sclerae Respiratory normal respiratory effort, lungs clear to auscultation Cardiovascular RRR, no murmur, no edema Gastrointestinal (Abdomen) normal bowel sounds, soft, nontender, no hepatosplenomegaly Musculoskeletal no cyanosis or clubbing, extremities motor strength 5/5 Skin no rashes, warm and dry Neurologic PERRL, EOMI, accommodation nl, no face palsy, no dysarthria CN's II-XI intact bilaterally, moves all extremities and awake; no focal motor deficits and not confused Speech / Cognition: normal speech Motor/Sensory: no tremor Psychiatric Orientation: alert and oriented x 3 Discharge Plan Discharge Items Patient Disposition: Home - Self-Care Reason For Visit: CVA VS HYPERTENSIVE EMERGENCY Discharge Diagnosis: Uncontrolled hypertension Suspected complicated migraine Condition on Discharge: Good Activity: Resume your previous activity Non-emergency contact: Primary Care Provider and Neurologist Call non-emergency contact if: you have any medication questions and your symp toms worsen Follow-up/Referrals: Laurent Perez MD [Physician] - (Follow-up with the neurologist for suspected complicated migraine within 2 to 3 weeks.) Clara Sarkar DO [Primary Care Provider] - (Follow-up with your primary care physician within 1 to 2 weeks.) Diet: Heart Healthy Addtl Attending Provider Instructions: You were admitted to rule out stroke-your brain MRI was negative for stroke and your symptoms improved with being treated with prednisone for a suspected complicated migraine. Please finish out 3 more days of the prednisone for your migraine. You are being started on a new medication called verapamil that can help lower blood pressure as well as help prevent future complicated migraines. It is recommended that you follow-up with Dr. Perez of neurology in his office within 2 to 3 weeks to discuss your recurrent symptoms of left-sided weakness and headache. Pending Studies at Discharge: No Stand-Alone Forms: [facility], Smoking Cessation, Medications to Prevent Stroke Medications and DC Order Prescriptions: New prednisone 20 mg Tablet 40 mg PO DAILY Qty: 6 0RF verapamil 120 mg capsule,ext rel. pellets 24 hr 120 mg PO HS Qty: 30 0RF Continued calcium carbonate-vitamin D3 [Calcium 600 + D(3)] 600 mg(1,500mg) -400 unit tablet 1 tab PO BID Qty: 60 0RF Rx Instructions: OTC unable to verify brxtfufyorwz-vxhdtqof-bymxum Tablet 1 tab PO DAILY Qty: 90 1RF Rx Instructions: OTC unable to verify clopidogrel [Plavix] 75 mg tablet 75 mg PO DAILY Qty: 90 3RF potassium chloride 10 mEq capsule, extended release 10 meq PO DAILY Qty: 90 1RF losartan 25 mg tablet 25 mg PO TID Qty: 90 2RF carvedilol 12.5 mg tablet 12.5 mg PO BID Qty: 90 1RF Rx Instructions: must administer with a meal/food magnesium oxide 400 mg magnesium capsule 400 mg PO BID Rx Instructions: OTC unable to verify estradiol 0.01 % (0.1 mg/gram) cream 1 applic VAGINAL 3XWK Qty: 42.5 3RF omega-3 acid ethyl esters 1 gram capsule 1 cap PO DAILY Rx Instructions: OTC unable to verify cyclosporine [Restasis] 0.05 % dropperette 1 drp OPB UD Rx Instructions: 1 drp opb daily. no fill history available aspirin 81 mg Tablet,Delayed Release (Dr/Ec) 81 mg PO QAM Qty: 30 5RF Rx Instructions: OTC unable to verify lidocaine [Lidoderm] 5 % adhesive patch,medicated 1 patch topical DAILY Qty: 15 0RF Rx Instructions: OTC unable to verify leave on most painful area for up to 12 hrs fluticasone propionate [Flonase Allergy Relief] 50 mcg/actuation spray,suspension 2 spray INTNAS UD Rx Instructions: 2 spray intas daily. otc/no fill history available unable to verify ipratropium bromide 21 mcg (0.03 %) spray,non-aerosol 2 spray intranasal UD Rx Instructions: 2 spray intranasal bid. no fill history available Discharge Orders: Discharge Order (Routine); Ordered 01/30/25 Ordered By: Yvrose Umanzor/Other Patient Handouts: A1C Admission Data Admit Date/Time: 01/27/25 17:18 Attending Provider: Yvrose Wright Admit Provider: Oral Rodgers Primary Care Provider: Clara Sarkar Other Providers: Oral Rodgers Hospital Stay Data Consultations 01/27/25 16:52 ED Decision to Admit Stat Diagnostic Imagining Performed 01/27/25 14:28 CT angio head w con Stat CT angio neck with con Stat CT head/brain wo con Stat 01/27/25 16:52 MR brain wo con Routine Echocardiogram Pending Results Patient Have Any Pending Studies at Discharge: No Discharge Instructions Given to Patient (Per Discharging Provider) You were admitted to rule out stroke-your brain MRI was negative for stroke and your symptoms improved with being treated with prednisone for a suspected complicated migraine. Please finish out 3 more days of the prednisone for your migraine. You are being started on a new medication called verapamil that can help lower blood pressure as well as help prevent future complicated migraines. It is recommended that you follow-up with Dr. Perez of neurology in his office within 2 to 3 weeks to discuss your recurrent symptoms of left-sided weakness and headache. Total Time Total Time Spent Total Time Spent (In Minutes): 35-minute Total Time Includes: Examination of the Patient, Discharge Planning and Medication Reconciliation Coding Level of Care Code 42315 INP/OBS DISCH >30 MIN Diagnoses Migraine G43.909 Left-sided weakness R53.1 Hypertension I10
== END 2025-01-30 15:01 | disposition home or self-care (01) | DRG 103 ==
LOC: ED 13:51 → SUATTDRO 17:18 → 1E 17:18 → 2S 01-29 17:26

== ENCOUNTER 2025-08-06 12:07 | Inpatient (IN) ==
--- NOTE | 2025-08-06 12:24 | Emergency Department Note ---
Impression & Plan Dizziness, Weakness ED Provider Note Provider: Joel Vaca MD CHIEF COMPLAINT: Low heart rate, weak, neck pain HISTORY OF PRESENT ILLNESS: Patient is a 85-year-old female past medical history including diabetes, hypertension, TIAs, GERD and MCI presenting here today the ambulance from her home. Patient states that the last 8 days or so she has been feeling a bit under the weather. Today got up and had breakfast and then was having some neck and posterior head pain. [place] somewhat numb all over and weak and when she went to get up did not feel her self and called the ambulance. States she was somewhat confused. Was noted to be bradycardic by EMS per report to the 30s received IV atropine with improvement of her heart rate. Patient states still with a bit of neck pain but is not feeling numb anymore. Was feeling lightheaded but denies syncope. No trauma reported. No fever or cold symptoms reported. Denies chest or abdominal pain to me at this time. Reports she did have her morning medicines and uses a pillbox. PAST MEDICAL HISTORY: As noted above MEDICATIONS: Reviewed home medications SOCIAL HISTORY: Reports she lives in [facility]. PHYSICAL EXAM: GENERAL: alert and oriented in no acute distress on stretcher Head: normocephalic and atraumatic EYES: No injection, discharge or icterus. PERRL, EOMI. NECK: Trachea midline. Supple good range of motion without significant posterior neck tenderness ENT: Mucous membranes pink and moist. Pharynx without erythema or exudate. LUNGS: Airway patent. No retractions. Breath sounds clear with good air entry bilaterally. HEART: Regular rate and rhythm. No chest wall tenderness ABDOMEN: Soft and non-tender, without guarding or rebound. No flank pain. SKIN: Acyanotic, warm, dry, without rashes EXTREMITIES: Without swelling, tenderness or deformity NEUROLOGICAL: No focal deficits. No aphasia. No facial droop or slurred speech. Normal strength and tone in the extremities. Sensation to gross touch normal. Ambulatory. EK bpm sinus bradycardia without PVC or PAC. No acute ST segment elevation or depression QTc 416. CONTINUOUS CARDIAC MONITORING: was ordered and showed a heart rate of 50s to 70s bpm in normal sinus rhythm to sinus bradycardia Patient's laboratory studies and imaging reviewed. Differential includes Infection, dehydration, metabolic abnormality, hypo/hyperglycemia, electrolyte disturbance, anemia, hypoxia, cardiac sources/arrhythmia, intracerebral event, toxicologic, neurologic, as well as other pathologies. IMPRESSION/MEDICAL DECISION MAKING: Patient reportedly bradycardic for EMS. Not unstable or hypotensive. Did receive atropine on arrival and heart rate in the 50s and 60s upon arrival. Reports a little bit posterior head and neck pain. No other fevers or trauma. Some near syncope no actual syncope reported earlier. Did not seem to have focal numbness or weakness or deficits at this time on exam. EKG obtained without evidence this show. No chest pain reported. Reviewed medication list on several medicines include carvedilol and verapamil. Given the complaint of pain a CT of the head and CT angiograms head and neck obtained to exclude any abnormalities here. Does not seem to like meningitis. No leukocytosis or anemia on blood work. No significant electrolyte abnormality signs or renal dysfunction. No elevated troponin or transaminitis noted. Negative COVID flu RSV. Negative Lyme screen. CT angiograms and CT head without acute intracranial abnormality and some stenoses but nothing to explain her symptoms currently. Patient's heart rate here has been in 60s to 70s but not particularly bradycardic or in any heart block. Discussion regarding her symptoms. Feeling better but states she felt dizzy and lightheaded when trying to get up and go to the bathroom but she was able to complete this. Patient does live in [facility]. States has been more forgetful over the last several months. Have not had significant bradycardic episodes while here in the emergency department. Discussed options given lack of clear etiology today of returning to her shelter apartment and further outpatient follow-up versus further observation here. In shared decision making she wished to stay for observation. Feel this be appropriate as again she is not a great historian and monitoring given episodes of today would be better here. Hospitalist was contacted. DIAGNOSIS: Weakness, lightheadedness DISPOSITION: Hospitalist will evaluate Patient was agreeable with this plan. Past Med/Surg History Problem List (Updated 08/06/25 @ 17:10 by Joel Vaca M.D.) Weakness (Acute) Dizziness (Acute) Symptomatic bradycardia Migraine Ambulatory dysfunction (Acute) Vaginal atrophy Lumbosacral radiculopathy at S1 Allergic rhinitis Diabetes mellitus, type 2 Chronic cerebral ischemia Arthritis of wrist Lumbar facet joint syndrome Spinal stenosis, lumbar region without neurogenic claudication Mild cognitive impairment Venous insufficiency (chronic) (peripheral) Anxiety and depression Hypertension Insomnia Osteopenia History of recurrent TIAs GERD (gastroesophageal reflux disease) Dyslipidemia Medical History History of CVA (cerebrovascular accident) 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) Sacroiliitis Lumbar pain with radiation down left leg Dizziness Cognitive impairment Hypertensive emergency Leg swelling Numbness and tingling Hypertensive urgency Left sided numbness Left leg weakness Weakness of left leg Stroke-like symptoms TIA (transient ischemic attack) (11/2021) Chronic kidney disease, stage 3 (moderate) Surgical History S/P blepharoplasty History of carpal tunnel surgery S/P appendectomy S/P cholecystectomy Hx of neck surgery Previous back surgery Family History Father Myocardial infarction Prostate cancer Coronary heart disease Mother Stroke, Onset Age: 72 Myocardial infarction, Onset Age: 76 Hypertension Diabetes Brother Cancer Sister Hodgkins disease Sister Coronary heart disease Brother Diabetes Denies family history of Ovarian cancer Breast cancer Colorectal cancer Social History Smoking Status: Never smoker Second Hand Exposure: No; Do You Dip or Chew Tobacco: No; Hx Alcohol Use: No Hx Substance Use: No Preferred Language: Canadian Communication Ability: Effective Visual Impairment: No Limitations Hearing Ability: Normal Bankruptcy Manager Required: No Beliefs That Will Affect Care: None marital status: Current Living Situation: Alone Current Living Situation Comment: Patient lives alone in an apartment building current occupational status: retired 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59 Feels Safe at Home: Yes Childhood Exposure to Second-Hand Smoke: No Diet: other Diet Comment: low sugar caffeine: No during the past year weight has: remained stable Dental Care, Regularly: No Physical Activity Frequency: Other Seatbelt Use: always Sunscreen Use: Yes Assistive Devices: Cane and Walker Allergies Allergies Allergy/AdvReac Type Severity Reaction Status Date / Time amoxicillin AdvReac Intermediate upset Verified 08/06/25 15:33 stomach cefdinir AdvReac Intermediate Diarrhea Verified 08/06/25 15:33 ciprofloxacin [From Cipro] AdvReac Intermediate Diarrhea Verified 08/06/25 15:33 doxycycline AdvReac Intermediate decreased Verified 08/06/25 15:33 urine output escitalopram AdvReac Intermediate decreased Verified 08/06/25 15:33 urine output fenofibrate AdvReac Intermediate Abdominal Verified 08/06/25 15:33 Pain fluticasone AdvReac Intermediate Dizziness Verified 08/06/25 15:33 gabapentin AdvReac Intermediate abdominal Verified 08/06/25 15:33 pain and drowsy gemfibrozil [From Lopid] AdvReac Intermediate upset Verified 08/06/25 15:33 stomach irbesartan AdvReac Intermediate Diarrhea Verified 08/06/25 15:33 lisinopril AdvReac Intermediate hypertension Verified 08/06/25 15:33 and diarrhea meclizine AdvReac Intermediate Drowsy Verified 08/06/25 15:33 memantine AdvReac Intermediate stomach Verified 08/06/25 15:33 pains prednisone AdvReac Intermediate feels Verified 08/06/25 15:33 agitated [id number]-[id number] Reductase AdvReac Intermediate myalgia Verified 08/06/25 15:33 Inhibitor [Hdlgcsb-Uxf-Okf Reductase Inhibitor] tizanidine AdvReac Intermediate nightmares Verified 08/06/25 15:33 tramadol AdvReac Intermediate insomnia/pr Verified 08/06/25 15:33 uitus pitavastatin [From Livalo] AdvReac Unknown Unknown Verified 08/06/25 15:33 trazodone AdvReac Unknown Unknown Verified 08/06/25 15:33 Home Meds Home Medications Medication Instructions Recorded Confirmed omega-3 acid ethyl esters 1 gram 1 cap PO DAILY 11/09/21 08/06/25 capsule cyclosporine 0.05 % eye drops in a 1 drp OPB BID 05/07/23 08/06/25 dropperette (Restasis) magnesium oxide 400 mg PO BID 08/27/23 08/06/25 fluticasone propionate 50 2 spray intranasal UD 01/27/25 08/06/25 mcg/actuation nasal spray,suspension (Flonase Allergy Relief) lidocaine 5 % topical patch 1 patch topical DAILY PRN Pain 08/06/25 08/06/25 (Lidoderm) Previous Rx's Medication Instructions Recorded calcium 600 mg (as 1 tab PO BID #60 tabs 05/10/21 carbonate)-vitamin D3 10 mcg (400 unit) tablet (Calcium 600 + D(3)) paojevungcrj-szkycczo-amnpzn tablet 1 tab PO DAILY #90 tabs 12/13/21 aspirin 81 mg tablet,delayed 81 mg PO QAM #30 tabs 05/09/23 release clopidogrel 75 mg tablet (Plavix) 75 mg PO DAILY #90 tabs 02/14/25 cetirizine 10 mg tablet (Zyrtec) 10 mg PO DAILY allergy symptoms 04/15/25 #30 tabs losartan 25 mg tablet 25 mg PO BID #60 tabs 04/15/25 triamcinolone acetonide 0.1 % 1 applic topical DAILY PRN itching 04/15/25 topical cream #30 grams potassium chloride 10 mEq 10 meq PO DAILY #90 caps 05/05/25 capsule,extended release verapamil 120 mg 24 hr 120 mg PO HS #90 caps 05/11/25 capsule,extended release estradiol 0.01% (0.1 mg/gram) 1 applic vaginal 3XWK #42.5 grams 05/27/25 vaginal cream carvedilol 6.25 mg tablet 6.25 mg PO BID #60 tabs 07/29/25 Results & Data (ED) Vital Signs Vital Signs - 24 hr 08/06/25 11:55 08/06/25 11:55 08/06/25 11:55 Temperature 36.5 C 36.5 C Temperature Source Oral Oral Pulse Rate 61 Pulse Rate [Right Brachial] 61 Pulse Rate from SpO2 Sensor Pulse Rhythm Regular Pulse Rhythm [Right Brachial] Regular Pulse Strength Normal Pulse Strength [Right Brachial] Normal Respiratory Rate 18 18 Respiratory Effort / Characteristics Non-Labored Non-Labored Respiratory Depth Normal Normal Respiratory Pattern Regular Regular Blood Pressure 179/109 H Blood Pressure [Right Arm] 179/109 H Blood Pressure Mean 132 Blood Pressure Mean [Right Arm] 132 Blood Pressure Position Lying Blood Pressure Position [Right Arm] Lying Pulse Oximetry 96 96 Oxygen Delivery Method Room Air Room Air Room Air Sepsis Recent Fever Within 48 Hours No Sepsis New/Unexplained Change in Mental Status N/A Sepsis Action Taken by Nursing No Action Required 08/06/25 13:02 08/06/25 13:29 08/06/25 13:37 Temperature Temperature Source Pulse Rate 76 57 L 71 Pulse Rate [Right Brachial] Pulse Rate from SpO2 Sensor 64 70 Pulse Rhythm Pulse Rhythm [Right Brachial] Pulse Strength Pulse Strength [Right Brachial] Respiratory Rate 17 20 Respiratory Effort / Characteristics Respiratory Depth Respiratory Pattern Blood Pressure 159/129 H 193/87 H Blood Pressure [Right Arm] Blood Pressure Mean 134 108 Blood Pressure Mean [Right Arm] Blood Pressure Position Blood Pressure Position [Right Arm] Pulse Oximetry 96 96 Oxygen Delivery Method Sepsis Recent Fever Within 48 Hours Sepsis New/Unexplained Change in Mental Status Sepsis Action Taken by Nursing 08/06/25 14:00 08/06/25 14:30 08/06/25 15:00 Temperature Temperature Source Pulse Rate 65 62 62 Pulse Rate [Right Brachial] Pulse Rate from SpO2 Sensor 63 62 62 Pulse Rhythm Pulse Rhythm [Right Brachial] Pulse Strength Pulse Strength [Right Brachial] Respiratory Rate 19 18 18 Respiratory Effort / Characteristics Respiratory Depth Respiratory Pattern Blood Pressure 175/106 H 170/99 H 162/68 H Blood Pressure [Right Arm] Blood Pressure Mean 147 132 140 Blood Pressure Mean [Right Arm] Blood Pressure Position Blood Pressure Position [Right Arm] Pulse Oximetry 94 98 96 Oxygen Delivery Method Sepsis Recent Fever Within 48 Hours Sepsis New/Unexplained Change in Mental Status Sepsis Action Taken by Nursing Laboratory Data 08/06/25 12:20 08/06/25 12:20 Lab Results 08/06/25 08/06/25 08/06/25 Range/Units 12:20 12:51 13:38 WBC 6.81 (4.8-10.8) K/ul RBC 4.44 (4.20-5.40) M/uL Hgb 13.8 (12.0-16.0) g/dl Hct 39.5 (37.0-47.0) % MCV 89.0 (80.0-100.0) fL MCH 31.1 (25.0-34.0) pg MCHC 34.9 (32.0-36.0) g/dL RDW Std Deviation 38.5 (36.4-46.3) fL RDW Coeff of Johan 11.9 (11.5-14.5) % Plt Count 159 (130-400) K/uL MPV 9.4 (9.4-12.4) fL Immature Gran % (Auto) 0.6 % Neut % (Auto) 50.4 % Lymph % (Auto) 34.9 % [place] % (Auto) 10.6 % Eos % (Auto) 3.1 % Baso % (Auto) 0.4 % Neut # (Auto) 3.43 (1.40-6.50) K/uL Lymph # (Auto) 2.38 (1.20-3.40) K/uL [place] # (Auto) 0.72 H (0.11-0.59) K/uL Eos # (Auto) 0.21 (0.00-0.50) K/uL Baso # (Auto) 0.03 (0.00-0.20) K/uL Immature Gran # (Auto) 0.04 (0.01-0.20) K/uL PT 11.0 (9.0-12.0) Seconds INR 1.0 (0.9-1.1) APTT 23 (21-31) Seconds PTT Ratio 0.8 Sodium 137 (136-145) mmol/L Potassium 4.0 (3.5-5.1) mmol/L Chloride 108 H (98-107) mmol/L Carbon Dioxide 22 (21-32) mmol/L Anion Gap 7 (3-11) BUN 25 H (6-23) mg/dl Creatinine 0.74 (0.6-1.2) mg/dl Est Cr Clr Drug Dosing 31.4 ml/min eGFR 78.74 BUN/Creatinine Ratio 33.8 H (10-20) Glucose 123 H (70-99(Fasting)) mg/dl Calcium 9.5 (8.6-10.3) mg/dl Magnesium 1.8 (1.7-2.4) mg/dl Total Bilirubin 0.4 (0.2-1.0) mg/dl AST 24 (13-39) U/L ALT 21 (7-52) U/L Alkaline Phosphatase 42 (34-104) U/L Troponin I High Sens 3.3 (0-14) pg/ml Total Protein 7.2 (6.0-8.3) gm/dl Albumin 4.1 (3.4-5.0) gm/dl Globulin 3.1 (2.5-4.0) gm/dl Albumin/Globulin Ratio 1.3 (0.9-2) TSH 3.056 (0.300-4.500) uIu/ml Urine Color Yellow Urine Appearance Cloudy A (Clear) Urine pH 6.5 (4.5-7.5) Ur Specific [place] 1.012 (1.000-1.030) Urine Protein Negative (Negative) Urine Glucose (UA) Negative (Negative) Urine Ketones Negative (Negative) Urine Blood Negative (Negative) Urine Nitrite Negative (Negative) Urine Bilirubin Negative (Negative) Urine Urobilinogen Negative (Negative) Ur Leukocyte Esterase 1+ H (Negative) Urine WBC (Auto) 0-5 (0-5) /hpf Urine RBC (Auto) 0-2 (0-2) /hpf U Hyaline Cast (Auto) 0-2 (0-2) /lpf U Epithel Cells (Auto) 6-10 H (0-2) /hpf Urine Bacteria (Auto) None Seen (None Seen) Urine Comment Lyme Disease Screen Negative (Negative) SARS-CoV-2 (PCR) NEGATIVE (Negative) Influenza Type A (PCR) Negative (Neg) Influenza Type B (PCR) Negative (Neg) RSV (RT-PCR) Negative (Neg) Administered Medications Discontinued Medications Ioversol (Optiray 320 125ml) 120 ml IV ONCE ONE Stop: 08/06/25 13:25 Last Admin: 08/06/25 13:25 Dose: 120 ml Documented By: PASHA Imaging Data Radiologist's Impression: Chest X-Ray 08/06/25 12:45 Technique: A frontal view of the chest was obtained Comparison is made to the prior examination dated 01/25/2024 Findings: There are no confluent pulmonary infiltrates. The heart size is within normal limits. No pleural effusion or pneumothorax is seen. There is no definite pulmonary nodule. No fracture is noted. There is a cervical fusion Impression: No active disease Electronically signed by Jimenez Chase 08-06-2025 13:[address] 08/06/25 12:45 Clinical History: Dizziness and weakness Technique: Axial computed tomography images were obtained of the brain without intravenous contrast. Comparison is made to the prior CT dated 01/27/2025 Findings: There is unchanged cerebral atrophy, within expected limits for the patient's age. Areas of decreased attenuation are seen within the periventricular white matter, likely representing chronic small vessel ischemic disease. There is unchanged prominence of the prefrontal extra-axial space bilaterally that is likely due to the cerebral atrophy There is no definite sign of acute or old infarction. No intracranial hemorrhage is evident. No definite mass lesion is seen on this noncontrast examination. There is no midline shift or other form of herniation. No hydrocephalus is seen. No fracture is identified. The orbits and the visualized paranasal sinuses appear unremarkable. The mastoid air cells appear clear. Impression: 1. Cerebral atrophy and chronic small vessel ischemic disease 2. Otherwise unremarkable noncontrast CT of the brain Electronically signed by Jimenez Chase 08-06-2025 2:06 PM Head CTA 08/06/25 12:45 Clinical history: Dizziness and weakness Technique: Axial computed tomography images were obtained of the brain after the administration of intravenous contrast according to the CT angiogram protocol Findings: There is calcified plaque within the cavernous and supraclinoid segments of the internal carotid arteries bilaterally, without significant stenosis There are moderate severity stenoses at the P2 segments of the posterior cerebral arteries bilaterally. There are mild stenoses of the M1 and M2 segments of the middle cerebral arteries bilaterally. No definite aneurysm is seen of the anterior, middle, or posterior cerebral artery circulations. The basilar artery appears unremarkable Impression: 1. Mild MCA stenoses bilaterally 2. Moderate severity [facility] stenoses bilaterally Electronically signed by Jimenez Chase 08-06-2025 2:09 PM Neck CTA 08/06/25 12:45 CT angiogram of the neck Provided History: Dizziness Comparison: None Technique: NECK CTA: During rapid bolus intravenous injection of nonionic contrast material, axial images were obtained using thin collimation multidetector helical technique from the base of the neck through the base of the skull. This CT angiogram data was reconstructed at thin intervals with mild overlap. 3D reconstructions were obtained. The axial source images, multiplanar reformations, 3D reconstructions in both maximum intensity projection display and volume rendered models were reviewed. Dose reduction techniques were achieved by using automatic exposure control and/or adjustment of mA and/or kV according to patient size and/or use of iterative reconstruction technique. Findings: Neck CTA demonstrates no stenosis of the major cervical arteries. Mild calcification of the carotid bulbs without stenosis. The origins of the great vessels from the aortic arch are patent. The normal distal right internal carotid artery measures 5 mm. The normal distal left internal carotid artery measures 5 mm. No mass is noted within the visualized portions of the cervical soft tissues or lung apices. Impression: Neck CTA demonstrates no stenosis of the major cervical arteries. Electronically signed by Jace Guzman 08-06-2025 2:13 PM Discharge Plan Visit Data Chief Complaint: Bradycardia ED Provider: Joel Vaca Discharge Problem: Dizziness, Weakness Patient Disposition: Being Evaluated by Hospitalist Condition: Fair Forms Stand Alone Forms: My [facility] Prescriptions Prescriptions: No Action calcium carbonate-vitamin D3 [Calcium 600 + D(3)] 600 mg(1,500mg) -400 unit tablet 1 tab PO BID Qty: 60 0RF nadnhinehrqy-flxzvzci-edxhxq Tablet 1 tab PO DAILY Qty: 90 1RF Rx Instructions: OTC unable to verify clopidogrel [Plavix] 75 mg tablet 75 mg PO DAILY Qty: 90 3RF potassium chloride 10 mEq capsule, extended release 10 meq PO DAILY Qty: 90 1RF estradiol 0.01 % (0.1 mg/gram) cream 1 applic VAGINAL 3XWK Qty: 42.5 3RF carvedilol 6.25 mg tablet 6.25 mg PO BID Qty: 60 1RF Rx Instructions: must administer with a meal/food magnesium oxide 400 mg magnesium capsule 400 mg PO BID verapamil 120 mg capsule,ext rel. pellets 24 hr 120 mg PO HS Qty: 90 1RF losartan 25 mg tablet 25 mg PO BID Qty: 60 5RF cetirizine [Zyrtec] 10 mg tablet 10 mg PO DAILY Qty: 30 4RF triamcinolone acetonide 0.1 % cream 1 applic topical DAILY PRN (Reason: itching) Qty: 30 1RF omega-3 acid ethyl esters 1 gram capsule 1 cap PO DAILY Rx Instructions: OTC unable to verify cyclosporine [Restasis] 0.05 % dropperette 1 drp OPB BID Rx Instructions: 1 drp opb daily. no fill history available aspirin 81 mg Tablet,Delayed Release (Dr/Ec) 81 mg PO QAM Qty: 30 5RF Rx Instructions: OTC unable to verify fluticasone propionate [Flonase Allergy Relief] 50 mcg/actuation spray,suspension 2 spray INTNAS UD Rx Instructions: 2 spray intas daily. otc/no fill history available unable to verify lidocaine [Lidoderm] 5 % adhesive patch,medicated 1 patch topical DAILY PRN (Reason: Pain) Rx Instructions: APPLY on most painful area for up to 12 hrs Referrals Referrals: Clara Sarkar DO [Primary Care Provider] -
[2025-08-06 12:40] LABS: Hematocrit (blood only) 39.5 % (37.0-47.0); Hemoglobin 13.8 g/dl (12.0-16.0); Immature Granulocytes # (auto) 0.04 K/uL (0.01-0.20); Immature Granulocytes % (auto) 0.6 %; Mean Corpuscular Hemoglobin 31.1 pg (25.0-34.0); Mean Corpuscular Volume 89.0 fL (80.0-100.0); Platelet Count 159 K/uL (130-400); RDW Standard Deviation 38.5 fL (36.4-46.3); Red Blood Count 4.44 M/uL (4.20-5.40); White Blood Count 6.81 K/ul (4.8-10.8)
[2025-08-06 12:56] LABS: Alanine Aminotransferase 21.0 U/L (7-52); Albumin Globulin Ratio 1.3 (0.9-2); Albumin Level 4.1 gm/dl (3.4-5.0); Alkaline Phosphatase 42.0 U/L (34-104); Anion Gap 7.0 (3-11); Bilirubin,Total 0.4 mg/dl (0.2-1.0); Blood Urea Nitrogen 25.0 mg/dl (6-23); Calcium 9.5 mg/dl (8.6-10.3); Carbon Dioxide 22.0 mmol/L (21-32); Chloride 108.0 mmol/L (98-107); Creatinine Clr Calc Pharmacy 31.4 ml/min; Globulin 3.1 gm/dl (2.5-4.0); Glucose 123.0 mg/dl (70-99(Fasting)); Magnesium 1.8 mg/dl (1.7-2.4); Potassium 4.0 mmol/L (3.5-5.1); Sodium 137.0 mmol/L (136-145); Total Protein 7.2 gm/dl (6.0-8.3)
[2025-08-06 13:00] LABS: INR 1.0 (0.9-1.1); Partial Thromboplastin Time 23 Seconds (21-31); Prothrombin Time 11.0 Seconds (9.0-12.0)
[2025-08-06 13:11] LABS: Thyroid Stimulating Hormone 3.056 uIu/ml (0.300-4.500)
[2025-08-06] MEDS: OPTIRAY 320 125ml IV ONE (13:25)
[2025-08-06 13:35] LABS: Influenza A virus by PCR Negative (Neg); Influenza B virus by PCR Negative (Neg); SARS CoV2 RNA(COVID-19) Ceph NEGATIVE (Negative)
--- NOTE | 2025-08-06 13:39 | XRay Report ---
Technique: A frontal view of the chest was obtained Comparison is made to the prior examination dated 01/25/2024 Findings: There are no confluent pulmonary infiltrates. The heart size is within normal limits. No pleural effusion or pneumothorax is seen. There is no definite pulmonary nodule. No fracture is noted. There is a cervical fusion Impression: No active disease Electronically signed by Jimenez Chase 08-06-2025 13:39 PM
[2025-08-06 13:57] LABS: Appearance Urine Cloudy (Clear); Bacteria Urine Automated None Seen (None Seen); Cast Urine Automated 0-2 /lpf (0-2); Glucose Urine UA Negative (Negative); RBC Urine Automated 0-2 /hpf (0-2); WBC Urine Automated 0-5 /hpf (0-5)
--- NOTE | 2025-08-06 14:06 | CT Scan Report ---
Clinical History: Dizziness and weakness Technique: Axial computed tomography images were obtained of the brain without intravenous contrast. Comparison is made to the prior CT dated 01/27/2025 Findings: There is unchanged cerebral atrophy, within expected limits for the patient's age. Areas of decreased attenuation are seen within the periventricular white matter, likely representing chronic small vessel ischemic disease. There is unchanged prominence of the prefrontal extra-axial space bilaterally that is likely due to the cerebral atrophy There is no definite sign of acute or old infarction. No intracranial hemorrhage is evident. No definite mass lesion is seen on this noncontrast examination. There is no midline shift or other form of herniation. No hydrocephalus is seen. No fracture is identified. The orbits and the visualized paranasal sinuses appear unremarkable. The mastoid air cells appear clear. Impression: 1. Cerebral atrophy and chronic small vessel ischemic disease 2. Otherwise unremarkable noncontrast CT of the brain Electronically signed by Jimenez Chase 08-06-2025 2:06 PM
--- NOTE | 2025-08-06 14:10 | CT Scan Report ---
Clinical history: Dizziness and weakness Technique: Axial computed tomography images were obtained of the brain after the administration of intravenous contrast according to the CT angiogram protocol Findings: There is calcified plaque within the cavernous and supraclinoid segments of the internal carotid arteries bilaterally, without significant stenosis There are moderate severity stenoses at the P2 segments of the posterior cerebral arteries bilaterally. There are mild stenoses of the M1 and M2 segments of the middle cerebral arteries bilaterally. No definite aneurysm is seen of the anterior, middle, or posterior cerebral artery circulations. The basilar artery appears unremarkable Impression: 1. Mild MCA stenoses bilaterally 2. Moderate severity PURCHASING ADMINISTRATIVE ASSISTANT stenoses bilaterally Electronically signed by Jimenez Chase 08-06-2025 2:09 PM
--- NOTE | 2025-08-06 14:13 | CT Scan Report ---
CT angiogram of the neck Provided History: Dizziness Comparison: None Technique: NECK CTA: During rapid bolus intravenous injection of nonionic contrast material, axial images were obtained using thin collimation multidetector helical technique from the base of the neck through the base of the skull. This CT angiogram data was reconstructed at thin intervals with mild overlap. 3D reconstructions were obtained. The axial source images, multiplanar reformations, 3D reconstructions in both maximum intensity projection display and volume rendered models were reviewed. Dose reduction techniques were achieved by using automatic exposure control and/or adjustment of mA and/or kV according to patient size and/or use of iterative reconstruction technique. Findings: Neck CTA demonstrates no stenosis of the major cervical arteries. Mild calcification of the carotid bulbs without stenosis. The origins of the great vessels from the aortic arch are patent. The normal distal right internal carotid artery measures 5 mm. The normal distal left internal carotid artery measures 5 mm. No mass is noted within the visualized portions of the cervical soft tissues or lung apices. Impression: Neck CTA demonstrates no stenosis of the major cervical arteries. Electronically signed by Jace Guzman 08-06-2025 2:13 PM
--- NOTE | 2025-08-06 16:36 | History & Physical Report ---
Date of Service August 06, 2025 Assessment & Plan (1) Symptomatic bradycardia: (2) Diabetes mellitus, type 2: (3) Chronic cerebral ischemia: (4) Mild cognitive impairment: (5) Hypertension: (6) Osteopenia: (7) History of recurrent TIAs: (8) GERD (gastroesophageal reflux disease): (9) Chronic kidney disease, stage 3 (moderate): Plan #symptomatic bradycardia - she remains on Coreg, verapamil although that is last rate dependent. Those were for her labile and refractory hypertension - atropine given in the emergency department and route. Rate has been stable since then - admit telemetry, hold Coreg, continue other antihypertensives. Watch closely will utilize clonidine versus Vasotec if blood pressure becomes labile - may consider adding a less selective beta-joanna such as atenolol if she tolerates - add TSH, depending on clinical course may consider also echocardiogram #refractory hypertension - previously on verapamil, carvedilol, losartan - monitor closely with holding in carvedilol, secondary agents such as clon idine may be necessary #history of stroke #recurrent TIA - treated with TNKase at least once in the past, symptoms improved at this time not a TNKase candidate given resolution of symptoms - imaging unremarkable, continue Plavix and aspirin - blood pressure management as above, tight window to maintain systolic less than 180 #type 2 diabetes - diet managed, will check twice daily, diabetic diet ordered #CKD3 - there is room to increase the losartan, possibly verapamil. - Monitor kidney function with those changes #mild cognitive impairment - will review prior records, still lives independently has her son in the home frequently with her - case management consult - monitor for #anxiety/depression - monitor for , no medicines on board at this time that I can see #chronic DJD - Lidoderm patch as needed #hypomagnesemia - check a level in the a.m., continue supplement #hypokalemia - normal at this time continue supplements #vaginal atrophy - continue topical estradiol #FEN - no fluids necessary no resuscitation necessary, blood pressure stable at this time, orthostatic vital signs on admission and diabetic healthy heart diet #CODE STATUS - DNR/DNI per her wishes she does not think she would even want BiPAP if necessary History of Present Illness Chief Complaint: Dizziness Primary Care Provider: Clara Sarkar DO 85-year-old female history of hypertension, type 2 diabetes, CKD 3, mild cognitive impairment, history of stroke, recurrent TIAs, spinal stenosis, anxiety depression, gastroesophageal reflux, osteopenia and recent history of bradycardia presents to the emergency department via EMS after an episode of severe dizziness and bradycardia. Patient reports that she has had bradycardia on and off over the last year her medications were decreased over the summer. Over the last several weeks she has had a recurrence of symptoms she is feeling very weak wakes up in the morning feels dizziness when she stands up. She will go back to bed sleep for couple hours and then symptoms were improved this morning she woke up symptoms were much more severe than usual she was very weak felt as though she was going to pass out so she called EMS. On arrival EMS noted generally stable vital signs but heart rate in the 30s. IV was started she was loaded in the rig and given atropine with immediate improvement in underlying heart rate. She was transported here no chest pain vital signs stable. Given the abrupt onset of dizziness and stroke history a CT head and CTA head and neck were completed and were unremarkable. On arrival here his symptoms have nearly completely resolved. Secondary to the significant symptomatic bradycardia progressive and worsening symptoms she was referred for observation for cardiac monitoring and medication management Allergies Allergy/AdvReac Type Severity Reaction Status Date / Time amoxicillin AdvReac Intermediate upset Verified 08/06/25 15:33 stomach cefdinir AdvReac Intermediate Diarrhea Verified 08/06/25 15:33 ciprofloxacin [From Cipro] AdvReac Intermediate Diarrhea Verified 08/06/25 15:33 doxycycline AdvReac Intermediate decreased Verified 08/06/25 15:33 urine output escitalopram AdvReac Intermediate decreased Verified 08/06/25 15:33 urine output fenofibrate AdvReac Intermediate Abdominal Verified 08/06/25 15:33 Pain fluticasone AdvReac Intermediate Dizziness Verified 08/06/25 15:33 gabapentin AdvReac Intermediate abdominal Verified 08/06/25 15:33 pain and drowsy gemfibrozil [From Lopid] AdvReac Intermediate upset Verified 08/06/25 15:33 stomach irbesartan AdvReac Intermediate Diarrhea Verified 08/06/25 15:33 lisinopril AdvReac Intermediate hypertension Verified 08/06/25 15:33 and diarrhea meclizine AdvReac Intermediate Drowsy Verified 08/06/25 15:33 memantine AdvReac Intermediate stomach Verified 08/06/25 15:33 pains prednisone AdvReac Intermediate feels Verified 08/06/25 15:33 agitated Kwzqbjv-SNI-KtZ Reductase AdvReac Intermediate myalgia Verified 08/06/25 15:33 Inhibitor [Knyqlxf-Cks-Zse Reductase Inhibitor] tizanidine AdvReac Intermediate nightmares Verified 08/06/25 15:33 tramadol AdvReac Intermediate insomnia/pr Verified 08/06/25 15:33 uitus pitavastatin [From Livalo] AdvReac Unknown Unknown Verified 08/06/25 15:33 trazodone AdvReac Unknown Unknown Verified 08/06/25 15:33 Home Medications Medication Instructions Recorded Confirmed Type calcium 600 mg (as 1 tab PO BID #60 tabs 05/10/21 08/06/25 Rx carbonate)-vitamin D3 10 mcg (400 unit) tablet (Calcium 600 + D(3)) omega-3 acid ethyl esters 1 gram 1 cap PO DAILY 11/09/21 08/06/25 History capsule rtzviwapvilw-noxltzys-icnkyj tablet 1 tab PO DAILY #90 tabs 12/13/21 08/06/25 Rx cyclosporine 0.05 % eye drops in a 1 drp OPB BID 05/07/23 08/06/25 History dropperette (Restasis) aspirin 81 mg tablet,delayed 81 mg PO QAM #30 tabs 05/09/23 08/06/25 Rx release magnesium oxide 400 mg PO BID 08/27/23 08/06/25 History fluticasone propionate 50 2 spray intranasal UD 01/27/25 08/06/25 History mcg/actuation nasal spray,suspension (Flonase Allergy Relief) clopidogrel 75 mg tablet (Plavix) 75 mg PO DAILY #90 tabs 02/14/25 08/06/25 Rx cetirizine 10 mg tablet (Zyrtec) 10 mg PO DAILY allergy symptoms 04/15/25 08/06/25 Rx #30 tabs losartan 25 mg tablet 25 mg PO BID #60 tabs 04/15/25 08/06/25 Rx triamcinolone acetonide 0.1 % 1 applic topical DAILY PRN itching 04/15/25 08/06/25 Rx topical cream #30 grams potassium chloride 10 mEq 10 meq PO DAILY #90 caps 05/05/25 08/06/25 Rx capsule,extended release verapamil 120 mg 24 hr 120 mg PO HS #90 caps 05/11/25 08/06/25 Rx capsule,extended release estradiol 0.01% (0.1 mg/gram) 1 applic vaginal 3XWK #42.5 grams 05/27/25 08/06/25 Rx vaginal cream carvedilol 6.25 mg tablet 6.25 mg PO BID #60 tabs 07/29/25 08/06/25 Rx lidocaine 5 % topical patch 1 patch topical DAILY PRN Pain 08/06/25 08/06/25 History (Lidoderm) Past Med/Surg History Problem List (Updated 08/06/25 @ 16:27 by Deny Levi MD) Symptomatic bradycardia Migraine Ambulatory dysfunction (Acute) Vaginal atrophy Lumbosacral radiculopathy at S1 Allergic rhinitis Diabetes mellitus, type 2 Chronic cerebral ischemia Arthritis of wrist Lumbar facet joint syndrome Spinal stenosis, lumbar region without neurogenic claudication Mild cognitive impairment Venous insufficiency (chronic) (peripheral) Anxiety and depression Hypertension Insomnia Osteopenia History of recurrent TIAs GERD (gastroesophageal reflux disease) Dyslipidemia Medical History History of CVA (cerebrovascular accident) 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) Sacroiliitis Lumbar pain with radiation down left leg Dizziness Cognitive impairment Hypertensive emergency Leg swelling Numbness and tingling Hypertensive urgency Left sided numbness Left leg weakness Weakness of left leg Stroke-like symptoms TIA (transient ischemic attack) (11/2021) Chronic kidney disease, stage 3 (moderate) Surgical History S/P blepharoplasty History of carpal tunnel surgery S/P appendectomy S/P cholecystectomy Hx of neck surgery Previous back surgery Family History Father Myocardial infarction Prostate cancer Coronary heart disease Mother Stroke, Onset Age: 72 Myocardial infarction, Onset Age: 76 Hypertension Diabetes Brother Cancer Sister Hodgkins disease Sister Coronary heart disease Brother Diabetes Denies family history of Ovarian cancer Breast cancer Colorectal cancer Social History Smoking Status: Never smoker Second Hand Exposure: No; Do You Dip or Chew Tobacco: No; Hx Alcohol Use: No Hx Substance Use: No Preferred Language: Indonesian Communication Ability: Effective Visual Impairment: No Limitations Hearing Ability: Normal Boss Dyer Required: No Beliefs That Will Affect Care: None marital status: Current Living Situation: Alone Current Living Situation Comment: Patient lives alone in an apartment building current occupational status: retired 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59 Feels Safe at Home: Yes Childhood Exposure to Second-Hand Smoke: No Diet: other Diet Comment: low sugar caffeine: No during the past year weight has: remained stable Dental Care, Regularly: No Physical Activity Frequency: Other Seatbelt Use: always Sunscreen Use: Yes Assistive Devices: Cane and Walker Review of Systems Review of Systems: General Weakness over the last 8 to 12 days Constitutional: no fevers chills nausea vomiting weight loss or weight gain Eyes: no vision changes Ear, Nose, Mouth, Throat: normal appetite Respiratory: no cough or shortness of breath mild dyspnea on exertion Cardiovascular: Additional Comments: slow heart rate orthopnea and dizziness as noted in HPI otherwise no chest pain lower extremity edema or PND Musculoskeletal: no focal weakness, no changes in ambulation Integumentary: no rash or discoloration Neurologic: no focal weakness, history of mild cognitive impairment, no noted memory changes today Physical Exam Constitutional: awake and alert oriented to self and year and location, somewhat appropriate but limited recall the details of events in the past Eyes: pupils equal round reactive light sclera clear and anicteric ENMT: mucous membranes moist Neck: no bruit Respiratory: clear to auscultation bilaterally Cardiovascular: bradycardic Kuehler, systolic ejection murmur 2/6 throughout the left sternal border Musculoskeletal: no edema Skin: no pallor rash or discoloration Neurologic: awake, alert, appropriate, no focal deficits. No weakness. Reflexes 2+ at patella Results & Data Results & Data Vital Signs (Past 12 Hours) Vital Signs Temp Pulse Pulse Resp BP BP Pulse Ox 08/06/25 15:00 62 18 162/68 H 96 08/06/25 14:30 62 18 170/99 H 98 08/06/25 14:00 65 19 175/106 H 94 08/06/25 13:37 71 20 193/87 H 96 08/06/25 13:29 57 L 08/06/25 13:02 76 17 159/129 H 96 08/06/25 11:55 36.5 C 61 18 179/109 H 96 08/06/25 11:55 08/06/25 11:55 36.5 C 61 18 179/109 H 96 O2 Del Method 08/06/25 15:00 08/06/25 14:30 08/06/25 14:00 08/06/25 13:37 08/06/25 13:29 08/06/25 13:02 08/06/25 11:55 Room Air 08/06/25 11:55 Room Air 08/06/25 11:55 Room Air Laboratory Results 08/06/25 08/06/25 08/06/25 13:38 12:51 12:20 WBC 6.81 RBC 4.44 Hgb 13.8 Hct 39.5 MCV 89.0 MCH 31.1 MCHC 34.9 RDW Std Deviation 38.5 RDW Coeff of Johan 11.9 Plt Count 159 MPV 9.4 Immature Gran % (Auto) 0.6 Neut % (Auto) 50.4 Lymph % (Auto) 34.9 [place] % (Auto) 10.6 Eos % (Auto) 3.1 Baso % (Auto) 0.4 Neut # (Auto) 3.43 Lymph # (Auto) 2.38 [place] # (Auto) 0.72 H Eos # (Auto) 0.21 Baso # (Auto) 0.03 Immature Gran # (Auto) 0.04 PT 11.0 INR 1.0 APTT 23 PTT Ratio 0.8 Sodium 137 Potassium 4.0 Chloride 108 H Carbon Dioxide 22 Anion Gap 7 BUN 25 H Creatinine 0.74 Est Cr Clr Drug Dosing 31.4 eGFR 78.74 BUN/Creatinine Ratio 33.8 H Glucose 123 H Calcium 9.5 Magnesium 1.8 Total Bilirubin 0.4 AST 24 ALT 21 Alkaline Phosphatase 42 Troponin I High Sens 3.3 Total Protein 7.2 Albumin 4.1 Globulin 3.1 Albumin/Globulin Ratio 1.3 TSH 3.056 Urine Color Yellow Urine Appearance Cloudy A Urine pH 6.5 Ur Specific [place] 1.012 Urine Protein Negative Urine Glucose (UA) Negative Urine Ketones Negative Urine Blood Negative Urine Nitrite Negative Urine Bilirubin Negative Urine Urobilinogen Negative Ur Leukocyte Esterase 1+ H Urine WBC (Auto) 0-5 Urine RBC (Auto) 0-2 U Hyaline Cast (Auto) 0-2 U Epithel Cells (Auto) 6-10 H Urine Bacteria (Auto) None Seen Urine Comment Lyme Disease Screen Negative SARS-CoV-2 (PCR) NEGATIVE Influenza Type A (PCR) Negative Influenza Type B (PCR) Negative RSV (RT-PCR) Negative Diagnostic Findings Chest X-Ray 08/06/25 12:45 Technique: A frontal view of the chest was obtained Comparison is made to the prior examination dated 01/25/2024 Findings: There are no confluent pulmonary infiltrates. The heart size is within normal limits. No pleural effusion or pneumothorax is seen. There is no definite pulmonary nodule. No fracture is noted. There is a cervical fusion Impression: No active disease Electronically signed by Jimenez Chase 08-06-2025 13:[address] 08/06/25 12:45 Clinical History: Dizziness and weakness Technique: Axial computed tomography images were obtained of the brain without intravenous contrast. Comparison is made to the prior CT dated 01/27/2025 Findings: There is unchanged cerebral atrophy, within expected limits for the patient's age. Areas of decreased attenuation are seen within the periventricular white matter, likely representing chronic small vessel ischemic disease. There is unchanged prominence of the prefrontal extra-axial space bilaterally that is likely due to the cerebral atrophy There is no definite sign of acute or old infarction. No intracranial hemorrhage is evident. No definite mass lesion is seen on this noncontrast examination. There is no midline shift or other form of herniation. No hydrocephalus is seen. No fracture is identified. The orbits and the visualized paranasal sinuses appear unremarkable. The mastoid air cells appear clear. Impression: 1. Cerebral atrophy and chronic small vessel ischemic disease 2. Otherwise unremarkable noncontrast CT of the brain Electronically signed by Jimenez Chase 08-06-2025 2:06 PM Head CTA 08/06/25 12:45 Clinical history: Dizziness and weakness Technique: Axial computed tomography images were obtained of the brain after the administration of intravenous contrast according to the CT angiogram protocol Findings: There is calcified plaque within the cavernous and supraclinoid segments of the internal carotid arteries bilaterally, without significant stenosis There are moderate severity stenoses at the P2 segments of the posterior cerebral arteries bilaterally. There are mild stenoses of the M1 and M2 segments of the middle cerebral arteries bilaterally. No definite aneurysm is seen of the anterior, middle, or posterior cerebral artery circulations. The basilar artery appears unremarkable Impression: 1. Mild MCA stenoses bilaterally 2. Moderate severity ACCOUNT COORDINATOR stenoses bilaterally Electronically signed by Jimenez Chase 08-06-2025 2:09 PM Neck CTA 08/06/25 12:45 CT angiogram of the neck Provided History: Dizziness Comparison: None Technique: NECK CTA: During rapid bolus intravenous injection of nonionic contrast material, axial images were obtained using thin collimation multidetector helical technique from the base of the neck through the base of the skull. This CT angiogram data was reconstructed at thin intervals with mild overlap. 3D reconstructions were obtained. The axial source images, multiplanar reformations, 3D reconstructions in both maximum intensity projection display and volume rendered models were reviewed. Dose reduction techniques were achieved by using automatic exposure control and/or adjustment of mA and/or kV according to patient size and/or use of iterative reconstruction technique. Findings: Neck CTA demonstrates no stenosis of the major cervical arteries. Mild calcification of the carotid bulbs without stenosis. The origins of the great vessels from the aortic arch are patent. The normal distal right internal carotid artery measures 5 mm. The normal distal left internal carotid artery measures 5 mm. No mass is noted within the visualized portions of the cervical soft tissues or lung apices. Impression: Neck CTA demonstrates no stenosis of the major cervical arteries. Electronically signed by Jace Guzman 08-06-2025 2:13 PM ECG Additional Comments: Sinus bradycardia with sinus bradycardia, short [place], cannot rule out septal infarct Code Status & VTE Plan Code Status DNR/DNI VTE Prophylaxis Plan VTE Prophylaxis will be ordered: Yes PG Care Time/CCT Total # of Minutes Spent Total Time Spent with Patient: Total time spent is greater than 50% in coordination of care (as documented) at patient's floor/unit and/or counseling patient: Coding Level of Care Code 51587 INT INP/OBS CARE 2/55MIN Diagnoses Symptomatic bradycardia R00.1 Diabetes mellitus, type 2 E11.9 Chronic cerebral ischemia I67.82 Mild cognitive impairment G31.84 Hypertension I10 Osteopenia M85.80 History of recurrent TIAs Z86.73 GERD (gastroesophageal reflux disease) K21.9 Chronic kidney disease, stage 3 (moderate) N18.3
[2025-08-06] MEDS ORDERED: POLYETHYLENE (MIRALAX) 17 GM PACK PO PRN (17:35)
[2025-08-06] MEDS ORDERED: MELATONIN 3 MG TAB PO PRN (17:35)
[2025-08-06] MEDS ORDERED: ONDANSETRON INJ 2 MG/ML 2 ML VIAL IV PRN (17:35)
[2025-08-06] MEDS ORDERED: ALUMINUM/MAGNESIUM SUSP 30 ML UDC PO PRN (17:35)
[2025-08-06] MEDS ORDERED: ARTIFICIAL TEARS OP OINT 3.5 GM TUBE OP PRN (17:55)
[2025-08-06] MEDS: VERAPAMIL HCL 120 MG TABCR PO SCH (19:30)
[2025-08-06] MEDS: LOSARTAN POTASSIUM 25 MG TAB PO SCH (19:31)
[2025-08-06] MEDS: MAGNESIUM OXIDE 400 MG TAB PO SCH (21:01)
[2025-08-06] MEDS: CALCIUM 600MG + VIT D 400 IU TAB PO SCH (21:03)
[2025-08-06] MEDS: REMOVE LIDODERM PATCH SCH (21:04)
[2025-08-06] MEDS: ACETAMINOPHEN 325 MG TAB PO PRN (23:33)
[2025-08-07 06:26] LABS: Hematocrit (blood only) 39.0 % (37.0-47.0); Hemoglobin 13.5 g/dl (12.0-16.0); Mean Corpuscular Hemoglobin 31.0 pg (25.0-34.0); Mean Corpuscular Volume 89.7 fL (80.0-100.0); Platelet Count 167 K/uL (130-400); RDW Standard Deviation 39.0 fL (36.4-46.3); Red Blood Count 4.35 M/uL (4.20-5.40); White Blood Count 6.43 K/ul (4.8-10.8)
[2025-08-07 06:49] LABS: Alanine Aminotransferase 20.0 U/L (7-52); Albumin Globulin Ratio 1.3 (0.9-2); Albumin Level 3.9 gm/dl (3.4-5.0); Alkaline Phosphatase 41.0 U/L (34-104); Anion Gap 8.0 (3-11); Bilirubin,Total 0.4 mg/dl (0.2-1.0); Blood Urea Nitrogen 22.0 mg/dl (6-23); Calcium 9.8 mg/dl (8.6-10.3); Carbon Dioxide 24.0 mmol/L (21-32); Chloride 106.0 mmol/L (98-107); Creatinine Clr Calc Pharmacy 44.2 ml/min; Globulin 2.9 gm/dl (2.5-4.0); Glucose 89.0 mg/dl (70-99(Fasting)); Magnesium 1.9 mg/dl (1.7-2.4); Potassium 4.1 mmol/L (3.5-5.1); Sodium 138.0 mmol/L (136-145); Total Protein 6.8 gm/dl (6.0-8.3)
[2025-08-07 07:55] LABS: Immature Granulocytes # (auto) 0.03 K/uL (0.01-0.20); Immature Granulocytes % (auto) 0.5 %
[2025-08-07] MEDS: ASPIRIN 81 MG ECTAB PO SCH (08:08)
[2025-08-07] MEDS: CETIRIZINE HCL 10 MG TABLET PO SCH (08:08)
[2025-08-07] MEDS: CLOPIDOGREL BISULFATE 75 MG TAB PO SCH (08:08)
[2025-08-07] MEDS: FLUTICASONE PROPIONATE NA SPR 16 GM BTL SCH (08:09)
[2025-08-07] MEDS: OMEGA-3 (PURIFIED FISH OIL) 1 GM CAP PO SCH (08:09)
--- NOTE | 2025-08-07 11:49 | Electrocardiogram Report ---
Test Reason : Blood Pressure : */* mmHG Vent. Rate : 58 BPM Atrial Rate : 58 BPM P-R Int : 96 ms QRS Dur : 76 ms QT Int : 424 ms P-R-T Axes : * 14 87 degrees QTcB Int : 416 ms Sinus bradycardia with short MS Low voltage QRS Septal infarct , age undetermined Abnormal ECG When compared with ECG of 27-Jan-2025 14:07, MS interval has decreased Septal infarct is now Present Confirmed by Popeye Courtney ([id number]) on 08/07/2025 11:49:26 AM Referred By: REFERRED SELF Confirmed By: Popeye Courtney
--- NOTE | 2025-08-07 12:46 | Hospitalist Progress Note ---
Date of Service August 07, 2025 Assessment & Plan (1) Symptomatic bradycardia: (2) Diabetes mellitus, type 2: (3) Chronic cerebral ischemia: (4) Mild cognitive impairment: (5) Hypertension: (6) Osteopenia: (7) History of recurrent TIAs: (8) GERD (gastroesophageal reflux disease): (9) Chronic kidney disease, stage 3 (moderate): Plan #symptomatic bradycardia # Orthostatic hypotension - she remains on Coreg, verapamil although that is last rate dependent. Those were for her labile and refractory hypertension - atropine given in the emergency department and route. Rate has been stable since then - admit telemetry, hold Coreg, continue other antihypertensives. Watch closely will utilize clonidine versus Vasotec if blood pressure becomes labile - still quite orthostatic when checking vital signs and symptomatic. Will continue to hold Coreg. Gentle fluid resuscitation, monitor closely - limit PT OT until orthostasis improves. Will recheck tomorrow morning and evaluate for improvement, at that point would consider low-dose midodrine - may consider adding a less selective beta-joanna such as atenolol if she tolerates - add TSH, depending on clinical course may consider also echocardiogram #refractory hypertension - previously on verapamil, carvedilol, losartan - monitor closely with holding in carvedilol, secondary agents such as clonidine may be necessary - continue baseline medications at this time consider decrease if orthostasis continues #history of stroke #recurrent TIA - treated with TNKase at least once in the past, symptoms improved at this time not a TNKase candidate given resolution of symptoms - imaging unremarkable, continue Plavix and aspirin - blood pressure management as above, tight window to maintain systolic less than 180 #type 2 diabetes - diet managed, will check twice daily, diabetic diet ordered - within goal range #CKD3 - there is room to increase the losartan, possibly verapamil. - Monitor kidney function with those changes #mild cognitive impairment - will review prior records, still lives independently has her son in the home frequently with her - case management consult - monitor for #anxiety/depression - monitor for , no medicines on board at this time that I can see #chronic DJD - Lidoderm patch as needed #hypomagnesemia - check a level in the a.m., continue supplement #hypokalemia - normal at this time continue supplements #vaginal atrophy - continue topical estradiol #FEN - no fluids necessary no resuscitation necessary, blood pressure stable at this time, orthostatic vital signs on admission and diabetic healthy heart diet #CODE STATUS - DNR/DNI per her wishes she does not think she would even want BiPAP if necessary Admission and Anticipated Discharge Date Admission Date: August 06, 2025 Subjective Doing okay this morning still notes some dizziness when she sits and stands up. Weakness has not improved substantially. No palpitations or shortness of breath. No lower extremity edema. No new or different symptoms. Eating and drinking okay. Has only had a limited amount of ambulation. No concerns with bowel or bladder function. Physical Exam Constitutional: awake and alert oriented to self and year and location, somewhat appropriate but limited recall the details of events in the past Eyes: pupils equal round reactive light sclera clear and anicteric ENMT: mucous membranes moist Neck: no bruit Respiratory: clear to auscultation bilaterally Cardiovascular: bradycardic Kuehler, systolic ejection murmur 2/6 throughout the left sternal border Musculoskeletal: no edema Skin: no pallor rash or discoloration Neurologic: awake, alert, appropriate, no focal deficits. No weakness. Reflexes 2+ at patella Results & Data Results & Data Vital Signs (Past 12 Hours) Vital Signs Temp Pulse Resp BP BP Pulse Ox O2 Del Method 08/07/25 11:01 36.4 C L 65 18 151/84 H 96 Room Air 08/07/25 07:08 36.3 C L 55 L 17 137/63 94 Room Air 08/07/25 03:16 36.4 C L 62 19 116/67 96 Room Air Laboratory Results 08/07/25 08/07/25 08/07/25 11:06 07:35 05:33 WBC 6.43 RBC 4.35 Hgb 13.5 Hct 39.0 MCV 89.7 MCH 31.0 MCHC 34.6 RDW Std Deviation 39.0 RDW Coeff of Johan 11.9 Plt Count 167 MPV 9.5 Immature Gran % (Auto) 0.5 Neut % (Auto) 35.0 Lymph % (Auto) 50.5 [place] % (Auto) 10.0 Eos % (Auto) 3.4 Baso % (Auto) 0.6 Neut # (Auto) 2.25 Lymph # (Auto) 3.25 [place] # (Auto) 0.64 H Eos # (Auto) 0.22 Baso # (Auto) 0.04 Immature Gran # (Auto) 0.03 PT INR APTT PTT Ratio Sodium 138 Potassium 4.1 Chloride 106 Carbon Dioxide 24 Anion Gap 8 BUN 22 Creatinine 0.75 Est Cr Clr Drug Dosing 44.2 eGFR 77.49 BUN/Creatinine Ratio 29.3 H Glucose 89 POC Glucose 121 H 110 H Calcium 9.8 Magnesium 1.9 Total Bilirubin 0.4 AST 22 ALT 20 Alkaline Phosphatase 41 Troponin I High Sens Total Protein 6.8 Albumin 3.9 Globulin 2.9 Albumin/Globulin Ratio 1.3 TSH Urine Color Urine Appearance Urine pH Ur Specific [place] Urine Protein Urine Glucose (UA) Urine Ketones Urine Blood Urine Nitrite Urine Bilirubin Urine Urobilinogen Ur Leukocyte Esterase Urine WBC (Auto) Urine RBC (Auto) U Hyaline Cast (Auto) U Epithel Cells (Auto) Urine Bacteria (Auto) Urine Comment Lyme Disease Screen SARS-CoV-2 (PCR) Influenza Type A (PCR) Influenza Type B (PCR) RSV (RT-PCR) 08/06/25 08/06/25 08/06/25 20:39 17:46 13:38 WBC RBC Hgb Hct MCV MCH MCHC RDW Std Deviation RDW Coeff of Johan Plt Count MPV Immature Gran % (Auto) Neut % (Auto) Lymph % (Auto) [place] % (Auto) Eos % (Auto) Baso % (Auto) Neut # (Auto) Lymph # (Auto) [place] # (Auto) Eos # (Auto) Baso # (Auto) Immature Gran # (Auto) PT INR APTT PTT Ratio Sodium Potassium Chloride Carbon Dioxide Anion Gap BUN Creatinine Est Cr Clr Drug Dosing eGFR BUN/Creatinine Ratio Glucose POC Glucose 132 H 90 Calcium Magnesium Total Bilirubin AST ALT Alkaline Phosphatase Troponin I High Sens Total Protein Albumin Globulin Albumin/Globulin Ratio TSH Urine Color Yellow Urine Appearance Cloudy A Urine pH 6.5 Ur Specific [place] 1.012 Urine Protein Negative Urine Glucose (UA) Negative Urine Ketones Negative Urine Blood Negative Urine Nitrite Negative Urine Bilirubin Negative Urine Urobilinogen Negative Ur Leukocyte Esterase 1+ H Urine WBC (Auto) 0-5 Urine RBC (Auto) 0-2 U Hyaline Cast (Auto) 0-2 U Epithel Cells (Auto) 6-10 H Urine Bacteria (Auto) None Seen Urine Comment Lyme Disease Screen SARS-CoV-2 (PCR) Influenza Type A (PCR) Influenza Type B (PCR) RSV (RT-PCR) 08/06/25 08/06/25 12:51 12:20 WBC RBC Hgb Hct MCV MCH MCHC RDW Std Deviation RDW Coeff of Johan Plt Count MPV Immature Gran % (Auto) Neut % (Auto) Lymph % (Auto) [place] % (Auto) Eos % (Auto) Baso % (Auto) Neut # (Auto) Lymph # (Auto) [place] # (Auto) Eos # (Auto) Baso # (Auto) Immature Gran # (Auto) PT 11.0 INR 1.0 APTT 23 PTT Ratio 0.8 Sodium 137 Potassium 4.0 Chloride 108 H Carbon Dioxide 22 Anion Gap 7 BUN 25 H Creatinine 0.74 Est Cr Clr Drug Dosing 31.4 eGFR 78.74 BUN/Creatinine Ratio 33.8 H Glucose 123 H POC Glucose Calcium 9.5 Magnesium 1.8 Total Bilirubin 0.4 AST 24 ALT 21 Alkaline Phosphatase 42 Troponin I High Sens 3.3 Total Protein 7.2 Albumin 4.1 Globulin 3.1 Albumin/Globulin Ratio 1.3 TSH 3.056 Urine Color Urine Appearance Urine pH Ur Specific [place] Urine Protein Urine Glucose (UA) Urine Ketones Urine Blood Urine Nitrite Urine Bilirubin Urine Urobilinogen Ur Leukocyte Esterase Urine WBC (Auto) Urine RBC (Auto) U Hyaline Cast (Auto) U Epithel Cells (Auto) Urine Bacteria (Auto) Urine Comment Lyme Disease Screen Negative SARS-CoV-2 (PCR) NEGATIVE Influenza Type A (PCR) Negative Influenza Type B (PCR) Negative RSV (RT-PCR) Negative PG Care Time/CCT Total # of Minutes Spent Total Time Spent with Patient: Total time spent is greater than 50% in coordination of care (as documented) at patient's floor/unit and/or counseling patient: Coding Level of Care Code 93972 SUB INP/OBS CARE 2/35MIN Diagnoses Symptomatic bradycardia R00.1 Diabetes mellitus, type 2 E11.9 Chronic cerebral ischemia I67.82 Mild cognitive impairment G31.84 Hypertension I10 Osteopenia M85.80 History of recurrent TIAs Z86.73 GERD (gastroesophageal reflux disease) K21.9 Chronic kidney disease, stage 3 (moderate) N18.3
[2025-08-07] MEDS: LIDOCAINE 5% 1 PATCH TD PRN (19:30)
[2025-08-08 03:02] VITALS: RESP 18
[2025-08-08 07:14] LABS: Hematocrit (blood only) 38.4 % (37.0-47.0); Hemoglobin 13.9 g/dl (12.0-16.0); Immature Granulocytes # (auto) 0.02 K/uL (0.01-0.20); Immature Granulocytes % (auto) 0.3 %; Mean Corpuscular Hemoglobin 32.5 pg (25.0-34.0); Mean Corpuscular Volume 89.7 fL (80.0-100.0); Platelet Count 174 K/uL (130-400); RDW Standard Deviation 38.8 fL (36.4-46.3); Red Blood Count 4.28 M/uL (4.20-5.40); White Blood Count 6.17 K/ul (4.8-10.8)
[2025-08-08 07:28] LABS: Anion Gap 9.0 (3-11); Blood Urea Nitrogen 24.0 mg/dl (6-23); Calcium 9.8 mg/dl (8.6-10.3); Carbon Dioxide 24.0 mmol/L (21-32); Chloride 106.0 mmol/L (98-107); Creatinine Clr Calc Pharmacy 37.6 ml/min; Glucose 97.0 mg/dl (70-99(Fasting)); Magnesium 1.9 mg/dl (1.7-2.4); Potassium 4.0 mmol/L (3.5-5.1); Sodium 139.0 mmol/L (136-145)
[2025-08-08 07:38] VITALS: BP 142/82; O2SAT 94
[2025-08-08] MEDS: POTASSIUM CHLORIDE 10 MEQ TABCR PO SCH (08:37)
--- NOTE | 2025-08-08 10:43 | XCELERA ---
[id number]
[2025-08-08 10:52] VITALS: TEMP 97.3
--- NOTE | 2025-08-08 12:26 | Cardiology Consultation ---
Date of Consultation August 08, 2025 Assessment & Plan (1) Symptomatic bradycardia: -Heart rate has improved with the discontinuation of carvedilol. -No indication for a permanent pacemaker. (2) Hypertension: -Adequate control currently. History of Present Illness Attending Physician: Yvrose Wright MD History of Present Illness Mrs. Gutiérrez is an 85-year-old female admitted on August 06 after an episode of severe dizziness and bradycardia. This consultation was ordered to assist in her cardiac management. Of note, I put the patient back in March 2022. The patient was in usual state of health until the day of presentation. She had the abrupt onset of significant "dizziness" and was found to be bradycardic. She was evaluated by the EMS team and given atropine in the field for heart rate in the 30s. Her carvedilol was placed on hold at the time of her hospitalization. Her heart rates have now been mainly in the 50s and 60s. The patient feels well and has not experienced any dizziness today. She does have a longstanding history of hypertension. An echocardiogram performed back in January noted normal left ventricular systolic function with ejection fraction of 60 to 65%. There is mild LVH along with mild regurgitation. Currently, patient is resting comfortably in bed without complaints. Past medical and surgical history 1. Hypertension 2. Hypercholesterolemia 3. Diabetes 4. Chronic renal failure 5. GERD 6. History of TIAs 7. Anxiety/depression 8. Dementia 9. Lumbar disc disease 10. Spinal stenosis 11. Chronic venous insufficiency 12. Carpal tunnel release 13. C-spine surgery 14. Appendectomy 15. Cholecystectomy Social history , lives alone at [facility] No tobacco alcohol Family history Father at 81 from heart issues. Mother at 76 from CVA Review of systems A 10 point review systems was negative except for that described above. 7. Allergies Allergy/AdvReac Type Severity Reaction Status Date / Time amoxicillin AdvReac Intermediate upset Verified 08/06/25 15:33 stomach cefdinir AdvReac Intermediate Diarrhea Verified 08/06/25 15:33 ciprofloxacin [From Cipro] AdvReac Intermediate Diarrhea Verified 08/06/25 15:33 doxycycline AdvReac Intermediate decreased Verified 08/06/25 15:33 urine output escitalopram AdvReac Intermediate decreased Verified 08/06/25 15:33 urine output fenofibrate AdvReac Intermediate Abdominal Verified 08/06/25 15:33 Pain fluticasone AdvReac Intermediate Dizziness Verified 08/06/25 15:33 gabapentin AdvReac Intermediate abdominal Verified 08/06/25 15:33 pain and drowsy gemfibrozil [From Lopid] AdvReac Intermediate upset Verified 08/06/25 15:33 stomach irbesartan AdvReac Intermediate Diarrhea Verified 08/06/25 15:33 lisinopril AdvReac Intermediate hypertension Verified 08/06/25 15:33 and diarrhea meclizine AdvReac Intermediate Drowsy Verified 08/06/25 15:33 memantine AdvReac Intermediate stomach Verified 08/06/25 15:33 pains prednisone AdvReac Intermediate feels Verified 08/06/25 15:33 agitated Tdkqizv-ZZH-RbB Reductase AdvReac Intermediate myalgia Verified 08/06/25 15:33 Inhibitor [Slywgjv-Dru-Mhh Reductase Inhibitor] tizanidine AdvReac Intermediate nightmares Verified 08/06/25 15:33 tramadol AdvReac Intermediate insomnia/pr Verified 08/06/25 15:33 uitus pitavastatin [From Livalo] AdvReac Unknown Unknown Verified 08/06/25 15:33 trazodone AdvReac Unknown Unknown Verified 08/06/25 15:33 Home Medications Medication Instructions Recorded Confirmed Type calcium 600 mg (as 1 tab PO BID #60 tabs 05/10/21 08/06/25 Rx carbonate)-vitamin D3 10 mcg (400 unit) tablet (Calcium 600 + D(3)) omega-3 acid ethyl esters 1 gram 1 cap PO DAILY 11/09/21 08/06/25 History capsule vfasfdittdqz-mvkdhvfx-gxehel tablet 1 tab PO DAILY #90 tabs 12/13/21 08/06/25 Rx cyclosporine 0.05 % eye drops in a 1 drp OPB BID 05/07/23 08/06/25 History dropperette (Restasis) aspirin 81 mg tablet,delayed 81 mg PO QAM #30 tabs 05/09/23 08/06/25 Rx release magnesium oxide 400 mg PO BID 08/27/23 08/06/25 History fluticasone propionate 50 2 spray intranasal UD 01/27/25 08/06/25 History mcg/actuation nasal spray,suspension (Flonase Allergy Relief) clopidogrel 75 mg tablet (Plavix) 75 mg PO DAILY #90 tabs 02/14/25 08/06/25 Rx cetirizine 10 mg tablet (Zyrtec) 10 mg PO DAILY allergy symptoms 04/15/25 08/06/25 Rx #30 tabs losartan 25 mg tablet 25 mg PO BID #60 tabs 04/15/25 08/06/25 Rx triamcinolone acetonide 0.1 % 1 applic topical DAILY PRN itching 04/15/25 08/06/25 Rx topical cream #30 grams potassium chloride 10 mEq 10 meq PO DAILY #90 caps 05/05/25 08/06/25 Rx capsule,extended release verapamil 120 mg 24 hr 120 mg PO HS #90 caps 05/11/25 08/06/25 Rx capsule,extended release estradiol 0.01% (0.1 mg/gram) 1 applic vaginal 3XWK #42.5 grams 05/27/25 08/06/25 Rx vaginal cream carvedilol 6.25 mg tablet 6.25 mg PO BID #60 tabs 07/29/25 08/06/25 Rx lidocaine 5 % topical patch 1 patch topical DAILY PRN Pain 08/06/25 08/06/25 History (Lidoderm) Patient History Medical History History of CVA (cerebrovascular accident) 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) Sacroiliitis Lumbar pain with radiation down left leg Dizziness Cognitive impairment Hypertensive emergency Leg swelling Numbness and tingling Hypertensive urgency Left sided numbness Left leg weakness Weakness of left leg Stroke-like symptoms TIA (transient ischemic attack) (11/2021) Chronic kidney disease, stage 3 (moderate) Surgical History S/P blepharoplasty History of carpal tunnel surgery S/P appendectomy S/P cholecystectomy Hx of neck surgery Previous back surgery Family History Father Myocardial infarction Prostate cancer Coronary heart disease Mother Stroke, Onset Age: 72 Myocardial infarction, Onset Age: 76 Hypertension Diabetes Brother Cancer Sister Hodgkins disease Sister Coronary heart disease Brother Diabetes Denies family history of Ovarian cancer Breast cancer Colorectal cancer Social History Smoking Status: Never smoker Second Hand Exposure: No; Do You Dip or Chew Tobacco: No; Hx Alcohol Use: No Hx Substance Use: No Preferred Language: Senegalese Communication Ability: Effective Visual Impairment: No Limitations Hearing Ability: Normal Flame Planer Required: No Beliefs That Will Affect Care: None and Spiritual marital status: Current Living Situation: Alone Current Living Situation Comment: Son helps as needed and visits regularly. 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 HEENT exam is negative. Neck is supple with full carotid upstrokes. There are no carotid bruits. Jugular venous pressure is flat at 90. There is no thyromegaly. Cardiovascular exam reveals a regular rhythm with a normal S1 and S2. No S3, S4, or murmurs are noted. Lungs are clear without rales, rhonchi, or wheezes. Abdomen is soft and nontender without bruits. Extremities reveal intact radial artery and posterior tibial pulses bilaterally. There is no peripheral edema. Results & Data Vital Signs (Past 12 Hours) Vital Signs Temp Pulse Pulse Resp BP Pulse Ox O2 Del Method 08/08/25 12:10 66 08/08/25 10:52 36.3 C L 51 L 08/08/25 07:04 36.5 C 74 18 142/82 H 94 Room Air 08/08/25 03:01 36.6 C 70 18 143/82 H 92 Room Air Laboratory Results CBC and electrolytes are unremarkable. High-sensitivity troponin normal at 3.3. Diagnostic Findings Echocardiogram notes normal left ventricular systolic function with ejection fraction of 60 to 65%. There is mild LVH along with mild mitral regurgitation. Compared with study performed in January 2025, no significant change. EKG notes sinus bradycardia with a short [place] interval and low voltage throughout. A septal infarction cannot be excluded. personnel monitor notes sinus rhythm with a heart rate in the 50s and 60s. PG Care Time/CCT Total # of Minutes Spent Total Time Spent with Patient: Total time spent is greater than 50% in coordination of care (as documented) at patient's floor/unit and/or counseling patient: Coding Level of Care Code 82571 INT INP/OBS CARE 3/75MIN Diagnoses Symptomatic bradycardia R00.1 Hypertension I10
[2025-08-08 14:18] VITALS: PULSE 72
--- NOTE | 2025-08-08 14:30 | Discharge Summary ---
Discharge Summary Date of Service August 08, 2025 Principal Dx & Hospital Course #1 = Principal Diagnosis (1) Symptomatic bradycardia: (2) Hypertension: Plan #symptomatic bradycardia/orthostatic hypotension-both now resolved Heart rates in the 30s and symptomatic at home-unclear why this occurred when she has been on carvedilol for a long time. She denies any vagal type symptoms, no recent illnesses or dehydration or GI issues. Discontinued Coreg and heart rates improved to the 50s-60s. Echocardiogram negative. Had a few 2.3-second pauses on telemetry that were asymptomatic. She was orthostatic but this i mproved with IV fluids and stopping carvedilol. -Okay to continue home verapamil for hemiplegic migraine prevention - Okay to continue losartan 25 mg p.o. twice daily, but advised patient that she may need to go up on the dose of this now that she is off carvedilol if her blood pressures go high - Advised to check blood pressures at home twice a day on discharge and let her PCP know if blood pressure greater than 140/90 # HTN- previously on verapamil, carvedilol, losartan at home -As noted above, may need to increase losartan at home #history of stroke/recurrent TIA - treated with TNKase at least once in the past, symptoms improved at this time not a TNKase candidate given resolution of symptoms - imaging unremarkable, continue Plavix and aspirin - blood pressure management as above, tight window to maintain systolic less than 180 #type 2 diabetes - diet managed - within goal range #CKD3 - Renal function stable #mild cognitive impairment - will review prior records, still lives independently has her son in the home frequently with her #anxiety/depression - monitor for , no medicines on board at this time that I can see #chronic DJD - Lidoderm patch as needed #hypokalemia - normal at this time continue supplements #vaginal atrophy - continue topical estradiol DVT prophylaxis-DVT prophylaxis Disposition-stable for discharge to home Notes For Next Care Provider Monitor blood pressure and may need to titrate up dose of losartan or verapamil as an outpatient Medication Changes From Visit Discontinued carvedilol Admission HPI Per Admitting Provider 85-year-old female history of hypertension, type 2 diabetes, CKD 3, mild cognitive impairment, history of stroke, recurrent TIAs, spinal stenosis, anxiety depression, gastroesophageal reflux, osteopenia and recent history of bradycardia presents to the emergency department via EMS after an episode of severe dizziness and bradycardia. Patient reports that she has had bradycardia on and off over the last year her medications were decreased over the summer. Over the last several weeks she has had a recurrence of symptoms she is feeling very weak wakes up in the morning feels dizziness when she stands up. She will go back to bed sleep for couple hours and then symptoms were improved this morning she woke up symptoms were much more severe than usual she was very weak felt as though she was going to pass out so she called EMS. On arrival EMS noted generally stable vital signs but heart rate in the 30s. IV was started she was loaded in the rig and given atropine with immediate improvement in underlying heart rate. She was transported here no chest pain vital signs stable. Given the abrupt onset of dizziness and stroke history a CT head and CTA head and neck were completed and were unremarkable. On arrival here his symptoms have nearly completely resolved. Secondary to the significant symptomatic bradycardia progressive and worsening symptoms she was referred for observation for cardiac monitoring and medication management Discharge Exam Constitutional WD/WN, vitals as above Eyes PERRL, conjunctivae normal, anicteric sclerae ENMT external ear and nose normal, oropharynx normal Neck trachea midline, no thyromegaly Respiratory normal respiratory effort, lungs clear to auscultation Cardiovascular RRR, no murmur, no edema Chest (Breasts) Chest: normal inspection of chest Gastrointestinal (Abdomen) normal bowel sounds, soft, nontender, no hepatosplenomegaly Musculoskeletal Extremities: extremities normal to inspection; no cyanosis and no clubbing Skin no rashes, warm and dry Neurologic moves all extremities and awake; no focal motor deficits Psychiatric A+Ox3, euthymic affect Lymphatic no lymphedema Discharge Plan Discharge Items Patient Disposition: Home - Self-Care Reason For Visit: SYMPYOMATIC BRADYCARDIA Discharge Diagnosis: Bradycardia Condition on Discharge: Fair Activity: As commented below Lifting: Gradually increase as tolerated Bathing: No limitations Exercise/Sports: Gradually increase as tolerated Weightbearing: Full weightbearing Non-emergency contact: Primary Care Provider Call non-emergency contact if: you have any medication questions and your symptoms worsen Follow-up/Referrals: Clara Sarkar, [Primary Care Provider] - (Please follow-up within 1-2 weeks) Diet: Heart Healthy Addtl Attending Provider Instructions: You were admitted with dizziness from a low heart rate. Your carvedilol medication was discontinued and your heart rate improved. Please check your blood pressure twice a day when you go home. If your blood pressures are consistently elevated greater than 140/90, please let your doctor know at your follow-up appointment. Your blood pressure medications may need to be adjusted if your blood pressure gets too high since stopping the carvedilol as we discussed. Pending Studies at Discharge: No Stand-Alone Forms: My [facility] [employer], Smoking Cessation Medications and DC Order Prescriptions: Continued calcium carbonate-vitamin D3 [Calcium 600 + D(3)] 600 mg(1,500mg) -400 unit tablet 1 tab PO BID Qty: 60 0RF dgphaacsplbe-zpnkpern-asumhl Tablet 1 tab PO DAILY Qty: 90 1RF Rx Instructions: OTC unable to verify clopidogrel [Plavix] 75 mg tablet 75 mg PO DAILY Qty: 90 3RF potassium chloride 10 mEq capsule, extended release 10 meq PO DAILY Qty: 90 1RF estradiol 0.01 % (0.1 mg/gram) cream 1 applic VAGINAL 3XWK Qty: 42.5 3RF magnesium oxide 400 mg magnesium capsule 400 mg PO BID verapamil 120 mg capsule,ext rel. pellets 24 hr 120 mg PO HS Qty: 90 1RF losartan 25 mg tablet 25 mg PO BID Qty: 60 5RF cetirizine [Zyrtec] 10 mg tablet 10 mg PO DAILY Qty: 30 4RF triamcinolone acetonide 0.1 % cream 1 applic topical DAILY PRN (Reason: itching) Qty: 30 1RF omega-3 acid ethyl esters 1 gram capsule 1 cap PO DAILY Rx Instructions: OTC unable to verify cyclosporine [Restasis] 0.05 % dropperette 1 drp OPB BID Rx Instructions: 1 drp opb daily. no fill history available aspirin 81 mg Tablet,Delayed Release (Dr/Ec) 81 mg PO QAM Qty: 30 5RF Rx Instructions: OTC unable to verify fluticasone propionate [Flonase Allergy Relief] 50 mcg/actuation spray,suspension 2 spray INTNAS UD Rx Instructions: 2 spray intas daily. otc/no fill history available unable to verify lidocaine [Lidoderm] 5 % adhesive patch,medicated 1 patch topical DAILY PRN (Reason: Pain) Rx Instructions: APPLY on most painful area for up to 12 hrs Discontinued carvedilol 6.25 mg tablet 6.25 mg PO BID Qty: 60 1RF Rx Instructions: must administer with a meal/food Discharge Orders: Discharge Order (Routine); Ordered 08/08/25 Ordered By: Yvrose Wright Admission Data Admit Date/Time: 08/07/25 19:30 Attending Provider: Yvrose Wright Admit Provider: Deny Levi Primary Care Provider: Clara Sarkar Other Providers: Deyn eLvi; Popeye Courtney Other Interventions: Discharge Summary Assessment (RN) Last Done: 08/08/25 14:17 Hospital Stay Data Consultations 08/06/25 15:32 ED Decision to Admit Stat 08/08/25 08:06 Consult Cardiology Routine Diagnostic Imagining Performed 08/06/25 12:45 CT angio head w con Stat CT head/brain wo con Stat CTA neck with con [CT angio neck with con] Stat Echocardiogram Pending Results Patient Have Any Pending Studies at Discharge: No Discharge Instructions Given to Patient (Per Discharging Provider) You were admitted with dizziness from a low heart rate. Your carvedilol medication was discontinued and your heart rate improved. Please check your blood pressure twice a day when you go home. If your blood pressures are consistently elevated greater than 140/90, please let your doctor know at your follow-up appointment. Your blood pressure medications may need to be adjusted if your blood pressure gets too high since stopping the carvedilol as we discussed. Total Time Total Time Spent Total Time Spent (In Minutes): 35 minutes Total Time Includes: Examination of the Patient, Discharge Planning and Medication Reconciliation Coding Level of Care Code 16245 INP/OBS DISCH >30 MIN Diagnoses Symptomatic bradycardia R00.1 Hypertension I10
== END 2025-08-08 14:45 | disposition home or self-care (01) | DRG 309 ==
LOC: ED 12:07 → 2S 12:07 → SUATTDRO 08-07 19:30

== ENCOUNTER 2025-09-05 13:22 | Observation (INO) ==
--- NOTE | 2025-09-05 13:40 | Emergency Department Note ---
Impression & Plan Hypertension, Dizziness, Blood glucose elevated, Headache ED Provider Note NAME: CHRISTOPHE MASON AGE: 85 SEX: F : 1940 ARRIVES VIA: Ambulance INFORMANT: Patient ED PROVIDER(S): Calixto To DO CHIEF COMPLAINT: HTN HPI: Patient is a 85-year-old female who presents to the ER with a past medical history of diabetes, hypertension who took her medications this morning and presents to the ER for elevated blood pressure. She notes her blood pressures at home are running in the 200s. She does have a headache. No chest pain or shortness of breath. No belly pain. No nausea, vomiting or diarrhea. No dysuria, urgency or frequency. No other exacerbating or remitting factors. ADDITIONAL HISTORY OBTAINED: Per HPI Chronic Medical/Social Conditions Affecting Care: Per HPI PAST MEDICAL HISTORY:See Below PAST SURGICAL HISTORY:See Below FAMILY HISTORY:See Below SOCIAL HISTORY:See Below HOME MEDICATIONS:See Below ALLERGIES:See Below VITALS:See Below PHYSICAL EXAMINATION: GENERAL: Sitting up in bed, alert, well appearing, well nourished, no distress, non-toxic EYE EXAM: normal conjunctiva. PERRL and EOM's intact. OROPHARYNX: no exudate, no erythema, lips, buccal mucosa, and tongue normal and mucous membranes are moist NECK: supple, no nuchal rigidity, no adenopathy, non-tender LUNGS: Clear to auscultation. Normal chest wall mechanics HEART: no murmurs, S1 normal and S2 normal ABDOMEN: abdomen soft, non-tender, normo-active bowel sounds, no masses, no rebound or guarding. BACK: Back is symmetrical on inspection and there is no deformity, no midline tenderness, no CVA tenderness. SKIN: no rashes and no bruising UPPER EXTREMITIES: upper extremities are grossly normal. LOWER EXTREMITIES: No pitting edema. NEURO EXAM: Normal sensorium, cranial nerves II-XII intact, normal speech, no weakness of arms, no weakness of legs. No drift. Finger to nose intact. Gross sensation intact. MEDICAL DECISION MAKING: Patient is an 85-year-old female who presents ER for the above-stated complaint. IV was established and blood work was obtained. Labs showed no significant leukocytosis or anemia. BMP with slightly elevated calcium at 10.5. LFTs bilirubin troponin were negative. Lipase was normal. Patient was neurologically intact. CT head was negative. Blood pressures were 220s and she was given IV labetalol. Chest x-ray was unremarkable. Discussed case with the hospitalist for further evaluation management and treatment. Consults/Care Managements Discussions: Per [facility] Triage Nursing notes reviewed. Limited review of prior medical records performed Vital Signs: reviewed and remarkable for HTN Differential diagnosis: Cardiac ischemia, aortic dissection, pulmonary embolism, pneumothorax, pneumonia, pericarditis, myocarditis, esophageal rupture, GERD, cholecystitis, pancreatitis, musculoskeletal, as well as other pathologies. ER treatment provided: See below Diagnostics interpreted by me include EKG and cardiac monitoring as listed below: -Cardiac Monitoring: An order was placed for continuous cardiac monitoring. The monitor shows a rate of 70 with rhythm. -ECG: Sinus rhythm rate 72 Normal axis No PACs QTc 462 -Laboratory studies:Interpreted by me as stated above in MDM and shown below. 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 Spinal stenosis, lumbar region without neurogenic claudication Mild cognitive impairment Venous insufficiency (chronic) (peripheral) Anxiety and depression Hypertension (Acute) Insomnia Osteopenia History of recurrent TIAs GERD (gastroesophageal reflux disease) Dyslipidemia Medical History History of CVA (cerebrovascular accident) 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) Sacroiliitis Lumbar pain with radiation down left leg Dizziness Cognitive impairment Hypertensive emergency Leg swelling Numbness and tingling Hypertensive urgency Left sided numbness Left leg weakness Weakness of left leg Stroke-like symptoms TIA (transient ischemic attack) (11/2021) Chronic kidney disease, stage 3 (moderate) Surgical History S/P blepharoplasty History of carpal tunnel surgery S/P appendectomy S/P cholecystectomy Hx of neck surgery Previous back surgery Family History Father Myocardial infarction Prostate cancer Coronary heart disease Mother Stroke, Onset Age: 72 Myocardial infarction, Onset Age: 76 Hypertension Diabetes Brother Cancer Sister Hodgkins disease Sister Coronary heart disease Brother Diabetes Denies family history of Ovarian cancer Breast cancer Colorectal cancer Social History Smoking Status: Never smoker Second Hand Exposure: No; Do You Dip or Chew Tobacco: No; Hx Alcohol Use: No Hx Substance Use: No Preferred Language: Citizen Of [place] Communication Ability: Effective Visual Impairment: No Limitations Hearing Ability: Normal Fur Blower Operator Required: No Beliefs That Will Affect Care: None and Spiritual marital status: Current Living Situation: Alone Current Living Situation Comment: Son helps as needed and visits regularly. 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59 Feels Safe at Home: Yes Childhood Exposure to Second-Hand Smoke: No Diet: other Diet Comment: low sugar caffeine: No during the past year weight has: remained stable Dental Care, Regularly: No Physical Activity Frequency: Other Seatbelt Use: always Sunscreen Use: Yes Assistive Devices: Cane, Denture - Upper, Denture - Lower, Glasses and Walker Allergies Allergies Allergy/AdvReac Type Severity Reaction Status Date / Time amoxicillin AdvReac Intermediate upset Verified 08/18/25 14:29 stomach cefdinir AdvReac Intermediate Diarrhea Verified 08/18/25 14:29 ciprofloxacin [From Cipro] AdvReac Intermediate Diarrhea Verified 08/18/25 14:29 doxycycline AdvReac Intermediate decreased Verified 08/18/25 14:29 urine output escitalopram AdvReac Intermediate decreased Verified 08/18/25 14:29 urine output fenofibrate AdvReac Intermediate Abdominal Verified 08/18/25 14:29 Pain fluticasone AdvReac Intermediate Dizziness Verified 08/18/25 14:29 gabapentin AdvReac Intermediate abdominal Verified 08/18/25 14:29 pain and drowsy gemfibrozil [From Lopid] AdvReac Intermediate upset Verified 08/18/25 14:29 stomach irbesartan AdvReac Intermediate Diarrhea Verified 08/18/25 14:29 lisinopril AdvReac Intermediate hypertension Verified 08/18/25 14:29 and diarrhea meclizine AdvReac Intermediate Drowsy Verified 08/18/25 14:29 memantine AdvReac Intermediate stomach Verified 08/18/25 14:29 pains prednisone AdvReac Intermediate feels Verified 08/18/25 14:29 agitated Cvtsgnk-YQX-TwF Reductase AdvReac Intermediate myalgia Verified 08/18/25 14:29 Inhibitor [Twluofd-Eoq-Qvc Reductase Inhibitor] tizanidine AdvReac Intermediate nightmares Verified 08/18/25 14:29 tramadol AdvReac Intermediate insomnia/pr Verified 08/18/25 14:29 uitus pitavastatin [From Livalo] AdvReac Unknown Unknown Verified 08/18/25 14:29 trazodone AdvReac Unknown Unknown Verified 08/18/25 14:29 Home Meds Home Medications Medication Instructions Recorded Confirmed omega-3 acid ethyl esters 1 gram 1 cap PO DAILY 11/09/21 09/05/25 capsule magnesium oxide 400 mg PO BID 08/27/23 09/05/25 fluticasone propionate 50 2 spray intranasal UD 01/27/25 09/05/25 mcg/actuation nasal spray,suspension (Flonase Allergy Relief) lidocaine 5 % topical patch 1 patch topical DAILY PRN Pain 08/06/25 09/05/25 (Lidoderm) Previous Rx's Medication Instructions Recorded calcium 600 mg (as 1 tab PO BID #60 tabs 05/10/21 carbonate)-vitamin D3 10 mcg (400 unit) tablet (Calcium 600 + D(3)) tvwmoozmaepe-ochepnwl-yhyuvt tablet 1 tab PO DAILY #90 tabs 12/13/21 aspirin 81 mg tablet,delayed 81 mg PO QAM #30 tabs 05/09/23 release clopidogrel 75 mg tablet (Plavix) 75 mg PO DAILY #90 tabs 02/14/25 losartan 25 mg tablet 25 mg PO BID #60 tabs 04/15/25 triamcinolone acetonide 0.1 % 1 applic topical DAILY PRN itching 04/15/25 topical cream #30 grams potassium chloride 10 mEq 10 meq PO DAILY #90 caps 05/05/25 capsule,extended release verapamil 120 mg 24 hr 120 mg PO HS #90 caps 05/11/25 capsule,extended release estradiol 0.01% (0.1 mg/gram) 1 applic vaginal 3XWK #42.5 grams 05/27/25 vaginal cream cetirizine 10 mg tablet (Zyrtec) 10 mg PO DAILY allergy symptoms 08/22/25 #30 tabs Results & Data (ED) Vital Signs Vital Signs - 24 hr 09/05/25 13:34 09/05/25 13:41 09/05/25 16:34 Pulse Rate 65 63 70 Respiratory Rate 16 Blood Pressure 209/96 H 174/81 H Blood Pressure Mean 133 Pulse Oximetry 96 Oxygen Delivery Method Room Air Sepsis Recent Fever Within 48 Hours No Sepsis New/Unexplained Change in Mental Status N/A Sepsis Action Taken by Nursing No Action Required Laboratory Data 09/05/25 13:38 09/05/25 13:38 Lab Results 09/05/25 Range/Units 13:38 WBC 7.48 (4.8-10.8) K/ul RBC 4.96 (4.20-5.40) M/uL Hgb 15.5 (12.0-16.0) g/dl Hct 44.7 (37.0-47.0) % MCV 90.1 (80.0-100.0) fL MCH 31.3 (25.0-34.0) pg MCHC 34.7 (32.0-36.0) g/dL RDW Std Deviation 39.4 (36.4-46.3) fL RDW Coeff of Johan 12.1 (11.5-14.5) % Plt Count 172 (130-400) K/uL MPV 9.3 L (9.4-12.4) fL Immature Gran % (Auto) 0.5 % Neut % (Auto) 44.3 % Lymph % (Auto) 42.4 % [place] % (Auto) 9.8 % Eos % (Auto) 2.5 % Baso % (Auto) 0.5 % Neut # (Auto) 3.31 (1.40-6.50) K/uL Lymph # (Auto) 3.17 (1.20-3.40) K/uL [place] # (Auto) 0.73 H (0.11-0.59) K/uL Eos # (Auto) 0.19 (0.00-0.50) K/uL Baso # (Auto) 0.04 (0.00-0.20) K/uL Immature Gran # (Auto) 0.04 (0.01-0.20) K/uL Sodium 137 (136-145) mmol/L Potassium 3.9 (3.5-5.1) mmol/L Chloride 105 (98-107) mmol/L Carbon Dioxide 24 (21-32) mmol/L Anion Gap 8 (3-11) BUN 19 (6-23) mg/dl Creatinine 0.75 (0.6-1.2) mg/dl Est Cr Clr Drug Dosing 40.6 ml/min eGFR 77.49 BUN/Creatinine Ratio 25.3 H (10-20) Glucose 113 H (70-99(Fasting)) mg/dl Calcium 10.5 H (8.6-10.3) mg/dl Total Bilirubin 0.5 (0.2-1.0) mg/dl AST 28 (13-39) U/L ALT 28 (7-52) U/L Alkaline Phosphatase 53 (34-104) U/L Troponin I High Sens 6.2 (0-14) pg/ml Total Protein 7.9 (6.0-8.3) gm/dl Albumin 4.1 (3.4-5.0) gm/dl Globulin 3.8 (2.5-4.0) gm/dl Albumin/Globulin Ratio 1.1 (0.9-2) Lipase 27 (11-82) U/L Administered Medications Discontinued Medications Labetalol HCl (Labetalol Hcl Iv 5 Mg/Ml 20ml) 10 mg IV NOW STA Stop: 09/05/25 15:25 Last Admin: 09/05/25 16:34 Dose: 10 mg Documented By: [facility] Meclizine HCl (Meclizine Hcl 25 Mg Tab) 25 mg PO NOW STA Stop: 09/05/25 16:02 Last Admin: 09/05/25 16:40 Dose: 25 mg Documented By: [facility] Imaging Data Radiologist's Impression: Chest X-Ray 09/05/25 13:40 XR chest 1V portable CLINICAL HISTORY: Chest pain, nonspecific COMPARISON STUDY: 08/06/2025 FINDINGS: Heart size and pulmonary vasculature are normal. No consolidation or pleural effusion. No pneumothorax. IMPRESSION: No acute findings. ACT 112: Negative or not required by law. Electronically signed by: Ancelmo Montalvo M.D. 09/05/2025 2:[address] 09/05/25 15:24 CT SCAN OF THE BRAIN WITHOUT IV CONTRAST CLINICAL HISTORY: Dizziness. COMPARISON STUDY: CT of the brain dated 08/06/2025. TECHNIQUE: Unenhanced CT scan of the brain is performed from the vertex to the skull base. Images are reviewed in the axial, sagittal, coronal planes. A dose lowering technique was utilized adhering to the principles of ALARA. CT DOSE: 625.8 mGy.cm FINDINGS: Brain parenchyma: There is age-related involutional change noting moderate subcortical and periventricular microangiopathic disease. There is no hemorrhage, mass effect, or evidence of acute territorial ischemia by CT criteria. [place]-white matter differentiation is preserved. No extra-axial fluid collection is seen. Ventricles, sulci, cisterns: Prominent secondary to involutional change. Intracranial vasculature: There is atherosclerotic calcification of the cavernous carotid and vertebral arteries. Calvarium: Unremarkable. Sinuses and mastoids: The visualized paranasal sinuses are clear. The mastoid air cells are well pneumatized. Orbits: The bony orbits are grossly intact. There are bilateral ocular lens implants. IMPRESSION: There is no hemorrhage, mass effect, or evidence of acute territorial ischemia by CT criteria. ACT 112: Negative or not required by law. Electronically signed by: Uriel Eubanks M.D. 09/05/2025 3:46 PM Discharge Plan Visit Data Chief Complaint: Hypertension Stated Complaint: HTN ED Provider: Calixto To Discharge Problem: Hypertension, Dizziness, Blood glucose elevated, Headache Condition: Fair Forms Stand Alone Forms: My [facility] Prescriptions Prescriptions: No Action calcium carbonate-vitamin D3 [Calcium 600 + D(3)] 600 mg(1,500mg) -400 unit tablet 1 tab PO BID Qty: 60 0RF lhlebtiblmth-klgqgmud-dustvx Tablet 1 tab PO DAILY Qty: 90 1RF Rx Instructions: OTC unable to verify clopidogrel [Plavix] 75 mg tablet 75 mg PO DAILY Qty: 90 3RF potassium chloride 10 mEq capsule, extended release 10 meq PO DAILY Qty: 90 1RF estradiol 0.01 % (0.1 mg/gram) cream 1 applic VAGINAL 3XWK Qty: 42.5 3RF cetirizine [Zyrtec] 10 mg tablet 10 mg PO DAILY Qty: 30 4RF magnesium oxide 400 mg magnesium capsule 400 mg PO BID verapamil 120 mg capsule,ext rel. pellets 24 hr 120 mg PO HS Qty: 90 1RF losartan 25 mg tablet 25 mg PO BID Qty: 60 5RF triamcinolone acetonide 0.1 % cream 1 applic topical DAILY PRN (Reason: itching) Qty: 30 1RF omega-3 acid ethyl esters 1 gram capsule 1 cap PO DAILY Rx Instructions: OTC unable to verify aspirin 81 mg Tablet,Delayed Release (Dr/Ec) 81 mg PO QAM Qty: 30 5RF Rx Instructions: OTC unable to verify fluticasone propionate [Flonase Allergy Relief] 50 mcg/actuation spray,suspension 2 spray INTNAS UD Rx Instructions: 2 spray intas daily. otc/no fill history available unable to verify lidocaine [Lidoderm] 5 % adhesive patch,medicated 1 patch topical DAILY PRN (Reason: Pain) Rx Instructions: APPLY on most painful area for up to 12 hrs Referrals Referrals: Clara Sarkar DO [Primary Care Provider] - Discharge Problem: Hypertension Qualifiers: Hypertension type: unspecified Qualified Code(s): I10 - Essential (primary) hypertension Headache Qualifiers: Headache type: unspecified Headache chronicity pattern: unspecified pattern I ntractability: not intractable Qualified Code(s): R51.9 - Headache, unspecified
[2025-09-05 14:10] LABS: Hematocrit (blood only) 44.7 % (37.0-47.0); Hemoglobin 15.5 g/dl (12.0-16.0); Immature Granulocytes # (auto) 0.04 K/uL (0.01-0.20); Immature Granulocytes % (auto) 0.5 %; Mean Corpuscular Hemoglobin 31.3 pg (25.0-34.0); Mean Corpuscular Volume 90.1 fL (80.0-100.0); Platelet Count 172 K/uL (130-400); RDW Standard Deviation 39.4 fL (36.4-46.3); Red Blood Count 4.96 M/uL (4.20-5.40); White Blood Count 7.48 K/ul (4.8-10.8)
[2025-09-05 14:23] LABS: Alanine Aminotransferase 28.0 U/L (7-52); Albumin Globulin Ratio 1.1 (0.9-2); Albumin Level 4.1 gm/dl (3.4-5.0); Alkaline Phosphatase 53.0 U/L (34-104); Anion Gap 8.0 (3-11); Bilirubin,Total 0.5 mg/dl (0.2-1.0); Blood Urea Nitrogen 19.0 mg/dl (6-23); Calcium 10.5 mg/dl (8.6-10.3); Carbon Dioxide 24.0 mmol/L (21-32); Chloride 105.0 mmol/L (98-107); Creatinine Clr Calc Pharmacy 40.6 ml/min; Globulin 3.8 gm/dl (2.5-4.0); Glucose 113.0 mg/dl (70-99(Fasting)); Lipase 27.0 U/L (11-82); Potassium 3.9 mmol/L (3.5-5.1); Sodium 137.0 mmol/L (136-145); Total Protein 7.9 gm/dl (6.0-8.3)
--- NOTE | 2025-09-05 14:26 | Electrocardiogram Report ---
Test Reason : Blood Pressure : */* mmHG Vent. Rate : 72 BPM Atrial Rate : 72 BPM P-R Int : 190 ms QRS Dur : 76 ms QT Int : 422 ms P-R-T Axes : 78 10 61 degrees QTcB Int : 462 ms Sinus rhythm Premature atrial complexes Otherwise normal ECG When compared with ECG of 06-Aug-2025 12:12, HI interval has increased Criteria for Septal infarct are no longer Present Confirmed by Popeye Courtney ([id number]) on 09/05/2025 2:26:02 PM Referred By: REFERRED SELF Confirmed By: Popeye Courtney
--- NOTE | 2025-09-05 14:38 | XRay Report ---
XR chest 1V portable CLINICAL HISTORY: Chest pain, nonspecific COMPARISON STUDY: 08/06/2025 FINDINGS: Heart size and pulmonary vasculature are normal. No consolidation or pleural effusion. No p neumothorax. IMPRESSION: No acute findings. ACT 112: Negative or not required by law. Electronically signed by: Ancelmo Montalvo M.D. 09/05/2025 2:37 PM
--- NOTE | 2025-09-05 15:48 | CT Scan Report ---
CT SCAN OF THE BRAIN WITHOUT IV CONTRAST CLINICAL HISTORY: Dizziness. COMPARISON STUDY: CT of the brain dated 08/06/2025. TECHNIQUE: Unenhanced CT scan of the brain is performed from the vertex to the skull base. Images are reviewed in the axial, sagittal, coronal planes. A dose lowering technique was utilized adhering to the principles of ALARA. CT DOSE: 625.8 mGy.cm FINDINGS: Brain parenchyma: There is age-related involutional change noting moderate subcortical and periventri cular microangiopathic disease. There is no hemorrhage, mass effect, or evidence of acute territorial ischemia by CT criteria. [place]acios-white matter differentiation is preserved. No extra-axial fluid collec tion is seen. Ventricles, sulci, cisterns: Prominent secondary to involutional change. Intracranial vasculature: There is atherosclerotic calcification of the cavernous carotid and vertebr al arteries. Calvarium: Unremarkable. Sinuses and mastoids: The visualized paranasal sinuses are clear. The mastoid air cells are well pneu matized. Orbits: The bony orbits are grossly intact. There are bilateral ocular lens implants. IMPRESSION: There is no hemorrhage, mass effect, or evidence of acute territorial ischemia by CT grant shultz. ACT 112: Negative or not required by law. Electronically signed by: Uriel Eubanks M.D. 09/05/2025 3:46 PM
[2025-09-05] MEDS: LABETALOL HCL IV 5 MG/ML 20ML IV STA (16:34)
[2025-09-05] MEDS: MECLIZINE HCL 25 MG TAB PO STA (16:40)
--- NOTE | 2025-09-05 17:32 | History & Physical Report ---
Date of Service September 05, 2025 Assessment & Plan (1) Dizziness: (2) Headache: (3) Diabetes mellitus, type 2: Plan Jacy is 85 yo female admitted with hypertensive urgency likely 2/2 to pain in her hip. She does take home medications regular and admits no new change in diet recently. #HTN urgency - BP in 200s on arrival - Improved S/P Labetolol at ED. - Blood pressure jumped up when I was doing hip exam, makes me feel probably pain is the reason. - CBC, CMP unremarkable, no end organ damage - Troponin WNL Plan: Admit to med/surg tele Continue home med: Hydralazine 120/ Losartan 25 bid Labetolol 10 mg IV stat if SBP/DBP> 200/110 #Dizziness - D/D: HTN urgency vs Migraine vs Pain. - Check for orthostatic in AM. - CBC, CMP unremarkable #L Hip pain: - Arthritis vs fracture vs other - XR pelvis ordered. - Pain control : Tylenol PRN #DM: Diet controlled. DIspo: Admit to med/surg tele Code: conditional code. Pt mentions try to save me for initial 10 minute, if that fails no more steps. DVT: non pharma History of Present Illness Primary Care Provider: Clara Sarkar DO Patient is a 85-year-old female who presents to the ER with a PMH of HTN, DM. She checks her blood pressure regularly at home and found the number was really high like in 200s, she also felt dizzy initially which did not last long though. Mild headache, nothing like worse headache of life. She was taking medicine regularly. No chest pain or shortness of breath. No belly pain. No nausea, vomiting or diarrhea. No dysuria, urgency or frequency. No other exacerbating or remitting factors. She did not take unsual food yesterday, no extra salt. She lives by herself in [place]. Son who is nearby helps her too. She uses walker/canes to walk. She called EMS as she was dizzy and came to ED She does have left hip pain of almost 6 months long. She feels that her left leg is much heavier than right and it does not just feel right. She does admit lying on right lateral position with left leg internally rotated with pillow in between helps. She has not walked outside that much recently, however if she tries to walk for long time, it does hurt in her hip. It;s not that every steps hurt. On arrival BP was 209/96, she got one dose of labetalol in ED and also Meclizine. Then her blood pressure was better. CT head w/o contrast was done and was normal CBC, CMP remains unremarkable Troponin unremarkable Code status discussed; Conditional code. Pt mentions try to save me for initial 10 minute, if that fails no more steps. Allergies Allergy/AdvReac Type Severity Reaction Status Date / Time amoxicillin AdvReac Intermediate upset Verified 08/18/25 14:29 stomach cefdinir AdvReac Intermediate Diarrhea Verified 08/18/25 14:29 ciprofloxacin [From Cipro] AdvReac Intermediate Diarrhea Verified 08/18/25 14:29 doxycycline AdvReac Intermediate decreased Verified 08/18/25 14:29 urine output escitalopram AdvReac Intermediate decreased Verified 08/18/25 14:29 urine output fenofibrate AdvReac Intermediate Abdominal Verified 08/18/25 14:29 Pain fluticasone AdvReac Intermediate Dizziness Verified 08/18/25 14:29 gabapentin AdvReac Intermediate abdominal Verified 08/18/25 14:29 pain and drowsy gemfibrozil [From Lopid] AdvReac Intermediate upset Verified 08/18/25 14:29 stomach irbesartan AdvReac Intermediate Diarrhea Verified 08/18/25 14:29 lisinopril AdvReac Intermediate hypertension Verified 08/18/25 14:29 and diarrhea meclizine AdvReac Intermediate Drowsy Verified 08/18/25 14:29 memantine AdvReac Intermediate stomach Verified 08/18/25 14:29 pains prednisone AdvReac Intermediate feels Verified 08/18/25 14:29 agitated Svwhnpz-SCS-UaU Reductase AdvReac Intermediate myalgia Verified 08/18/25 14:29 Inhibitor [Wvpofzw-Ywm-Qog Reductase Inhibitor] tizanidine AdvReac Intermediate nightmares Verified 08/18/25 14:29 tramadol AdvReac Intermediate insomnia/pr Verified 08/18/25 14:29 uitus pitavastatin [From Livalo] AdvReac Unknown Unknown Verified 08/18/25 14:29 trazodone AdvReac Unknown Unknown Verified 08/18/25 14:29 Home Medications Medication Instructions Recorded Confirmed Type calcium 600 mg (as 1 tab PO BID #60 tabs 05/10/21 09/05/25 Rx carbonate)-vitamin D3 10 mcg (400 unit) tablet (Calcium 600 + D(3)) omega-3 acid ethyl esters 1 gram 1 cap PO DAILY 11/09/21 09/05/25 History capsule xuugmvbplbvz-uszizhsj-rurkub tablet 1 tab PO DAILY #90 tabs 12/13/21 09/05/25 Rx aspirin 81 mg tablet,delayed 81 mg PO QAM #30 tabs 05/09/23 09/05/25 Rx release magnesium oxide 400 mg PO BID 08/27/23 09/05/25 History fluticasone propionate 50 2 spray intranasal UD 01/27/25 09/05/25 History mcg/actuation nasal spray,suspension (Flonase Allergy Relief) clopidogrel 75 mg tablet (Plavix) 75 mg PO DAILY #90 tabs 02/14/25 09/05/25 Rx losartan 25 mg tablet 25 mg PO BID #60 tabs 04/15/25 09/05/25 Rx triamcinolone acetonide 0.1 % 1 applic topical DAILY PRN itching 04/15/25 09/05/25 Rx topical cream #30 grams potassium chloride 10 mEq 10 meq PO DAILY #90 caps 05/05/25 09/05/25 Rx capsule,extended release verapamil 120 mg 24 hr 120 mg PO HS #90 caps 05/11/25 09/05/25 Rx capsule,extended release estradiol 0.01% (0.1 mg/gram) 1 applic vaginal 3XWK #42.5 grams 05/27/25 09/05/25 Rx vaginal cream lidocaine 5 % topical patch 1 patch topical DAILY PRN Pain 08/06/25 09/05/25 History (Lidoderm) cetirizine 10 mg tablet (Zyrtec) 10 mg PO DAILY allergy symptoms 08/22/25 09/05/25 Rx #30 tabs Past Med/Surg History Problem List (Updated 09/05/25 @ 16:49 by Calixto To DO) Headache (Acute) Blood glucose elevated (Acute) Dizziness (Acute) Migraine Ambulatory dysfunction (Acute) Vaginal atrophy Lumbosacral radiculopathy at S1 Allergic rhinitis Diabetes mellitus, type 2 Chronic cerebral ischemia Arthritis of wrist Lumbar facet joint syndrome Spinal stenosis, lumbar region without neurogenic claudication Mild cognitive impairment Venous insufficiency (chronic) (peripheral) Anxiety and depression Hypertension (Acute) Insomnia Osteopenia History of recurrent TIAs GERD (gastroesophageal reflux disease) Dyslipidemia Medical History History of CVA (cerebrovascular accident) 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) Sacroiliitis Lumbar pain with radiation down left leg Dizziness Cognitive impairment Hypertensive emergency Leg swelling Numbness and tingling Hypertensive urgency Left sided numbness Left leg weakness Weakness of left leg Stroke-like symptoms TIA (transient ischemic attack) (11/2021) Chronic kidney disease, stage 3 (moderate) Surgical History S/P blepharoplasty History of carpal tunnel surgery S/P appendectomy S/P cholecystectomy Hx of neck surgery Previous back surgery Family History Father Myocardial infarction Prostate cancer Coronary heart disease Mother Stroke, Onset Age: 72 Myocardial infarction, Onset Age: 76 Hypertension Diabetes Brother Cancer Sister Hodgkins disease Sister Coronary heart disease Brother Diabetes Denies family history of Ovarian cancer Breast cancer Colorectal cancer Social History Smoking Status: Never smoker Second Hand Exposure: No; Do You Dip or Chew Tobacco: No; Hx Alcohol Use: No Hx Substance Use: No Preferred Language: Occitan Communication Ability: Effective Visual Impairment: No Limitations Hearing Ability: Normal Veneer Drier Required: No Beliefs That Will Affect Care: None and Spiritual marital status: Current Living Situation: Alone Current Living Situation Comment: Son helps as needed and visits regularly. 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59 Feels Safe at Home: Yes Childhood Exposure to Second-Hand Smoke: No Diet: other Diet Comment: low sugar caffeine: No during the past year weight has: remained stable Dental Care, Regularly: No Physical Activity Frequency: Other Seatbelt Use: always Sunscreen Use: Yes Assistive Devices: Cane, Denture - Upper, Denture - Lower, Glasses and Walker Physical Exam Physical Exam: Constitutional: Frail looking but Well appearing, No acute distress, Pale HEENT: Atraumatic, Normocephalic, No conjunctival injection CVS: S1 S2 no murmur, Regular Rhythm, no LE edema Respiratory: BL equal air entry with NVBS. No rhonchi, wheezes, or crackles. No increased work of breathing GI: Soft, Nondistended, Nontender, Normal Bowel sounds + MSK: Pt remained in right lateral position with her left leg crossed and ? internally rotated. Can straighten her left leg however painful. ?femoral trochanter felt prominent in contrast to muscle. Skin: Warm, Dry, No rashes Neuro: Alert, Oriented to TPP, No Focal deficit Psych: Mood and Affect congruent, Cooperative on exam Results & Data Results & Data Vital Signs (Past 12 Hours) Vital Signs Pulse Resp BP Pulse Ox O2 Del Method 09/05/25 16:34 70 174/81 H 09/05/25 13:41 63 16 209/96 H 96 Room Air 09/05/25 13:34 65 Supervising Physician Co-Signing Physician Notes I personally examined the patient and verified all cortes points of history and exam, discussed case, and agree with decision making with Dr Brink A little bit of a difficult historian, but it sounds like she woke up not feeling so good, headache and kind of dizzy, and then later her home nurse came and checked her blood pressure and found it to be about 200. Now she feels better. Vitals noted, in general she is awake and alert pleasant no distress. HEENT normocephalic atraumatic mucous membranes moist. Breathing unlabored no accessory muscle use good effort. Neuro shows no focal deficits. Labs and diagnostics noted. Hypertensive crisisheadache and dizzinessdoing better now. Gentle medication adjustments, follow closely. Otherwise as above. (2) Headache Headache chronicity pattern: unspecified pattern Headache type: unspecified Intractability: not intractable Qualified Code(s): R51.9 - Headache, unspecified
--- NOTE | 2025-09-05 18:39 | XRay Report ---
INDICATION: Pain TECHNIQUE: Frontal pelvis and 2 views of the left hip were obtained. COMPARISON: None FINDINGS: No displaced acute osseous process is identified. Mild osteoarthritis of the left hip joint. Severe osteoarthritis of the right hip joint. Enthesopathic changes over the greater trochanter. IMPRESSION: No displaced acute osseous process is identified. Electronically signed by Renaldo Jama 09-05-2025 6:38 PM
[2025-09-05] MEDS ORDERED: ACETAMINOPHEN 325 MG TAB PO PRN (20:00)
[2025-09-05] MEDS ORDERED: ALUMINUM/MAGNESIUM SUSP 30 ML UDC PO PRN (20:00)
[2025-09-05] MEDS ORDERED: MELATONIN 3 MG TAB PO PRN (20:00)
[2025-09-05] MEDS ORDERED: POLYETHYLENE (MIRALAX) 17 GM PACK PO PRN (20:00)
[2025-09-05] MEDS ORDERED: LIDOCAINE 5% 1 PATCH TD PRN (20:00)
[2025-09-05] MEDS ORDERED: LABETALOL HCL IV 5 MG/ML 20ML IV PRN (20:00)
[2025-09-05] MEDS: MAGNESIUM OXIDE 400 MG TAB PO SCH (20:39)
[2025-09-05] MEDS: VERAPAMIL HCL 120 MG TABCR PO SCH (20:39)
[2025-09-05] MEDS: LOSARTAN POTASSIUM 25 MG TAB PO SCH (20:40)
[2025-09-05] MEDS: FLUTICASONE PROPIONATE NA SPR 16 GM BTL SCH (20:44)
[2025-09-05] MEDS: CALCIUM 600MG + VIT D 400 IU TAB PO SCH (20:44)
[2025-09-05] MEDS: REMOVE LIDODERM PATCH SCH (22:06)
[2025-09-05] MEDS: FAMOTIDINE 40 MG TABLET PO ONE (23:03)
[2025-09-06 00:48] VITALS: RESP 18
[2025-09-06 03:47] VITALS: BP 128/75; TEMP 97.5; O2SAT 95
[2025-09-06] MEDS ORDERED: HYDROmorphone INJ 0.5 MG/0.5 ML SYR IV PRN (07:13)
[2025-09-06] MEDS: CEROVITE ADV FORMULA TAB PO SCH (08:08)
[2025-09-06] MEDS: ASPIRIN 81 MG ECTAB PO SCH (08:08)
[2025-09-06] MEDS: CLOPIDOGREL BISULFATE 75 MG TAB PO SCH (08:08)
[2025-09-06] MEDS: OMEGA-3 (PURIFIED FISH OIL) 1 GM CAP PO SCH (08:08)
[2025-09-06] MEDS: CETIRIZINE HCL 10 MG TABLET PO SCH (08:09)
[2025-09-06] MEDS ORDERED: LABETALOL HCL IV 5 MG/ML 20ML IV PRN (08:10)
[2025-09-06 09:26] LABS: Anion Gap 7.0 (3-11); Blood Urea Nitrogen 17.0 mg/dl (6-23); Carbon Dioxide 28.0 mmol/L (21-32); Chloride 103.0 mmol/L (98-107); Potassium 4.0 mmol/L (3.5-5.1); Sodium 138.0 mmol/L (136-145)
[2025-09-06 09:27] LABS: Calcium 10.2 mg/dl (8.6-10.3); Creatinine Clr Calc Pharmacy 37.6 ml/min; Glucose 119.0 mg/dl (70-99(Fasting))
--- NOTE | 2025-09-06 09:45 | Hospitalist Progress Note ---
Date of Service September 06, 2025 Assessment & Plan (1) Dizziness: (2) Headache: (3) Diabetes mellitus, type 2: Plan Jacy is 85 yo female admitted with hypertensive urgency likely 2/2 to pain in her hip. She does take home medications regular and admits no new change in diet recently. #HTN urgency - BP in 200s on arrival - Improved S/P Labetolol at ED. - Blood pressure jumped up when I was doing hip exam, makes me feel probably pain is the reason. - CBC, CMP unremarkable, no end organ damage - Troponin WNL Plan: Admit to med/surg tele Continue home med: Hydralazine 120/ Losartan 25 bid Labetolol 10 mg IV stat if SBP/DBP> 200/110 #Dizziness - D/D: HTN urgency vs Migraine vs Pain vs Deconditioning. - Check for orthostatic pending. - CBC, CMP unremarkable Plan: OT/PT eval. #L Hip pain: Biomechanical hip pain 2/2 arthritis and weak muscles. - XR: Arthritis changes - Pain control : Tylenol PRN - Dilaudid if needed. - OT/PT eval. #DM: Diet controlled. DIspo: Admit to med/surg tele Code: conditional code. Pt mentions try to save me for initial 10 minute, if that fails no more steps. DVT: non pharmacological. Admission and Anticipated Discharge Date Admission Date: September 05, 2025 Subjective Jacy says she is still feeling the same this morning. My head feels "heavy and dizzy dizzy" she said. Her hips does not hurt now because she is not walking around. She was eating breakfast on table when i was in room, finished almost half of it. Bedside nurse had no overnight concern. Review of Systems Review of Systems: Per hPI Physical Exam Physical Exam: Constitutional: F rail looking but W ell appearing, No acute distress, Pa le HEENT: Atraumat ic, Normocephalic, No conjunctival i njection CVS: Well perfused. Respir atory: No increase d work of breathin g GI: Nondistende d MSK: Pt looks fr ail and deconditio jos on MSK, No foc al deficit. Skin: Warm, Dry, No rash es Neuro: Alert, O riented to TPP, No Focal deficit Psy ch: Mood and Affec t congruent, Coope rative on exam Results & Data Results & Data Vital Signs (Past 12 Hours) Vital Signs Temp Pulse Pulse Resp BP BP Pulse Ox 09/06/25 03:46 36.4 C L 59 L 18 128/75 95 09/06/25 01:00 36.5 C 68 18 123/69 93 09/05/25 22:04 73 178/100 H O2 Del Method 09/06/25 03:46 Room Air 09/06/25 01:00 Room Air 09/05/25 22:04 Resident Activity Tracking Resident Involvement: Resident Care Provided Care Provided: Adult Hospital Medicine (2) Headache Headache chronicity pattern: unspecified pattern Headache type: unspecified Intractability: not intractable Qualified Code(s): R51.9 - Headache, unspecified
[2025-09-06] MEDS ORDERED: DICLOFENAC SOD 1% GEL 100 GM TUBE EXT SCH (10:00)
--- NOTE | 2025-09-06 11:53 | Discharge Summary ---
Date of Service September 06, 2025 Admission HPI Per Admitting Provider Patient is a 85-year-old female who presents to the ER with a PMH of HTN, DM. She checks her blood pressure regularly at home and found the number was really high like in 200s, she also felt dizzy initially which did not last long though. Mild headache, nothing like worse headache of life. She was taking medicine regularly. No chest pain or shortness of breath. No belly pain. No nausea, vomiting or diarrhea. No dysuria, urgency or frequency. No other exacerbating or remitting factors. She did not take unsual food yesterday, no extra salt. She lives by herself in [place]. Son who is nearby helps her too. She uses walker/canes to walk. She called EMS as she was dizzy and came to ED She does have left hip pain of almost 6 months long. She feels that her left leg is much heavier than right and it does not just feel right. She does admit lying on right lateral position with left leg internally rotated with pillow in between helps. She has not walked outside that much recently, however if she tries to walk for long time, it does hurt in her hip. It;s not that every steps hurt. On arrival BP was 209/96, she got one dose of labetalol in ED and also Meclizine. Then her blood pressure was better. CT head w/o contrast was done and was normal CBC, CMP remains unremarkable Troponin unremarkable Code status discussed; Conditional code. Pt mentions try to save me for initial 10 minute, if that fails no more steps. Admission Exam Per Admitting Provider Constitutional: Frail looking but Well appearing, No acute distress, Pale HEENT: Atraumatic, Normocephalic, No conjunctival injection CVS: S1 S2 no murmur, Regular Rhythm, no LE edema Respiratory: BL equal air entry with NVBS. No rhonchi, wheezes, or crackles. No increased work of breathing GI: Soft, Nondistended, Nontender, Normal Bowel sounds + MSK: Pt remained in right lateral position with her left leg crossed and ? internally rotated. Can straighten her left leg however painful. ?femoral trochanter felt prominent in contrast to muscle. Skin: Warm, Dry, No rashes Neuro: Alert, Oriented to TPP, No Focal deficit Psych: Mood and Affect congruent, Cooperative on exam Principal Diagnosis Hypertensive Urgency Dizziness Vertigo Discharge Exam Constitutional: Frail looking but Well appearing, No acute distress, Pale HEENT: Atraumatic, Normocephalic, No conjunctival injection CVS: S1 S2 no murmur, Regular Rhythm, no LE edema Respiratory: BL equal air entry with NVBS. No rhonchi, wheezes, or crackles. No increased work of breathing GI: Soft, Nondistended, Nontender, Normal Bowel sounds + MSK: Pt is overall frail, femoral trochanter is felt prominent on exam, Likely d/t weak muscle. Skin: Warm, Dry, No rashes Neuro: Alert, Oriented to TPP, No Focal deficit Psych: Mood and Affect congruent, Cooperative on exam Discharge Data Allergies Allergy/AdvReac Type Severity Reaction Status Date / Time amoxicillin AdvReac Intermediate upset Verified 08/18/25 14:29 stomach cefdinir AdvReac Intermediate Diarrhea Verified 08/18/25 14:29 ciprofloxacin [From Cipro] AdvReac Intermediate Diarrhea Verified 08/18/25 14:29 doxycycline AdvReac Intermediate decreased Verified 08/18/25 14:29 urine output escitalopram AdvReac Intermediate decreased Verified 08/18/25 14:29 urine output fenofibrate AdvReac Intermediate Abdominal Verified 08/18/25 14:29 Pain fluticasone AdvReac Intermediate Dizziness Verified 08/18/25 14:29 gabapentin AdvReac Intermediate abdominal Verified 08/18/25 14:29 pain and drowsy gemfibrozil [From Lopid] AdvReac Intermediate upset Verified 08/18/25 14:29 stomach irbesartan AdvReac Intermediate Diarrhea Verified 08/18/25 14:29 lisinopril AdvReac Intermediate hypertension Verified 08/18/25 14:29 and diarrhea meclizine AdvReac Intermediate Drowsy Verified 08/18/25 14:29 memantine AdvReac Intermediate stomach Verified 08/18/25 14:29 pains prednisone AdvReac Intermediate feels Verified 08/18/25 14:29 agitated Yclplrf-ZNC-UxZ Reductase AdvReac Intermediate myalgia Verified 08/18/25 14:29 Inhibitor [Zuyzqmh-Bmo-Gnd Reductase Inhibitor] tizanidine AdvReac Intermediate nightmares Verified 08/18/25 14:29 tramadol AdvReac Intermediate insomnia/pr Verified 08/18/25 14:29 uitus pitavastatin [From Livalo] AdvReac Unknown Unknown Verified 08/18/25 14:29 trazodone AdvReac Unknown Unknown Verified 08/18/25 14:29 Consultations 09/05/25 16:01 ED Decision to Admit Stat Ordered Studies 09/05/25 15:24 CT head/brain wo con Stat Hospital Course (1) Dizziness: (2) Headache: (3) Diabetes mellitus, type 2: Plan Jacy admitted with hypertensive urgency likely 2/2 to pain in her hip. She does take home medications regular and admits no new change in diet recently. She also had some dizziness and vertigo. #HTN urgency - BP in 200s on arrival - Improved S/P Labetolol at ED. - CBC, CMP unremarkable, no end organ damage - Troponin WNL. - Overnight monitoring were reassuring. SBP: 123-180/ DBP: 69-100 PLAN: Patient is 85 year, frail person some evidence of orthostatism, who is already on vasodilator and losartan. Increase in dose of medication would do more harm rather than the blood pressure number per se. Hence Continue same home med now. However would focus on pain management for her. She demonstrated BP increase on examining her hip, does have hip osteoarthritis changes on XR. Hence would rather intensify pain regimen and suggest physical therapy . - Continue home med: Hydralazine 120/ Losartan 25 bid #Dizziness/ Vertigo - D/D: HTN urgency vs Migraine vs Pain vs dehydration - CBC, CMP unremarkable Plan: Meclizine, Vestibular therapy and enough hydration should help. If not would recommend ENT eval outpatient. #Hip pain: 2/2 Arthritis - XR pelvis: OA changes demonstrated - Pain control : Tylenol PRN - Recommend Voltaren gel #DM: Diet controlled. Total Time Total Time Spent Total Time Spent (In Minutes): <30 Discharge Plan Discharge Items Patient Disposition: Home - Self-Care Reason For Visit: HYPERTENSION Discharge Diagnosis: Hypertensive urgency. Dizziness. Condition on Discharge: Fair Activity: Resume your previous activity Non-emergency contact: Primary Care Provider Call non-emergency contact if: your symptoms worsen Follow-up/Referrals: Clara Sarkar DO [Primary Care Provider] - 09/13/25 9:20 am Diet: Heart Healthy Addtl Attending Provider Instructions: You were admitted to the hospital for dizziness and high blood pressure. Initial imaging and blood works were unremarkable. You received intravenous blood pressure medication at ED, and responded well to this. You were admitted o vernight, kept in observation, and blood pressure range were better. We think a lot of your dizziness is secondary to dehydration and inner ear issue. We have added Meclizine in your medication list for this, however vestibular physial therapy is most helpful for inner ear issue. Hence we recommend you to establish care with physical therapist who does vestibular therapy. Our case management team have started working on this, you will get a call from them and you need to schedule appointment with them. In addition to this, hydration is really important to you, we recommend you drinking 60 ounces of water a day at least. We would recommend using walker instead of canes for you balance issue. A discharge summary will be sent to your primary care physician to ensure continuity of care. Please bring this discharge summary with you to your next office appointment so that your provider can review it at that time. Medications: Your medication list has been reviewed and reconciled upon discharge to ensure accuracy and continuity of care. An updated list of all your medications is included with your hospital discharge paperwork. Please review this list closely and make note of any changes to your medications. 1. Meclizine 25 mg once daily continue. 2. Continue same previous home medications for your blood pressure. Follow up appointments: - Make a follow up appointment with your PCP within the next week. It is very important that you follow up with them shortly after discharge from the hospital. - Please schedule follow up with physical therapy for vestibular therapy. - Keep all of your follow up appointments as already scheduled. If you cannot make an appointment, notify your provider. CONTACT YOUR PRIMARY CARE PROVIDER if you experience any of the following: - Difficulty following your treatment plan - Difficulty taking any of your medications CALL 911 OR GO TO THE EMERGENCY DEPARTMENT if you experience any of the following: - Sudden, severe abdominal pain or nausea/vomiting - Severe chest pain or chest pain that radiates to your jaw or arm - Sudden, severe shortness of breath or difficulty breathing Pending Studies at Discharge: No Stand-Alone Forms: My [employer], Smoking Cessation Medications and DC Order Prescriptions: New meclizine 25 mg tablet 25 mg PO DAILY Qty: 20 0RF Continued calcium carbonate-vitamin D3 [Calcium 600 + D(3)] 600 mg(1,500mg) -400 unit tablet 1 tab PO BID Qty: 60 0RF oosctrqcgkcf-valrnwqh-vmpbvf Tablet 1 tab PO DAILY Qty: 90 1RF Rx Instructions: OTC unable to verify clopidogrel [Plavix] 75 mg tablet 75 mg PO DAILY Qty: 90 3RF potassium chloride 10 mEq capsule, extended release 10 meq PO DAILY Qty: 90 1RF estradiol 0.01 % (0.1 mg/gram) cream 1 applic VAGINAL 3XWK Qty: 42.5 3RF cetirizine [Zyrtec] 10 mg tablet 10 mg PO DAILY Qty: 30 4RF magnesium oxide 400 mg magnesium capsule 400 mg PO BID verapamil 120 mg capsule,ext rel. pellets 24 hr 120 mg PO HS Qty: 90 1RF losartan 25 mg tablet 25 mg PO BID Qty: 60 5RF triamcinolone acetonide 0.1 % cream 1 applic topical DAILY PRN (Reason: itching) Qty: 30 1RF omega-3 acid ethyl esters 1 gram capsule 1 cap PO DAILY Rx Instructions: OTC unable to verify aspirin 81 mg Tablet,Delayed Release (Dr/Ec) 81 mg PO QAM Qty: 30 5RF Rx Instructions: OTC unable to verify fluticasone propionate [Flonase Allergy Relief] 50 mcg/actuation spray,suspension 2 spray INTNAS UD Rx Instructions: 2 spray intas daily. otc/no fill history available unable to verify lidocaine [Lidoderm] 5 % adhesive patch,medicated 1 patch topical DAILY PRN (Reason: Pain) Rx Instructions: APPLY on most painful area for up to 12 hrs Discharge Orders: Discharge Order (Routine); Ordered 09/06/25 Ordered By: Vivien Brink Admission Data Admit Date/Time: 09/05/25 18:15 Attending Provider: Calixto Mazariegos Admit Provider: Josie Brink Primary Care Provider: Clara Sarkar Other Providers: Wil [facility] Other Interventions: Discharge Summary Assessment (RN) Last Done: 09/06/25 13:42 Supervising Physician Co-Signing Physician Notes I personally examined the patient and verified all cortes points of history and exam, discussed case, and agree with decision making with Dr Keena escamilla. After further questioning, it seems to be both a vertiginous dizziness that happens from time to time, separately, she has a lightheadedness on standing that seems to happen from time to time as well. She overall feels much better and feels good to go home. Vitals noted, in general she is awake and alert pleasant no distress. HEENT normocephalic atraumatic mucous membranes moist. Breathing unlabored no accessory muscle use good effort. Neuro shows no focal deficits. Labs and diagnostics noted. We took a nice long walk around the unitshe uses a walker but with the walker she has a very steady gait, she discusses some dizziness, really it only gets worse whenever I have her look at the ground while she is walking, but otherwise she does well. Is able to navigate the room well and get in and out of bed on her own. Possible Hypertensive crisis with hindsight, and with being able to get a better history from her (she is a bit of a difficult historian) I suspect the blood pressure was actually reactive to feeling lousy from her dizzy sensations. See below dizzinessseems to be 2 different processes, vertiginous and lightheadedness - vertigogiven that is episodic, although months between episodes, it is probably some semblance of labyrinthitis versus BPPVeither way she is doing well enough to get home, and I have recommended that she get set up with vestibular physical therapy - lightheadednesslikely from poor p.o. fluid intakerecommended more liberal p.o. fluid intake, anticipate quick resolution with this safe/stable for home
[2025-09-06 13:45] VITALS: PULSE 73
--- NOTE | 2025-09-06 19:22 | Billing Data ---
Date of Service September 06, 2025 Coding Level of Care Code 69532 IN/OBS DISCH 30 MIN/LESS
== END 2025-09-06 13:41 | disposition home health service (06) ==
LOC: ED 13:22 → EDINP 13:22 → 2N 20:00